=== PATIENT | female | born 1985 | race Caucasian/White ===

== ENCOUNTER 2022-04-24 07:15 | Outpatient (CLI) | payer BC, SELFPAY ==
--- NOTE | 2022-04-24 07:15 | CRLHL7_ITS ---
For Patients: As a result of the Century Cures Act, medical imaging exams and procedure reports are released immediately into your electronic medical record. You may view this report before your referring provider. If you have questions, please contact your health care provider. INDICATION: check cervical length COMPARISON: 03/05/2022 TECHNIQUE: Limited pelvic ultrasound with transvaginal technique for cervical length measurements. FINDINGS: The cervix is closed and measures 3.8 cm. Incidental small nabothian cysts are present. No funneling. IMPRESSION: Cervix is closed and measures 3.8 cm by transvaginal technique. Dictated by Storm Parker MD @ 04/24/2022 8:53:16 AM (Electronically Signed)
== END 2022-04-24 07:16 | disposition home or self-care (01) ==
LOC: US 07:16
PROVIDERS: Visit Provider Obstetrics & Gynecology
DX: Z36.86 Encounter for antenatal screening for cervical length (principal); O34.80 Maternal care for other abnormalities of pelvic organs, unspecified trimester; Z3A.00 Weeks of gestation of pregnancy not specified; Z87.59 Personal history of other complications of pregnancy, childbirth and the puerperium
CPT/HCPCS: 76817

== ENCOUNTER 2022-05-10 14:56 | Outpatient (CLI) | payer BC, SELFPAY ==
--- NOTE | 2022-05-10 15:00 | CRLHL7_ITS ---
For Patients: As a result of the Cures Act, medical imaging exams and procedure reports are released immediately into your electronic medical record. You may view this report before your referring provider. If you have questions, please contact your health care provider. INDICATION: cx length check. COMPARISON: 04/24/2022 TECHNIQUE: Transabdominal and transvaginal imaging of the cervix performed. FINDINGS: Sonographic imaging demonstrates a single living intrauterine gestation. Fetus demonstrates a regular cardiac rate of 159 beats per minute. Fetus has a breech position. The placenta lies posteriorly. The edge of the placenta is located at the internal cervical os. The cervix is closed and measures 4.2 cm. IMPRESSION: With transvaginal imaging, the cervix is closed and measures 4.2 cm. No funneling. The posterior placenta edge abuts the internal cervical os. Dictated by Storm Parker MD @ 05/10/2022 3:51:45 PM (Electronically Signed)
== END 2022-05-10 14:57 | disposition home or self-care (01) ==
LOC: US 14:57
PROVIDERS: Visit Provider Obstetrics & Gynecology
DX: O09.212 Supervision of pregnancy with history of pre-term labor, second trimester (principal); Z3A.18 18 weeks gestation of pregnancy
CPT/HCPCS: 76815; 76817

== ENCOUNTER 2022-05-31 16:24 | Outpatient (CLI) | payer BC, SELFPAY ==
--- OUTSIDE RECORDS SUMMARY | 2022-05-31 16:26 | XMS_ITS | Encounter Summary ---
:1985 Author Organization [facility] Address [address] [place] [address] Care Team Providers Name Role Phone Unavailable Primary Care Provider Unavailable Reason for Visit Reason Comments Communication Encounter Details Date Type Department Care Team Description 10/21/2020 Clinical Communication [facility], Horacio Cisneros, Communication [facility], [address] [place] [address] MAR Third Floor [place], [place] [address] [address] [place], [place] [phone] (Work) [phone] Social History Tobacco Use Types Packs/Day Years Used Date Smoking Tobacco: Never Smokeless Tobacco: Never Alcohol Use Standard Drinks/Week Comments Not Currently 0 (1 standard drink = 0.6 oz pure alcoho l) Alcohol Habits Answer Date Recorded How often do you have a drink containing alcohol? 2-4 times a month 12/12/2020 How many drinks containing alcohol do you have on a or 2 12/12/2020 typical day when you are drinking? How often do you have six or more drinks on one Less than mo nthly 12/12/2020 occasion? Comment: Not asked Social Isolation Answer Date Recorded In a typical week, how many times do you More than three fletcher es a week 12/12/2020 talk on the phone with family, friends, or neighbors? How often do you get together with friends Twice a week 12/12/2020 or relatives? How often do you attend bahai or 1 to 4 times per year 11/22 hinduism services? Do you belong to any clubs or No 12/12/2020 organizations such as bahai groups, unions, fraternal or athletic groups, or school groups? How often do you attend meetings of the Never 12/12/2020 clubs or organizations you belong to? Are you now , , , 12/12/2020 , never or living with a partner? Physical Activity Answer Date Recorded On average, how many days per week do you engage in moderate to 1 day 12/12/2020 strenuous exercise (like walking fast, running, jogging, dancing, swimming, biking, or other activities that cause a light or heavy sweat)? On average, how many minutes do you engage in exercise at is 10 min 12/12/2020 level? Stress Answer Date Recorded Do you feel stress - tense, restless, nervous, or To some ex tent 12/12/2020 anxious, or unable to sleep at night because your mind is troubled all the time - these days? Financial Resource Strain Answer Date Recorded How hard is it for you to pay for the very basics like Not h vickie at all 12/12/2020 food, housing, medical care, and heating? Food Insecurity Answer Date Recorded Within the past 12 months, you worried that your food would Never true 12/12/2020 run out before you got money to buy more. Within the past 12 months, the food you bought just didn't N ever true 12/12/2020 last and you didn't have money to get more. Transportation Needs Answer Date Recorded In the past 12 months, has lack of transportation kept you f rom No 12/12/2020 medical appointments or from getting medications? In the past 12 months, has lack of transportation kept you f rom No 12/12/2020 meetings, work, or getting things needed for daily living? Sex Assigned at Date Recorded Not on file documented as of this encounter Miscellaneous Notes Telephone Encounter - Gennaro Cisneros R.N. - 10/21/2020 9:29 AM CST SUBJECTIVE CHIEF COMPLAINT / REASON FOR CALL Communication ASSESSMENT Patient calling with concern for presentation in the vagina. States she can feel the baby very low when she went to the bathroom. States she is able to feel her in the vagina. Patient d/c from unit on 10/20/20 for previable PPROM. Gestation 21.4 today. Patient want to know where to be seen. She is an hour from [place] and 20 min from [place]. PLAN Discussed with Dr Bowman and [facility] Room RN. Patient advised to be seen immediately at nearest facility. Disposition/Recommendation: referral for services Nearest ED or OB Facility. Information/Education: patient/caller able to teach back. Caller agreeable to plan of care: yes. The following references were used: provider Dr Bowman. EACH LIBRARIAN documented in this encounter Plan of Treatment Not on filedocumented as of this encounter Visit Diagnoses Not on filedocumented in this encounter
--- OUTSIDE RECORDS SUMMARY | 2022-05-31 16:26 | XMS_ITS | Encounter Summary ---
:1985 Author Organization [facility] Address [address] [place] [address] Care Team Providers Name Role Phone Unavailable Primary Care Provider Unavailable Reason for Visit Outpatient (Routine) - Closed Specialty Diagnoses / Procedures Referred By Contact Refer red To Contact Maternal and Diagnoses Premature Rupture Of Membranes Unspecified As To Length Of Time Between Rupture And Onset Of Labor Second Trimester ([facility]) 21 Weeks Gestation ([facility]) [facility] Janelle Dominguez M.D. [address] [place] [address] Referral ID Status Reason Start Date Expiration Date Visits Requ ested Visits Authorized [id number] Closed 11/02/2020 11/02/2021 1 1 Encounter Details Date Type Department Care Team Description 12/16/2020 Telemedicine Department of Saqib Strong, Diana ture Rupture Of Membranes Unspecified As To Length Of Time Between Rupture And Onset Of Labor Second Trimester; Obstetrics and M.D. 21 Weeks Gestation Gynecology in [address] [place] [address] [place] [place] [id number] [place], [place] [phone] (Work) [phone] Social History Tobacco Use Types Packs/Day Years Used Date Smoking Tobacco: Never Smokeless Tobacco: Never Alcohol Use Standard Drinks/Week Comments Not Currently 0 (1 standard drink = 0.6 oz pure alcoho l) Alcohol Habits Answer Date Recorded How often do you have a drink containing alcohol? 2-4 times a month 12/12/2020 How many drinks containing alcohol do you have on a 1 or 2 12/12/2020 typical day when you [...] or relatives? How often do you attend taoist or 1 to 4 times per year 11/22 jew services? Do you belong to any clubs or No 12/12/2020 organizations such as taoist groups, unions, fraternal or athletic groups, or [...] minutes do you engage in exercise at th is 10 min 12/12/2020 level? Stress Answer [...] or getting things needed for daily living? Education Answer Date Recorded What is the highest level of school Associate degree: zonia valdovinos, 12/11/2020 you have completed or the highest technical, or vocational p [facility] degree you have received? Sex Assigned at Date Recorded Not on file documented as of this encounter Consult Notes Saqib Strong M.D. - 12/16/2020 8:00 AM CST Consult conducted via real-time audio/video technology by Saqib Strong M.D. in [facility] to the patient in patient home. 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 Mrs. Salinas's obstetrical history is significant for three term vaginal deliveries and one first-trimester miscarriage. In her fifth (2019), she was admitted o [facility] following spontaneous PPROM at 21 weeks gestation. Ultrasound demonstrated normal anatomy and biometry; olig ohydramnios was noted (as anticipated). After an interval of inpatient observation, Mrs. Salinas and her elected to pursue expectant management and were discharged to home. Subsequently she developed labor at 21 weeks and delivered her daughter in [place]; her daughter appeared morphologically normal, and survived for approximately 60 minutes. Difficulty was encountered with retained placenta, requiring manual extraction and D&C; Mrs. Salinas was treated with a course of intravenous antibiotic therapy. 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 Salinas experienced retained placenta requiring manual extraction in her first as well. Regarding her heterozygous prothrombin [id number] heterozygote status, Mrs. Salinas was screening for thrombophilias after an aunt experienced an episode of thrombosis and tested positive for Factor V Leiden and the Prothrombin [id number] mutation; neither she personally nor any first-degree relatives have experienced an episode of thrombosis. MEDICAL HISTORY: None SURGICAL HISTORY: D&C (2) GYNECOLOGIC HISTORY: No abnormal pap smears or STIs MEDICATIONS: vitamins ALLERGIES: Penicillin (rash) Salicylates (glossal edema) although no difficulties with ibuprofen SOCIAL: No tobacco or alcohol use; no previous blood transfusions. There is no maternal or paternal history of congenital anomalies or genetic syndromes (other than the Prothrombin mutation). Mrs. Salinas and I discussed management of future : * Recurrence risk of previable PPROM is approximately 17%, with overall rate of delivery of 46% in the subsequent . ([place] 2016) Potentially beneficial interventions (presuming richardson gestation) include: - 17-hydroxyprogesterone prophylaxis beginning at 16-20 weeks and continuing through 36 weeks (inclusive), although therapeutic efficacy has been questioned in the recent PROLONG (2019) trial. - Sonographic serial cervix length surveillance from 16-22 weeks, with consideration of cerclage placement if cervix length shortens to <25mm. In regards to future management, I would consider: Antepartum: 1.Preconception supplementation with vitamins containing folic acid to reduce risk of fetalspina bifida. 2. Once Mrs. Salinas and her conceive, early ultrasound (7-8 weeks) to determine viability/number and define gestational age. (in [place]) 3. Maternal cystic fibrosis/SMA and aneuploidy screening at 10-12 weeks (per her preference). 4. Consideration of early anatomic ultrasound at 11-14 weeks. 5. Sonographic cervix length surveillance beginning at 16 weeks and repeated weekly through 22 6/7 weeks, with contingent cerclage placement if cervix length shortens to <25mm prior to 23 0/7 weeks.(initial imaging study in [place]) 6. Consideration of 17-hydroxyprogesterone caprate prophylaxis (250mg IM weekly), beginning at 16-20weeks and continuing through 36 weeks. 7. Detailed anatomic survey ultrasound at 18-20 weeks. (in [place]) 8. Repeat ultrasound at 30-32 weeks to evaluate placental appearance for any evidence of accreta. 9. Consider induction of labor at 39 0/7-39 6/7 weeks; this may be scheduled either in [place] or in [place] pending resource availability. Mrs. Salinas resides approximately 1 hour from [place]. Intrapartum: 10. Obtain CBC and type & screen at time of admission. 11. Anesthesiology consultation and maintain two patent IVs. 12. Following delivery, if spontaneous placental delivery does not occur, relocate to an operating room (with uterotonic medications and Bakri balloon immediately available) prior to attempting manual placental extraction or D&C. 13. If hemorrhage were to occur refractory to uterotonic medications and uterine curettage, consider Bakri balloon placement and Interventional Radiology embolization. I have asked Mrs. Salinas to contact me when she and her conceive, and I will arrange for initial appointments in [place]. Further care may be coordinated between [place] and [place]. I will also forward materials regarding placenta accreta occulta. Saqib Strong M.D. ATION COURSES SALES REPRESENTATIVE documented in this encounter Plan of Treatment Not on filedocumented as of this encounter Visit Diagnoses Diagnosis Premature Rupture Of Membranes U nspecified As To Length Of Time Between Rupture And Onset Of Labor Second Trimes ter ([facility]) 21 Weeks Gestation ([facility]) documented in this encounter
--- OUTSIDE RECORDS SUMMARY | 2022-05-31 16:26 | XMS_ITS | Encounter Summary ---
:1985 Author [address] [facility] Address [address] [place] [address] Care Team Providers Name Role Phone Unavailable Primary Care Provider Unavailable Reason for Referral Outpatient (Routine) - Closed Specialty Diagnoses / Procedures Referred By Contact Refer red To Contact Maternal and Diagnoses Premature Rupture Of Membranes Unspecified As To Length Of Time Between Rupture And Onset Of Labor Second Trimester ([facility]) 21 Weeks Gestation ([facility]) [facility] Janelle Dominguez M.D. 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 21 Weeks Gestation [address] [facility] [address] [place] [address] [place], [place] [phone] Social History Tobacco Use Types Packs/Day Years [...] or relatives? How often do you attend methodist or 1 to 4 times per year 11/22 zoroastrian services? Do you belong to any clubs or No 12/12/2020 organizations such as methodist groups, unions, fraTao Sales or athletic groups, or school groups? How [...] on file documented as of this encounter Plan of Treatment Scheduled Referrals Name Type Priority Associated Diagnoses Order S [facility] Obstetrics Referral Outpatient Referral Routine Premat ure Expected: Rupture Of Membranes 021 Unspecified As To (Approxima te), Length Of Time Expires: Between Rupture And 11/02/19 24 Onset Of Labor Second Trimester 21 Weeks Gestation documented as of this encounter Visit Diagnoses Diagnosis Premature Rupture Of Membranes U nspecified As To Length Of Time Between Rupture And Onset Of Labor Second Trimes ter (HCC) - Primary 21 Weeks Gestation (HCC) documented in this encounter
--- OUTSIDE RECORDS SUMMARY | 2022-05-31 16:26 | XMS_ITS | Clinical Summary ---
:1985 Author Organization [facility] Address [address] [place] [address] Care Team Providers Name Role Phone Unavailable Primary Care Provider Unavailable Source Comments Patient records contain information from all sites at [facility]. For routine questions regarding patient records, call [phone] during business hours, M-F 8:00 AM - 5:00 PM Central Time. Record requests for emergency care only can be directed to [phone] at any time.[facility] Allergies Active Allergy Reactions Severity Noted Date Comments Penicillins Rash 10/18/2020 Salicylates Edema 10/18/2020 Swollen tongue Medications Medication Sig Dispensed Refills Start Date End Date Status Take 1 tablet by 0 Act angela llutart-Wm-ymgw-FA mouth daily. (VINATE ONE) 60 mg iron-1 mg per tablet butalbital-acetaminoph TK 1 TO 2 TS PO Q 0 0 Active en-caff (FIORICET, 4 H NEEDED. MAX ESGIC) 50-325-40 mg 6 PER DAY per tablet ibuprofen 0 10/22/2020 Active (ADVIL,MOTRIN) 600 mg tablet Active Problems Problem Noted Date 21 Weeks Gestation 10/18/2020 Premature Rupture Of Membranes Unspecified As To Length Of Time 10/18/2020 Between Rupture And Onset Of Labor Second Trimester Social History Tobacco Use Types Packs/Day Years [...] or relatives? How often do you attend jehovah's witness or 1 to 4 times per year 11/22 denominational services? Do you belong to any clubs or No 12/12/2020 organizations such as jehovah's witness groups, unions, fraternal or athletic groups, or [...] or the highest technical, or vocational p zaki degree you have received? 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 Pulse 81 10/20/2020 12:39 PM C D AREA SUPERVISOR Temperature 37.2 ??C (99 ??F) 10/20/2020 12:39 PM C D AREA SUPERVISOR Respiratory Rate 18 10/20/2020 12:39 PM C D AREA SUPERVISOR Oxygen Saturation 99% 10/20/2020 12:39 PM C D AREA SUPERVISOR Inhaled Oxygen Concentration - - Weight 56.3 kg (124 lb 1.9 oz) 10/19/2020 6:30 AM C D AREA SUPERVISOR Height - - Body Mass Index - - Plan of Treatment Health Maintenance Due Date Last Done Comments Cervical Cancer Screening 1985 Hepatitis B Vaccines (1 of 3 1985 - 3-dose series) Hepatitis C Screening 1985 Depression Screening (Annual 10/21/2021 PHQ-2) COVID-19 Vaccine (3 - Booster 05/01/2022 12/02/2021, for Pfizer series) 11/05/2021 Influenza Vaccine (#1) 2022 08/11/2020, 08/26/2014, 09/15/2012 DTaP,Tdap,and Td Vaccines (3 09/09/2024 09/09/2014, - Td or Tdap) 05/24/2011 HIV Screening Completed 10/18/2020 Pneumococcal vaccine (0-64 Aged Out No lo nger eligible based years) on patient's age to complete this to [facility] Insurance Payer Benefit Plan / Subscriber ID Effective Dates Phone Addre ss Type Group [place] [id number] 2020-[place]uki [phone] [address] PPO BLUE SHIELD [address] [place] [address] Advance Directives For more information, please contact: [phone] Latest Code Status on File Code Status Date Activated Date Inactivated Comments Full Code 10/18/2020 7:51 PM 10/20/2020 2:51 PM Full Code: Not Discussed Due to: Not medically appropriate
--- OUTSIDE RECORDS SUMMARY | 2022-05-31 16:26 | XMS_ITS | Continuity of Care Document ---
:[address] [facility] Address [address] [place] [address]- [facility] [phone] Care Team Providers Name Role Phone Not Known, Provider Primary Care Physician Unavailable [facility] Unavailable Encounter [facility] Unsocial Date(s): 05/23/22 - 05/23/[address] [address] Discharge Disposition: Home/Self Care Attending Physician: Heather Hernandes MD Admitting Physician: Heather Hernandes MD Care Team PersonnelName: Not Known , ProviderName: [facility] Address: [facility] [address] [place], [place] [address]
--- OUTSIDE RECORDS SUMMARY | 2022-05-31 16:27 | XMS_ITS | Encounter Summary ---
:1985 Author Organization [facility] Address [address] [place] [address] Care Team Providers Name Role Phone Unavailable Primary Care Provider Unavailable Reason for Visit Auth/Cert Specialty Diagnoses / Procedures Referred By Contact Refer red To Contact Diagnoses 22 Weeks Gestation (HCC) Procedures DIR Referral ID Status Reason Start Date Expiration Date Visits Requ ested Visits Authorized [id number] 1 1 Encounter Details Date Type Department Care Team Description 10/19/2020 Hospital Encounter Department of Josey Tse Obstetrics and [facility] Gynecology in [address] [place] [address] [place] [id number] [place], [place] [phone] (Wo rk) [phone] Social History Tobacco Use Types Packs/Day Years [...] or relatives? How often do you attend roman catholic or 1 to 4 times per year 11/22 jew services? Do you belong to any clubs or No 12/12/2020 organizations such as roman catholic groups, unions, fraternal or athletic groups, or [...] on file documented as of this encounter Medications at Time of Discharge Medication Sig Dispensed Refills Start Date End Date [id number] TK 1 TO 2 TS PO Q 4 H 0 09/08/2020 aff (FIORICET, ESGIC) NEEDED. MAX 6 PER 50-325-40 mg per tablet DAY Take 1 tablet by 0 [id number] (VINATE mouth daily. ONE) 60 mg iron-1 mg per tablet documented as of this encounter Plan of Treatment Not on filedocumented as of this encounter Procedures Procedure Name Priority Date/Time Associated Comments Diagnosis US OB ANATOMY RAD - Routine 10/19/2020 1:21 Results fo r this ANGUIANO (most inpatients PM DRUM PULLER procedure a re in and all the results outpatients) section. documented in this encounter Results US OB Anatomy Anguiano (10/19/2020 1:21 PM DRUM PULLER) Anatomical Region Laterality Modality Body, Ultrasound OB RST LOS, Ultrasound ARZ LOS N/A Ultrasound Specimen (Source) Anatomical Location Collection Method / Collectio n Time Received Time / Laterality Volume Narrative 10/19/2020 1:27 PM DRUM PULLER LAURA LOWE OB Exam, 10/19/2020 EXAM INFORMATION Patient Name: ??LAURA LOWE : ??1985 Age: ??34 yrs Sex: ??Female Ref Phys: ??JOSEY TSE Exam Date: 10/19/2020 Procedure: US OB ANATOMY ANGUIANO Exam Site: [facility] Plurality: 1 INDICATIONS FOR SONOGRAPHY Anatomic Survey IMPRESSION Anhydramnios, kidneys appear to be prese nt. Exam limited by anhydramnios. NPD MEASUREMENTS ??kellie ??wks [+/-] (R amy) % ?? BPD: 4.9 cm ?20w6d ??[+/-1.73] ??(4 .47 - 5.64) 30% FL: 3.36 cm ?? 20w4d ??[+/-1.80] ??(3.0 5 - 4.23) 18% HC: 18.63 cm ?? 21w0d ??[+/-1.48] ??(17 .31 - 21.23) 26% AC: 16.37 cm ?? 21w3d ??[+/-2.06] ??(13 .82 - 19.08) 48% HL: 3.34 cm ?? 21w1d ? (2.86 - 3.86) 48% TCD: 2.46 cm ?? 23w3d ??[+/-1.80] ??(1. 96 - 2.40) >98% NF: 3.9 mm ? Cisterna Magna: 0.51 cm ? Lateral Ventricle: 0.7 cm ? RATIOS ??(Range) % ?? HC/AC: 1.14 ?(1.06 - 1. 25) 44% ?? FL/BPD: 0.69 ? FL/AC: 0.21 ? COMPUTATIONS GA: ?? 21w2d [+/-1.40] Method: BUTCH BUTCH: 02/27/2021 Sono GA: 20w4d [+/-1.40] Method: ?? BPD, HC, AC, FL OBSERVATIONS Amniotic Fluid Fluid Volume: ??Oligohydramnios Placenta: Placenta is Posterior, Fundal. ?? Presentation: ?? Variable Size: ?? Normal for dates FHR: 160 bpm ANATOMY Normal: spine, cerebellum, cisterna magn a, cerebral ventricle, choroid plexus, nuchal thickness, 4 chamber heart, LVOT, 3 vessel view, ductal arch, diaphragm, cord insert into placenta, 3 vessel cord, kidneys, bladder Not Seen: RVOT, aortic arch, anterior ab dominal wall, abdominal cord insertion, stomach, face, upper lip/nose, orbits, upper extremities, lower extremities, hands, feet COMMENTS Transabdominal ultrasound was performed. Normal Anatomy Scan Anguiano . Size equals dates b y LMP, first trimester ultrasound. The Placenta is without evidence of previa. The adnexae appear normal. Preliminary Read by Ilir Moss on 1:21:30 PM. Oil Burner Journeyman: ??Ilir Moss Thank You For This Referral Procedure Note Eamon Dawson M.B.B.S., M.D. - 10/19 LAURA LOWEBHARTI OB Exam, 10/19/2020 EXAM INFORMATION Patient Name: LAURA LOWE S : 1985 Age: 34 yrs Sex: Female Ref Phys: JOSEY TSE Exam Date: 10/19/2020 Procedure: US OB ANATOMY ANGUIANO Exam Site: [facility] Plurality: 1 INDICATIONS FOR SONOGRAPHY Anatomic Survey IMPRESSION Anhydramnios, kidneys appear to be prese nt. Exam limited by anhydramnios. NPD MEASUREMENTS kellie wks [+/-] (Range ) % BPD:4.9 cm 20w6d [+/-1.73] (4.47 - 5.64 ) 30% FL: 3.36 cm 20w4d [+/-1.80] (3.05 - 4.2 3) 18% HC: 18.63 cm 21w0d [+/-1.48] (17.31 - 2 1.23) 26% AC: 16.37 cm 21w3d [+/-2.06] (13.82 - 1 9.08) 48% HL: 3.34 cm 21w1d (2.86 - 3.86) 48% TCD:2.46 cm 23w3d [+/-1.80] (1.96 - 2.4 0) >98% NF: 3.9 mm Cisterna Magna:0.51 cm Lateral Ventricle:0.7 cm RATIOS (Range) % HC/AC:1.14 (1.06 - 1.25) 44% FL/BPD:0.69 FL/AC:0.21 COMPUTATIONS GA: 21w2d [+/-1.40] Method: BUTCH BUTCH: 02/27/2021 Sono GA: 20w4d [+/-1.40] Method: BPD, HC, AC, FL OBSERVATIONS Amniotic Fluid Fluid Volume: Oligohydramnios Placenta: Placenta is Posterior, Fundal. Presentation: Variable Size: Normal for dates FHR: 160 bpm ANATOMY Normal: spine, cerebellum, cisterna magn a, cerebral ventricle, choroid plexus, nuchal thickness, 4 chamber heart, LVOT, 3 vessel view, ductal arch, diaphragm, cord insert into placenta, 3 vessel cord, kidneys, bladder Not Seen: RVOT, aortic arch, anterior ab dominal wall, abdominal cord insertion, stomach, face, upper lip/nose, orbits, upper extremities, lower extremities, hands, feet COMMENTS Transabdominal ultrasound was performed. Normal Anatomy Scan Anguiano . Size equals dates b y LMP, first trimester ultrasound. The Placenta is without evidence of previa. The adnexae appear normal. Preliminary Read by Ilir Moss on 1:21:30 PM. Oil Burner Journeyman: Ilir Moss Thank You For This Referral Josey Tse M.D. IMG OB US PROCEDURES documented in this encounter Visit Diagnoses Not on filedocumented in this encounter
--- OUTSIDE RECORDS SUMMARY | 2022-05-31 16:27 | XMS_ITS | Encounter Summary ---
:1985 Author Organization [facility] Address [address] [place] [address] Care Team Providers Name Role Phone Unavailable Primary Care Provider Unavailable Encounter Details Date Type Department Care Team Description 10/20/2020 Anesthesia Event [facility], Kandis Stock, [facility], BAND TIER, PLATE DEVELOPER, DNAP [facility], Third Floor [address] [place] [address] Anesthesia Record Procedure Summary Procedure Name Responsible Anesthesia Start Anesthesia Stop Time Anesthesiologist Time LABOR SAFETY SCREEN Events No events on file. No medications on file. Agents No agents on file. Blood No blood administrations on file. Lines, Drains, and Airways No LDAs on file. documented in this encounter Social History Tobacco Use Types Packs/Day Years [...] or relatives? How often do you attend faith or 1 to 4 times per year 11/22 roman catholic services? Do you belong to any clubs or No 12/12/2020 organizations such as faith groups, unions, fraternal or athletic groups, or [...]
--- OUTSIDE RECORDS SUMMARY | 2022-05-31 16:27 | XMS_ITS | Encounter Summary ---
:1985 [address] [facility] Address [address] [place] [id number] Care Team Providers Name Role Phone Unavailable Primary Care Provider Unavailable Reason for Visit Reason Comments Rupture of Membranes Contractions Auth/Cert Specialty Diagnoses / Procedures Referred By Contact Refer red To Contact Diagnoses 22 Weeks Gestation (HCC) Procedures DIR Referral ID Status Reason Start Date Expiration Date Visits Requ ested Visits Authorized [id number] 1 1 Encounter Details Date Type Department Care Team Description 10/18/2020 - Hospital Encounter [facility] Jordyn Wild M.D. [address] [place] [phone] 22 Weeks Gestation (Primary Dx) ; 10/20/2020 [facility], Erin Villagran M.D., M.P.H. [address] [place] [phone] 21 Weeks Gestation ; [place], Heather Ott M.D. [address] [place] [phone] Premature Rupture Of Membranes U nspecified As To Length Of Time Between Rupture And Onset Of Labor Second Trimester Building, Third Floor [address] [place] [address] Social History Tobacco Use Types Packs/Day Years [...] or relatives? How often do you attend catholic or 1 to 4 times per year 11/22 alevism services? Do you belong to any clubs or No 12/12/2020 organizations such as catholic groups, unions, fraternal or athletic groups, [...] on file documented as of this encounter Last Filed Vital Signs Vital Sign Reading Time Taken Comments Blood Pressure 116/69 10/20/2020 12:39 PM SIGNAL TOWER OPERATOR Pulse 81 10/20/2020 12:39 PM SIGNAL TOWER OPERATOR Temperature 37.2 ??C (99 ??F) 10/20/2020 12:39 PM SIGNAL TOWER OPERATOR Respiratory Rate 18 10/20/2020 12:39 PM SIGNAL TOWER OPERATOR Oxygen Saturation 99% 10/20/2020 12:39 PM SIGNAL TOWER OPERATOR Inhaled Oxygen Concentration - - Weight 56.3 kg (124 lb 1.9 oz) 10/19/2020 6:30 AM SIGNAL TOWER OPERATOR Height - - Body Mass Index - - documented in this encounter Discharge Summaries Saqib Strong M.D. - 10/20/2020 12:07 PM CST DISCHARGE SUMMARY BRIEF OVERVIEW Hospital: [facility] Discharge Provider: Erin Alarcon M.D. Primary Team: [facility] No primary care provider on file. Primary Care Provider Phone Number: None Primary Care Provider Fax Number: [phone] Other Providers: Dr. Strong Admission Date: 10/18/2020 Discharge Date: 10/20/20 PRINCIPAL DIAGNOSIS 21 Weeks Gestation SECONDARY DIAGNOSES Principal Problem: 21 Weeks Gestation Active Problems: Premature Rupture Of Membranes Unspecified As To Length Of Time Between Rupture And Onset Of Labor Second Trimester Resolved Problems: * No resolved hospital problems. * DISCHARGE DISPOSITION Home or Self Care [1] ACTIVE ISSUES REQUIRING FOLLOW UP None OUTPATIENT FOLLOW UP For appointment details refer to your Patient Appointment Guide. TEST RESULTS PENDING AT DISCHARGE Pending Labs None DETAILS OF HOSPITAL STAY REASON FOR ADMISSION 22 Weeks Gestation HOSPITAL COURSE Jim Lowe is a 34 y.o who presented at 21w1 for previable PPROM. She was admitted from 10/19-. She weighed her options and then decided to pursue expectant management. She will return in one week for neonatology consult, [facility] return visit and further discussion of when she would like to be re-admitted. She was discharged home in stable condition. //Miriam Ruggiero MD CONSULTS ORDERED DURING THIS ADMISSION CONDITION AT DISCHARGE Stable Discharge instructions were provided to the patient and caregiver(s). AL TOWER OPERATOR documented in this encounter Medications at Time of Discharge Medication Sig Dispensed Refills Start Date End Date Take 1 tablet by 0 [id number]-Gm-[id number]-FA (VINATE mouth daily. ONE) 60 mg iron-1 mg per tablet [id number]-mfarkenwsclhf-f TK 1 TO 2 TS PO Q 4 H 0 09/08/2020 aff (FIORICET, ESGIC) NEEDED. MAX 6 PER 50-325-40 mg per tablet DAY documented as of this encounter H&P Notes Sierra Welch M.D. - 10/18/2020 7:48 PM CST OBSTETRICS AND GYNECOLOGY ADMISSION H&P REASON FOR ADMISSION Previable PPROM SUBJJECTIVE Jim Lowe is a 34 y.o. with an Estimated Date of Delivery: 02/27/2021. Gestational age is 21w1. Dated by LMP and confirmed with a 6 week US. She is presenting for previable premature rupture of membranes. Patient states that she had a large gush of fluid at about 0300 on 10/18/2020. She did present to her local professor of sport management did have a speculum exam completed however given the gestational age at the time rupture the patient was transferred from [place] for assessment and outpatient consultation with Maternal Medicine. Patient states that after she had her speculum examination she began to have painful contractions that were 8/10 in severity but irregular. She did not describe any episodic fevers, chills, nausea, vomiting, purulent discharge. She has not had any fundal or abdominal tenderness. She has had a history of a subchorionic hemorrhage and did have intermittent bleeding and spotting in the first trimester of however that is resolved. She denies any new sexual partners or risk factors for gonorrhea/chlamydia. She does not report any burning pain with urination or any cloudyepisodes of urine. The patient does not have any pertinent medical history. She does not take any medications outside of a vitamin. She does not have any known hypertensive diseases of or diabetes. 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 She has never needed to be placed on anticoagulation. She does not have any tobacco or drug use in . She has a varied and healthy diet. She has not had any abdominal surgeries. The patient states that she did have a dilation and curettage after an incomplete but does not report any other gynecological disorders. She has had three prior term vaginal deliveries with no complications or intrapartum concerns. 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 OBJECTIVE VITAL SIGNS Temperature: [37.1 ??C] 37.1 ??C Heart Rate: [79] 79 Resp Rate: [19] 19 Blood Pressure: (116)/(62) 116/62 SpO2: [99 %] 99 % Weight: [56 kg] 56 kg Pulse Rate: [82] 82 PHYSICAL EXAM Constitutional: no complaints heart tones: Doppler heart rate was intermittently between 80s-110s Contractions: irregular Membranes: Previable PPROM. Positive pooling of amniotic fluid in the posterior fornix. Positive ferns seen on microcopy. Cervix: Evaluated by digital exam. and Dilation: 3-4 cm dilation presentation: vertex determined by Ultrasound ASSESSMENT / PLAN It was a pleasure to meet with Ms. Jim Lowe and her in triage and labor and delivery albeit under these quite unfortunate circumstances. I explained to the patient and her howwe diagnose previable PPROM. The patient is fern positive on microscopy, anhydramnios on ultrasound and positive pooling. The fluid did have a dark brown tinge. In triage the FHR was in the low 60s andthe patient did experience contractions intermittently that she received fentanyl x 2. Given these findings, I did recommend to the patient admission to labor and delivery for monitoring of her symptoms and contractions. Unfortunately there is no identifiable cause for previable PPROM however it is likely that this occurred due to a subclinical infection. We described the maternal and risks associated with this diagnosis. With respect to the maternal risks, we did detail that the most significant risk is maternal infection and progression to sepsis with a polymicrobial nature. We additionally did detail the risks that should she become septic she would be at increased risk of a life-threatening hemorrhage potentially requiring the removal of her uterus via a hysterectomy. She could require several units of blood products and even possibly a stay in the ICU. Additionally we did briefly discuss with her risks to the with respect to her previable PPROM which includes but is not limited to the development of chorioamnionitis, pulmonary hypoplasia, intraventricular bleed, sepsis, high possibility of intrauterine demise or demise, complications associated with extremes of prematurity such as associated lengthy NICU stays, interventions and still overall poor prognosis with life long disabilities including cerebral palsy at this gestational age. Furthermore I did reiterate to the patient that at this gestational age we would not be able to offer obstetrical interventions in the way of steroids, magnesium sulfate for neuro protection or latency antibiotics. I informed her that we would not be doing monitoring or perform a delivery for indications but would offer surgical recommendations or augmentation of labor should she develop maternal symptoms such as hemodynamic instability, chorioamnionitis, sepsis or concerns for a placental abruption. We did discuss that the patient could be considered for steroids at 21 weeks and 5 days should she deliver at 22 weeks or beyond and there be maternal request for resuscitation. We did state that 22 weeks in general is on the lower threshold of viability. I did discuss with the patient the three general options to consider for pre- viable PPROM: 1) Augmentation of Labor: Given the risk of maternal sepsis and hemodynamic instability, I did discuss augmentation of labor with IV pitocin as the patient is torey naturally and has required several doses of narcotic medication. Fetus is in the cephalic presentation and she has had a history ofvaginal deliveries. At this point in time the patient does additionally have a WBC count of 19.2 andis currently on gentamycin and clindamycin. She is not febrile, tachycardic or hypotensive. Since she is torey on her own, it would be reasonable to re-assess the situation in several hours. SVE is 3-4 cm of dilation currently. The patient will have a bereavement nurse available should delivery occur this evening. Patient would have an unmonitored vaginal delivery. Patient is desiring intermittent auscultation of the fetus just for knowledge should the fetus demise intrapartum. I did additionally discuss that should patient deliver, there are often times issues with delivery of the placenta and that this can lead to a dilation and curettage to help with removal of the placenta. Patient is understanding of this. 2) Surgical management via dilation and evacuation: Currently the patient is at the upper limit of GA for this procedure. We did discuss the risks and benefits of the procedure and that this would involve dismemberment of the fetus with inability to due autopsy or ability of the patient and her partner to view the fetus after delivery. The patient would like to defer this option. 3) Expectant Management: I did describe to the patient that expectant management would involve assessing the patient for 24-48 hours for signs or symptoms of sepsis and possible dismissal to home with outpatient follow-up and then admission to antepartum at 23 weeks of gestation or the gestational ageat which point the patient would want interventions such as betamethasone and magnesium sulfate. This would be in consultation with our Maternal- Medicine Division and Neonatology with respect to the patient's desires. At this point in time the patient is undecided regarding if she would want to continue the to 21 weeks and 5 days. We did discuss that there is no role for tocolytic agents to prevent the onset of contractions. We did additionally discuss the risk of expectant management as outlined above with high risks of maternal morbidity however this option can be offered should the patient desire prolonging the to a viable gestational age. Maternal: VITALS: per unit protocol, watch for signs and symptoms of infection DIET: regular LABS: CBC/ Type and Screen/ HbSAg/ HIV/ Fibrinogen/ GC-Chlamydia/ UA- Urine Culture/ UDS ordered/ Rubella/Varicella testing ordered/ COVID test pending ACTIVITY: Encourage ambulation. SCDs while in bed. Consider pharmacologic prophylactic anticoagulation if there is any concern for prolonged immobility. MEDS: Continue vitamin. IV clindamycin and gentamycin ordered MOOD: SW consult CONSULTS: MFM in AM, Anesthesia consult for labor analgesia : - Neonatology consult ordered but not completed given GA prior to 02/24 - Formal US not ordered pending patients clinical status - No BMZ - No latency antibiotics - No Magnesium sulfate - No monitoring intrapartum - No trial of resuscitation offered Delivery: Mode of delivery will be dictated by routine obstetric indications. The patient is currently undecided about how she would like to proceed. She is fully aware that she could be laboring naturally and can precipitously deliver. It is reasonable at this point to continueto monitor her symptoms. All questions and concerns were addressed with the patient and her at bedside. Patient was seen and evaluated with Dr. Heather Goodrich who agrees with the above discussion Sierra Welch M.D. Obstetrical Chief PGY-3 [id number] AL TOWER OPERATOR Associated attestation - Heather Goodrich M.D. - 10/19/2020 12:27 AM SIGNAL TOWER OPERATOR Critical Care Nurse Specialist Teaching Physician Statement: I have discussed the care of Jim Lowe, including pertinent history and exam findings with the fellow/resident. I have reviewed their note in the electronic medical record. The osei elements of the encounter have been performed/reviewed by me. I agree with the assessment, plan, and orders as documented by the fellow/resident. The level of care submitted represents to the best of my ability the care documented in the medical record today. GC Modifier: This service has been performed in part by a fellow/resident under the direction of a teaching physician. I agree with the assessment and plan as documented by . Maternal Medicine consultation has also been ordered for tomorrow. Emotional support has been given to the patient and her partner. Heather Goodrich M.D. documented in this encounter Procedure Notes Megan Luque R.N. - 10/18/2020 7:42 PM CST Pt seen in Triage for possible Previable PPROM. Pt notes ctx q2-3 minutes rating them a 7/10. Fluid noted to be brown. VSS. RN notified OB resident and asked them to come assess immediately. Pt transferred to LD for delivery upon exam findings of 4-5cm dilation. AL TOWER OPERATOR documented in this encounter Consult Notes Miriam Ruggiero M.D. - 10/20/2020 6:10 AM CST REASON FOR ADMISSION Previable PPROM SUBJJECTIVE Jim Lowe is a 34 y.o. at 21w3d admitted for previable premature rupture ofmembranes. She ruptured on 10/18. Today she reports continued leakage of fluid and small amount of bright red bleeding, some movement, no contractions. Does feel mild lower abdominal cramping. is complicated by: 1) Previable PPROM at 21w1 2) Subchorionic hemorrhage 3) Heterozygous Prothrombin 10958 A PMH: heterozygosity to Prothrombin 40827 A. PSH: none Allergies: PCN (rash as child), salicylates Meds: vitamin OB History 5 Para 3 Term 3 0 AB 1 Living 3 SAB TAB Ectopic Molar Multiple Live Births Did receive betamethasone in two prior pregnancies for labor but delivered at term REVIEW OF SYSTEMS A comprehensive review of systems was negative. OBJECTIVE VITAL SIGNS Temperature: [36.6 ??C-37.3 ??C] 36.9 ??C Heart Rate: [84-90] 84 Resp Rate: [16] 16 Blood Pressure: (92-121)/(47-65) 92/47 Weight: [56.3 kg] 56.3 kg PHYSICAL EXAM General: alert, oriented, well appearing Neck: supple, nontender Respiratory: normal work of breathing Heart: pulse within normal limits Abdomen: gravid, no fundal tenderness Extremities: normal range of motion ASSESSMENT / PLAN Jim Lowe is a 34 y.o. at 21w3d by LMP c/w 7 week ultrasound admitted for pre-viable PPROM. Previable PPROM - Anatomy ultrasound with poor visualization but no anomalies visualized - Patient considering induction vs expectant management vs latency antibiotics and steroids. Would consider latency antibiotics per ACOG if patient desires to prolong the . Would potentially consider BMZ closer to 23 weeks, pending what neonatology would recommend as far as resuscitation given ultrasound findings - Did receive one dose of gent/clinda administered by L&D team but no further antibiotics given.No signs/symptoms of infection at this time. - Patient does understand risks associated with continuing the : 5% risk of maternal sepsis, abruption, loss, and poor rates of survival, especially neurologically intact survival near 23 weeks gestation. Also discussed lung hypoplasia, intraventricular hemorrhage, concern for necrotizing enterocolitis, and potential poor termite renewal inspector neurological outcomes/disability. Have printed her additional studies to read while evaluating her options. Patient and have struggled to decide on induction vs expectant management. Will reassess this afternoon. Maternal - Afebrile, no signs/symptoms of infection. WBC 19 on 10/08 in setting of painful contractions - UDS negative - COVID negative - G/C negative, urine culture pending - Consider Neonatology consult at 21 5/7 if desires expectant management Delivery planning : pending further discussion this afternoon Miriam Ruggiero M.D. AL TOWER OPERATOR Associated attestation - Saqib Strong M.D. - 10/20/2020 11:17 AM SIGNAL TOWER OPERATOR I have discussed the care of Jim Lowe, including pertinent history and exam findings, with the fellow/resident. I have reviewed and edited their note in the electronic medical record.The osei elements of the encounter have been performed/reviewed by me. I agree with the assessment, plan, and orders as documented by the fellow/resident. The level of care submitted represents to the best of my ability the care documented in the medical record today. Very pleasant 34y/o at 21 3/7 weeks admitted for previable PPROM. Overnight Mrs. Lowe has continued to leak amniotic fluid with small amount of bleeding, but otherwise has noted no discrete contractions. heart rate present earlier this morning. Reviewed options of augmentation of laborversus outpatient expectant management with readmission for latency antibiotic prophylaxis/antenatalcorticosteroids at 23 weeks (or per Mrs. Lowe's preference), and she and her will decide this morning. This service has been performed in part by a fellow/resident under the direction of a teaching physician. Saqib Strong M.D. Annita Kaplan L.G.S.W., L.I.C.S.W., M.S.W. - 10/19/2020 1:02 PM SIGNAL TOWER OPERATOR SUBJECTIVE Social work met with the patient and her , Eligio to introduce the role of inpatient social work in the ante unit. Therapeutic support was provided regarding the patients transfer of care and her current medical status related to her . She reflected on her hospital admission and the current options that she and her are contemplating based on her new condition of her , she shares they are awaiting an ultrasound as well for additional information. The patient and her deny any immediate resource concerns related to the hospital admission, a 5 day parking pass is provided. The couple identifies ease of access for healthcare and family support, they havethere own technology to stay connected to their supports. They identify stable housing and employment. Pending the course of the hospitalization the couple will be open to further supportive discussionand resources. A psychosocial assessment is yet to be completed at an appropriate time pending the patients medical course. OBJECTIVE Jim Lowe is a 34 year old female admitted to ante at 21 2/7 weeks gestationas a transfer of care from [place], [place] due to concern for previable premature rupture of membranes. ASSESSMENT / PLAN ASSESSMENT The patient was awake, alert and sitting in her bed, she was tearful, her voice was low and she was somewhat engaged in discussion. Her was seated at the bedside, he appeared somber, he was listening but did not provide information during the discussions. The patient has no known history of chemical use, her mental health history has yet to be explored or discussed. She identifies family supports. The patient is at risk of developing a post mood disorder considering the stress relatedto her current medical condition during . PLAN Social work will continue to be available and if appropriate complete a psychosocial assessment to address resource needs for the patient/family. 5 day parking pass provided 10/19/20. Annita Kaplan [facility], WELDING MACHINE OPERATOR HELPER [employer] 10/19/2020 AL TOWER OPERATOR Miriam Ruggiero M.D. - 10/19/2020 12:09 PM CST REASON FOR ADMISSION Previable PPROM SUBJJECTIVE Jim Lowe is a 34 y.o. with an Estimated Date of Delivery: 02/27/2021. Gestational age is 21w2d. Dated by LMP and confirmed with a 6 week US. She is presenting for previable premature rupture of membranes. Patient states that she had a large gush of fluid at about 0300 on 10/18/2020. She did present to her local professor of sport management did have a speculum exam completed however given the gestational age at the time rupture the patient was transferred from [place] for assessment and outpatient consultation with Maternal Medicine. Patient states that after she had her speculum examination she began to have painful contractions that were 8/10 in severity but irregular. She did not describe any episodic fevers, chills, nausea, vomiting, purulent discharge. She has not had any fundal or abdominal tenderness. She does now feel that she is no longer having contractions. She does have very light vaginal bleeding but no other issues. 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 PSH: none Allergies: PCN (rash as child), salicylates Meds: vitamin OB History 5 Para 3 Term 3 0 AB 1 Living 3 SAB TAB Ectopic Molar Multiple Live Births Did receive betamethasone in two prior pregnancies for labor but delivered at term REVIEW OF SYSTEMS A comprehensive review of systems was negative. OBJECTIVE VITAL SIGNS Temperature: [36.5 ??C-37.1 ??C] 37 ??C Heart Rate: [79-90] 90 Resp Rate: [16-19] 16 Blood Pressure: (103-121)/(62-70) 121/65 SpO2: [96 %-99 %] 99 % Weight: [56 kg-56.3 kg] 56.3 kg Pulse Rate: [70-89] 80 PHYSICAL EXAM General: alert, oriented, well appearing Neck: supple, nontender Respiratory: normal work of breathing Heart: pulse within normal limits Abdomen: gravid, no fundal tenderness Extremities: normal range of motion ASSESSMENT / PLAN Jim Lowe is a 34 y.o. at 21w2d by LMP c/w 7 week ultrasound admitted for pre-viable PPROM. Previable PPROM - Plan formal anatomy US today at 1230 - Patient considering induction vs expectant management vs latency antibiotics and steroids. Would consider latency antibiotics per ACOG if patient desires to prolong the . Would potentially consider BMZ closer to 23 weeks, pending what neonatology would recommend as far as resuscitation given ultrasound findings - Did receive one dose of gent/clinda administered by L&D team but no further antibiotics given.No signs/symptoms of infection at this time. - Patient does understand risks associated with continuing the : 5% risk of maternal sepsis, abruption, loss, and poor rates of survival, especially neurologically intact survival near 23 weeks gestation. Also discussed lung hypoplasia, intraventricular hemorrhage, concern for necr otizing enterocolitis, and potential poor termite renewal inspector neurological outcomes/disability. Have printed her additional studies to read while evaluating her options. Maternal - Afebrile, no signs/symptoms of infection. - WBC 19 on 10/08 in setting of painful contractions - UDS negative - COVID negative - G/C pending, urine culture pending - US pending at 12:30 pm - Neonatology consult ordered but not completed given GA prior to 21 02/24 Delivery: Patient and currently undecided about how best to proceed. Further discussion pending ultrasound results. Miriam Ruggiero M.D. AL TOWER OPERATOR Associated attestation - Raysa Guerin M.D. - 11/14/2020 4:22 AM SIGNAL TOWER OPERATOR I saw and evaluated the patient, participating in the osei portions of the service. I reviewed the fellow???s note. I agree with the fellow???s findings and plan. documented in this encounter Nursing Notes Sergio Steele R.N. - 10/20/2020 12:36 PM CST Problem: PAIN - ADULT Goal: PT VERBALIZES/DEMONSTRATES ADEQUATE COMFORT LEVEL OR BASELINE Outcome: Adequate for Discharge Problem: KNOWLEDGE DEFICIT Goal: Patient/family/caregiver demonstrates understanding of disease process, treatment plan, medications, and discharge instructions Outcome: Adequate for Discharge Problem: INFECTION - ADULT Goal: Absence of infection during hospitalization Outcome: Adequate for Discharge Problem: SKIN/TISSUE INTEGRITY Goal: Skin/Tissue integrity maintained or improved Outcome: Adequate for Discharge Goal: Oral and Nasal mucous membranes remain intact Outcome: Adequate for Discharge Problem: SAFETY ADULT Goal: Maintain a safe environment Outcome: Adequate for Discharge Problem: SAFETY ADULT - RISK FOR FALL AND OR FALL INJURY Goal: Patient remains free from fall/fall injury Outcome: Adequate for Discharge Problem: DISCHARGE PLANNING Goal: Patient discharge needs identified Outcome: Adequate for Discharge Problem: ANTEPARTUM Goal: Maintain as long as maternal and/or condition is stable Outcome: Adequate for Discharge Problem: - VAGINAL/ SECTION Goal: Optimize and maternal status during the process Outcome: Adequate for Discharge Shift Goals: Provide coping support. Identify possible barriers to meeting goals/advancing plan of care: None End of Shift Summary: Patient plans to dismiss home with family for expectant management. Questions answered. AL TOWER OPERATOR Irish Newell R.N. - 10/18/2020 9:29 PM CST Problem: PAIN - ADULT Goal: PT VERBALIZES/DEMONSTRATES ADEQUATE COMFORT LEVEL OR BASELINE Outcome: Progressing Problem: KNOWLEDGE DEFICIT Goal: Patient/family/caregiver demonstrates understanding of disease process, treatment plan, medications, and discharge instructions Outcome: Progressing Problem: INFECTION - ADULT Goal: Absence of infection during hospitalization Outcome: Progressing Problem: SKIN/TISSUE INTEGRITY Goal: Skin/Tissue integrity maintained or improved Outcome: Progressing Goal: Oral and Nasal mucous membranes remain intact Outcome: Progressing Problem: SAFETY ADULT Goal: Maintain a safe environment Outcome: Progressing Problem: SAFETY ADULT - RISK FOR FALL AND OR FALL INJURY Goal: Patient remains free from fall/fall injury Outcome: Progressing Problem: DISCHARGE PLANNING Goal: Patient discharge needs identified Outcome: Progressing Problem: ANTEPARTUM Goal: Maintain as long as maternal and/or condition is stable Outcome: Progressing Problem: - VAGINAL/ SECTION Goal: Optimize and maternal status during the process Outcome: Progressing Shift Goals: Continue with close observation of maternal status, especially related to risk of infection and bleeding. Provide education and emotional support as indicated. Identify possible barriers to meeting goals/advancing plan of care: patient and her are experiencing situational emotional distress at this time due to diagnosis and prognosis. End of Shift Summary: RN reviewed goals for the shift with patient. AL TOWER OPERATOR documented in this encounter Miscellaneous Notes Hospital Course - Miriam Ruggiero M.D. - 10/19/2020 2:32 AM CST Jim Lowe is a 34 y.o who presented at 21w1 for previable PPROM. She was admitted from 10/19-. She weighed her options and then decided to pursue expectant management. She will return in one week for neonatology consult, [facility] return visit and further discussion of when she would like to be re-admitted. She was discharged home in stable condition. //Miriam Ruggiero MD AL TOWER OPERATOR documented in this encounter Plan of Treatment Pending Results Name Type Priority Associated Diagnoses Date/Ti me US OB Limited Imaging RAD - Routine (most 020 8:51 PM inpatients and all SIGNAL TOWER OPERATOR outpatients) Scheduled Orders Name Type Priority Associated Diagnoses Order S chedule US OB Limited Imaging RAD - Routine (most Once fo r 1 inpatients and all Occurrenc es starting outpatients) 10/18/2020 unti l 10/18/2020 documented as of this encounter Procedures Procedure Name Priority Date/Time Associated Comments Diagnosis US OB ANATOMY RAD - Routine 10/19/2020 1:21 Results fo r this ANGUIANO (most inpatients PM SIGNAL TOWER OPERATOR procedure a re in and all the results outpatients) section. RUBELLA ANTIBODIES, Routine 10/19/2020 7:18 Resul ts for this IGG AM SIGNAL TOWER OPERATOR procedure are i n the results section. VARICELLA-ZOSTER Routine 10/19/2020 7:18 Results for this AB, IGG, S AM SIGNAL TOWER OPERATOR procedure are i n the results section. MICROSCOPIC MANUAL Routine 10/19/2020 2:21 Result s for this AM SIGNAL TOWER OPERATOR procedure are i n the results section. BACTERIAL CULTURE, Routine 10/19/2020 2:21 Result s for this AEROBIC + SUSC, AM SIGNAL TOWER OPERATOR procedure ar e in URINE the results section. CONFIRMED DRUG Routine 10/19/2020 2:21 Results fo r this ABUSE PANEL, U AM SIGNAL TOWER OPERATOR procedure are in the results section. CHLAMYDIA/GONORRHOE Routine 10/19/2020 2:21 Resul ts for this AE AMPLIFIED RNA AM SIGNAL TOWER OPERATOR procedure a re in the results section. URINALYSIS WITH Routine 10/19/2020 2:21 Results f or this MICROSCOPIC AM SIGNAL TOWER OPERATOR procedure are i n the results section. HEPATITIS B SURFACE STAT 10/18/2020 9:34 Resul ts for this ANTIGEN PM SIGNAL TOWER OPERATOR procedure are i n the results section. FIBRINOGEN, P STAT 10/18/2020 9:34 Results for this PM SIGNAL TOWER OPERATOR procedure are i n the results section. SARS CORONAVIRUS 2, Routine 10/18/2020 8:05 Resul ts for this MOLECULAR PM SIGNAL TOWER OPERATOR procedure are i n DETECTION, PCR (BRICK EXTRUDER OPERATOR) the resu lts section. HEPATITIS B SURFACE STAT 10/18/2020 7:59 Resul ts for this ANTIGEN PM SIGNAL TOWER OPERATOR procedure are i n the results section. CBC WITHOUT STAT 10/18/2020 7:59 Results for this DIFFERENTIAL, B PM SIGNAL TOWER OPERATOR procedure ar e in the results section. TYPE AND SCREEN STAT 10/18/2020 7:59 Results f or this PM SIGNAL TOWER OPERATOR procedure are i n the results section. HIV-1/-2 AG AND AB STAT 10/18/2020 7:58 Result s for this SCRN, PM SIGNAL TOWER OPERATOR procedure are in PLASMA the results section. documented in this encounter Results US OB Anatomy Anguiano (10/19/2020 1:21 PM SIGNAL TOWER OPERATOR) Anatomical Region Laterality Modality Body, Ultrasound OB RST LOS, Ultrasound ARZ LOS N/A Ultrasound Specimen (Source) Anatomical Location Collection Method / Collectio n Time Received Time / Laterality Volume Narrative 10/19/2020 1:27 PM SIGNAL TOWER OPERATOR JIM LOWE OB Exam, 10/19/2020 EXAM INFORMATION Patient Name: ??JIM LOWE : ??1985 Age: ??34 yrs Sex: ??Female Ref Phys: ??MIRIAM RUGGIERO Exam Date: 10/19/2020 Procedure: US OB ANATOMY ANGUIANO Exam Site: [facility] Plurality: 1 INDICATIONS FOR SONOGRAPHY Anatomic Survey [...] Read by Ilir Moss on 1:21:30 PM. Deckhand Engineer: ??Ilir Moss Thank You For This Referral Procedure Note Eamon Dawson M.B.B.S., MAngelo. - 10/19 JIM LOWE OB Exam, 10/19/2020 EXAM INFORMATION Patient Name: MYNORJIM S : 1985 Age: 34 yrs Sex: Female Ref Phys: MIRIAM RUGGIERO Exam Date: 10/19/2020 Procedure: US OB ANATOMY ANGUIANO Exam Site: [facility] Plurality: 1 INDICATIONS FOR SONOGRAPHY Anatomic Survey [...] Read by Ilir Moss on 1:21:30 PM. Deckhand Engineer: Ilir Moss Thank You For This Referral Miriam Ruggiero M.D. IMG OB US PROCEDURES Varicella-Zoster Antibody, IgG, Serum (10/19/2020 7:18 AM SIGNAL TOWER OPERATOR) athologist Signature Varicella-Zost Positive 10/19/2020 [facility] er Ab, IgG, S 10:41 AM SIGNAL TOWER OPERATOR Comment: Results suggest response to immunization or prior exposure to the virus. ----REFERENCE VALUE---- Vaccinated: Positive (>=1.1 AI) Unvaccinated: Negative (<=0.8 AI) Varicella IgG Antibody Index 1.3 10/19/2020 10:41 AM SIGNAL TOWER OPERATOR [facility] Specimen Anatomical Collection Method Collection Time Receive d Time (Source) Location / / Volume Laterality Blood (Blood, 10/19/2020 7:18 AM 10/19/20 20 9:43 Venous) SIGNAL TOWER OPERATOR AM SIGNAL TOWER OPERATOR Sierra Welch M.D. LAB MICROBIOLOGY - BLOOD ORD ERADIAMANTE Performing Organization Address [facility] Phon e Number [place] [id number] [place] [address] [facility] [place] [address] Laboratory Medicine and Pathology [address] [place] [address] Dr. [place] Rubella Antibodies, IgG (10/19/2020 7:18 AM SIGNAL TOWER OPERATOR) athologist Signature Rubella Ab, Positive 10/19/2020 [facility] IgG, S 10:40 AM SIGNAL TOWER OPERATOR Comment: Results suggest response to immunization or prior exposure to the virus. ----REFERENCE VALUE---- Vaccinated: Positive (>=1.0 AI) Unvaccinated: Negative (<=0.7 AI) Rubella IgG Antibody Index 1.4 10/19/2020 10 :40 AM SIGNAL TOWER OPERATOR [facility] Specimen Anatomical Collection Method Collection Time Receive d Time (Source) Location / / Volume Laterality Blood (Blood, 10/19/2020 7:18 AM 10/19/20 20 9:43 Venous) SIGNAL TOWER OPERATOR AM SIGNAL TOWER OPERATOR Sierra Welch M.D. LAB MICROBIOLOGY - BLOOD ORD JENNA Performing Organization Address [facility] Phon e Number [address] [place] [address] SUPPORT [facility] [place] [address] Laboratory Medicine and Pathology [address] [place] [address] Dr. [place] (ABNORMAL) Microscopic Manual (10/19/2020 2:21 AM SIGNAL TOWER OPERATOR) Analysis Performed At Patho logist Time Signature Microscopy Abnormal 10/19/2020 [facility] 6:26 AM SIGNAL TOWER OPERATOR RBC >100 (A) <3 /hpf 10/19/2020 [facility] 6:26 AM SIGNAL TOWER OPERATOR Dysmorphic RBC <25 <25 % 10/19/2020 [facility] 6:26 AM SIGNAL TOWER OPERATOR WBC 1-3 /hpf 10/19/2020 [facility] 6:26 AM SIGNAL TOWER OPERATOR Comment: ----REFERENCE VALUE---- 1-3 ??(Males) 1-10 (Females) Specimen Anatomical Collection Method Collection Time Receive d Time (Source) Location / / Volume Laterality Urine 10/19/2020 2:21 AM 0 4:00 SIGNAL TOWER OPERATOR AM SIGNAL TOWER OPERATOR Sierra Welch M.D. LAB URINE ORDERABLES Performing Organization Address [facility] Phon e Number [facility]IES - [address] [place] [address] [place] [address] Laboratories[address] Bacterial Culture, Aerobic + Susc, Urine (10/19/2020 2:21 AM SIGNAL TOWER OPERATOR) Patholo gist Method Time Signature Urine Culture No growth 10/20/2020 DT after 1 day 8:16 AM SIGNAL TOWER OPERATOR of incubation. Specimen Anatomical Collection Method Collection Time Receive d Time (Source) Location / / Volume Laterality Urine (Urine, 10/19/2020 2:21 AM 10/19/20 20 5:03 Straight SIGNAL TOWER OPERATOR AM SIGNAL TOWER OPERATOR Catheter) Comment: Specimen Source Site: Urine Sierra Welch M.D. LAB MICROBIOLOGY - GENERAL O RDERABLES Performing Organization Address [facility] Phon e Number [facility]IES - [address] [place] [address] (ABNORMAL) Urinalysis with Microscopic: Urine, Catheter (10/19/2020 2:21 AM SIGNAL TOWER OPERATOR) Analysis Performed At Patho logist Time Signature Source Catheter 10/19/2020 [place] 4:00 AM SIGNAL TOWER OPERATOR Appearance Normal Normal 10/19/2020 [place] 4:00 AM SIGNAL TOWER OPERATOR Osmolality, U 521 150 - 1150 10/19/2020 [facility] mOsm/kg 4:47 AM SIGNAL TOWER OPERATOR pH, U 6.2 4.5 - 8.0 10/19/2020 [place] 4:47 AM SIGNAL TOWER OPERATOR Comment: ----ADDITIONAL INFORMATION---- This test was developed and its performa nce characteristics determined by [facility] in a manner co nsistent with CLIA requirements. This test has not bee n cleared or approved by the U.S. Food and Drug Admin istration. Glucose 8 0 - 15 mg/dL 10/19/2020 6:17 AM SIGNAL TOWER OPERATOR [place] Protein, U 46 (H) <26 mg/dL 10/19/2020 6:17 AM SIGNAL TOWER OPERATOR [facility] Comment: ----ADDITIONAL INFORMATION---- On 04/16/2017 the total protein assay me thod changed resulting in approximately a 15% increase in prote in values. Protein/Osmolality 0.88 (H) <0.42 Ratio 10/19/2020 6:17 AM SIGNAL TOWER OPERATOR [place] Comment: ----ADDITIONAL INFORMATION---- On 04/16/2017 the total protein assay me thod changed resulting in approximately a 15% increase in prote in values. Predicted 24 Hr Protein 597 mg/24 h 10/19/2020 6:17 AM SIGNAL TOWER OPERATOR [place] Predicted Range 148-2419 mg/24 h 10/19/2020 6:17 AM SIGNAL TOWER OPERATOR R JEM Hemoglobin, QL Large (A) Negative 10/19/2020 6:26 AM SIGNAL TOWER OPERATOR RE NA Specimen Anatomical Collection Method Collection Time Receive d Time (Source) Location / / Volume Laterality Urine (Urine, 10/19/2020 2:21 AM 10/19/20 20 4:00 Catheter) SIGNAL TOWER OPERATOR AM SIGNAL TOWER OPERATOR Sierra Welch M.D. LAB URINE ORDERABLES Performing Organization Address City/State/ZIP Code Phon e Number [facility]IES - [address] [place], [place] [address] [place] [address] Laboratories-[facility] [address] Chlamydia / Gonorrhoeae Amplified RNA (10/19/2020 2:21 AM SIGNAL TOWER OPERATOR) [facility] gist Method Time Signature Source Urine, 10/19/2020 [facility] Urine, First 6:58 PM SIGNAL TOWER OPERATOR Voided Chlamydia Negative Negative 10/19/2020 [facility] trachomatis 6:58 PM SIGNAL TOWER OPERATOR amplified RNA Source Urine, 10/19/2020 [facility] Urine, First 6:58 PM SIGNAL TOWER OPERATOR Voided Neisseria Negative Negative 10/19/2020 [facility] gonorrhoeae 6:58 PM SIGNAL TOWER OPERATOR amplified RNA Specimen Anatomical Collection Method Collection Time Receive d Time (Source) Location / / Volume Laterality Varies (Urine, 10/19/2020 2:21 AM 020 7:22 First Voided) SIGNAL TOWER OPERATOR AM SIGNAL TOWER OPERATOR Sierra Welch M.D. LAB MICROBIOLOGY - GENERAL O RDERABLES Performing Organization Address City/[facility] Phon e Number [facility] - [address] [place], [place] [address] [place] [address] Laboratories-[facility] [address] Drug Abuse Survey with Confirmation, Urine (10/19/2020 2:21 AM SIGNAL TOWER OPERATOR) Patholo gist Method Time Signature Alcohol Negative Cutoff: 10/19/2020 [facility] 10 mg/dL 9:52 AM SIGNAL TOWER OPERATOR Amphetamines Negative Cutoff: 10/19/2020 [facility] 500 ng/mL 9:52 AM SIGNAL TOWER OPERATOR Barbiturates Negative Cutoff: 10/19/2020 [facility] 200 ng/mL 9:52 AM SIGNAL TOWER OPERATOR Benzodiazepines Negative Cutoff: 10/19/2020 [facility] 100 ng/mL 9:52 AM SIGNAL TOWER OPERATOR Cocaine Negative Cutoff: 10/19/2020 [facility] 150 ng/mL 9:52 AM SIGNAL TOWER OPERATOR Opiates Negative Cutoff: 10/19/2020 [facility] 300 ng/mL 9:52 AM SIGNAL TOWER OPERATOR Phencyclidine Negative Cutoff: 10/19/2020 [facility] 25 ng/mL 9:52 AM SIGNAL TOWER OPERATOR Tetrahydrocannabinol Negative Cutoff: 10/19/2020 [facility] 50 ng/mL 9:52 AM SIGNAL TOWER OPERATOR Comment: ----ADDITIONAL INFORMATION---- This report is intended for use in clini kosta monitoring or management of patients. ??It is not intended for use i n employment-related testing. Specimen Anatomical Collection Method Collection Time Receive d Time (Source) Location / / Volume Laterality Urine (Urine, 10/19/2020 2:21 AM 10/19/20 8:50 Clean Catch) SIGNAL TOWER OPERATOR AM SIGNAL TOWER OPERATOR Sierra Welch M.D. LAB URINE ORDERABLES Performing Organization Address City/[facility] Phon e Number [facility] [address] [place], [place] [address] [facility] [place] [address] Laboratory Medicine and Pathology [address] [place] (ABNORMAL) Fibrinogen (10/18/2020 9:34 PM SIGNAL TOWER OPERATOR) P athologist Signature Fibrinogen, P 624 (H) 200 - 393 10/18/2020 [facility] mg/dL 9:49 PM SIGNAL TOWER OPERATOR Specimen Anatomical Collection Method Collection Time Receive d Time (Source) Location / / Volume Laterality Blood (Blood, 10/18/2020 9:34 PM 10/18/20 20 9:40 Venous) SIGNAL TOWER OPERATOR PM SIGNAL TOWER OPERATOR Sierra Welch M.D. LAB BLOOD ADD-ON Performing Organization Address City/[facility] Hospital/ZIP Code Phon e Number [facility]IES - [address] [place], [place] [address] [place] [address] Laboratories-[facility] [address] Hepatitis B Surface Antigen (10/18/2020 9:34 PM SIGNAL TOWER OPERATOR) P athologist Signature HBs Antigen, S Negative Negative 10/19/2020 [facility] 9:23 AM SIGNAL TOWER OPERATOR Specimen Anatomical Collection Method Collection Time Receive d Time (Source) Location / / Volume Laterality Blood (Blood, 10/18/2020 9:34 PM 10/19/20 8:14 Venous) SIGNAL TOWER OPERATOR AM SIGNAL TOWER OPERATOR Sierra Welch M.D. LAB MICROBIOLOGY - BLOOD ORD ERABLES Performing Organization Address [facility] Phon e Number [facility] [address] [place], [place] [address] [facility] [place] [address] Laboratory Medicine and Pathology [address] [place] SARS Coronavirus 2, Molecular Detection, PCR (BRICK EXTRUDER OPERATOR) Asymptomatic (10/18/2020 8:05 PM SIGNAL TOWER OPERATOR) Patholo gist Method Time Signature COVID-19, PCR Undetected Undetected 10/19/2020 [facility] 12:55 AM SIGNAL TOWER OPERATOR Comment: SARS-CoV-2 RNA absent. This result does not rule out COVID-19 in the patient, as the sensitivity of the test depends o n the timing of the specimen collection and quality of the specimen. Result should be correlated with patient's history and clinical presentat ion. ----ADDITIONAL INFORMATION---- This test has received Emergency Use Aut horization (EUA) by the U.S. Food and Drug Administration an d is used per maintenance mechanic's instructions. Performance characteristics were verified by [facility] in a manner consistent with CLIA requirements. Visit the CDC website: https://www.cdc.g ov/coronavirus/ for the most recent guidelines on [place] virus testing. Fact Sheet for Healthcare Providers: https://www.fda.gov/media/390560/downloa d Fact Sheet for Patients: https://www.fda.gov/media/839859/downloa d Specimen Anatomical Collection Method Collection Time Receive d Time (Source) Location / / Volume Laterality Varies 10/18/2020 8:05 PM 0 8:40 (Nasopharynx) SIGNAL TOWER OPERATOR PM SIGNAL TOWER OPERATOR Heather Goodrich M.D. LAB MICROBIOLOGY - GENERAL O RDERABLES Performing Organization Address City/[facility] Hospital/ZIP Code Phon e Number [facility] - [address] [place], [place] [address] [place] [address] [facility] [address] [facility] Hepatitis B Surface Antigen (10/18/2020 7:59 PM SIGNAL TOWER OPERATOR) P athologist Signature HBs Antigen, S Negative Negative 10/19/2020 [facility] 8:04 AM SIGNAL TOWER OPERATOR Specimen Anatomical Collection Method Collection Time Receive d Time (Source) Location / / Volume Laterality Blood (Blood, 10/18/2020 7:59 PM 10/19/20 20 6:59 Venous) SIGNAL TOWER OPERATOR AM SIGNAL TOWER OPERATOR Sierra Welch M.D. LAB MICROBIOLOGY - BLOOD ORD ERABLES Performing Organization Address City/[facility] Phon e Number [facility] [address] [place], [place] [address] [facility] [place] [address] Laboratory Medicine and Pathology [address] [place] Type and Screen (with reflex Antibody ID) (10/18/2020 7:59 PM SIGNAL TOWER OPERATOR) Patholo gist Method Time Signature ABORh B Pos Not 10/18/2020 [facility] applicable 8:29 PM SIGNAL TOWER OPERATOR Antibody Negative Negative 10/18/2020 [facility] Screen 8:44 PM SIGNAL TOWER OPERATOR Type & Screen 10/21/2020 10/18/2020 [facility] Expiration 23:59 8:29 PM SIGNAL TOWER OPERATOR Testing Purvis DEFAULT 10/18/2020 [facility] Location 8:08 PM SIGNAL TOWER OPERATOR Specimen Anatomical Collection Method Collection Time Receive d Time (Source) Location / / Volume Laterality Blood (Blood, 10/18/2020 7:59 PM 10/18/20 20 8:08 Venous) SIGNAL TOWER OPERATOR PM SIGNAL TOWER OPERATOR Sierra Welch M.D. LAB BLOOD BANK TEST ORDERABL ES Performing Organization Address [facility]/ZIP Code Phon e Number [facility] - [address] [place], [place] [address] [place] [address] [facility] [address] [facility] (ABNORMAL) CBC without Differential (10/18/2020 7:59 PM SIGNAL TOWER OPERATOR) Patholo gist Method Time Signature Hemoglobin 11.0 (L) 11.6 - 10/18/2020 [facility] 15.0 g/dL 8:06 PM SIGNAL TOWER OPERATOR Hematocrit 31.8 (L) 35.5 - 10/18/2020 [facility] 44.9 % 8:06 PM SIGNAL TOWER OPERATOR Erythrocytes 3.65 (L) 3.92 - 10/18/2020 [facility] 5.13 8:06 PM SIGNAL TOWER OPERATOR x10(12)/L MCV 87.1 78.2 - 10/18/2020 [facility] 97.9 fL 8:06 PM SIGNAL TOWER OPERATOR RBC Distrib Width 13.5 12.2 - 10/18/2020 [facility] 16.1 % 8:06 PM SIGNAL TOWER OPERATOR Platelet Count 287 157 - 371 10/18/2020 [facility] x10(9)/L 8:06 PM SIGNAL TOWER OPERATOR Leukocytes 19.3 (H) 3.4 - 9.6 10/18/2020 [facility] x10(9)/L 8:06 PM SIGNAL TOWER OPERATOR Specimen Anatomical Collection Method Collection Time Receive d Time (Source) Location / / Volume Laterality Blood (Blood, 10/18/2020 7:59 PM 10/18/20 8:04 Venous) SIGNAL TOWER OPERATOR PM SIGNAL TOWER OPERATOR Sierra Welch M.D. LAB BLOOD ADD-ON Performing Organization Address City/State/ZIP Code Phon e Number [facility] - [address] [place] [address] [place] [address] [facility] [address] [facility] HIV-1/-2 Ag and Ab Scrn, Plasma (10/18/2020 7:58 PM SIGNAL TOWER OPERATOR) P athologist Signature HIV-1/-2 Ag Negative Negative 10/19/2020 [facility] and Ab 9:31 AM SIGNAL TOWER OPERATOR Scrn, P Comment: Negative result does not rule out HIV in fection. If exposure to HIV infection occurred <14 d ays ago, contact the laboratory to request additi on of HIV-1 RNA detection / quantification test (HIV QN). Specimen Anatomical Collection Method Collection Time Receive d Time (Source) Location / / Volume Laterality Blood (Blood, 10/18/2020 7:58 PM 10/19/20 20 6:59 Venous) SIGNAL TOWER OPERATOR AM SIGNAL TOWER OPERATOR Sierra Welch M.D. LAB MICROBIOLOGY - BLOOD ORD ERABLES Performing Organization Address City/State/ZIP Code Phon e Number [facility] [address] [place], [place] [address] [facility] [place] [address] Laboratory Medicine and Pathology [address] [place] documented in this encounter Visit Diagnoses Diagnosis 21 Weeks Gestation (HCC) - Prim monet 22 Weeks Gestation (HCC) Premature Rupture Of Membranes U nspecified As To Length Of Time Between Rupture And Onset Of Labor Second Trimes ter (HCC) documented in this encounter Administered Medications Inactive Administered Medications - up to 3 most recent administrations Medication Order MAR Action Action Date Dose Rate Site clindamycin in D5W IVPB 900 mg New Bag 10/19/2020 5:09 AM SIGNAL TOWER OPERATOR 900 mg 100 mL/hr (CLEOCIN) 900 mg, intravenous, at 100 mL/hr, Administer over 30 Minutes, Every 8 hours, First dose on Sat10/18/20 at 2000, premix bag, Indications: Obstetric or gynecological infection New Bag 10/18/2020 9:41 PM SIGNAL TOWER OPERATOR 900 mg 100 mL/hr fentaNYL injection 100 mcg (SUBLIMAZE) Given 10/18/2020 9:49 PM SIGNAL TOWER OPERATOR 100 mcg 100 mcg, intravenous, Every 1 hour PRN, moderate pain or score 4-6 of 10, severe pain or score 7-10 of 10, for labor pains, Starting on Sat10/18/20 at 1939, For 3 doses, L&D Pre-Delivery, Consultation with Anesthesia for pain control if patient requests regional anesthesia and in active labor or membranes ruptured. Given 10/18/2020 8:44 PM SIGNAL TOWER OPERATOR 100 mcg gentamicin 290 mg in NaCl 0.9% IVPB New Bag 10/18/2020 8:41 PM SIGNAL TOWER OPERATOR 290 mg 215 mL/hr (GARAMYCIN) 290 mg (rounded from 285 mg = 5 mg/kg ? 57 kg Order-specific weight), intravenous, at 215 mL/hr, Administer over 30 Minutes, Once, On Sat10/18/20 at 2000, For 1 dose, Drug Monitoring Program: Pharmacist to adjust medication dosing based on indication and drug clearance factors., Indications: Obstetric or gynecological infection lactated ringers New Bag 10/19/2020 5:10 AM SIGNAL TOWER OPERATOR 125 mL/hr 125 mL/hr 125 mL/hr, intravenous, Continuous, Starting on Sat10/18/20 at 2000, L&D Pre-Delivery, Indications: Hang fluids for maternal dehydration, concerns, epidural placement, with antibiotics. Rate/Dose Verify 10/19/2020 2:20 AM SIGNAL TOWER OPERATOR 125 mL/hr 125 mL/hr Rate/Dose Verify 10/19/2020 12:00 AM SIGNAL TOWER OPERATOR 125 mL/hr 125 mL/hr multivitamin/mineral- tablet 1 Given 10/20/2020 9:30 AM SIGNAL TOWER OPERATOR 1 tablet tablet 1 tablet, oral, Daily, First dose on Kylie 10/20/20 at 0900 documented in this encounter Active and Recently Administered Medications Times are shown in SIGNAL TOWER OPERATOR. Scheduled Medication Order 10/18/2020 10/19/2020 10/20/2020 clindamycin in D5W IVPB 900 mg (CLEOCIN) (CANCELED) 21 41 (New Bag - Provider: Irish Newell RIshaNIsha) 0509 (New Bag - Provider: Irish keita RIshaNIsha) 900 mg, intravenous, at 100 mL/hr, Admin ister over 30 Minutes, Every 8 hours, First dose on Sat10/18/20 at 2000, premix bag, Indications: Obstetric or gynecological infection gentamicin 290 mg in NaCl 0.9% IVPB (GARAMYCIN) (COMPL ETED) 2040 (New Bag - Provider: Irish Newell RIshaNIsha) 290 mg (rounded from 285 mg = 5 mg/kg ? 57 kg Order-specific weight), intravenous, at 215 mL/hr, Administer over 30 Minutes, Once, On Sat10/18/20 at 2000, For 1 dose, Drug Monitoring Program: Pharmaci st to adjust medication dosing based on indication and drug clearance factors., Indications: Obstetric or gynecological infection multivitamin/mineral- tablet 1 tablet 0930 (Given - Provider: Sergio Steele R.N.) 1 tablet, oral, Daily, First dose on Kylie 10/20/20 at 0900 Continuous Medication Order 10/18/2020 10/19/2020 10/20/2020 lactated ringers 2014 (New Bag - Provider: Elvin Newell RIshaNIsha)2200 (Rate/Dose Verify - Provider: Sixto MosesCamilla) 0000 (Rate/Dose Verify - Provider: Irish Newell R.N.)0220 (Rate/Dose Verify - Provider: Irish Newell R.N.)0510 (New Bag - Provider: Irish Newell R.N.)0600 (Stopped - Provider: Irish Newell R.N.) 125 mL/hr, intravenous, Continuous, Star ting on Sat10/18/20 at 2000, L&D Pre- Delivery, Indications: Hang fluids for maternal dehydration, concerns, epidural placement, with antibiotics. oxytocin 60 michael-Units/mL in NaCl 500 mL infusion (PITOCIN) 200 0 (Due) 2-20 michael-units/min (2-20 mL/hr), intra venous, at 2-20 mL/hr, Continuous, Starting Sat10/18/20 at 2000, L&D Pre-Delivery, Begin infusion after 20 minutes of baseline /uterine monitoring or 4 hours after last misoprostol (CYTOTEC) p lacement or 30 minutes after removal of dinoprostone (CERVIDIL). Premix ba Units in 500 mL, Initiate at: 2 michael- Units/min, Titrate at: 2 michael-Units/min. ev steve 30 min., Goal: Until contractions oc cur at a frequency of 2-3 min., are strong to palpation, or reach a mximum of 250 [place] units, and/or cervical change(s) occur. PRN Medication Order 10/18/2020 10/19/2020 10/20/2020 fentaNYL injection 100 mcg (SUBLIMAZE) (CANCELED) 2043 (Given - Provider: Irish Newell R.N.)2148 (Given - Provider: Irish Newell R.N. - Comment: RN already scanned med, didn't chart, but vial already put in sharps container so cannot scan again.) 100 mcg, intravenous, Every 1 hour PRN, moderate pain or score 4-6 of 10, severe pain or score 7-10 of 10, for labor pains, Starting on 12/29/20 at 1939, For 3 doses, L&D Pre-Delivery, Consultat ion with Anesthesia for pain control if patient requests regional anesthesia and in active labor or membranes ruptured. 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
[2022-05-31 16:33] VITALS: BP 107/66; PULSE 85
[2022-05-31 17:12] LABS: Amnisure Rom* Negative
[2022-05-31 17:46] LABS: Appearance Urine Clear (Clear); Bilirubin Urine Negative (Negative); Blood Urine Trace-intact (Negative); Color Urine Yellow (Yellow); Glucose Urine Negative (Negative); Ketones Urine Negative (Negative); Leukocyte Esterase Urine Trace (Negative); Nitrite Urine Negative (Negative); Protein Urine Negative (Negative); Specific Gravity Urine 1.025 (1.000-1.030); Urobilinogen Urine 0.2 (0.2-1.0)
[2022-05-31 17:52] LABS: Clue Cells >20% Clue Cells Seen (None Seen); Trichomonas No Trichomonas Seen (None Seen); Yeast No Yeast Seen (None Seen)
--- NOTE | 2022-05-31 18:04 | CRLHL7_ITS ---
For Patients: As a result of the Century Cures Act, medical imaging exams and procedure reports are released immediately into your electronic medical record. You may view this report before your referring provider. If you have questions, please contact your health care provider. INDICATION: Possible loss of amniotic fluid. Evaluate cervix and amniotic fluid. COMPARISON: Ob ultrasound 05/10/2022 and 04/24/2022. TECHNIQUE: Real time khan scale imaging of the fetus was performed. Transvaginal examination was done for evaluation of the cervix. FINDINGS: Sonographic imaging demonstrates a single living intrauterine gestation. Fetus demonstrates a regular cardiac rate of 166 beats per minute. Fetus has a vertex orientation. The placenta lies posteriorly without evidence of placenta previa. The tip of the placenta 1.2 cm from the internal cervical os. Amniotic fluid volume appears normal. Single deepest vertical pocket: 6.1 cm. On transvaginal exam the cervix is closed and measures 3.8 cm in length. No funneling. Cervical length measures 3.2 cm with fundal pressure applied. IMPRESSION: 1. Single living intrauterine gestation. 2. The cervix is closed and measures 3.2 cm in length on transvaginal images with applied fundal pressure. 3. Normal amniotic fluid volume. 4. The tip of the placenta is 1.2 cm from the cervical os. Dictated by Concha Barney MD @ 05/31/2022 7:41:35 PM (Electronically Signed)
[2022-05-31 18:07] LABS: Bacteria Urine Moderate; Calcium Oxalate Crystals Urine Few; Squamous Epithelial Cell Urine Few (None-Few)
--- NOTE | 2022-05-31 19:30 | P.OBO_ITS ---
OB Outpatient HPI History of Present Illness History of Present Illness: 36 year old at 21 3/7 weeks gestation by LMP, BUTCH 10/08/2022, presents with increased watery vaginal discharge with concern for rupture of membranes. Her history is significant for PPROM at 21 4/7 weeks with previous . She denies any bleeding or cramping. She also denies itching or burning. She does do vaginal progesterone daily. OB Problem list: 1. Prior complications: 1st - retained placenta, manually removed. No D & C. EBL 750 2nd - IOL at 39 weeks for EFW 10% 4th - PPROM at 21.4 weeks. D & C for retained placenta - pt states accreta, but not noted in op report. Treated for infection after MFM suspected recent loss was due to her bleeding and persistent subchorionic hemorrhage to the 1st and 2nd semesters and this would suggest a lower risk of r ecurrence in subsequent pregnancies. 2. PPROM at 21.4 weeks Referral placed to MPP (per pt preference) for consult and plan MFM consult 04/03/2022: Discussed role of progesterone. Discussed 17 0 HP injections and vaginal progesterone supplementation. Vaginal progesterone started. Dosin mg Prometrium vaginally at at bedtime starting at 16 weeks and continued through 36 weeks. Serial cervical length the every 2 weeks starting at 16 weeks until 22 weeks to be done locally: CL 16 weeks: 3.8 cm CL 18 Weeks: 4.2 cm CL 21 Weeks: 3. 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 No personal h/o of clot. --Baby ASA daily recommended. --Surveillance without anticoagulation therapy or prophylactic anticoagulation therapy the patient has additional look risk factors (prolonged immobility or delivery) 4. COLEMAN noted at NOB. No bleeding. 5. asymptomatic bacturia at NOB. DAYSI neg 6. History of placenta accreta occulta/MFM recommendations: --Level 2 ultrasound and follow-up ultrasound at 28-32 weeks to assess placentation. Recommend delivery at tertiary care center if accreta is suspected. --No accreta is seen, vaginal delivery at term is appropriate with attempt at placental delivery. --If placenta is retained, would have a high index of suspicion for accreta and low threshold to proceed with hysterectomy if conservative measures are not successful. Recommend TXA at delivery. --If D&Cs attempted consider Bakri placement afterwards. Accreta contact center team lead would not need to be present for delivery but should be called in if retained placenta. 7. Low lying placenta Baby moving naturally: Yes Bleeding: No Contractions: No Leaking fluid: Yes (increased watery discharge.) Discharge: Yes Heartburn: No Back pain: No Meds Home Medications and Allergies Home Medications Medication Instructions Recorded Confirmed Type omeprazole 20 mg capsule,delayed 20 mg PO DAILY 04/24/22 05/31/22 History release ondansetron HCl 4 mg tablet 4 mg PO Q6H PRN 04/24/22 05/31/22 History prenat.vits,kosta,ddf-ncmd-pqyln 1 tab PO QDAY 04/24/22 05/31/22 History Allergies Allergy/AdvReac Type Severity Reaction Status Date / Time penicillin V Allergy Mild Rash on Verified 05/10/22 16:07 the 8th day salicylic acid Allergy Mild tongue Verified 05/31/22 19:16 swelling PFSH Medical History History of premature rupture of membranes (PPROM) Surgical History Status post dilation and curettage Family History Other Breast cancer Clotting disorder Rheumatoid arthritis Social History Smoking Status: Never smoker History History 6 Elective abortions Para 4 Spontaneous abortions 1 Hx # Term Pregnancies Ectopic pregnancies Hx # Pregnancies Multiple births Number of Living Children 3 OB - H&P: Exam Physical Exam Vital signs: Pulse BP 85 107/66 05/31/22 16:33 05/31/22 16:33 Constitutional Constitutional: no acute distress Routine HEENT Exam Head: Present atraumatic Routine Neck Exam Neck: Present full ROM Detailed Labor and Delivery Exam Patient Gravid: yes Tachysystole: No Routine Skin Exam Present intact Routine Neurological Exam Present alert and oriented X3 Routine Psychiatric Exam Present normal affect and cooperative Labs Labs Laboratory Tests 05/31/22 05/31/22 05/31/22 Range/Units 17:37 17:33 16:39 Urine Color Yellow (Yellow) Urine Appearance Clear (Clear) Urine pH 6.0 (5.0-8.5) Ur Specific [place] 1.025 (1.000-1.030) Urine Protein Negative (Negative) Urine Glucose (UA) Negative (Negative) Urine Ketones Negative (Negative) Urine Blood Trace-intact A (Negative) Urine Nitrite Negative (Negative) Urine Bilirubin Negative (Negative) Urine Urobilinogen 0.2 (0.2-1.0) Ur Leukocyte Esterase Trace A (Negative) Urine RBC 2-5 A (0-2) Urine WBC 2-5 (0-5) Ur Squamous Epith Cells Few (None-Few) Calcium Oxalate Crystal Few A (None) Urine Bacteria Moderate A (None) Membrane Rupture Negative Vaginal Trichomonas No Trichomonas Seen (None Seen) Vaginal Yeast No Yeast Seen (None Seen) Vaginal Clue Cells >20% Clue Cells Seen (None Seen) Assessment and Plan Assessment and plan (1) Bacterial vaginosis in : Status: Acute Plan at 21 3/7 weeks gestation Bacterial vaginosis based on wet prep. Plan treatment with Clindamycin BID x 7 days. Reviewed ways to prevent reoccurrence of BV including wearing breathable pants and underwear, good handwashing with vaginal progesterone insertion, trying to sleep without pants, taking a probiotic specific for women's vaginal health, and avoiding places that may alter vaginal ph such as pool or beach. Urine analysis inconclusive, sent for culture. Normal cervical length at 3.3 with appropriate amniotic fluid. Return for routine obstetrical care. Labs/Imaging Imaging Imaging: FINDINGS: Sonographic imaging demonstrates a single living intrauterine gestation.? Fetus demonstrates a regular cardiac rate of 166 beats per minute.? Fetus has a vertex orientation. The placenta lies posteriorly without evidence of placenta previa. The tip of the placenta 1.2 cm from the internal cervical os. Amniotic fluid volume appears normal. Single deepest vertical pocket: 6.1 cm. On transvaginal exam the cervix is closed and measures 3.8 cm in length. No funneling. Cervical length measures 3.2 cm with fundal pressure applied. IMPRESSION: 1. Single living intrauterine gestation. 2. The cervix is closed and measures 3.2 cm in length on transvaginal images with applied fundal pressure. 3. Normal amniotic fluid volume. 4. The tip of the placenta is 1.2 cm from the cervical os. Dictated by Concha Barney MD @ 05/31/2022 7:41:35 PM
== END 2022-05-31 19:20 | disposition home or self-care (01) ==
LOC: OB OUT 16:25 → OB 18:58
PROVIDERS: Visit Provider Advanced Practice Midwife
DX: O23.592 Infection of other part of genital tract in pregnancy, second trimester (principal); B96.89 Other specified bacterial agents as the cause of diseases classified elsewhere; Z3A.21 21 weeks gestation of pregnancy; Z36.89 Encounter for other specified antenatal screening
CPT/HCPCS: 76815; 76817; 81003; 81015; 84112; 87086; 87210; 99213

== ENCOUNTER 2022-06-04 08:13 | Outpatient (CLI) | payer BC, SELFPAY ==
--- NOTE | 2022-06-04 08:15 | CRLHL7_ITS ---
For Patients: As a result of the Century Cures Act, medical imaging exams and procedure reports are released immediately into your electronic medical record. You may view this report before your referring provider. If you have questions, please contact your health care provider. INDICATION: Evaluate cervical length COMPARISON: 05/31/2022 TECHNIQUE: Real-time khan-scale imaging of the pelvis was performed. Transvaginal approach. FINDINGS: The placenta is posterior and on the cine clips the edge of the placenta extends to the internal cervical os. No funneling is present. The cervix is closed. heart rate 159 beats per minute. Single deepest pocket 5.2 cm. The cervix measures 3.4 cm. No fundal pressure on today`s study. IMPRESSION: Closed cervix measuring 3.4 cm. No funneling. The edge of the posterior placenta extends to the internal cervical os on today`s exam, cine clips only. Dictated by Storm Parker MD @ 06/04/2022 9:25:55 AM (Electronically Signed)
--- OUTSIDE RECORDS SUMMARY | 2022-06-04 08:15 | XMS_ITS | Clinical Summary ---
:1985 Author Organization [facility] Address [address] [place] [address] Care Team Providers Name Role Phone Unavailable Primary Care Provider Unavailable Source Comments Patient records contain information from all sites at [facility]. For routine questions regarding patient records, call [phone] during business hours, M-F 8:00 AM - 5:00 PM Central Time. Record requests for emergency care only can be directed to [phone] at any time.[facility] Allergies Active Allergy Reactions Severity Noted Date Comments Penicillins Rash 10/18/2020 Salicylates Edema 10/18/2020 Swollen tongue Medications Medication Sig Dispensed Refills Start Date End Date Status Take 1 tablet by 0 Act angela debnjsl-Jo-nhfu-FA mouth daily. (VINATE ONE) 60 mg iron-1 [...] or relatives? How often do you attend mandaeism or 1 to 4 times per year 11/22 christian services? 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 SUPERVISOR Oxygen Saturation 99% 10/20/2020 12:39 PM STATION INSTALLATION SUPERVISOR Inhaled Oxygen Concentration - - Weight 56.3 kg (124 lb 1.9 oz) 10/19/2020 6:30 AM STATION INSTALLATION SUPERVISOR Height - - Body Mass Index [...] on patient's age to complete this to [facility] Insurance Payer Benefit Plan / Subscriber ID Effective Dates Phone Addre ss Type Group [employer] [id number] 2020-Yuki [phone] [address] PPO BLUE SH[place]ELD [address] [place] [address] Advance Directives For more information, please contact: [phone] Latest Code Status on File Code Status Date Activated Date Inactivated Comments Full Code 10/18/2020 7:51 PM 10/20/2020 2:51 PM Full Code: Not Discussed Due to: Not medically appropriate
--- OUTSIDE RECORDS SUMMARY | 2022-06-04 08:15 | XMS_ITS | Encounter Summary ---
:1985 Author Organization [facility] Address [address] [place] [address] Care Team Providers Name Role Phone Unavailable Primary Care Provider Unavailable Reason for Visit Outpatient (Routine) - Closed Specialty Diagnoses / Procedures Referred By Contact Refer red To Contact Maternal and Diagnoses Premature Rupture Of Membranes Unspecified As To Length Of Time Between Rupture And Onset Of Labor Second Trimester ([facility]) 21 Weeks Gestation ([facility]) [facility] Janelle Dominguez M.D. [address] [place] [id number] Referral ID Status Reason Start Date Expiration Date Visits Requ ested Visits Authorized [id number] Closed 11/02/2020 11/02/2021 1 1 Encounter Details Date Type Department Care Team Description 12/16/2020 Telemedicine Department of Saqib Strong, Diana ture Rupture Of Membranes Unspecified As To Length Of Time Between Rupture And Onset Of Labor Second Trimester; Obstetrics and M.D. 21 Weeks Gestation Gynecology in [address] [place] [address] [place] [id number] [place], [place] [phone] (Work) [phone] Social History Tobacco Use Types Packs/Day Years [...] 1 to 4 times per year 11/22 episcopalian services? Do you belong to any clubs or No 12/12/2020 organizations such as methodist groups, unions, fraternal or athletic groups, or [...] or the highest technical, or vocational p [facility] degree you have received? Sex Assigned at Date Recorded Not on file documented as of this encounter Consult Notes Saqib Strong M.D. - 12/16/2020 8:00 AM CST Consult conducted via real-time audio/video technology by Saqib Strong M.D. in [facility] to the patient in patient home. #1 Preconception counseling #2 Previous complicated by previable PPROM and delivery (21 weeks) #3 Previous placenta accreta occulta #3 Heterozygous prothrombin [id number] mutation #4 Penicillin allergy (rash) Very pleasant 35y/o who presents for recommendations regarding subsequent management. Mrs. Salinas's obstetrical history is significant for three term vaginal deliveries and one first-trimester miscarriage. In her fifth (2019), she was admitted o [facility] following spontaneous PPROM at 21 weeks gestation. Ultrasound demonstrated normal anatomy and biometry; olig ohydramnios was noted (as anticipated). After an interval of inpatient observation, Mrs. Salinas and her elected to pursue expectant management and were discharged to home. Subsequently she developed labor at 21 weeks and delivered her daughter in [place]; her daughter appeared morphologically normal, and survived for approximately 60 minutes. Difficulty was encountered with retained placenta, requiring manual extraction and D&C; Mrs. Salinas was treated with a course of intravenous antibiotic therapy. 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 Salinas experienced retained placenta requiring manual extraction in her first as well. Regarding her heterozygous prothrombin [id number] heterozygote status, Mrs. Salinas was screening for thrombophilias after an aunt experienced an episode of thrombosis and tested positive for Factor V Leiden and the Prothrombin [id number] mutation; neither she personally nor any first-degree [...] delivery of 46% in the subsequent . ([place] 2016) Potentially beneficial interventions (presuming richardson gestation) [...] determine viability/number and define gestational age. (in [place]) 3. Maternal cystic fibrosis/SMA and aneuploidy screening at 10-12 weeks (per her preference). 4. Consideration of early anatomic ultrasound at 11-14 weeks. 5. Sonographic cervix length surveillance beginning at 16 weeks and repeated weekly through 22 6/7 weeks, with contingent cerclage placement if cervix length shortens to <25mm prior to 23 0/7 weeks.(initial imaging study in [place]) 6. Consideration of 17-hydroxyprogesterone caprate prophylaxis (250mg IM weekly), beginning at 16-20weeks and continuing through 36 weeks. 7. Detailed anatomic survey ultrasound at 18-20 weeks. (in [place]) 8. Repeat ultrasound at 30-32 weeks to evaluate placental appearance for any evidence of accreta. 9. Consider induction of labor at 39 0/7-39 6/7 weeks; this may be scheduled either in [place] or in [place] pending resource availability. Mrs. Salinas resides approximately 1 hour from [place]. Intrapartum: 10. Obtain CBC and type & [...] I will arrange for initial appointments in [place]. Further care may be coordinated between [place] and [place]. I will also forward materials regarding placenta accreta occulta. Saqib Strong M.D. H TECHNICIAN documented in this encounter Plan of Treatment Not on filedocumented as of this encounter Visit Diagnoses Diagnosis Premature Rupture Of Membranes U nspecified As To Length Of Time Between Rupture And Onset Of Labor Second Trimes ter (HCC) 21 Weeks Gestation (HCC) documented in this encounter
--- OUTSIDE RECORDS SUMMARY | 2022-06-04 08:15 | XMS_ITS | Encounter Summary ---
:1985 Author Organization [facility] Address [address] [place] [address] Care Team Providers Name Role Phone Unavailable Primary Care Provider Unavailable Reason for Visit Reason Comments Communication Encounter Details Date Type Department Care Team Description 10/21/2020 Clinical Communication [facility], Horacio Cisneros, Communication Caodaism [facility], [address] [place] [address] MAR Third Floor [place], [place] [address] [facility] [address] [place], [place] [phone] (Work) [phone] Social History Tobacco Use Types Packs/Day Years [...] or relatives? How often do you attend protestant or 1 to 4 times per year 11/22 hoahaoism services? Do you belong to any clubs or No 12/12/2020 organizations such as protestant groups, unions, fraternal or athletic groups, or [...] be seen. She is an hour from [place] and 20 min from [place]. PLAN Discussed with Dr Bowman and [facility] Room RN. Patient advised to be seen immediately at nearest facility. Disposition/Recommendation: referral for services Nearest ED or OB Facility. Information/Education: patient/caller able to teach back. Caller agreeable to plan of care: yes. The following references were used: provider Dr Bowman. GUARD SKATING RINK documented in this encounter Plan of Treatment Not on filedocumented as of this encounter Visit Diagnoses Not on filedocumented in this encounter
--- OUTSIDE RECORDS SUMMARY | 2022-06-04 08:16 | XMS_ITS | Encounter Summary ---
:1985 Author Organization [facility] Address [address] [place] [address] Care Team Providers Name Role Phone Unavailable Primary Care Provider Unavailable Encounter Details Date Type Department Care Team Description 10/20/[address] [facility], Kandis Stock, [facility], GOVERNMENT AFFAIRS DIRECTOR, LEAD SYSTEMS ARCHITECT, DNAP [facility], Third Floor [address] [place] [address] Anesthesia Record Procedure Summary [...] or relatives? How often do you attend religion or 1 to 4 times per year 11/22 buddhist services? Do you belong to any clubs or No 12/12/2020 organizations such as religion groups, unions, fraternal or athletic groups, or [...]
--- OUTSIDE RECORDS SUMMARY | 2022-06-04 08:16 | XMS_ITS | Encounter Summary ---
:1985 Author Organization [facility] Address [address] [place] [id number] Care Team Providers Name Role Phone Unavailable Primary Care Provider Unavailable Reason for Visit Auth/Cert Specialty Diagnoses / Procedures Referred By Contact Refer red To Contact Diagnoses 22 Weeks Gestation (HCC) Procedures DIR Referral ID Status Reason Start Date Expiration Date Visits Requ ested Visits Authorized [id number] 1 1 Encounter Details Date Type Department Care Team Description 10/19/2020 Hospital Encounter Department of Jose[facility]se Obstetrics and [facility] Gynecology in [address] [place] [address] [place] [id number] [place], [place] [phone] (Wo rk) [id number] [phone] Social History Tobacco Use Types Packs/Day Years [...] or relatives? How often do you attend gnosticism or 1 to 4 times per year 11/22 catholic services? Do you belong to any clubs or No 12/12/2020 organizations such as gnosticism groups, unions, fraternal or athletic groups, or [...] Sig Dispensed Refills Start Date End Date [id number] TK 1 TO 2 TS PO Q 4 H 0 09/08/2020 aff (FIORICET, ESGIC) NEEDED. MAX 6 PER 50-325-40 mg per tablet DAY Take 1 tablet by 0 [id number] (VINATE mouth daily. ONE) 60 mg iron-1 mg per tablet documented as of this encounter Plan of Treatment Not on filedocumented as of this encounter Procedures Procedure Name Priority Date/Time Associated Comments Diagnosis US OB ANATOMY RAD - Routine 10/19/2020 1:21 Results fo r this ANGUIANO (most inpatients PM FLOOR WORKER procedure a re in and all the results outpatients) section. documented in this encounter Results US OB Anatomy Anguiano (10/19/2020 1:21 PM FLOOR WORKER) Anatomical Region Laterality Modality Body, Ultrasound OB RST LOS, Ultrasound ARZ LOS N/A Ultrasound Specimen (Source) Anatomical Location Collection Method / Collectio n Time Received Time / Laterality Volume Narrative 10/19/2020 1:27 PM FLOOR WORKER LAURA LOWE OB Exam, 10/19/2020 EXAM INFORMATION Patient Name: ??LAURA LOWE : ??1985 Age: ??34 yrs Sex: ??Female Ref Phys: ??JOSEY TSE Exam Date: 10/19/2020 Procedure: US OB ANATOMY ANGUIANO Exam Site: [facility] Plurality: 1 INDICATIONS FOR SONOGRAPHY Anatomic [...] Read by Ilir Moss on 1:21:30 PM. Veteran Appeals Reviewer: ??Ilir Moss Thank You For This Referral Procedure Note Eamon Dawson M.B.B.S., M.D. - 10/19 LAURA LOWEBHARTI OB Exam, 10/19/2020 EXAM INFORMATION Patient Name: LAURA LOWE S : 1985 Age: 34 yrs Sex: Female Ref Phys: JOSEY TSE Exam Date: 10/19/2020 Procedure: US OB ANATOMY ANGUIANO Exam Site: [facility] Plurality: 1 INDICATIONS FOR SONOGRAPHY Anatomic [...] Read by Ilir Moss on 1:21:30 PM. Veteran Appeals Reviewer: Ilir Moss Thank You For This Referral Josey Tse M.D. IMG OB US PROCEDURES documented in this encounter Visit Diagnoses Not on filedocumented in this encounter
--- OUTSIDE RECORDS SUMMARY | 2022-06-04 08:16 | XMS_ITS | Encounter Summary ---
:1985 Author Organization [facility] Address [address] [place] [address] Care Team Providers Name Role Phone Unavailable Primary Care Provider Unavailable Reason for Visit Reason Comments Rupture of Membranes Contractions Auth/Cert Specialty Diagnoses / Procedures Referred By Contact Refer red To Contact Diagnoses 22 Weeks Gestation (HCC) Procedures DIR Referral ID Status Reason Start Date Expiration Date Visits Requ ested Visits Authorized [id number] 1 1 Encounter Details Date Type Department Care Team Description 10/18/2020 - Hospital Encounter [facility] Jordyn Wild M.D. [address] [place] [phone] 22 Weeks Gestation (Primary Dx) ; 10/20/2020 [facility], Erin Villagran M.D., M.P.H. [address] [place] [phone] 21 Weeks Gestation ; [place], Heather Ott M.D. [address] [place] [phone] Premature Rupture Of Membranes U nspecified As To Length Of Time Between Rupture And Onset Of Labor Second Trimester Building, Third Floor [address] [place] [address] Social History Tobacco Use Types [...] or relatives? How often do you attend yarsani or 1 to 4 times per year 11/22 jain services? Do you belong to any clubs or No 12/12/2020 organizations such as yarsani groups, unions, fraternal or athletic groups, or [...] Comments Blood Pressure 116/69 10/20/2020 12:39 PM TECHNOLOGY MANAGER Pulse 81 10/20/2020 12:39 PM TECHNOLOGY MANAGER Temperature 37.2 ??C (99 ??F) 10/20/2020 12:39 PM TECHNOLOGY MANAGER Respiratory Rate 18 10/20/2020 12:39 PM TECHNOLOGY MANAGER Oxygen Saturation 99% 10/20/2020 12:39 PM TECHNOLOGY MANAGER Inhaled Oxygen Concentration - - Weight 56.3 kg (124 lb 1.9 oz) 10/19/2020 6:30 AM TECHNOLOGY MANAGER Height - - Body Mass Index - - documented in this encounter Discharge Summaries Saqib Strong M.D. - 10/20/2020 12:07 PM CST DISCHARGE SUMMARY BRIEF OVERVIEW Hospital: [facility] Discharge Provider: Erin Alarcon M.D. Primary Team: [facility] No primary care provider on [...] return in one week for neonatology consult, [facility] return visit and further discussion of when she would like to be re-admitted. She was discharged home in stable condition. //Miriam Ruggiero MD CONSULTS ORDERED DURING THIS ADMISSION CONDITION AT DISCHARGE Stable Discharge instructions were provided to the patient and caregiver(s). NOLOGY MANAGER documented in this encounter Medications at Time of Discharge Medication Sig Dispensed Refills Start Date End Date Take 1 tablet by 0 qiwucpe-[id number]-FA (VINATE mouth daily. ONE) 60 mg iron-1 mg per tablet [id number]-rtipqhdescotm-w TK 1 TO 2 TS PO Q [...] 10/18/2020. 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 Obstetrical Chief PGY-3 [id number] NOLOGY MANAGER Associated attestation - Heather Goodrich M.D. - 10/19/2020 12:27 AM TECHNOLOGY MANAGER Salesperson Fashion Accessories Teaching Physician Statement: I have discussed the [...] delivery upon exam findings of 4-5cm dilation. 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 PSH: none Allergies: PCN (rash as [...] concern for necrotizing enterocolitis, and potential poor terminal supervisor neurological outcomes/disability. Have printed her additional studies [...] further discussion this afternoon Miriam Ruggiero M.D. NOLOGY MANAGER Associated attestation - Saqib Strong M.D. - 10/20/2020 11:17 AM TECHNOLOGY MANAGER I have discussed the care of Jim [...] L.G.S.W., L.I.C.S.W., M.S.W. - 10/19/2020 1:02 PM TECHNOLOGY MANAGER SUBJECTIVE Social work met with the patient [...] weeks gestationas a transfer of care from [place], [place] due to concern for previable premature [...] day parking pass provided 10/19/20. Annita Kaplan [facility], SHEARING MACHINE TENDER 10/19/2020 NOLOGY MANAGER Miriam Ruggiero M.D. - 10/19/2020 12:09 PM [...] 10/18/2020. 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 PSH: [...] for necr otizing enterocolitis, and potential poor terminal supervisor neurological outcomes/disability. Have printed her additional studies [...] discussion pending ultrasound results. Miriam Ruggiero M.D. NOLOGY MANAGER Associated attestation - Raysa Guerin M.D. - 11/14/2020 4:22 AM TECHNOLOGY MANAGER I saw and evaluated the patient, participating [...] with family for expectant management. Questions answered. NOLOGY MANAGER Irish Newell R.N. - 10/18/2020 9:29 PM [...] reviewed goals for the shift with patient. NOLOGY MANAGER documented in this encounter Miscellaneous Notes Hospital Course - Miriam Ruggiero M.D. - 10/19/2020 2:32 AM CST Jim Lowe is a 34 y.o who presented at 21w1 for previable PPROM. She was admitted from 10/19-. She weighed her options and then decided to pursue expectant management. She will return in one week for neonatology consult, [facility] return visit and further discussion of when she would like to be re-admitted. She was discharged home in stable condition. //Miriam Ruggiero MD NOLOGY MANAGER documented in this encounter Plan of Treatment Pending Results Name Type Priority Associated Diagnoses Date/Ti me US OB Limited Imaging RAD - Routine (most 020 8:51 PM inpatients and all TECHNOLOGY MANAGER outpatients) Scheduled Orders Name Type Priority Associated Diagnoses Order S chedule US OB Limited Imaging RAD - Routine (most Once fo r 1 inpatients and all Occurrenc es starting outpatients) 10/18/2020 unti l 10/18/2020 documented as of this encounter Procedures Procedure Name Priority Date/Time Associated Comments Diagnosis US OB ANATOMY RAD - Routine 10/19/2020 1:21 Results fo r this ANGUIANO (most inpatients PM TECHNOLOGY MANAGER procedure a re in and all the results outpatients) section. RUBELLA ANTIBODIES, Routine 10/19/2020 7:18 Resul ts for this IGG AM TECHNOLOGY MANAGER procedure are i n the results section. VARICELLA-ZOSTER Routine 10/19/2020 7:18 Results for this AB, IGG, S AM TECHNOLOGY MANAGER procedure are i n the results section. MICROSCOPIC MANUAL Routine 10/19/2020 2:21 Result s for this AM TECHNOLOGY MANAGER procedure are i n the results section. BACTERIAL CULTURE, Routine 10/19/2020 2:21 Result s for this AEROBIC + SUSC, AM TECHNOLOGY MANAGER procedure ar e in URINE the results section. CONFIRMED DRUG Routine 10/19/2020 2:21 Results fo r this ABUSE PANEL, U AM TECHNOLOGY MANAGER procedure are in the results section. CHLAMYDIA/GONORRHOE Routine 10/19/2020 2:21 Resul ts for this AE AMPLIFIED RNA AM TECHNOLOGY MANAGER procedure a re in the results section. URINALYSIS WITH Routine 10/19/2020 2:21 Results f or this MICROSCOPIC AM TECHNOLOGY MANAGER procedure are i n the results section. HEPATITIS B SURFACE STAT 10/18/2020 9:34 Resul ts for this ANTIGEN PM TECHNOLOGY MANAGER procedure are i n the results section. FIBRINOGEN, P STAT 10/18/2020 9:34 Results for this PM TECHNOLOGY MANAGER procedure are i n the results section. SARS CORONAVIRUS 2, Routine 10/18/2020 8:05 Resul ts for this MOLECULAR PM TECHNOLOGY MANAGER procedure are i n DETECTION, PCR (CURB WORKER) the resu lts section. HEPATITIS B SURFACE STAT 10/18/2020 7:59 Resul ts for this ANTIGEN PM TECHNOLOGY MANAGER procedure are i n the results section. CBC WITHOUT STAT 10/18/2020 7:59 Results for this DIFFERENTIAL, B PM TECHNOLOGY MANAGER procedure ar e in the results section. TYPE AND SCREEN STAT 10/18/2020 7:59 Results f or this PM TECHNOLOGY MANAGER procedure are i n the results section. HIV-1/-2 AG AND AB STAT 10/18/2020 7:58 Result s for this SCRN, PM TECHNOLOGY MANAGER procedure are in PLASMA the results section. documented in this encounter Results US OB Anatomy Anguiano (10/19/2020 1:21 PM TECHNOLOGY MANAGER) Anatomical Region Laterality Modality Body, Ultrasound OB RST LOS, Ultrasound ARZ LOS N/A Ultrasound Specimen (Source) Anatomical Location Collection Method / Collectio n Time Received Time / Laterality Volume Narrative 10/19/2020 1:27 PM TECHNOLOGY MANAGER JIM LOWE OB Exam, 10/19/2020 EXAM INFORMATION Patient Name: ??JIM LOWE : ??1985 Age: ??34 yrs Sex: ??Female Ref Phys: ??MIRIAM RUGGIERO Exam Date: 10/19/2020 Procedure: US OB ANATOMY ANGUIANO Exam Site: [facility] Plurality: 1 INDICATIONS FOR SONOGRAPHY Anatomic [...] Read by Ilir Moss on 1:21:30 PM. Progressive Care Nurse: ??Ilir Moss Thank You For This Referral Procedure Note Eamon Dawson M.B.B.S., MAngelo. - 10/19 JIM LOWE OB Exam, 10/19/2020 EXAM INFORMATION Patient Name: MYNORJIM S : 1985 Age: 34 yrs Sex: Female Ref Phys: MIRIAM RUGGIERO Exam Date: 10/19/2020 Procedure: US OB ANATOMY ANGUIANO Exam Site: [facility] Plurality: 1 INDICATIONS FOR SONOGRAPHY Anatomic [...] Read by Ilir Moss on 1:21:30 PM. Progressive Care Nurse: Ilir Moss Thank You For This Referral Miriam Ruggiero M.D. IMG OB US PROCEDURES Varicella-Zoster Antibody, IgG, Serum (10/19/2020 7:18 AM TECHNOLOGY MANAGER) athologist Signature Varicella-Zost Positive 10/19/2020 [facility] er Ab, IgG, S 10:41 AM TECHNOLOGY MANAGER Comment: Results suggest response to immunization or prior exposure to the virus. ----REFERENCE VALUE---- Vaccinated: Positive (>=1.1 AI) Unvaccinated: Negative (<=0.8 AI) Varicella IgG Antibody Index 1.3 10/19/2020 10:41 AM TECHNOLOGY MANAGER [facility] Specimen Anatomical Collection Method Collection Time Receive d Time (Source) Location / / Volume Laterality Blood (Blood, 10/19/2020 7:18 AM 10/19/20 20 9:43 Venous) TECHNOLOGY MANAGER AM TECHNOLOGY MANAGER Sierra Welch M.D. LAB MICROBIOLOGY - BLOOD ORD ERADIAMANTE Performing Organization Address [facility] Phon e Number [place] [id number] [place] [address] [facility] [place] [address] Laboratory Medicine and Pathology [address] [place] [address] Dr. MANUEL Rubella Antibodies, IgG (10/19/2020 7:18 AM TECHNOLOGY MANAGER) athologist Signature Rubella Ab, Positive 10/19/2020 [facility] IgG, S 10:40 AM TECHNOLOGY MANAGER Comment: Results suggest response to immunization or prior exposure to the virus. ----REFERENCE VALUE---- Vaccinated: Positive (>=1.0 AI) Unvaccinated: Negative (<=0.7 AI) Rubella IgG Antibody Index 1.4 10/19/2020 10 :40 AM TECHNOLOGY MANAGER [facility] Specimen Anatomical Collection Method Collection Time Receive d Time (Source) Location / / Volume Laterality Blood (Blood, 10/19/2020 7:18 AM 10/19/20 20 9:43 Venous) TECHNOLOGY MANAGER AM TECHNOLOGY MANAGER Sierra Welch M.D. LAB MICROBIOLOGY - BLOOD ORD JENNA Performing Organization Address [facility] Phon e Number [address] [place] [address] [place] [address] Laboratory Medicine and Pathology [address] [place] [address] Dr. MANUEL (ABNORMAL) Microscopic Manual (10/19/2020 2:21 AM TECHNOLOGY MANAGER) Analysis Performed At Patho logist Time Signature Microscopy Abnormal 10/19/2020 [facility] 6:26 AM TECHNOLOGY MANAGER RBC >100 (A) <3 /hpf 10/19/2020 [place] 6:26 AM TECHNOLOGY MANAGER Dysmorphic RBC <25 <25 % 10/19/2020 [facility] 6:26 AM TECHNOLOGY MANAGER WBC 1-3 /hpf 10/19/2020 [place] 6:26 AM TECHNOLOGY MANAGER Comment: ----REFERENCE VALUE---- 1-3 ??(Males) 1-10 (Females) Specimen Anatomical Collection Method Collection Time Receive d Time (Source) Location / / Volume Laterality Urine 10/19/2020 2:21 AM 0 4:00 TECHNOLOGY MANAGER AM TECHNOLOGY MANAGER Sierra Welch M.D. LAB URINE ORDERABLES Performing Organization Address [facility] Phon e Number [facility] - [address] [place] [address] 05 [place] [address] Laboratories-[address] Bacterial Culture, Aerobic + Susc, Urine (10/19/2020 2:21 AM TECHNOLOGY MANAGER) Patholo gist Method Time Signature Urine Culture No growth 10/20/2020 DT after 1 day 8:16 AM TECHNOLOGY MANAGER of incubation. Specimen Anatomical Collection Method Collection Time Receive d Time (Source) Location / / Volume Laterality Urine (Urine, 10/19/2020 2:21 AM 10/19/20 20 5:03 Straight TECHNOLOGY MANAGER AM TECHNOLOGY MANAGER Catheter) Comment: Specimen Source Site: Urine Sierra Welch M.D. LAB MICROBIOLOGY - GENERAL O RDERABLES Performing Organization Address [facility] Phon e Number [facility] - [address] [place] [address] (ABNORMAL) Urinalysis with Microscopic: Urine, Catheter (10/19/2020 2:21 AM TECHNOLOGY MANAGER) Analysis Performed At Patho logist Time Signature Source Catheter 10/19/2020 [place] 4:00 AM TECHNOLOGY MANAGER Appearance Normal Normal 10/19/2020 [place] 4:00 AM TECHNOLOGY MANAGER Osmolality, U 521 150 - 1150 10/19/2020 [facility] mOsm/kg 4:47 AM TECHNOLOGY MANAGER pH, U 6.2 4.5 - 8.0 10/19/2020 [place] 4:47 AM TECHNOLOGY MANAGER Comment: ----ADDITIONAL INFORMATION---- This test was developed and its performa nce characteristics determined by [facility] in a manner co nsistent with CLIA requirements. This test has not bee n cleared or approved by the U.S. Food and Drug Admin istration. Glucose 8 0 - 15 mg/dL 10/19/2020 6:17 AM TECHNOLOGY MANAGER [place] Protein, U 46 (H) <26 mg/dL 10/19/2020 6:17 AM TECHNOLOGY MANAGER [place] Comment: ----ADDITIONAL INFORMATION---- On 04/16/2017 the total protein assay me thod changed resulting in approximately a 15% increase in prote in values. Protein/Osmolality 0.88 (H) <0.42 Ratio 10/19/2020 6:17 AM TECHNOLOGY MANAGER [place] Comment: ----ADDITIONAL INFORMATION---- On 04/16/2017 the total protein assay me thod changed resulting in approximately a 15% increase in prote in values. Predicted 24 Hr Protein 597 mg/24 h 10/19/2020 6:17 AM TECHNOLOGY MANAGER [place] Predicted Range 148-2419 mg/24 h 10/19/2020 6:17 AM TECHNOLOGY MANAGER R JEM Hemoglobin, QL Large (A) Negative 10/19/2020 6:26 AM TECHNOLOGY MANAGER RE NA Specimen Anatomical Collection Method Collection Time Receive d Time (Source) Location / / Volume Laterality Urine (Urine, 10/19/2020 2:21 AM 10/19/20 20 4:00 Catheter) TECHNOLOGY MANAGER AM TECHNOLOGY MANAGER Sierra Welch M.D. LAB URINE ORDERABLES Performing Organization Address City/State/ZIP Code Phon e Number [facility] - [address] [place], [place] [address] [place] [address] Laboratories-[facility] [address] Chlamydia / Gonorrhoeae Amplified RNA (10/19/2020 2:21 AM TECHNOLOGY MANAGER) [facility] gist Method Time Signature Source Urine, 10/19/2020 [facility] Urine, First 6:58 PM TECHNOLOGY MANAGER Voided Chlamydia Negative Negative 10/19/2020 [facility] trachomatis 6:58 PM TECHNOLOGY MANAGER amplified RNA Source Urine, 10/19/2020 [facility] Urine, First 6:58 PM TECHNOLOGY MANAGER Voided Neisseria Negative Negative 10/19/2020 [facility] gonorrhoeae 6:58 PM TECHNOLOGY MANAGER amplified RNA Specimen Anatomical Collection Method Collection Time Receive d Time (Source) Location / / Volume Laterality Varies (Urine, 10/19/2020 2:21 AM 020 7:22 First Voided) TECHNOLOGY MANAGER AM TECHNOLOGY MANAGER Sierra Welch M.D. LAB MICROBIOLOGY - GENERAL O RDERABLES Performing Organization Address City/[facility] Phon e Number [facility] - [address] [place], [place] [address] [facility] [place] [address] Laboratories-[facility] [address] Drug Abuse Survey with Confirmation, Urine (10/19/2020 2:21 AM TECHNOLOGY MANAGER) Patholo gist Method Time Signature Alcohol Negative Cutoff: 10/19/2020 [facility] 10 mg/dL 9:52 AM TECHNOLOGY MANAGER Amphetamines Negative Cutoff: 10/19/2020 [facility] 500 ng/mL 9:52 AM TECHNOLOGY MANAGER Barbiturates Negative Cutoff: 10/19/2020 [facility] 200 ng/mL 9:52 AM TECHNOLOGY MANAGER Benzodiazepines Negative Cutoff: 10/19/2020 [facility] 100 ng/mL 9:52 AM TECHNOLOGY MANAGER Cocaine Negative Cutoff: 10/19/2020 [facility] 150 ng/mL 9:52 AM TECHNOLOGY MANAGER Opiates Negative Cutoff: 10/19/2020 [facility] 300 ng/mL 9:52 AM TECHNOLOGY MANAGER Phencyclidine Negative Cutoff: 10/19/2020 [facility] 25 ng/mL 9:52 AM TECHNOLOGY MANAGER Tetrahydrocannabinol Negative Cutoff: 10/19/2020 [facility] 50 ng/mL 9:52 AM TECHNOLOGY MANAGER Comment: ----ADDITIONAL INFORMATION---- This report is intended for use in clini kosta monitoring or management of patients. ??It is not intended for use i n employment-related testing. Specimen Anatomical Collection Method Collection Time Receive d Time (Source) Location / / Volume Laterality Urine (Urine, 10/19/2020 2:21 AM 10/19/20 8:50 Clean Catch) TECHNOLOGY MANAGER AM TECHNOLOGY MANAGER Sierra Welch M.D. LAB URINE ORDERABLES Performing Organization Address City/[facility] Phon e Number [facility] [address] [place], [place] [address] [facility] [place] [address] Laboratory Medicine and Pathology [address] [place] (ABNORMAL) Fibrinogen (10/18/2020 9:34 PM TECHNOLOGY MANAGER) P athologist Signature Fibrinogen, P 624 (H) 200 - 393 10/18/2020 [facility] mg/dL 9:49 PM TECHNOLOGY MANAGER Specimen Anatomical Collection Method Collection Time Receive d Time (Source) Location / / Volume Laterality Blood (Blood, 10/18/2020 9:34 PM 10/18/20 20 9:40 Venous) TECHNOLOGY MANAGER PM TECHNOLOGY MANAGER Sierra Welch M.D. LAB BLOOD ADD-ON Performing Organization Address City/[facility]/ZIP Code Phon e Number [facility] - [address] [place], [place] [address] [facility] [place] [address] Laboratories-[facility] [address] Hepatitis B Surface Antigen (10/18/2020 9:34 PM TECHNOLOGY MANAGER) P athologist Signature HBs Antigen, S Negative Negative 10/19/2020 [facility] 9:23 AM TECHNOLOGY MANAGER Specimen Anatomical Collection Method Collection Time Receive d Time (Source) Location / / Volume Laterality Blood (Blood, 10/18/2020 9:34 PM 10/19/20 8:14 Venous) TECHNOLOGY MANAGER AM TECHNOLOGY MANAGER Sierra Welch M.D. LAB MICROBIOLOGY - BLOOD ORD ERABLES Performing Organization Address [facility] Phon e Number [facility] [address] [place], [place] [address] [facility] [place] [address] Laboratory Medicine and Pathology [address] [place] SARS Coronavirus 2, Molecular Detection, PCR (CURB WORKER) Asymptomatic (10/18/2020 8:05 PM TECHNOLOGY MANAGER) Patholo gist Method Time Signature COVID-19, PCR Undetected Undetected 10/19/2020 [facility] 12:55 AM TECHNOLOGY MANAGER Comment: SARS-CoV-2 RNA absent. This result does [...] Drug Administration an d is used per microsoft bi developer's instructions. Performance characteristics were verified by [facility] in a manner consistent with CLIA requirements. Visit the CDC website: https://www.cdc.g ov/coronavirus/ for the most recent guidelines on [place] virus testing. Fact Sheet for Healthcare Providers: https://www.fda.gov/media/998246/downloa d Fact Sheet for Patients: https://www.fda.gov/media/533626/downloa d Specimen Anatomical Collection Method Collection Time Receive d Time (Source) Location / / Volume Laterality Varies 10/18/2020 8:05 PM 0 8:40 (Nasopharynx) TECHNOLOGY MANAGER PM TECHNOLOGY MANAGER Heather Goodrich M.D. LAB MICROBIOLOGY - GENERAL O RDERABLES Performing Organization Address City/[facility]/ZIP Code Phon e Number [facility] - [address] [place], [place] [address] [facility] [place] [address] Laboratories-[facility] [address] [facility] Hepatitis B Surface Antigen (10/18/2020 7:59 PM TECHNOLOGY MANAGER) P athologist Signature HBs Antigen, S Negative Negative 10/19/2020 [facility] 8:04 AM TECHNOLOGY MANAGER Specimen Anatomical Collection Method Collection Time Receive d Time (Source) Location / / Volume Laterality Blood (Blood, 10/18/2020 7:59 PM 10/19/20 20 6:59 Venous) TECHNOLOGY MANAGER AM TECHNOLOGY MANAGER Sierra Welch M.D. LAB MICROBIOLOGY - BLOOD ORD ERABLES Performing Organization Address City/[facility] Phon e Number [facility] [address] [place], [place] [address] [facility] [place] [address] Laboratory Medicine and Pathology [address] [place] Type and Screen (with reflex Antibody ID) (10/18/2020 7:59 PM TECHNOLOGY MANAGER) Patholo gist Method Time Signature ABORh B Pos Not 10/18/2020 [facility] applicable 8:29 PM TECHNOLOGY MANAGER Antibody Negative Negative 10/18/2020 [facility] Screen 8:44 PM TECHNOLOGY MANAGER Type & Screen 10/21/2020 10/18/2020 [facility] Expiration 23:59 8:29 PM TECHNOLOGY MANAGER Testing [place] DEFAULT 10/18/2020 [facility] Location 8:08 PM TECHNOLOGY MANAGER Specimen Anatomical Collection Method Collection Time Receive d Time (Source) Location / / Volume Laterality Blood (Blood, 10/18/2020 7:59 PM 10/18/20 20 8:08 Venous) TECHNOLOGY MANAGER PM TECHNOLOGY MANAGER Sierra Welch M.D. LAB BLOOD BANK TEST ORDERABL ES Performing Organization Address [facility]/ZIP Code Phon e Number [facility] - [address] [place], [place] [address] [facility] [place] [address] Laboratories-[facility] [address] [facility] (ABNORMAL) CBC without Differential (10/18/2020 7:59 PM TECHNOLOGY MANAGER) Patholo gist Method Time Signature Hemoglobin 11.0 (L) 11.6 - 10/18/2020 [facility] 15.0 g/dL 8:06 PM TECHNOLOGY MANAGER Hematocrit 31.8 (L) 35.5 - 10/18/2020 [facility] 44.9 % 8:06 PM TECHNOLOGY MANAGER Erythrocytes 3.65 (L) 3.92 - 10/18/2020 [facility] 5.13 8:06 PM TECHNOLOGY MANAGER x10(12)/L MCV 87.1 78.2 - 10/18/2020 [facility] 97.9 fL 8:06 PM TECHNOLOGY MANAGER RBC Distrib Width 13.5 12.2 - 10/18/2020 [facility] 16.1 % 8:06 PM TECHNOLOGY MANAGER Platelet Count 287 157 - 371 10/18/2020 [facility] x10(9)/L 8:06 PM TECHNOLOGY MANAGER Leukocytes 19.3 (H) 3.4 - 9.6 10/18/2020 [facility] x10(9)/L 8:06 PM TECHNOLOGY MANAGER Specimen Anatomical Collection Method Collection Time Receive d Time (Source) Location / / Volume Laterality Blood (Blood, 10/18/2020 7:59 PM 10/18/20 8:04 Venous) TECHNOLOGY MANAGER PM TECHNOLOGY MANAGER Sierra Welch M.D. LAB BLOOD ADD-ON Performing Organization Address City/State/ZIP Code Phon e Number [facility] - [address] [place] [address] [facility] [place] [address] [facility] [address] [facility] HIV-1/-2 Ag and Ab Scrn, Plasma (10/18/2020 7:58 PM TECHNOLOGY MANAGER) P athologist Signature HIV-1/-2 Ag Negative Negative 10/19/2020 [facility] and Ab 9:31 AM TECHNOLOGY MANAGER Scrn, P Comment: Negative result does not rule out HIV in fection. If exposure to HIV infection occurred <14 d ays ago, contact the laboratory to request additi on of HIV-1 RNA detection / quantification test (HIV QN). Specimen Anatomical Collection Method Collection Time Receive d Time (Source) Location / / Volume Laterality Blood (Blood, 10/18/2020 7:58 PM 10/19/20 20 6:59 Venous) TECHNOLOGY MANAGER AM TECHNOLOGY MANAGER Sierra Welch M.D. LAB MICROBIOLOGY - BLOOD ORD ERABLES Performing Organization Address City/State/ZIP Code Phon e Number [facility] [address] [place], [place] [address] [facility] [place] [address] Laboratory Medicine and Pathology [address] [...] 900 mg New Bag 10/19/2020 5:09 AM TECHNOLOGY MANAGER 900 mg 100 mL/hr (CLEOCIN) 900 mg, intravenous, at 100 mL/hr, Administer over 30 Minutes, Every 8 hours, First dose on Sat10/18/20 at 2000, premix bag, Indications: Obstetric or gynecological infection New Bag 10/18/2020 9:41 PM TECHNOLOGY MANAGER 900 mg 100 mL/hr fentaNYL injection 100 mcg (SUBLIMAZE) Given 10/18/2020 9:49 PM TECHNOLOGY MANAGER 100 mcg 100 mcg, intravenous, Every 1 hour PRN, moderate pain or score 4-6 of 10, severe pain or score 7-10 of 10, for labor pains, Starting on Sat10/18/20 at 1939, For 3 doses, L&D Pre-Delivery, Consultation with Anesthesia for pain control if patient requests regional anesthesia and in active labor or membranes ruptured. Given 10/18/2020 8:44 PM TECHNOLOGY MANAGER 100 mcg gentamicin 290 mg in NaCl 0.9% IVPB New Bag 10/18/2020 8:41 PM TECHNOLOGY MANAGER 290 mg 215 mL/hr (GARAMYCIN) 290 mg (rounded from 285 mg = 5 mg/kg ? 57 kg Order-specific weight), intravenous, at 215 mL/hr, Administer over 30 Minutes, Once, On Sat10/18/20 at 2000, For 1 dose, Drug Monitoring Program: Pharmacist to adjust medication dosing based on indication and drug clearance factors., Indications: Obstetric or gynecological infection lactated ringers New Bag 10/19/2020 5:10 AM TECHNOLOGY MANAGER 125 mL/hr 125 mL/hr 125 mL/hr, intravenous, Continuous, Starting on Sat10/18/20 at 2000, L&D Pre-Delivery, Indications: Hang fluids for maternal dehydration, concerns, epidural placement, with antibiotics. Rate/Dose Verify 10/19/2020 2:20 AM TECHNOLOGY MANAGER 125 mL/hr 125 mL/hr Rate/Dose Verify 10/19/2020 12:00 AM TECHNOLOGY MANAGER 125 mL/hr 125 mL/hr multivitamin/mineral- tablet 1 Given 10/20/2020 9:30 AM TECHNOLOGY MANAGER 1 tablet tablet 1 tablet, oral, Daily, First dose on Kylie 10/20/20 at 0900 documented in this encounter Active and Recently Administered Medications Times are shown in TECHNOLOGY MANAGER. Scheduled Medication Order 10/18/2020 10/19/2020 10/20/2020 clindamycin [...] palpation, or reach a mximum of 250 Henderson units, and/or cervical change(s) occur. PRN Medication [...] COVID19 Pending 10/18/2020 10/18/2020 10/19/2020 12:56 AM TECHNOLOGY MANAGER documented as of this encounter
== END 2022-06-04 08:14 | disposition home or self-care (01) ==
LOC: US 08:13
PROVIDERS: Visit Provider Obstetrics & Gynecology
DX: Z34.92 Encounter for supervision of normal pregnancy, unspecified, second trimester (principal)
CPT/HCPCS: 76815; 76817

== ENCOUNTER 2022-07-04 12:06 | Outpatient (CLI) | payer BC, SELFPAY ==
--- OUTSIDE RECORDS SUMMARY | 2022-07-04 12:08 | XMS_ITS | Encounter Summary ---
:1985 Author Organization [facility] Address [address] [place] [address] Care Team Providers Name Role Phone Unavailable Primary Care Provider Unavailable Reason for Visit Outpatient (Routine) - Closed Specialty Diagnoses / Procedures Referred By Contact Refer red To Contact Maternal and Diagnoses Premature Rupture Of Membranes Unspecified As To Length Of Time Between Rupture And Onset Of Labor Second Trimester ([facility]) 21 Weeks Gestation ([facility]) [facility] Janelle Dominguez M.D. [address] [place] [id number] Referral ID Status Reason Start Date Expiration Date Visits Requ ested Visits Authorized [id number] Closed 11/02/2020 11/02/2021 1 1 Encounter Details Date Type Department Care Team Description 12/16/2020 Telemedicine Department of Saqib Strong, Diana ture Rupture Of Membranes Unspecified As To Length Of Time Between Rupture And Onset Of Labor Second Trimester; Obstetrics and M.D. 21 Weeks Gestation Gynecology in [address] [place] [address] [place] [id number] [place], [place] [phone] (Work) [phone] Social History Tobacco Use Types Packs/Day Years [...] or relatives? How often do you attend confucianist or 1 to 4 times per year 11/22 presybeterian services? Do you belong to any clubs or No 12/12/2020 organizations such as confucianist groups, unions, fraternal or athletic groups, or [...] the highest level of school Associate degree: zonai valdovinos, 12/11/2020 you have completed or the highest technical, or vocational [facility] degree you have received? Sex Assigned at Date Recorded Not on file documented as of this encounter Consult Notes Saqib Strong M.D. - 12/16/2020 8:00 AM CST Consult conducted via real-time audio/video technology by Saqib Strong M.D. in [facility] to the patient in patient home. 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 Mrs. Salinas's obstetrical history is significant for three term vaginal deliveries and one first-trimester miscarriage. In her fifth (2019), she was admitted o [facility] following spontaneous PPROM at 21 weeks gestation. Ultrasound demonstrated normal anatomy and biometry; olig ohydramnios was noted (as anticipated). After an interval of inpatient observation, Mrs. Salinas and her elected to pursue expectant management and were discharged to home. Subsequently she developed labor at 21 weeks and delivered her daughter in [place]; her daughter appeared morphologically normal, and survived for approximately 60 minutes. Difficulty was encountered with retained placenta, requiring manual extraction and D&C; Mrs. Salinas was treated with a course of intravenous antibiotic therapy. 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 Salinas experienced retained placenta requiring manual extraction in her first as well. Regarding her heterozygous prothrombin [id number] heterozygote status, Mrs. Salinas was screening for thrombophilias after an aunt experienced an episode of thrombosis and tested positive for Factor V Leiden and the Prothrombin [id number] mutation; neither she personally nor any first-degree [...] delivery of 46% in the subsequent . (Thornton 2016) Potentially beneficial interventions (presuming richardson gestation) [...] determine viability/number and define gestational age. (in [place]) 3. Maternal cystic fibrosis/SMA and aneuploidy screening at 10-12 weeks (per her preference). 4. Consideration of early anatomic ultrasound at 11-14 weeks. 5. Sonographic cervix length surveillance beginning at 16 weeks and repeated weekly through 22 6/7 weeks, with contingent cerclage placement if cervix length shortens to <25mm prior to 23 0/7 weeks.(initial imaging study in [place]) 6. Consideration of 17-hydroxyprogesterone caprate prophylaxis (250mg IM weekly), beginning at 16-20weeks and continuing through 36 weeks. 7. Detailed anatomic survey ultrasound at 18-20 weeks. (in [place]) 8. Repeat ultrasound at 30-32 weeks to evaluate placental appearance for any evidence of accreta. 9. Consider induction of labor at 39 0/7-39 6/7 weeks; this may be scheduled either in [place] or in [place] pending resource availability. Mrs. Salinas resides approximately 1 hour from [place]. Intrapartum: 10. Obtain CBC and type & [...] I will arrange for initial appointments in [place]. Further care may be coordinated between [place] and [place]. I will also forward materials regarding placenta accreta occulta. Saqib Strong M.D. E LINING FINISHER ASBESTOS documented in this encounter Plan of Treatment Not on filedocumented as of this encounter Visit Diagnoses Diagnosis Premature Rupture Of Membranes U nspecified As To Length Of Time Between Rupture And Onset Of Labor Second Trimes ter (HCC) 21 Weeks Gestation (HCC) documented in this encounter
--- OUTSIDE RECORDS SUMMARY | 2022-07-04 12:08 | XMS_ITS | Encounter Summary ---
:1985 Author Organization [facility] Address [address] [place] [address] Care Team Providers Name Role Phone Unavailable Primary Care Provider Unavailable Reason for Visit Auth/Cert Specialty Diagnoses / Procedures Referred By Contact Refer red To Contact Diagnoses 22 Weeks Gestation (HCC) Procedures DIR Referral ID Status Reason Start Date Expiration Date Visits Requ ested Visits Authorized [id number] 1 1 Encounter Details Date Type Department Care Team Description 10/19/2020 Hospital Encounter Department of Josey Tse Obstetrics and M.DIsha Gynecology in [address] [place] [address] [place] [id number] [place], [place] [phone] (Wo rk) [phone] Social History Tobacco Use Types Packs/Day Years [...] or relatives? How often do you attend denominational or 1 to 4 times per year 11/22 mu-ism services? Do you belong to any clubs or No 12/12/2020 organizations such as denominational groups, unions, fraternal or athletic groups, or [...] Sig Dispensed Refills Start Date End Date [id number] TK 1 TO 2 TS PO Q 4 H 0 09/08/2020 aff (FIORICET, ESGIC) NEEDED. MAX 6 PER 50-325-40 mg per tablet DAY Take 1 tablet by 0 [id number] (VINATE mouth daily. ONE) 60 mg iron-1 mg per tablet documented as of this encounter Plan of Treatment Not on filedocumented as of this encounter Procedures Procedure Name Priority Date/Time Associated Comments Diagnosis US OB ANATOMY RAD - Routine 10/19/2020 1:21 Results fo r this ANGUIANO (most inpatients PM ECONOMIC MANAGER procedure a re in and all the results outpatients) section. documented in this encounter Results US OB Anatomy Anguiano (10/19/2020 1:21 PM ECONOMIC MANAGER) Anatomical Region Laterality Modality Body, Ultrasound OB RST LOS, Ultrasound ARZ LOS N/A Ultrasound Specimen (Source) Anatomical Location Collection Method / Collectio n Time Received Time / Laterality Volume Narrative 10/19/2020 1:27 PM ECONOMIC MANAGER LAURA LOWE OB Exam, 10/19/2020 EXAM INFORMATION Patient Name: ??LAURA LOWE : ??1985 Age: ??34 yrs Sex: ??Female Ref Phys: ??JOSEY TSE Exam Date: 10/19/2020 Procedure: US OB ANATOMY ANGUIANO Exam Site: [facility] Plurality: 1 INDICATIONS FOR SONOGRAPHY Anatomic [...] Read by Ilir Moss on 1:21:30 PM. Intelligence Engineer: ??Ilir Moss Thank You For This Referral Procedure Note Eamon Dawson M.B.B.S., M.D. - 10/19 LAURA LOWEBHARTI OB Exam, 10/19/2020 EXAM INFORMATION Patient Name: LAURA LWOE S : 1985 Age: 34 yrs Sex: Female Ref Phys: JOSEY TSE Exam Date: 10/19/2020 Procedure: US OB ANATOMY ANGUIANO Exam Site: [facility] Plurality: 1 INDICATIONS FOR SONOGRAPHY Anatomic [...] Read by Ilir Moss on 1:21:30 PM. Intelligence Engineer: Ilir Moss Thank You For This Referral Josey Tse M.D. IMG OB US PROCEDURES documented in this encounter Visit Diagnoses Not on filedocumented in this encounter
--- OUTSIDE RECORDS SUMMARY | 2022-07-04 12:08 | XMS_ITS | Encounter Summary ---
:[address] [facility] Address [address] [place] [address] Care Team Providers Name Role Phone Unavailable Primary Care Provider Unavailable Reason for Referral Outpatient (Routine) - Closed Specialty Diagnoses / Procedures Referred By Contact Refer red To Contact Maternal and Diagnoses Premature Rupture Of Membranes Unspecified As To Length Of Time Between Rupture And Onset Of Labor Second Trimester (HCC) 21 Weeks Gestation ([facility]) [facility] Janelle Dominguez M.D. [address] [place] [address] Referral ID Status Reason Start Date Expiration Date Visits Requ ested Visits Authorized [id number] Closed 11/02/2020 11/02/2021 1 1 RANCE CONSULTANT Encounter Details Date Type Department Care Team Description 11/02/2020 [facility] NeftalyJuan, Premature Rupture Of Membranes Unspecified As To Length Of Time Between Rupture And Onset Of Labor Second Trimester (Primary Dx); AND CLINICS Janelle Dominguez M.D. 21 Weeks Gestation 1999 [facility] [address] [place] [address] [place], [place] [phone] Social History Tobacco Use Types Packs/Day Years [...] or relatives? How often do you attend congregation or 1 to 4 times per year 11/22 scientologist services? Do you belong to any clubs or No 12/12/2020 organizations such as congregation groups, unions, fraRetrotope or athletic groups, or school groups? How [...] Name Type Priority Associated Diagnoses Order [facility] Obstetrics Referral Outpatient Referral Routine Premat ure [...]
--- OUTSIDE RECORDS SUMMARY | 2022-07-04 12:08 | XMS_ITS | Clinical Summary ---
:1985 Author Organization [employer] [place] [address] Care Team Providers Name Role Phone Pcp, No Primary Care Provider Unavailable Annita Moreira CNM Unavailable Allergies Active Allergy Reactions Severity Noted Date Comments Penicillins 12/21/2006 Salicylates Edema 12/21/2006 hands and tongu e 09/23 Medications Medication Sig Dispensed Refills Start Date End Date Status omeprazole (PRILOSEC) 0 04/02/2022 Active 20 mg Delayed-Release capsule ondansetron (ZOFRAN) 4 Take 4 mg by 0 03/21/2022 Active mg tablet mouth every 6 hours if needed. vitamins-folic Take 1 Tablet by 0 Active acid 1 mg ( RX) mouth once daily. tablet Active Problems Problem Noted Date [facility] Supervision of high-risk 03/29/2022 Overview: [facility] CONSULTATION ON 04/03/22 -- Virtual Visit REASON FOR CONSULT: risks and management pt had pre- consult at [facility]-- recommended cervical lengths at 16w, possibly cerclage and MFM follow-up TODAY'S APPOINTMENT: Consultation PRIMARY DIAGNOSIS: 36 y.o. Estimate d Date of Delivery: 10/08/22 ?? Hx: --2005: 40w NVD, retained placenta, EBL 750 cc --2010: 39w vag EFW 10%--induced --2014: 37w vag --2020: 7 wk SAB --10/2020: 21w4d PROM/del. Had D&C, joseline l placental pathology showed placenta accreta occulta ?? Factor II heterozygous ?? depression ?? BMI 20 LAST GROWTH: Viability done at 9.o weeks by LMP, 9.2 weeks by US REFERRING PHYSICIAN/PHONE/LAST UPDATE: Horacio Moreira CNM [place] [phone] Primary MD approves scheduling of recomm ended ultrasounds/testing: Yes SPECIALISTS/CONSULTS: Include: Specialty MD Clinic Name Phone# [place] and ADDED TO PATIENT CARE TEAM No CARE COORDINATION: GENETICS: declined PROCEDURES: PERTINENT LABS: B POS PERTINENT MEDS: PNV, pepcid, omeprazole, zofran Preferred delivery location: PLAN OF CARE: Menorrhagia 09/29/2008 Routine general medical examination at [facility] acility 09/29/2008 Palpitations 09/29/2008 Other general counseling and advice for contraceptive management 09/29/2008 Acute bronchospasm 12/29/2007 History of delivery, currently in fir st trimester Low lying placenta nos or without hemorrhage, second t rimester History of placenta accreta in prior , curren tly in second trimester Estimated Date of Delivery Comments Yes 10/08/2022 Based on Other Basis Encounters Date Type Specialty Care Team Description 05/23/2022 Hospital Encounter Heather Hernandes bridger placenta nos or without hemorrhage, second trimester (Primary Dx); MD Eber History of pret erm delivery, currently in first trimester 05/23/2022 Travel 04/09/2022 Telephone Katie Loyola [facility] Appoin tment (spoke with patient to jarad carmona f/u appt with [facility]PP. patient requested info on [facility]. sent a s text. patient will lo ok there for appt location/addres s.) 04/04/2022 Telephone Katie Loyola [facility] Appoin miracle (lv to schedule f/u wi th MPP at 20wks: 05/21/22) 04/03/2022 Hospital Encounter Khang Chet Shamir, History of delivery, currently in first trimester (Primary Dx); Supervision of high risk in first trimester from Last 3 Months Immunizations Name Administration Dates Next Due DTP 04/21/1993, 07/10/1989, 06/19/1988, 04/18/1988, 02/02/1988 Hepatitis B (Adult) 10/08/2008 Influenza, IIV3 (Age >=3 years) 09/29/2008, 09/18/2007, 12/2004 MMR 05/07/1989 Oral Polio Vaccine 04/21/1993, 07/10/1989, 04/18/1988, 02/02/1988 Td (Age >=7 Years) 10/21/1999 Tdap 05/24/2011 Tuberculin (PPD) 06/03/2009, 10/08/2008, 09/29/2008 Family History Medical History Relation Name Comments Allergies Brother Factor V Leiden deficiency Brother and F actor II deficiency Factor V Leiden deficiency Father Cancer-prostate Maternal Grandfather Cancer-breast Maternal Grandmother late onset Diabetes Maternal Grandmother Hypertension Mother Rheum arthritis Mother Cancer Paternal Grandfather Heart Disease Paternal Grandfather Stroke Paternal Grandfather Diabetes Paternal Grandmother type 2 Other Paternal Grandmother glucoma Relation Name Status Comments Brother Alive Daughter Alive Father Alive Maternal Grandfather Maternal Grandmother Alive Mother Alive Paternal Grandfather Paternal Grandmother Son 1 Alive Son 2 Alive Social History Tobacco Use Types Packs/Day Years Used Date Never Smoker Smokeless Tobacco: Never Used Tobacco Cessation: Counseling Given: No Alcohol Use Standard Drinks/Week Comments No 0 (1 standard drink = 0.6 oz pure alcoho l) Estimated Date of Delivery Comments Yes 10/08/2022 Based on Other Basis Sex Assigned at Date Recorded Not on file Obstetrics History Para Term AB IAB SAB Ectopic Multiple Living Live Births 6 4 3 1 1 1 3 Date Outcome GA Total Labor/2nd/3rd Weight Sex Delivery Anes PTL Izzy A 1 A5 Name Clin Labor 2004 Term 40w 3.86 kg M Vag-Spont Y 0d (8 lb 8 oz) Complications: Retained placenta Comments: labor at 32w, 2009 Term 39w0d 2.69 kg (5 lb 15 oz) F VAGINAL SAIDA N Delivery Location: [facility] Comments: IUGR 2014 Term 37w0d 3.37 kg (7 lb 7 oz) M 2020 SAB 7w0d Current OB Episode Summary Episode Dates Estimated Date of Pregravid Weight TWG (As of ) Delivery 04/03/2022 - Present 10/08/2022 (07/04/2022) Date GA Fund Present FHR Mvmt BP Weight Edema Alb Glu Ket Dil/Eff/S ta 04/03/2022 13w1d Inpatient data not d isplayed here. See encounter summary. 05/23/2022 20w2d Inpatient data not d isplayed here. See encounter summary. Progress Notes 05/23/2022 - 20w2d - Heather Hernandes MD [facility] Ultrasound 05/23/22 Referred By: DARSHAN MULLINS Indications Code 20 weeks gestation of Z3A.20 History of PTD / PROM D&C x2 History of FGR Factor II heterozygous Declined genetic testing History of retained placenta with accret a (occulta) dx after placenta sent to lab. Detailed and TVUS IMPRESSION: Intrauterine at 20w 2d. presentation is Breech. EFW 418 grams, percentile: 92. Growth parameters and estimated we ight are appropriate for gestational age. No major structural anomalies identified . No markers for aneuploidy identified. Normal Deepest Vertical Pocket of amniot ic fluid: 4.17 cm. Placental location: Posterior low lying. The placental edge measures 0.4cm from the internal os. The uteroplacental interface appears nor mal with no ultrasound markers for placenta accreta. Normal transvaginal cervical length. RECOMMENDATIONS: -Return to primary provider for continue d care. -No alterations in the delivery plan are necessary. -No medication changes are indicated. Co ntinue vaginal progesterone due to history of delivery. -Recommend a follow up ultrasound at 32 weeks to evaluate placental location and assess for markers of placenta accreta spectrum. Vaginal ultrasound is recommended with color Doppler even if the low lyi ng placenta has resolved, since this is a risk factor for vasa previa. -Follow up appointments for Ultrasound o nly were scheduled in our office today. COMMENT: Present findings are reassuring. The pat filiberto was seen by the Perinatologist today. The previous ultrasound and the records were reviewed. The results of today's ultrasound were communicated to the patient. I reviewed the limitations of US in the detection of anomalies and aneuploidy. Counseling included that the finding of a low-lying placenta in the second trimester (placental edge <20mm from cervical os) was seen today. The majority of low-lying placentas diagnosed in the secon d trimester will resolve. Those that do not may increase the risk of antepartum/intrapartum vaginal bleeding. We recommend a follow up ultrasound at 32 weeks to evaluate placental location. Vaginal ultr asound with color Doppler is recommended since low lying placenta, even if resolved, is a risk factor for vasa previa. I recommend pelvic rest and previa precautions if the placental edge is <1cm from the cervical os. I also reviewed her diagnosis of placent a accreta and retained placenta in prior . See prior consult letter in [facility] for further details. Today's US shows no signs of placenta accreta spectrum, but I reviewed the limitations of US in the detection of placenta accreta, especially with posterior placenta. We will re-assess placentation at her follow up US. She plans delivery in [place] which is reasonable as long as follow up US lo oks normal. She continues vaginal progesterone and s erial cervical length US in [place] (see prior consult letter in [facility]). New government regulations related to Cures act require that this note be released to the patient immediately, sometimes before the referring provider has been contacted. A portion of t he information was presented verbally to the patient. The remainder is submitted as background for the referring provider, to be discussed as needed. Medical Decision Makin Moderate number of Diagnoses including one previously undiagnosed new problem with uncertain prognosis, a low lying placenta. Moderate complexity of Data including r eview of prior ultrasound, ordering another ultrasound, and review of prior external notes, Low risk Services Provided: Procedures Code DETAIL ANATOMY 18371.0 TRANSVAGINAL ULTRASOUND 57686.0 Heather Hernandes MD 05/23/2022 - 20w2d - Rosa Tam RN HEADEND TECHNICIAN: I was the clinical awning craftsperson for the [facility] S and I was present during the entire exam. Rosa Tam RN ................... . 05/23/2022 2:51 PM 04/03/2022 - 13w1d - Mira Montilla RNF ormatting of this note might be different from the original. TELEHEALTH As the RN for this telehealth service, I attest that I introduced myself to the patient, provided my credentials, disclosed my location, and determined that, based on a review of the patients chart and/ or a discussion with members of the the medical center ent's treatment team, a virtual visit is an appropriate and effective means of providing this service. The patient and I mutually agree that this visit is appropriate. This consult was done virtually with her in her home. No vital signs or heart rates were taken for this visit [facility] Consultation Vis it ?? Patient scheduled for consultation du e to Hx: --2004: 40w NVD, retained placenta, EBL 750 cc --2009: 39w vag EFW 10%--induced --2014: 37w vag --2020: 7 wk SAB --10/2020: 21w4d PROM/del. 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 She was referred by Annita Bhakta CNM [place] Assessment Histories reviewed today include: Past M edical History, Past Surgical History, Social History and Family History and Obstetric History. Refer to the corresponding sections of the history section of Exce ian chart and the [facility] Naviga tor for details. Comments under Consult in problem list updated after review with patient. Assessment: Patient's perception of movement: Has not felt movement yet. Normal movement discussed. this is a virtual visit-no assessm ent was made Education Some basic routine education done during assessment. See patient education section for details. Patient states that all her questions were answered. Scheduled to consult with Dr. Hernandes today. Detailed verbal report given. After Visit Summary created and discusse d with patient on discharge. Yes After Visit summary offered and supplied to patient? AVS was printed and mailed to patient's home address. Is referring provider within [facility]? 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 INSTRUCTIONAL LEADER Temperature 36.8 ??C (98.3 ??F) 12/12/2011 5:04 PM INSTRUCTIONAL LEADER Respiratory Rate - - Oxygen Saturation 99% 12/12/2011 5:04 PM INSTRUCTIONAL LEADER Inhaled Oxygen - - Concentration Weight 55.3 kg (122 lb) 04/03/2022 8:11 AM CDT Height 162.6 cm (5' 4) 04/03/2022 8:11 AM CDT Body Mass Index 20.94 04/03/2022 8:11 AM CDT Plan of Treatment Upcoming Encounters Date Type Specialty Care Team Description 07/31/2022 Appointment Health Maintenance Due Date Last Done Comments Depression screening for age 12+ 1999 BMI (ht and wt on same day) for 2005 age 18+ Hepatitis C screening for age 0212/07/2005 18-79 Pap test for age 21-65 05/22/2021 05/22/2018, 05/22/2018, 04/09/2014, Additional history exists Tetanus booster 05/24/2021 05/24/2011, 10/21/1999 COVID-19 vaccine series (3 - 05/01/2022 12/02/2021, 022 Booster for Pfizer series) Influenza for age 9-49 06/21/2022 09/29/2008, 09/18/2007, 08/23/2005 Tdap Completed 05/24/2011 Procedures Procedure Name Priority Date/Time Associated Diagnosis Comme nts US OB DETAIL Routine 05/23/2022 2:56 PM History of prete rm Results for this ANATOMY SINGLE TA CDT delivery, currently pro cedure are in AND TV in first the result s trimester section. from Last 3 Months Results Detailed Anatomy Single with TA and TV (CPT 00365) (05/23/2022 2:56 PM CDT) Anatomical Region Laterality Modality Ultrasound Specimen (Source) Anatomical Collection Method Collection Time Re ceived Time Location / / Volume Laterality 05/23/2022 2:10 PM CDT Narrative 05/23/2022 3:31 PM CDT Referred By: DARSHAN ??SUPPES ?? Indications Code 20 weeks gestation of Z3A.20 History of PTD / PROM D&C x2 History of FGR Factor II heterozygous Declined genetic testing History of retained placenta with accret a (occulta) dx after placenta sent to lab. Detailed and TVUS IMPRESSION: Intrauterine at 20w 2d. presentation is Breech. EFW 418 grams, percentile: 92. ?? Growth parameters and estimated we ight are appropriate for gestational age. ? No major structural anomalies identified . No markers for aneuploidy identified. Normal Deepest Vertical Pocket of amniot ic fluid: 4.17 ??cm. Placental location: Posterior low lying. The placental edge measures 0.4cm from the internal os. The uteroplacental interface appears nor mal with no ultrasound markers for placenta accreta. Normal transvaginal cervical length. RECOMMENDATIONS: -Return to primary provider for continue d care. -No alterations in the delivery plan are necessary. -No medication changes are indicated. Co ntinue vaginal progesterone due to history of delivery. -Recommend a follow up ultrasound at 32 weeks to evaluate placental location and assess for markers of placenta accreta spectrum. Va ginal ultrasound is recommended with color Doppler even if the low lying placenta has resolved, since this is a risk factor for vasa previa. -Follow up appointments for Ultrasound o nly were scheduled in our office today. COMMENT: Present findings are reassuring. The shannon de los santos was seen by the Perinatologist today. ??The previous ultrasound and the rec ords were reviewed. ??The results of today's ultrasound were communicated to the patient. I revi ewed the limitations of US in the detection of anomalies and aneuploidy. Counseling included that the finding of a low-lying placenta in the second trimester (placental edge <20mm from cervical os) was seen t nidia. The majority of low-lying placentas diagnosed in the second trimester will resolve. Those that do not may increase the risk of antepartum/intrapartum vaginal bleeding. We recommend a follow up ultrasound at 32 weeks to evaluate placental location. Vaginal ult rasound with color Doppler is recommended since low lying placenta, even if resolved, is a r isk factor for vasa previa. I recommend pelvic rest and previa precautions if the placental edg e is <1cm from the cervical os. I also reviewed her diagnosis of placent a accreta and retained placenta in prior . See prior consult letter in [facility] for furthe r details. Today's US shows no signs of placenta accreta spectrum, but I reviewed the andrews itations of US in the detection of placenta accreta, especially with posterior placenta. We w ill re-assess placentation at her follow up US. She plans delivery in [place] which is re asonable as long as follow up US looks normal. She continues vaginal progesterone and s erial cervical length US in [place] (see prior consult letter in [facility]). New government regulations related to Cures act require that this note be released to the patient immediately, ghassan etimes before the referring provider has been contacted. ??A portion of the informatio n was presented verbally to the patient. ??The remainder is submitted as background for the refer ring provider, to be discussed as needed. Medical Decision Makin ?Moderate number of Diagnoses inclu ding one previously undiagnosed new problem with uncertain prognosis, a low lying placent a. ?Moderate complexity of Data includ ing review of prior ultrasound, ordering another ultrasound, and review of prior external notes, ?Low risk Services Provided: Procedures Code DETAIL ANATOMY 88324.0 TRANSVAGINAL ULTRASOUND 89761.0 Procedure Note Heather Hernandes MD - 05/23/20 22 Referred By: DARSHAN MULLINS IndicationsCode 20 weeks gestation of [id number].20 History of PTD / PROM D&C x2 History of FGR Factor II heterozygous Declined genetic testing History of retained placenta with accret a (occulta) dx after placenta sent to lab. Detailed and TVUS IMPRESSION: Intrauterine at 20w 2d. presentation is Breech. EFW 418 grams, percentile: 92. Growth parameters and estimated we ight are appropriate for gestational age. No major structural anomalies identified . No markers for aneuploidy identified. Normal Deepest Vertical Pocket of amniot ic fluid: 4.17 cm. Placental location: Posterior low lying. The placental edge measures 0.4cm from the internal os. The uteroplacental interface appears nor mal with no ultrasound markers for placenta accreta. Normal transvaginal cervical length. RECOMMENDATIONS: -Return to primary provider for continue d care. -No alterations in the delivery plan are necessary. -No medication changes are indicated. Co ntinue vaginal progesterone due to history of delivery. -Recommend a follow up ultrasound at 32 weeks to evaluate placental location and assess for markers of placenta accreta spectrum. Va ginal ultrasound is recommended with color Doppler even if the low lying placenta has resolved, since this is a risk factor for vasa previa. -Follow up appointments for Ultrasound o nly were scheduled in our office today. COMMENT: Present findings are reassuring. The pat ient was seen by the Perinatologist today. The previous ultrasound and the rec ords were reviewed. The results of today's ultrasound were communicated to the patient. I revi ewed the limitations of US in the detection of anomalies and aneuploidy. Counseling included that the finding of a low-lying placenta in the second trimester (placental edge <20mm from cervical os) was seen t nidia. The majority of low-lying placentas diagnosed in the second trimester will resolve. Those that do not may increase the risk of antepartum/intrapartum vaginal bleeding. We recommend a follow up ultrasound at 32 weeks to evaluate placental location. Vaginal ult rasound with color Doppler is recommended since low lying placenta, even if resolved, is a r isk factor for vasa previa. I recommend pelvic rest and previa precautions if the placental edg e is <1cm from the cervical os. I also reviewed her diagnosis of placent a accreta and retained placenta in prior . See prior consult letter in [facility] for furthe r details. Today's US shows no signs of placenta accreta spectrum, but I reviewed the andrews itations of US in the detection of placenta accreta, especially with posterior placenta. We w ill re-assess placentation at her follow up US. She plans delivery in [place] which is re asonable as long as follow up US looks normal. She continues vaginal progesterone and s erial cervical length US in [place] (see prior consult letter in [facility]). New government regulations related to [employer] Cures act require that this note be released to the patient immediately, ghassan etimes before the referring provider has been contacted. A portion of the information was presented verbally to the patient. The remainder is submitted as background for the refer ring provider, to be discussed as needed. Medical Decision Makin Moderate number of Diagnoses including one previously undiagnosed new problem with uncertain prognosis, a low lying placent a. Moderate complexity of Data including r eview of prior ultrasound, ordering another ultrasound, and review of prior external notes, Low risk Services Provided: ProceduresCode DETAIL [id number] TRANSVAGINAL [id number] Heather Hernandes MD US from Last 3 Months Insurance Payer Benefit Plan / Subscriber ID Effective Dates Phone Addre ss Type Group BLUE CROSS BLUE CROSS OF [id number] 2020-Present [address] [address] [place] [address] Care Teams Fisher Trawl Line Relationship Specialty Start Date End Date Pcp, No PCP - General 11/18/13 . Annita Moreira CNM Referring Provider Certified Nurse Button Machine Operator 03/22/22 3 1999 [place] [address]
--- OUTSIDE RECORDS SUMMARY | 2022-07-04 12:08 | XMS_ITS | Clinical Summary ---
:1985 Author Organization [facility] Address [address] [place] [id number] Care Team Providers Name Role Phone Unavailable Primary Care Provider Unavailable Source Comments Patient records contain information from all sites at [facility]. For routine questions regarding patient records, call [phone] during business hours, M-F 8:00 AM - 5:00 PM Central Time. Record requests for emergency care only can be directed to [phone] at any time.[facility] Allergies Active Allergy Reactions Severity Noted Date Comments Penicillins Rash 10/18/2020 Salicylates Edema 10/18/2020 Swollen tongue Medications Medication Sig Dispensed Refills Start Date End Date Status Take 1 tablet by 0 Act angela [id number] mouth daily. (VINATE ONE) 60 mg iron-1 [...] or relatives? How often do you attend judaism or 1 to 4 times per year 11/22 caodaism services? Do you belong to any clubs or No 12/12/2020 organizations such as judaism groups, unions, fraternal or athletic groups, or [...] Comments Blood Pressure 116/69 10/20/2020 12:39 PM ORIENTATION AND MOBILITY INSTRUCTOR Pulse 81 10/20/2020 12:39 PM ORIENTATION AND MOBILITY INSTRUCTOR Temperature 37.2 ??C (99 ??F) 10/20/2020 12:39 PM ORIENTATION AND MOBILITY INSTRUCTOR Respiratory Rate 18 10/20/2020 12:39 PM ORIENTATION AND MOBILITY INSTRUCTOR Oxygen Saturation 99% 10/20/2020 12:39 PM ORIENTATION AND MOBILITY INSTRUCTOR Inhaled Oxygen Concentration - - Weight 56.3 kg (124 lb 1.9 oz) 10/19/2020 6:30 AM ORIENTATION AND MOBILITY INSTRUCTOR Height - - Body Mass Index - [...] on patient's age to complete this to [facility] Insurance Payer Benefit Plan / Subscriber ID Effective Dates Phone Addre ss Type Group [place] [id number] 2020-Y[place] [phone] [address] PPO BLUE SHIELD [address] [place] [address] Advance Directives For more information, please contact: [phone] Latest Code Status on File Code Status Date Activated Date Inactivated Comments Full Code 10/18/2020 7:51 PM 10/20/2020 2:51 PM Full Code: Not Discussed Due to: Not medically appropriate
--- OUTSIDE RECORDS SUMMARY | 2022-07-04 12:08 | XMS_ITS | Encounter Summary ---
:1985 Author Organization [facility] Address [address] [place] [address] Care Team Providers Name Role Phone Unavailable Primary Care Provider Unavailable Reason for Visit Reason Comments Rupture of Membranes Contractions Auth/Cert Specialty Diagnoses / Procedures Referred By Contact Refer red To Contact Diagnoses 22 Weeks Gestation (HCC) Procedures DIR Referral ID Status Reason Start Date Expiration Date Visits Requ ested Visits Authorized [id number] 1 1 Encounter Details Date Type Department Care Team Description 10/18/2020 - Hospital Encounter [facility] Jordyn Wild M.D. [address] [place] [phone] 22 Weeks Gestation (Primary Dx) ; 10/20/2020 [facility], Erin Villagran M.D., M.P.H. [address] [place] [phone] 21 Weeks Gestation ; [place], Heather Ott M.D. [address] [place] [phone] Premature Rupture Of Membranes U nspecified As To Length Of Time Between Rupture And Onset Of Labor Second Trimester Building, Third Floor [address] [place] [address] Social History Tobacco Use Types [...] 1 to 4 times per year 11/22 tenriism services? Do you belong to any clubs [...] Comments Blood Pressure 116/69 10/20/2020 12:39 PM DRESSER TENDER Pulse 81 10/20/2020 12:39 PM DRESSER TENDER Temperature 37.2 ??C (99 ??F) 10/20/2020 12:39 PM DRESSER TENDER Respiratory Rate 18 10/20/2020 12:39 PM DRESSER TENDER Oxygen Saturation 99% 10/20/2020 12:39 PM DRESSER TENDER Inhaled Oxygen Concentration - - Weight 56.3 kg (124 lb 1.9 oz) 10/19/2020 6:30 AM DRESSER TENDER Height - - Body Mass Index - - documented in this encounter Discharge Summaries Saqib Strong M.D. - 10/20/2020 12:07 PM CST DISCHARGE SUMMARY BRIEF OVERVIEW Hospital: [facility] Discharge Provider: Erin Alarcon M.D. Primary Team: [facility] No primary care provider on [...] return in one week for neonatology consult, [facility] return visit and further discussion of when she would like to be re-admitted. She was discharged home in stable condition. //Miriam Ruggiero MD CONSULTS ORDERED DURING THIS ADMISSION CONDITION AT DISCHARGE Stable Discharge instructions were provided to the patient and caregiver(s). SER TENDER documented in this encounter Medications at Time of Discharge Medication Sig Dispensed Refills Start Date End Date Take 1 tablet by 0 kgdmqiu-Uv-rkfc-FA (VINATE mouth daily. ONE) 60 mg iron-1 mg per tablet mlfhvxhvay-ozcembxtrsyxw-o TK 1 TO 2 TS PO Q [...] 10/18/2020. 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 Obstetrical Chief PGY-3 [phone] SER TENDER Associated attestation - Heather Goodrich M.D. - 10/19/2020 12:27 AM DRESSER TENDER Warp Tester Teaching Physician Statement: I have discussed the [...] delivery upon exam findings of 4-5cm dilation. 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 PSH: none Allergies: PCN (rash as [...] concern for necrotizing enterocolitis, and potential poor manager long term care neurological outcomes/disability. Have printed her additional studies [...] further discussion this afternoon Miriam Ruggiero M.D. SER TENDER Associated attestation - Saqib Strong M.D. - 10/20/2020 11:17 AM DRESSER TENDER I have discussed the care of Jim [...] L.G.S.W., L.I.C.S.W., M.S.W. - 10/19/2020 1:02 PM DRESSER TENDER SUBJECTIVE Social work met with the patient [...] weeks gestationas a transfer of care from [place], [place] due to concern for previable premature [...] day parking pass provided 10/19/20. Annita Kaplan [facility], DRYING EQUIPMENT OPERATOR 10/19/2020 SER TENDER Miriam Ruggiero M.D. - 10/19/2020 12:09 PM [...] 10/18/2020. 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 PSH: [...] for necr otizing enterocolitis, and potential poor manager long term care neurological outcomes/disability. Have printed her additional studies [...] discussion pending ultrasound results. Miriam Ruggiero M.D. SER TENDER Associated attestation - Raysa Guerin M.D. - 11/14/2020 4:22 AM DRESSER TENDER I saw and evaluated the patient, participating [...] with family for expectant management. Questions answered. SER TENDER Irish Newell R.N. - 10/18/2020 9:29 PM [...] reviewed goals for the shift with patient. SER TENDER documented in this encounter Miscellaneous Notes Hospital Course - Miriam Ruggiero M.D. - 10/19/2020 2:32 AM CST Jim Lowe is a 34 y.o who presented at 21w1 for previable PPROM. She was admitted from 10/19-. She weighed her options and then decided to pursue expectant management. She will return in one week for neonatology consult, [facility] return visit and further discussion of when she would like to be re-admitted. She was discharged home in stable condition. //Miriam Ruggiero MD SER TENDER documented in this encounter Plan of Treatment Pending Results Name Type Priority Associated Diagnoses Date/Ti me US OB Limited Imaging RAD - Routine (most 020 8:51 PM inpatients and all DRESSER TENDER outpatients) Scheduled Orders Name Type Priority Associated Diagnoses Order S chedule US OB Limited Imaging RAD - Routine (most Once fo r 1 inpatients and all Occurrenc es starting outpatients) 10/18/2020 unti l 10/18/2020 documented as of this encounter Procedures Procedure Name Priority Date/Time Associated Comments Diagnosis US OB ANATOMY RAD - Routine 10/19/2020 1:21 Results fo r this ANGUIANO (most inpatients PM DRESSER TENDER procedure a re in and all the results outpatients) section. RUBELLA ANTIBODIES, Routine 10/19/2020 7:18 Resul ts for this IGG AM DRESSER TENDER procedure are i n the results section. VARICELLA-ZOSTER Routine 10/19/2020 7:18 Results for this AB, IGG, S AM DRESSER TENDER procedure are i n the results section. MICROSCOPIC MANUAL Routine 10/19/2020 2:21 Result s for this AM DRESSER TENDER procedure are i n the results section. BACTERIAL CULTURE, Routine 10/19/2020 2:21 Result s for this AEROBIC + SUSC, AM DRESSER TENDER procedure ar e in URINE the results section. CONFIRMED DRUG Routine 10/19/2020 2:21 Results fo r this ABUSE PANEL, U AM DRESSER TENDER procedure are in the results section. CHLAMYDIA/GONORRHOE Routine 10/19/2020 2:21 Resul ts for this AE AMPLIFIED RNA AM DRESSER TENDER procedure a re in the results section. URINALYSIS WITH Routine 10/19/2020 2:21 Results f or this MICROSCOPIC AM DRESSER TENDER procedure are i n the results section. HEPATITIS B SURFACE STAT 10/18/2020 9:34 Resul ts for this ANTIGEN PM DRESSER TENDER procedure are i n the results section. FIBRINOGEN, P STAT 10/18/2020 9:34 Results for this PM DRESSER TENDER procedure are i n the results section. SARS CORONAVIRUS 2, Routine 10/18/2020 8:05 Resul ts for this MOLECULAR PM DRESSER TENDER procedure are i n DETECTION, PCR (GEOLOGY INSTRUCTOR) the resu lts section. HEPATITIS B SURFACE STAT 10/18/2020 7:59 Resul ts for this ANTIGEN PM DRESSER TENDER procedure are i n the results section. CBC WITHOUT STAT 10/18/2020 7:59 Results for this DIFFERENTIAL, B PM DRESSER TENDER procedure ar e in the results section. TYPE AND SCREEN STAT 10/18/2020 7:59 Results f or this PM DRESSER TENDER procedure are i n the results section. HIV-1/-2 AG AND AB STAT 10/18/2020 7:58 Result s for this SCRN, PM DRESSER TENDER procedure are in PLASMA the results section. documented in this encounter Results US OB Anatomy Anguiano (10/19/2020 1:21 PM DRESSER TENDER) Anatomical Region Laterality Modality Body, Ultrasound OB RST LOS, Ultrasound ARZ LOS N/A Ultrasound Specimen (Source) Anatomical Location Collection Method / Collectio n Time Received Time / Laterality Volume Narrative 10/19/2020 1:27 PM DRESSER TENDER JIM LOWE OB Exam, 10/19/2020 EXAM INFORMATION Patient Name: ??JIM LOWE : ??1985 Age: ??34 yrs Sex: ??Female Ref Phys: ??MIRIAM RUGGIERO Exam Date: 10/19/2020 Procedure: US OB ANATOMY ANGUIANO Exam Site: [facility] Plurality: 1 INDICATIONS FOR SONOGRAPHY Anatomic [...] Read by Ilir Moss on 1:21:30 PM. Outside Salesman: ??Ilir Moss Thank You For This Referral Procedure Note Eamon Dawson M.B.B.S., MAngelo. - 10/19 JIM LOWE OB Exam, 10/19/2020 EXAM INFORMATION Patient Name: MYNORJIM S : 1985 Age: 34 yrs Sex: Female Ref Phys: MIRIAM RUGGIERO Exam Date: 10/19/2020 Procedure: US OB ANATOMY ANGUIANO Exam Site: [facility] Plurality: 1 INDICATIONS FOR SONOGRAPHY Anatomic [...] Read by Ilir Moss on 1:21:30 PM. Outside Salesman: Ilir Moss Thank You For This Referral Miriam Ruggiero M.D. IMG OB US PROCEDURES Varicella-Zoster Antibody, IgG, Serum (10/19/2020 7:18 AM DRESSER TENDER) athologist Signature Varicella-Zost Positive 10/19/2020 [facility] er Ab, IgG, S 10:41 AM DRESSER TENDER Comment: Results suggest response to immunization or prior exposure to the virus. ----REFERENCE VALUE---- Vaccinated: Positive (>=1.1 AI) Unvaccinated: Negative (<=0.8 AI) Varicella IgG Antibody Index 1.3 10/19/2020 10:41 AM DRESSER TENDER [facility] Specimen Anatomical Collection Method Collection Time Receive d Time (Source) Location / / Volume Laterality Blood (Blood, 10/19/2020 7:18 AM 10/19/20 20 9:43 Venous) DRESSER TENDER AM DRESSER TENDER Sierra Welch M.D. LAB MICROBIOLOGY - BLOOD ORD ERADIAMANTE Performing Organization Address [facility] Phon e Number [place] [id number] [place] [phone] [facility] [facility] [place] [address] Laboratory Medicine and Pathology [address] [place] [address] Dr. [place] Rubella Antibodies, IgG (10/19/2020 7:18 AM DRESSER TENDER) athologist Signature Rubella Ab, Positive 10/19/2020 [facility] IgG, S 10:40 AM DRESSER TENDER Comment: Results suggest response to immunization or prior exposure to the virus. ----REFERENCE VALUE---- Vaccinated: Positive (>=1.0 AI) Unvaccinated: Negative (<=0.7 AI) Rubella IgG Antibody Index 1.4 10/19/2020 10 :40 AM DRESSER TENDER [facility] Specimen Anatomical Collection Method Collection Time Receive d Time (Source) Location / / Volume Laterality Blood (Blood, 10/19/2020 7:18 AM 10/19/20 20 9:43 Venous) DRESSER TENDER AM DRESSER TENDER Sierra Welch M.D. LAB MICROBIOLOGY - BLOOD ORD JENNA Performing Organization Address [facility] Phon e Number [address] [place] [address] [address] [facility] [place] [address] Laboratory Medicine and Pathology [address] [place] [address] Dr. [place]UEL (ABNORMAL) Microscopic Manual (10/19/2020 2:21 AM DRESSER TENDER) Analysis Performed At Patho logist Time Signature Microscopy Abnormal 10/19/2020 [place] 6:26 AM DRESSER TENDER RBC >100 (A) <3 /hpf 10/19/2020 [place] 6:26 AM DRESSER TENDER Dysmorphic RBC <25 <25 % 10/19/2020 [place] 6:26 AM DRESSER TENDER WBC 1-3 /hpf 10/19/2020 [place] 6:26 AM DRESSER TENDER Comment: ----REFERENCE VALUE---- 1-3 ??(Males) 1-10 (Females) Specimen Anatomical Collection Method Collection Time Receive d Time (Source) Location / / Volume Laterality Urine 10/19/2020 2:21 AM 0 4:00 DRESSER TENDER AM DRESSER TENDER Sierra Welch M.D. LAB URINE ORDERABLES Performing Organization Address [facility] Phon e Number [facility] - [address] [place] [address] 05 [place] [address] Laboratories-[address] Bacterial Culture, Aerobic + Susc, Urine (10/19/2020 2:21 AM DRESSER TENDER) Patholo gist Method Time Signature Urine Culture No growth 10/20/2020 DT after 1 day 8:16 AM DRESSER TENDER of incubation. Specimen Anatomical Collection Method Collection Time Receive d Time (Source) Location / / Volume Laterality Urine (Urine, 10/19/2020 2:21 AM 10/19/20 20 5:03 Straight DRESSER TENDER AM DRESSER TENDER Catheter) Comment: Specimen Source Site: Urine Sierra Welch M.D. LAB MICROBIOLOGY - GENERAL O RDERABLES Performing Organization Address [facility] Phon e Number [facility] - [address] [place] [address] (ABNORMAL) Urinalysis with Microscopic: Urine, Catheter (10/19/2020 2:21 AM DRESSER TENDER) Analysis Performed At Patho logist Time Signature Source Catheter 10/19/2020 [place] 4:00 AM DRESSER TENDER Appearance Normal Normal 10/19/2020 [place] 4:00 AM DRESSER TENDER Osmolality, U 521 150 - 1150 10/19/2020 [place] mOsm/kg 4:47 AM DRESSER TENDER pH, U 6.2 4.5 - 8.0 10/19/2020 [place] 4:47 AM DRESSER TENDER Comment: ----ADDITIONAL INFORMATION---- This test was developed and its performa nce characteristics determined by [facility] in a manner co nsistent with CLIA requirements. This test has not bee n cleared or approved by the U.S. Food and Drug Admin istration. Glucose 8 0 - 15 mg/dL 10/19/2020 6:17 AM DRESSER TENDER [place] Protein, U 46 (H) <26 mg/dL 10/19/2020 6:17 AM DRESSER TENDER [place] Comment: ----ADDITIONAL INFORMATION---- On 04/16/2017 the total protein assay me thod changed resulting in approximately a 15% increase in prote in values. Protein/Osmolality 0.88 (H) <0.42 Ratio 10/19/2020 6:17 AM DRESSER TENDER [place] Comment: ----ADDITIONAL INFORMATION---- On 04/16/2017 the total protein assay me thod changed resulting in approximately a 15% increase in prote in values. Predicted 24 Hr Protein 597 mg/24 h 10/19/2020 6:17 AM DRESSER TENDER [place] Predicted Range 148-2419 mg/24 h 10/19/2020 6:17 AM DRESSER TENDER R JEM Hemoglobin, QL Large (A) Negative 10/19/2020 6:26 AM DRESSER TENDER RE NA Specimen Anatomical Collection Method Collection Time Receive d Time (Source) Location / / Volume Laterality Urine (Urine, 10/19/2020 2:21 AM 10/19/20 20 4:00 Catheter) DRESSER TENDER AM DRESSER TENDER Sierra Welch M.D. LAB URINE ORDERABLES Performing Organization Address City/State/ZIP Code Phon e Number [facility] - [address] [place], [place] [address] [place] [address] Laboratories-[facility] [address] Chlamydia / Gonorrhoeae Amplified RNA (10/19/2020 2:21 AM DRESSER TENDER) [facility] gist Method Time Signature Source Urine, 10/19/2020 [facility] Urine, First 6:58 PM DRESSER TENDER Voided Chlamydia Negative Negative 10/19/2020 [facility] trachomatis 6:58 PM DRESSER TENDER amplified RNA Source Urine, 10/19/2020 [facility] Urine, First 6:58 PM DRESSER TENDER Voided Neisseria Negative Negative 10/19/2020 [facility] gonorrhoeae 6:58 PM DRESSER TENDER amplified RNA Specimen Anatomical Collection Method Collection Time Receive d Time (Source) Location / / Volume Laterality Varies (Urine, 10/19/2020 2:21 AM 020 7:22 First Voided) DRESSER TENDER AM DRESSER TENDER Sierra Welch M.D. LAB MICROBIOLOGY - GENERAL O RDERABLES Performing Organization Address City/[facility] Phon e Number [facility] - [address] [place], [place] [address] [facility] [place] [address] Laboratories-[facility] [address] Drug Abuse Survey with Confirmation, Urine (10/19/2020 2:21 AM DRESSER TENDER) Patholo gist Method Time Signature Alcohol Negative Cutoff: 10/19/2020 [facility] 10 mg/dL 9:52 AM DRESSER TENDER Amphetamines Negative Cutoff: 10/19/2020 [facility] 500 ng/mL 9:52 AM DRESSER TENDER Barbiturates Negative Cutoff: 10/19/2020 [facility] 200 ng/mL 9:52 AM DRESSER TENDER Benzodiazepines Negative Cutoff: 10/19/2020 [facility] 100 ng/mL 9:52 AM DRESSER TENDER Cocaine Negative Cutoff: 10/19/2020 [facility] 150 ng/mL 9:52 AM DRESSER TENDER Opiates Negative Cutoff: 10/19/2020 [facility] 300 ng/mL 9:52 AM DRESSER TENDER Phencyclidine Negative Cutoff: 10/19/2020 [facility] 25 ng/mL 9:52 AM DRESSER TENDER Tetrahydrocannabinol Negative Cutoff: 10/19/2020 [facility] 50 ng/mL 9:52 AM DRESSER TENDER Comment: ----ADDITIONAL INFORMATION---- This report is intended for use in clini kosta monitoring or management of patients. ??It is not intended for use i n employment-related testing. Specimen Anatomical Collection Method Collection Time Receive d Time (Source) Location / / Volume Laterality Urine (Urine, 10/19/2020 2:21 AM 10/19/20 8:50 Clean Catch) DRESSER TENDER AM DRESSER TENDER Sierra Welch M.D. LAB URINE ORDERABLES Performing Organization Address City/[facility] Phon e Number [facility] [address] [place], [place] [address] [facility] [place] [address] Laboratory Medicine and Pathology [address] [place] (ABNORMAL) Fibrinogen (10/18/2020 9:34 PM DRESSER TENDER) P athologist Signature Fibrinogen, P 624 (H) 200 - 393 10/18/2020 [facility] mg/dL 9:49 PM DRESSER TENDER Specimen Anatomical Collection Method Collection Time Receive d Time (Source) Location / / Volume Laterality Blood (Blood, 10/18/2020 9:34 PM 10/18/20 20 9:40 Venous) DRESSER TENDER PM DRESSER TENDER Sierra Welch M.D. LAB BLOOD ADD-ON Performing Organization Address City/[facility]/ZIP Code Phon e Number [facility] - [address] [place], [place] [address] [facility] [place] [address] Laboratories-[facility] [address] Hepatitis B Surface Antigen (10/18/2020 9:34 PM DRESSER TENDER) P athologist Signature HBs Antigen, S Negative Negative 10/19/2020 [facility] 9:23 AM DRESSER TENDER Specimen Anatomical Collection Method Collection Time Receive d Time (Source) Location / / Volume Laterality Blood (Blood, 10/18/2020 9:34 PM 10/19/20 8:14 Venous) DRESSER TENDER AM DRESSER TENDER Sierra Welch M.D. LAB MICROBIOLOGY - BLOOD ORD ERABLES Performing Organization Address [facility] Phon e Number [facility] [address] [place], [place] [address] [facility] [place] [address] Laboratory Medicine and Pathology [address] [place] SARS Coronavirus 2, Molecular Detection, PCR (GEOLOGY INSTRUCTOR) Asymptomatic (10/18/2020 8:05 PM DRESSER TENDER) Patholo gist Method Time Signature COVID-19, PCR Undetected Undetected 10/19/2020 [facility] 12:55 AM DRESSER TENDER Comment: SARS-CoV-2 RNA absent. This result does [...] Drug Administration an d is used per call center director's instructions. Performance characteristics were verified by [facility] in a manner consistent with CLIA requirements. Visit the CDC website: https://www.cdc.g ov/coronavirus/ for the most recent guidelines on [place] virus testing. Fact Sheet for Healthcare Providers: https://www.fda.gov/media/223748/downloa d Fact Sheet for Patients: https://www.fda.gov/media/817162/downloa d Specimen Anatomical Collection Method Collection Time Receive d Time (Source) Location / / Volume Laterality Varies 10/18/2020 8:05 PM 0 8:40 (Nasopharynx) DRESSER TENDER PM DRESSER TENDER Heather Goodrich M.D. LAB MICROBIOLOGY - GENERAL O RDERABLES Performing Organization Address City/[facility]/ZIP Code Phon e Number [facility] - [address] [place], [place] [address] [facility] [place] [address] Laboratories-[facility] [address] [facility] Hepatitis B Surface Antigen (10/18/2020 7:59 PM DRESSER TENDER) P athologist Signature HBs Antigen, S Negative Negative 10/19/2020 [facility] 8:04 AM DRESSER TENDER Specimen Anatomical Collection Method Collection Time Receive d Time (Source) Location / / Volume Laterality Blood (Blood, 10/18/2020 7:59 PM 10/19/20 20 6:59 Venous) DRESSER TENDER AM DRESSER TENDER Sierra Welch M.D. LAB MICROBIOLOGY - BLOOD ORD ERABLES Performing Organization Address City/[facility] Phon e Number [facility] [address] [place], [place] [address] [facility] [place] [address] Laboratory Medicine and Pathology [address] [place] Type and Screen (with reflex Antibody ID) (10/18/2020 7:59 PM DRESSER TENDER) Patholo gist Method Time Signature ABORh B Pos Not 10/18/2020 [facility] applicable 8:29 PM DRESSER TENDER Antibody Negative Negative 10/18/2020 [facility] Screen 8:44 PM DRESSER TENDER Type & Screen 10/21/2020 10/18/2020 [facility] Expiration 23:59 8:29 PM DRESSER TENDER Testing [place] DEFAULT 10/18/2020 [facility] Location 8:08 PM DRESSER TENDER Specimen Anatomical Collection Method Collection Time Receive d Time (Source) Location / / Volume Laterality Blood (Blood, 10/18/2020 7:59 PM 10/18/20 20 8:08 Venous) DRESSER TENDER PM DRESSER TENDER Sierra Welch M.D. LAB BLOOD BANK TEST ORDERABL ES Performing Organization Address [facility]/ZIP Code Phon e Number [facility] - [address] [place], [place] [address] [facility] [place] [address] Laboratories-[facility] 200 [facility] (ABNORMAL) CBC without Differential (10/18/2020 7:59 PM DRESSER TENDER) Patholo gist Method Time Signature Hemoglobin 11.0 (L) 11.6 - 10/18/2020 [facility] 15.0 g/dL 8:06 PM DRESSER TENDER Hematocrit 31.8 (L) 35.5 - 10/18/2020 [facility] 44.9 % 8:06 PM DRESSER TENDER Erythrocytes 3.65 (L) 3.92 - 10/18/2020 [facility] 5.13 8:06 PM DRESSER TENDER x10(12)/L MCV 87.1 78.2 - 10/18/2020 [facility] 97.9 fL 8:06 PM DRESSER TENDER RBC Distrib Width 13.5 12.2 - 10/18/2020 [facility] 16.1 % 8:06 PM DRESSER TENDER Platelet Count 287 157 - 371 10/18/2020 [facility] x10(9)/L 8:06 PM DRESSER TENDER Leukocytes 19.3 (H) 3.4 - 9.6 10/18/2020 [facility] x10(9)/L 8:06 PM DRESSER TENDER Specimen Anatomical Collection Method Collection Time Receive d Time (Source) Location / / Volume Laterality Blood (Blood, 10/18/2020 7:59 PM 10/18/20 8:04 Venous) DRESSER TENDER PM DRESSER TENDER Sierra Welch M.D. LAB BLOOD ADD-ON Performing Organization Address City/State/ZIP Code Phon e Number [facility] - [address] [place] [address] [facility] [place] [address] [facility] 200 [facility] HIV-1/-2 Ag and Ab Scrn, Plasma (10/18/2020 7:58 PM DRESSER TENDER) P athologist Signature HIV-1/-2 Ag Negative Negative 10/19/2020 [facility] and Ab 9:31 AM DRESSER TENDER Scrn, P Comment: Negative result does not rule out HIV in fection. If exposure to HIV infection occurred <14 d ays ago, contact the laboratory to request additi on of HIV-1 RNA detection / quantification test (HIV QN). Specimen Anatomical Collection Method Collection Time Receive d Time (Source) Location / / Volume Laterality Blood (Blood, 10/18/2020 7:58 PM 10/19/20 20 6:59 Venous) DRESSER TENDER AM DRESSER TENDER Sierra Welch M.D. LAB MICROBIOLOGY - BLOOD ORD ERABLES Performing Organization Address City/State/ZIP Code Phon e Number [facility] [address] [place], [place] [address] [facility] [place] [address] Laboratory Medicine and Pathology [address] [...] 900 mg New Bag 10/19/2020 5:09 AM DRESSER TENDER 900 mg 100 mL/hr (CLEOCIN) 900 mg, intravenous, at 100 mL/hr, Administer over 30 Minutes, Every 8 hours, First dose on Sat10/18/20 at 2000, premix bag, Indications: Obstetric or gynecological infection New Bag 10/18/2020 9:41 PM DRESSER TENDER 900 mg 100 mL/hr fentaNYL injection 100 mcg (SUBLIMAZE) Given 10/18/2020 9:49 PM DRESSER TENDER 100 mcg 100 mcg, intravenous, Every 1 hour PRN, moderate pain or score 4-6 of 10, severe pain or score 7-10 of 10, for labor pains, Starting on Sat10/18/20 at 1939, For 3 doses, L&D Pre-Delivery, Consultation with Anesthesia for pain control if patient requests regional anesthesia and in active labor or membranes ruptured. Given 10/18/2020 8:44 PM DRESSER TENDER 100 mcg gentamicin 290 mg in NaCl 0.9% IVPB New Bag 10/18/2020 8:41 PM DRESSER TENDER 290 mg 215 mL/hr (GARAMYCIN) 290 mg (rounded from 285 mg = 5 mg/kg ? 57 kg Order-specific weight), intravenous, at 215 mL/hr, Administer over 30 Minutes, Once, On Sat10/18/20 at 2000, For 1 dose, Drug Monitoring Program: Pharmacist to adjust medication dosing based on indication and drug clearance factors., Indications: Obstetric or gynecological infection lactated ringers New Bag 10/19/2020 5:10 AM DRESSER TENDER 125 mL/hr 125 mL/hr 125 mL/hr, intravenous, Continuous, Starting on Sat10/18/20 at 2000, L&D Pre-Delivery, Indications: Hang fluids for maternal dehydration, concerns, epidural placement, with antibiotics. Rate/Dose Verify 10/19/2020 2:20 AM DRESSER TENDER 125 mL/hr 125 mL/hr Rate/Dose Verify 10/19/2020 12:00 AM DRESSER TENDER 125 mL/hr 125 mL/hr multivitamin/mineral- tablet 1 Given 10/20/2020 9:30 AM DRESSER TENDER 1 tablet tablet 1 tablet, oral, Daily, First dose on Kylie 10/20/20 at 0900 documented in this encounter Active and Recently Administered Medications Times are shown in DRESSER TENDER. Scheduled Medication Order 10/18/2020 10/19/2020 10/20/2020 clindamycin [...] palpation, or reach a mximum of 250 Downey units, and/or cervical change(s) occur. PRN Medication [...] COVID19 Pending 10/18/2020 10/18/2020 10/19/2020 12:56 AM DRESSER TENDER documented as of this encounter
--- OUTSIDE RECORDS SUMMARY | 2022-07-04 12:08 | XMS_ITS | Encounter Summary ---
:[address] [facility] Address [address] [place] [address] Care Team Providers Name Role Phone Unavailable Primary Care Provider Unavailable Reason for Visit Reason Comments Communication Encounter Details Date Type Department Care Team Description 10/21/2020 Clinical Communication [facility], Horacio Cisneros, Communication [facility], [address] [place] [address] MAR Third Floor [place], [place] [address] [facility] [address] [place], [place] [phone] (Work) [phone] Social History Tobacco Use Types Packs/Day Years [...] or relatives? How often do you attend taoism or 1 to 4 times per year 11/22 confucianist services? Do you belong to any clubs or No 12/12/2020 organizations such as taoism groups, unions, fraternal or athletic groups, or [...] be seen. She is an hour from [place] and 20 min from [place]. PLAN Discussed with Dr Bowman and [facility] Room RN. Patient advised to be seen immediately at nearest facility. Disposition/Recommendation: referral for services Nearest ED or OB Facility. Information/Education: patient/caller able to teach back. Caller agreeable to plan of care: yes. The following references were used: provider Dr Bowman. ER EEL documented in this encounter Plan of Treatment Not on filedocumented as of this encounter Visit Diagnoses Not on filedocumented in this encounter
--- OUTSIDE RECORDS SUMMARY | 2022-07-04 12:08 | XMS_ITS | Encounter Summary ---
:1985 Author Organization [facility] Address [address] [place] [address] Care Team Providers Name Role Phone Unavailable Primary Care Provider Unavailable Encounter Details Date Type Department Care Team Description 10/20/[address] [facility], Kandis Stock, [facility], REGISTERED PHLEBOTOMIST PART TIME, FINISH SPECIALIST, DNAP [facility], Third Floor [address] [place] [address] Anesthesia Record Procedure Summary [...] or relatives? How often do you attend amish or 1 to 4 times per year 11/22 restorationist services? Do you belong to any clubs or No 12/12/2020 organizations such as amish groups, unions, fraternal or athletic groups, or [...]
[2022-07-04 12:10] VITALS: BP 111/76; PULSE 82; RESP 16; TEMP 36.7; O2SAT 97
--- NOTE | 2022-07-04 12:59 | PM.OBLDTN ---
OB - Triage/Final Diagnosis Visit Information Narrative: The patient is a 36 year old 6 para 4 3 1 3 at 26.2 weeks gestation by LMP, who presents with contractions. She has been torey regularly throughout the day every 6-10 minutes. She has a history of a SROM and delivery. A FFN and AmniSure were collected and negative. A SVE was preformed. She was found to be a fingertip on the outer OS but exam stopped at this point due to gestation and low lying placenta. Patient was reassured by these finding and discharged home. Labor precautions reviewed. Reason for evaluation: threatened labor Evaluation Cervical dilation (cm): 1 Vital signs: Vital Signs - 24 hr 07/04/22 12:10 Pulse Oximetry 97 Comments: Contractions every 6-10 min, mild to palpation and soft between Fetus (Single) Heart Rate Baseline: 160 [facility] Variability: Moderate (11-25) Monitor Accelerations: Present Monitor Decelerations: None
[2022-07-04 13:20] LABS: Amnisure Rom* Negative
[2022-07-04 13:38] LABS: Fetal Fibronectin* Negative (Negative)
--- NOTE | 2022-07-04 15:23 | PC.OBNST ---
NST Note NST Note Start: 07/04/22 13:59 Freq: ONCE Status: Active Protocol: Document 07/04/22 15:14 [facility] (Rec: 07/04/22 15:23 [facility] [id number]) NST Note 6 Para (# of births) 4 EDC 10/08/22 Gestational Age In Weeks & Days 26 Weeks & 2 Days High Risk Factors History of Labor/ Delivery,History of /Stillborn Patient Presented with Complaint(s) of Contractions/cramping Appropriate for Gestational Age Yes RN César Emanuel RN Date 07/04/22 Appropriate for Gestational Age Yes CHAUNCEY Ellis RN Date 07/04/22 OB NST charge Yes Complete NST Note via Write Note Yes The provider's electronic signature indicates the NST is reactive/appropriate for gestational age. *Note to provider: If an addendum is required, open the patient's chart and click on the note under the Nurse/Allied Health tab.
== END 2022-07-04 14:50 | disposition home or self-care (01) ==
LOC: OB OUT 12:07 → OB 12:09
PROVIDERS: Advanced Practice Midwife; Visit Provider Obstetrics & Gynecology
DX: O60.02 Preterm labor without delivery, second trimester (principal); Z3A.26 26 weeks gestation of pregnancy
CPT/HCPCS: 59025; 84112; 99213

== ENCOUNTER 2022-07-13 14:36 | Outpatient (CLI) | payer BC, SELFPAY ==
--- OUTSIDE RECORDS SUMMARY | 2022-07-20 11:38 | XMS_ITS | Clinical Summary ---
:1985 Author Organization [facility] [place] [address] Care Team Providers Name Role Phone Pcp, [...] daily. tablet Active Problems Problem Noted Date [facility] Supervision of high-risk 03/29/2022 Overview: [facility] CONSULTATION ON 04/03/22 -- Virtual Visit REASON FOR CONSULT: risks and management pt had pre- consult at [place]-- recommended cervical lengths at 16w, possibly cerclage [...] weeks by US REFERRING PHYSICIAN/PHONE/LAST UPDATE: [facility] [phone] Primary MD approves scheduling of recomm ended ultrasounds/testing: Yes SPECIALISTS/CONSULTS: Include: Specialty MD Clinic Name Phone# [place] and ADDED TO PATIENT CARE TEAM No CARE COORDINATION: GENETICS: declined PROCEDURES: PERTINENT LABS: B POS PERTINENT MEDS: PNV, pepcid, omeprazole, zofran Preferred delivery location: PLAN OF CARE: Menorrhagia 09/29/2008 Routine general medical examination at [facility] acility 09/29/2008 Palpitations 09/29/2008 Other general [...] F VAGINAL SAIDA N Delivery [facility] Comments: IUGR 2014 Term 37w0d 3.37 kg [...] follow up US. She plans delivery in [place] which is reasonable as long as follow up US lo oks normal. She continues vaginal progesterone and s erial cervical length US in [place] (see prior consult letter in EPIC). 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 Refer to the corresponding sections of the history section of Exce ian chart and the [facility] Naviga tor for details. Comments [...] patient's home address. Is referring provider within [facility]? 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 DIESEL ENGINE FITTER Temperature 36.8 ??C (98.3 ??F) 12/12/2011 5:04 PM DIESEL ENGINE FITTER Respiratory Rate - - Oxygen Saturation 99% 12/12/2011 5:04 PM DIESEL ENGINE FITTER Inhaled Oxygen - - Concentration Weight 55.3 [...] Anatomy Single with TA and TV (CPT 93204) (05/23/2022 2:56 PM CDT) Anatomical Region Laterality [...] prior . See prior consult letter in [place] for furthe r details. Today's US shows no signs of placenta accreta spectrum, but I reviewed the andrews itations of US in the detection of placenta accreta, especially with posterior placenta. We w ill re-assess placentation at her follow up US. She plans delivery in [place] which is re asonable as long as follow up US looks normal. She continues vaginal progesterone and s erial cervical length US in [place] (see prior consult letter in [facility]). New government regulations related to Cures [...] risk Services Provided: Procedures Code DETAIL ANATOMY 95559.0 TRANSVAGINAL ULTRASOUND 45789.0 Procedure Note Heather Hernandes MD - 05/23/20 22 Referred By: DARSHAN MULLINS IndicationsCode 20 weeks gestation of [id number].20 History of PTD / PROM D&C x2 [...] prior . See prior consult letter in [facility] for furthe r details. Today's US shows no signs of placenta accreta spectrum, but I reviewed the andrews itations of US in the detection of placenta accreta, especially with posterior placenta. We w ill re-assess placentation at her follow up US. She plans delivery in [place] which is re asonable as long as follow up US looks normal. She continues vaginal progesterone and s erial cervical length US in [place] (see prior consult letter in [facility]). New government regulations related to Century [...] notes, Low risk Services Provided: ProceduresCode DETAIL JBEFKKB57226.0 TRANSVAGINAL [id number] Heather Hernandes MD US from Last 3 Months Insurance Payer Benefit Plan / Subscriber ID Effective Dates Phone Addre ss Type Group BLUE CROSS BLUE CROSS OF [id number] 2020-Present [address] [address] [place] [address] Care Teams School Librarian Relationship Specialty Start Date End Date Pcp, No PCP - General 11/18/13 . Annita Moreira CNM Referring Provider Certified Nurse Primary Care Provider 03/22/22 3 [address] [place] [address]
--- OUTSIDE RECORDS SUMMARY | 2022-07-20 11:38 | XMS_ITS | Encounter Summary ---
:1985 Author Organization [facility] Address [address] [place] [address] Care Team Providers Name Role Phone Unavailable Primary Care Provider Unavailable Reason for Visit Reason Comments Communication Encounter Details Date Type Department Care Team Description 10/21/2020 Clinical Communication [facility], Horacio Cisneros, Communication [facility], [address] [place] [address] MAR Third Floor [place], [place] [address] [facility] [address] [place], [place] [phone] [address] (Work) [phone] Social History Tobacco Use Types Packs/Day Years [...] or relatives? How often do you attend jainism or 1 to 4 times per year 11/22 rastafarian services? Do you belong to any clubs or No 12/12/2020 organizations such as jainism groups, unions, fraternal or athletic groups, or [...] be seen. She is an hour from [place] and 20 min from [place]. PLAN Discussed with Dr Bowman and [facility] Room RN. Patient advised to be seen immediately at nearest facility. Disposition/Recommendation: referral for services Nearest ED or OB Facility. Information/Education: patient/caller able to teach back. Caller agreeable to plan of care: yes. The following references were used: provider Dr Bowman. TH ANALYTICS CONSULTANT documented in this encounter Plan of Treatment Not on filedocumented as of this encounter Visit Diagnoses Not on filedocumented in this encounter
--- OUTSIDE RECORDS SUMMARY | 2022-07-20 11:38 | XMS_ITS | Encounter Summary ---
:1985 Author Organization [facility] Address [address] [place] [id number] Care Team Providers Name Role Phone Unavailable Primary Care Provider Unavailable Reason for Referral Outpatient (Routine) - Closed Specialty Diagnoses / Procedures Referred By Contact Refer red To Contact Maternal and Diagnoses Premature Rupture Of Membranes Unspecified As To Length Of Time Between Rupture And Onset Of Labor Second Trimester (HCC) 21 Weeks Gestation ([facility]) [facility] Janelle Dominguez M.D. [address] [place] [address] Referral ID Status Reason Start Date Expiration Date Visits Requ ested Visits Authorized [id number] Closed 11/02/2020 11/02/2021 1 1 CIATE DRAFTER Encounter Details Date Type Department Care Team Description 11/02/2020 [facility] NeftalyJuan, Premature Rupture Of Membranes Unspecified As To Length Of Time Between Rupture And Onset Of Labor Second Trimester (Primary Dx); AND CLINICS Janelle Dominguez M.D. 21 Weeks Gestation 1999 [facility] [address] [place] [address] [place], [place] [phone] Social History Tobacco Use Types Packs/Day Years [...] 12/12/2020 organizations such as mosque groups, unions, fraDrug Response Dx or athletic groups, or school groups? How [...] Name Type Priority Associated Diagnoses Order [facility] Obstetrics Referral Outpatient Referral Routine Premat [...]
--- OUTSIDE RECORDS SUMMARY | 2022-07-20 11:38 | XMS_ITS | Encounter Summary ---
:1985 Author Organization [facility] Address [address] [place] [address] Care Team Providers Name Role Phone Unavailable Primary Care Provider Unavailable Encounter Details Date Type Department Care Team Description 10/20/2020 Anesthesia Event [facility], Kandis Stock, [facility], DESK LIEUTENANT, EYEGLASS INSPECTOR, DNAP [facility], Third Floor [address] [place] [address] Anesthesia Record Procedure Summary [...] or relatives? How often do you attend advent or 1 to 4 times per year 11/22 anabaptist services? Do you belong to any clubs or No 12/12/2020 organizations such as advent groups, unions, fraternal or athletic groups, or [...]
--- OUTSIDE RECORDS SUMMARY | 2022-07-20 11:38 | XMS_ITS | Encounter Summary ---
:1985 Author Organization [facility] Address [address] [place] [address] Care Team Providers Name Role Phone Unavailable Primary Care Provider Unavailable Reason for Visit Reason Comments Rupture of Membranes Contractions Auth/Cert Specialty Diagnoses / Procedures Referred By Contact Refer red To Contact Diagnoses 22 Weeks Gestation (HCC) Procedures DIR Referral ID Status Reason Start Date Expiration Date Visits Requ ested Visits Authorized [id number] 1 1 Encounter Details Date Type Department Care Team Description 10/18/2020 - Hospital Encounter [facility] Jordyn Wild M.D. [address] [place] [phone] 22 Weeks Gestation (Primary Dx) ; 10/20/2020 [facility], Erin Villagran M.D., M.P.H. [address] [place] [phone] 21 Weeks Gestation ; [place], Heather Ott M.D. [address] [place] [phone] Premature Rupture Of Membranes U nspecified As To Length Of Time Between Rupture And Onset Of Labor Second Trimester Building, Third Floor [address] [place] [address] Social History Tobacco Use Types [...] or relatives? How often do you attend pentecostalism or 1 to 4 times per year 11/22 episcopal services? Do you belong to any clubs or No 12/12/2020 organizations such as pentecostalism groups, unions, fraternal or athletic groups, or [...] Comments Blood Pressure 116/69 10/20/2020 12:39 PM JAVA PORTAL DEVELOPER Pulse 81 10/20/2020 12:39 PM JAVA PORTAL DEVELOPER Temperature 37.2 ??C (99 ??F) 10/20/2020 12:39 PM JAVA PORTAL DEVELOPER Respiratory Rate 18 10/20/2020 12:39 PM JAVA PORTAL DEVELOPER Oxygen Saturation 99% 10/20/2020 12:39 PM JAVA PORTAL DEVELOPER Inhaled Oxygen Concentration - - Weight 56.3 kg (124 lb 1.9 oz) 10/19/2020 6:30 AM JAVA PORTAL DEVELOPER Height - - Body Mass Index - - documented in this encounter Discharge Summaries Saqib Strong M.D. - 10/20/2020 12:07 PM CST DISCHARGE SUMMARY BRIEF OVERVIEW Hospital: [facility] Discharge Provider: Erin Alarcon M.D. Primary Team: [facility] No primary care provider [...] return in one week for neonatology consult, [facility] return visit and further discussion of when she would like to be re-admitted. She was discharged home in stable condition. //Miriam Ruggiero MD CONSULTS ORDERED DURING THIS ADMISSION CONDITION AT DISCHARGE Stable Discharge instructions were provided to the patient and caregiver(s). PORTAL DEVELOPER documented in this encounter Medications at Time of Discharge Medication Sig Dispensed Refills Start Date End Date Take 1 tablet by 0 mvioxld-Ix-hyaq-FA (VINATE mouth daily. ONE) 60 mg iron-1 mg per tablet wdwjtoxvfi-xvtaadgvyjsrk-m TK 1 TO 2 TS PO Q [...] 10/18/2020. 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 Obstetrical Chief PGY-3 [id number] PORTAL DEVELOPER Associated attestation - Heather Goodrich M.D. - 10/19/2020 12:27 AM JAVA PORTAL DEVELOPER Copyright Clerk Teaching Physician Statement: I have discussed the [...] delivery upon exam findings of 4-5cm dilation. 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 Have printed her additional studies [...] further discussion this afternoon Miriam Ruggiero M.D. PORTAL DEVELOPER Associated attestation - Saqib Strong M.D. - 10/20/2020 11:17 AM JAVA PORTAL DEVELOPER I have discussed the care of Jim [...] L.G.S.W., L.I.C.S.W., M.S.W. - 10/19/2020 1:02 PM JAVA PORTAL DEVELOPER SUBJECTIVE Social work met with the patient [...] weeks gestationas a transfer of care from [place], [place] due to concern for previable premature [...] day parking pass provided 10/19/20. Annita Kaplan [facility], TIE UP WORKER 10/19/2020 PORTAL DEVELOPER Miriam Ruggiero M.D. - 10/19/2020 12:09 PM [...] 10/18/2020. 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 Have printed her additional studies [...] discussion pending ultrasound results. Miriam Ruggiero M.D. PORTAL DEVELOPER Associated attestation - Raysa Guerin M.D. - 11/14/2020 4:22 AM JAVA PORTAL DEVELOPER I saw and evaluated the patient, participating [...] with family for expectant management. Questions answered. PORTAL DEVELOPER Irish Newell R.N. - 10/18/2020 9:29 PM [...] reviewed goals for the shift with patient. PORTAL DEVELOPER documented in this encounter Miscellaneous Notes Hospital Course - Miriam Ruggiero M.D. - 10/19/2020 2:32 AM CST Jim Lowe is a 34 y.o who presented at 21w1 for previable PPROM. She was admitted from 10/19-. She weighed her options and then decided to pursue expectant management. She will return in one week for neonatology consult, [facility] return visit and further discussion of when she would like to be re-admitted. She was discharged home in stable condition. //Miriam Ruggiero MD PORTAL DEVELOPER documented in this encounter Plan of Treatment Pending Results Name Type Priority Associated Diagnoses Date/Ti me US OB Limited Imaging RAD - Routine (most 020 8:51 PM inpatients and all JAVA PORTAL DEVELOPER outpatients) Scheduled Orders Name Type Priority Associated Diagnoses Order S chedule US OB Limited Imaging RAD - Routine (most Once fo r 1 inpatients and all Occurrenc es starting outpatients) 10/18/2020 unti l 10/18/2020 documented as of this encounter Procedures Procedure Name Priority Date/Time Associated Comments Diagnosis US OB ANATOMY RAD - Routine 10/19/2020 1:21 Results fo r this ANGUIANO (most inpatients PM JAVA PORTAL DEVELOPER procedure a re in and all the results outpatients) section. RUBELLA ANTIBODIES, Routine 10/19/2020 7:18 Resul ts for this IGG AM JAVA PORTAL DEVELOPER procedure are i n the results section. VARICELLA-ZOSTER Routine 10/19/2020 7:18 Results for this AB, IGG, S AM JAVA PORTAL DEVELOPER procedure are i n the results section. MICROSCOPIC MANUAL Routine 10/19/2020 2:21 Result s for this AM JAVA PORTAL DEVELOPER procedure are i n the results section. BACTERIAL CULTURE, Routine 10/19/2020 2:21 Result s for this AEROBIC + SUSC, AM JAVA PORTAL DEVELOPER procedure ar e in URINE the results section. CONFIRMED DRUG Routine 10/19/2020 2:21 Results fo r this ABUSE PANEL, U AM JAVA PORTAL DEVELOPER procedure are in the results section. CHLAMYDIA/GONORRHOE Routine 10/19/2020 2:21 Resul ts for this AE AMPLIFIED RNA AM JAVA PORTAL DEVELOPER procedure a re in the results section. URINALYSIS WITH Routine 10/19/2020 2:21 Results f or this MICROSCOPIC AM JAVA PORTAL DEVELOPER procedure are i n the results section. HEPATITIS B SURFACE STAT 10/18/2020 9:34 Resul ts for this ANTIGEN PM JAVA PORTAL DEVELOPER procedure are i n the results section. FIBRINOGEN, P STAT 10/18/2020 9:34 Results for this PM JAVA PORTAL DEVELOPER procedure are i n the results section. SARS CORONAVIRUS 2, Routine 10/18/2020 8:05 Resul ts for this MOLECULAR PM JAVA PORTAL DEVELOPER procedure are i n DETECTION, PCR (FOOD SERVICE ORDER CLERK) the resu lts section. HEPATITIS B SURFACE STAT 10/18/2020 7:59 Resul ts for this ANTIGEN PM JAVA PORTAL DEVELOPER procedure are i n the results section. CBC WITHOUT STAT 10/18/2020 7:59 Results for this DIFFERENTIAL, B PM JAVA PORTAL DEVELOPER procedure ar e in the results section. TYPE AND SCREEN STAT 10/18/2020 7:59 Results f or this PM JAVA PORTAL DEVELOPER procedure are i n the results section. HIV-1/-2 AG AND AB STAT 10/18/2020 7:58 Result s for this SCRN, PM JAVA PORTAL DEVELOPER procedure are in PLASMA the results section. documented in this encounter Results US OB Anatomy Anguiano (10/19/2020 1:21 PM JAVA PORTAL DEVELOPER) Anatomical Region Laterality Modality Body, Ultrasound OB RST LOS, Ultrasound ARZ LOS N/A Ultrasound Specimen (Source) Anatomical Location Collection Method / Collectio n Time Received Time / Laterality Volume Narrative 10/19/2020 1:27 PM JAVA PORTAL DEVELOPER JIM LOWE OB Exam, 10/19/2020 EXAM INFORMATION Patient Name: ??JIM LOWE : ??1985 Age: ??34 yrs Sex: ??Female Ref Phys: ??MIRIAM RUGGIERO Exam Date: 10/19/2020 Procedure: US OB ANATOMY ANGUIANO Exam Site: [facility] Plurality: 1 INDICATIONS FOR SONOGRAPHY Anatomic Survey [...] Read by Ilir Moss on 1:21:30 PM. Electronic Drafter: ??Ilir Moss Thank You For This Referral Procedure Note Eamon Dawson M.B.B.S., MAngelo. - 10/19 JIM LOWE OB Exam, 10/19/2020 EXAM INFORMATION Patient Name: MYNORJIM S : 1985 Age: 34 yrs Sex: Female Ref Phys: MIRIAM RUGGIERO Exam Date: 10/19/2020 Procedure: US OB ANATOMY ANGUIANO Exam Site: [facility] Plurality: 1 INDICATIONS FOR SONOGRAPHY Anatomic Survey [...] Read by Ilir Moss on 1:21:30 PM. Electronic Drafter: Ilir Moss Thank You For This Referral Miriam Ruggiero M.D. IMG OB US PROCEDURES Varicella-Zoster Antibody, IgG, Serum (10/19/2020 7:18 AM JAVA PORTAL DEVELOPER) athologist Signature Varicella-Zost Positive 10/19/2020 [facility] er Ab, IgG, S 10:41 AM JAVA PORTAL DEVELOPER Comment: Results suggest response to immunization or prior exposure to the virus. ----REFERENCE VALUE---- Vaccinated: Positive (>=1.1 AI) Unvaccinated: Negative (<=0.8 AI) Varicella IgG Antibody Index 1.3 10/19/2020 10:41 AM JAVA PORTAL DEVELOPER [facility] Specimen Anatomical Collection Method Collection Time Receive d Time (Source) Location / / Volume Laterality Blood (Blood, 10/19/2020 7:18 AM 10/19/20 20 9:43 Venous) JAVA PORTAL DEVELOPER AM JAVA PORTAL DEVELOPER Sierra Welch M.D. LAB MICROBIOLOGY - BLOOD ORD ERADIAMANTE Performing Organization Address [facility] Phon e Number [place] [id number] [place] [phone] SUPPORT [facility] [address] Laboratory Medicine and Pathology [address] [place] [address] Dr. MANUEL Rubella Antibodies, IgG (10/19/2020 7:18 AM JAVA PORTAL DEVELOPER) athologist Signature Rubella Ab, Positive 10/19/2020 [facility] IgG, S 10:40 AM JAVA PORTAL DEVELOPER Comment: Results suggest response to immunization or prior exposure to the virus. ----REFERENCE VALUE---- Vaccinated: Positive (>=1.0 AI) Unvaccinated: Negative (<=0.7 AI) Rubella IgG Antibody Index 1.4 10/19/2020 10 :40 AM JAVA PORTAL DEVELOPER [facility] Specimen Anatomical Collection Method Collection Time Receive d Time (Source) Location / / Volume Laterality Blood (Blood, 10/19/2020 7:18 AM 10/19/20 20 9:43 Venous) JAVA PORTAL DEVELOPER AM JAVA PORTAL DEVELOPER Sierra Welch M.D. LAB MICROBIOLOGY - BLOOD ORD JENNA Performing Organization Address [facility] Phon e Number [address] [place] [address] SUPPORT [facility] [address] Laboratory Medicine and Pathology [address] [place] [address] Dr. MANUEL (ABNORMAL) Microscopic Manual (10/19/2020 2:21 AM JAVA PORTAL DEVELOPER) Analysis Performed At Patho logist Time Signature Microscopy Abnormal 10/19/2020 [place] 6:26 AM JAVA PORTAL DEVELOPER RBC >100 (A) <3 /hpf 10/19/2020 [place] 6:26 AM JAVA PORTAL DEVELOPER Dysmorphic RBC <25 <25 % 10/19/2020 [place] 6:26 AM JAVA PORTAL DEVELOPER WBC 1-3 /hpf 10/19/2020 [place] 6:26 AM JAVA PORTAL DEVELOPER Comment: ----REFERENCE VALUE---- 1-3 ??(Males) 1-10 (Females) Specimen Anatomical Collection Method Collection Time Receive d Time (Source) Location / / Volume Laterality Urine 10/19/2020 2:21 AM 0 4:00 JAVA PORTAL DEVELOPER AM JAVA PORTAL DEVELOPER Sierra Welch M.D. LAB URINE ORDERABLES Performing Organization Address [facility] Phon e Number [facility] - [address] [place] [address] 05 [place] [address] Laboratories[address] Bacterial Culture, Aerobic + Susc, Urine (10/19/2020 2:21 AM JAVA PORTAL DEVELOPER) Patholo gist Method Time Signature Urine Culture No growth 10/20/2020 DT after 1 day 8:16 AM JAVA PORTAL DEVELOPER of incubation. Specimen Anatomical Collection Method Collection Time Receive d Time (Source) Location / / Volume Laterality Urine (Urine, 10/19/2020 2:21 AM 10/19/20 20 5:03 Straight JAVA PORTAL DEVELOPER AM JAVA PORTAL DEVELOPER Catheter) Comment: Specimen Source Site: Urine Sierra Welch M.D. LAB MICROBIOLOGY - GENERAL O RDERABLES Performing Organization Address [facility] Phon e Number [facility] - [address] [place] [address] (ABNORMAL) Urinalysis with Microscopic: Urine, Catheter (10/19/2020 2:21 AM JAVA PORTAL DEVELOPER) Analysis Performed At Patho logist Time Signature Source Catheter 10/19/2020 [place] 4:00 AM JAVA PORTAL DEVELOPER Appearance Normal Normal 10/19/2020 [place] 4:00 AM JAVA PORTAL DEVELOPER Osmolality, U 521 150 - 1150 10/19/2020 [place] mOsm/kg 4:47 AM JAVA PORTAL DEVELOPER pH, U 6.2 4.5 - 8.0 10/19/2020 [place] 4:47 AM JAVA PORTAL DEVELOPER Comment: ----ADDITIONAL INFORMATION---- This test was developed and its performa nce characteristics determined by [facility] in a manner co nsistent with CLIA requirements. This test has not bee n cleared or approved by the U.S. Food and Drug Admin istration. Glucose 8 0 - 15 mg/dL 10/19/2020 6:17 AM JAVA PORTAL DEVELOPER [place] Protein, U 46 (H) <26 mg/dL 10/19/2020 6:17 AM JAVA PORTAL DEVELOPER [place] Comment: ----ADDITIONAL INFORMATION---- On 04/16/2017 the total protein assay me thod changed resulting in approximately a 15% increase in prote in values. Protein/Osmolality 0.88 (H) <0.42 Ratio 10/19/2020 6:17 AM JAVA PORTAL DEVELOPER [place] Comment: ----ADDITIONAL INFORMATION---- On 04/16/2017 the total protein assay me thod changed resulting in approximately a 15% increase in prote in values. Predicted 24 Hr Protein 597 mg/24 h 10/19/2020 6:17 AM JAVA PORTAL DEVELOPER [place] Predicted Range 148-2419 mg/24 h 10/19/2020 6:17 AM JAVA PORTAL DEVELOPER R JEM Hemoglobin, QL Large (A) Negative 10/19/2020 6:26 AM JAVA PORTAL DEVELOPER RE NA Specimen Anatomical Collection Method Collection Time Receive d Time (Source) Location / / Volume Laterality Urine (Urine, 10/19/2020 2:21 AM 10/19/20 20 4:00 Catheter) JAVA PORTAL DEVELOPER AM JAVA PORTAL DEVELOPER Sierra Welch M.D. LAB URINE ORDERABLES Performing Organization Address City/State/ZIP Code Phon e Number [facility] - [address] [place], [place] [address] [place] [address] Laboratories-[facility] [address] Chlamydia / Gonorrhoeae Amplified RNA (10/19/2020 2:21 AM JAVA PORTAL DEVELOPER) [facility] gist Method Time Signature Source Urine, 10/19/2020 [facility] Urine, First 6:58 PM JAVA PORTAL DEVELOPER Voided Chlamydia Negative Negative 10/19/2020 [facility] trachomatis 6:58 PM JAVA PORTAL DEVELOPER amplified RNA Source Urine, 10/19/2020 [facility] Urine, First 6:58 PM JAVA PORTAL DEVELOPER Voided Neisseria Negative Negative 10/19/2020 [facility] gonorrhoeae 6:58 PM JAVA PORTAL DEVELOPER amplified RNA Specimen Anatomical Collection Method Collection Time Receive d Time (Source) Location / / Volume Laterality Varies (Urine, 10/19/2020 2:21 AM 020 7:22 First Voided) JAVA PORTAL DEVELOPER AM JAVA PORTAL DEVELOPER Sierra Welch M.D. LAB MICROBIOLOGY - GENERAL O RDERABLES Performing Organization Address City/[facility] Phon e Number [facility] - [address] [place], [place] [address] [facility] [place] [address] [facility] [address] Drug Abuse Survey with Confirmation, Urine (10/19/2020 2:21 AM JAVA PORTAL DEVELOPER) Patholo gist Method Time Signature Alcohol Negative Cutoff: 10/19/2020 [facility] 10 mg/dL 9:52 AM JAVA PORTAL DEVELOPER Amphetamines Negative Cutoff: 10/19/2020 [facility] 500 ng/mL 9:52 AM JAVA PORTAL DEVELOPER Barbiturates Negative Cutoff: 10/19/2020 [facility] 200 ng/mL 9:52 AM JAVA PORTAL DEVELOPER Benzodiazepines Negative Cutoff: 10/19/2020 [facility] 100 ng/mL 9:52 AM JAVA PORTAL DEVELOPER Cocaine Negative Cutoff: 10/19/2020 [facility] 150 ng/mL 9:52 AM JAVA PORTAL DEVELOPER Opiates Negative Cutoff: 10/19/2020 [facility] 300 ng/mL 9:52 AM JAVA PORTAL DEVELOPER Phencyclidine Negative Cutoff: 10/19/2020 [facility] 25 ng/mL 9:52 AM JAVA PORTAL DEVELOPER Tetrahydrocannabinol Negative Cutoff: 10/19/2020 [facility] 50 ng/mL 9:52 AM JAVA PORTAL DEVELOPER Comment: ----ADDITIONAL INFORMATION---- This report is intended for use in clini kosta monitoring or management of patients. ??It is not intended for use i n employment-related testing. Specimen Anatomical Collection Method Collection Time Receive d Time (Source) Location / / Volume Laterality Urine (Urine, 10/19/2020 2:21 AM 10/19/20 8:50 Clean Catch) JAVA PORTAL DEVELOPER AM JAVA PORTAL DEVELOPER Sierra Welch M.D. LAB URINE ORDERABLES Performing Organization Address City/[facility] Phon e Number [facility] [address] [place], [place] [address] SUPPORT CENTER [facility] [place] [address] Laboratory Medicine and Pathology [address] MANU[place] (ABNORMAL) Fibrinogen (10/18/2020 9:34 PM JAVA PORTAL DEVELOPER) P athologist Signature Fibrinogen, P 624 (H) 200 - 393 10/18/2020 [facility] mg/dL 9:49 PM JAVA PORTAL DEVELOPER Specimen Anatomical Collection Method Collection Time Receive d Time (Source) Location / / Volume Laterality Blood (Blood, 10/18/2020 9:34 PM 10/18/20 20 9:40 Venous) JAVA PORTAL DEVELOPER PM JAVA PORTAL DEVELOPER Sierra Welch M.D. LAB BLOOD ADD-ON Performing Organization Address City/[facility]/ZIP Code Phon e Number [facility] - [address] [place], [place] [address] [facility] [place] [address] Laboratories-[facility] [address] Hepatitis B Surface Antigen (10/18/2020 9:34 PM JAVA PORTAL DEVELOPER) P athologist Signature HBs Antigen, S Negative Negative 10/19/2020 [facility] 9:23 AM JAVA PORTAL DEVELOPER Specimen Anatomical Collection Method Collection Time Receive d Time (Source) Location / / Volume Laterality Blood (Blood, 10/18/2020 9:34 PM 10/19/20 8:14 Venous) JAVA PORTAL DEVELOPER AM JAVA PORTAL DEVELOPER Sierra Welch M.D. LAB MICROBIOLOGY - BLOOD ORD ERABLES Performing Organization Address [facility] Phon e Number [facility] [address] [place], [place] [address] [facility] C[facility] [place] [address] Laboratory Medicine and Pathology [address] [place] SARS Coronavirus 2, Molecular Detection, PCR (FOOD SERVICE ORDER CLERK) Asymptomatic (10/18/2020 8:05 PM JAVA PORTAL DEVELOPER) Patholo gist Method Time Signature COVID-19, PCR Undetected Undetected 10/19/2020 [facility] 12:55 AM JAVA PORTAL DEVELOPER Comment: SARS-CoV-2 RNA absent. This result does [...] Drug Administration an d is used per chemical test engineer's instructions. Performance characteristics were verified by [facility] in a manner consistent with CLIA requirements. Visit the CDC website: https://www.cdc.g ov/coronavirus/ for the most recent guidelines on [place] virus testing. Fact Sheet for Healthcare Providers: https://www.fda.gov/media/774383/downloa d Fact Sheet for Patients: https://www.fda.gov/media/210087/downloa d Specimen Anatomical Collection Method Collection Time Receive d Time (Source) Location / / Volume Laterality Varies 10/18/2020 8:05 PM 0 8:40 (Nasopharynx) JAVA PORTAL DEVELOPER PM JAVA PORTAL DEVELOPER Heather Goodrich M.D. LAB MICROBIOLOGY - GENERAL O RDERABLES Performing Organization Address City/[facility]/ZIP Code Phon e Number [facility] - [address] [place], [place] [address] [facility] [place] [address] [facility] [address] [facility] Hepatitis B Surface Antigen (10/18/2020 7:59 PM JAVA PORTAL DEVELOPER) P athologist Signature HBs Antigen, S Negative Negative 10/19/2020 [facility] 8:04 AM JAVA PORTAL DEVELOPER Specimen Anatomical Collection Method Collection Time Receive d Time (Source) Location / / Volume Laterality Blood (Blood, 10/18/2020 7:59 PM 10/19/20 20 6:59 Venous) JAVA PORTAL DEVELOPER AM JAVA PORTAL DEVELOPER Sierra Welch M.D. LAB MICROBIOLOGY - BLOOD ORD ERABLES Performing Organization Address City/[facility] Phon e Number [facility] [address] [place], [place] [address] SU[facility] CENTER [facility] [place] [address] Laboratory Medicine and Pathology [address] [place] Type and Screen (with reflex Antibody ID) (10/18/2020 7:59 PM JAVA PORTAL DEVELOPER) Patholo gist Method Time Signature ABORh B Pos Not 10/18/2020 [facility] applicable 8:29 PM JAVA PORTAL DEVELOPER Antibody Negative Negative 10/18/2020 [facility] Screen 8:44 PM JAVA PORTAL DEVELOPER Type & Screen 10/21/2020 10/18/2020 [facility] Expiration 23:59 8:29 PM JAVA PORTAL DEVELOPER Testing [place] DEFAULT 10/18/2020 [facility] Location 8:08 PM JAVA PORTAL DEVELOPER Specimen Anatomical Collection Method Collection Time Receive d Time (Source) Location / / Volume Laterality Blood (Blood, 10/18/2020 7:59 PM 10/18/20 20 8:08 Venous) JAVA PORTAL DEVELOPER PM JAVA PORTAL DEVELOPER Sierra Welch M.D. LAB BLOOD BANK TEST ORDERABL ES Performing Organization Address [facility]/ZIP Code Phon e Number [facility] - [address] [place], [place] [address] [facility] [place] [address] [facility] 200 [facility] (ABNORMAL) CBC without Differential (10/18/2020 7:59 PM JAVA PORTAL DEVELOPER) Patholo gist Method Time Signature Hemoglobin 11.0 (L) 11.6 - 10/18/2020 [facility] 15.0 g/dL 8:06 PM JAVA PORTAL DEVELOPER Hematocrit 31.8 (L) 35.5 - 10/18/2020 [facility] 44.9 % 8:06 PM JAVA PORTAL DEVELOPER Erythrocytes 3.65 (L) 3.92 - 10/18/2020 [facility] 5.13 8:06 PM JAVA PORTAL DEVELOPER x10(12)/L MCV 87.1 78.2 - 10/18/2020 [facility] 97.9 fL 8:06 PM JAVA PORTAL DEVELOPER RBC Distrib Width 13.5 12.2 - 10/18/2020 [facility] 16.1 % 8:06 PM JAVA PORTAL DEVELOPER Platelet Count 287 157 - 371 10/18/2020 [facility] x10(9)/L 8:06 PM JAVA PORTAL DEVELOPER Leukocytes 19.3 (H) 3.4 - 9.6 10/18/2020 [facility] x10(9)/L 8:06 PM JAVA PORTAL DEVELOPER Specimen Anatomical Collection Method Collection Time Receive d Time (Source) Location / / Volume Laterality Blood (Blood, 10/18/2020 7:59 PM 10/18/20 8:04 Venous) JAVA PORTAL DEVELOPER PM JAVA PORTAL DEVELOPER Sierra Welch M.D. LAB BLOOD ADD-ON Performing Organization Address City/State/ZIP Code Phon e Number [facility] - [address] [place] [address] [phone] [facility] [place] [address] [facility] 200 [facility] HIV-1/-2 Ag and Ab Scrn, Plasma (10/18/2020 7:58 PM JAVA PORTAL DEVELOPER) P athologist Signature HIV-1/-2 Ag Negative Negative 10/19/2020 SDSC and Ab 9:31 AM JAVA PORTAL DEVELOPER Scrn, P Comment: Negative result does not rule out HIV in fection. If exposure to HIV infection occurred <14 d ays ago, contact the laboratory to request additi on of HIV-1 RNA detection / quantification test (HIV QN). Specimen Anatomical Collection Method Collection Time Receive d Time (Source) Location / / Volume Laterality Blood (Blood, 10/18/2020 7:58 PM 10/19/20 20 6:59 Venous) JAVA PORTAL DEVELOPER AM JAVA PORTAL DEVELOPER Sierra Welch M.D. LAB MICROBIOLOGY - BLOOD ORD ERABLES Performing Organization Address City/State/ZIP Code Phon e Number [facility] [address] [place], [place] [address] [facility] [place] [address] Laboratory Medicine and Pathology [address] [...] 900 mg New Bag 10/19/2020 5:09 AM JAVA PORTAL DEVELOPER 900 mg 100 mL/hr (CLEOCIN) 900 mg, intravenous, at 100 mL/hr, Administer over 30 Minutes, Every 8 hours, First dose on Sat10/18/20 at 2000, premix bag, Indications: Obstetric or gynecological infection New Bag 10/18/2020 9:41 PM JAVA PORTAL DEVELOPER 900 mg 100 mL/hr fentaNYL injection 100 mcg (SUBLIMAZE) Given 10/18/2020 9:49 PM JAVA PORTAL DEVELOPER 100 mcg 100 mcg, intravenous, Every 1 hour PRN, moderate pain or score 4-6 of 10, severe pain or score 7-10 of 10, for labor pains, Starting on Sat10/18/20 at 1939, For 3 doses, L&D Pre-Delivery, Consultation with Anesthesia for pain control if patient requests regional anesthesia and in active labor or membranes ruptured. Given 10/18/2020 8:44 PM JAVA PORTAL DEVELOPER 100 mcg gentamicin 290 mg in NaCl 0.9% IVPB New Bag 10/18/2020 8:41 PM JAVA PORTAL DEVELOPER 290 mg 215 mL/hr (GARAMYCIN) 290 mg (rounded from 285 mg = 5 mg/kg ? 57 kg Order-specific weight), intravenous, at 215 mL/hr, Administer over 30 Minutes, Once, On Sat10/18/20 at 2000, For 1 dose, Drug Monitoring Program: Pharmacist to adjust medication dosing based on indication and drug clearance factors., Indications: Obstetric or gynecological infection lactated ringers New Bag 10/19/2020 5:10 AM JAVA PORTAL DEVELOPER 125 mL/hr 125 mL/hr 125 mL/hr, intravenous, Continuous, Starting on Sat10/18/20 at 2000, L&D Pre-Delivery, Indications: Hang fluids for maternal dehydration, concerns, epidural placement, with antibiotics. Rate/Dose Verify 10/19/2020 2:20 AM JAVA PORTAL DEVELOPER 125 mL/hr 125 mL/hr Rate/Dose Verify 10/19/2020 12:00 AM JAVA PORTAL DEVELOPER 125 mL/hr 125 mL/hr multivitamin/mineral- tablet 1 Given 10/20/2020 9:30 AM JAVA PORTAL DEVELOPER 1 tablet tablet 1 tablet, oral, Daily, First dose on Kylie 10/20/20 at 0900 documented in this encounter Active and Recently Administered Medications Times are shown in JAVA PORTAL DEVELOPER. Scheduled Medication Order 10/18/2020 10/19/2020 10/20/2020 clindamycin [...] palpation, or reach a mximum of 250 [place] units, and/or cervical change(s) occur. PRN Medication [...] COVID19 Pending 10/18/2020 10/18/2020 10/19/2020 12:56 AM JAVA PORTAL DEVELOPER documented as of this encounter
--- OUTSIDE RECORDS SUMMARY | 2022-07-20 11:38 | XMS_ITS | Clinical Summary ---
:1985 Author Organization [facility] Address [address] [place] [address] Care Team Providers Name Role Phone Unavailable Primary Care Provider Unavailable Source Comments Patient records contain information from all sites at [facility]. For routine questions regarding patient records, call [phone] during business hours, M-F 8:00 AM - 5:00 PM Central Time. Record requests for emergency care only can be directed to [phone] at any time.[facility] Allergies Active Allergy Reactions Severity Noted Date Comments Penicillins Rash 10/18/2020 Salicylates Edema 10/18/2020 Swollen tongue Medications Medication Sig Dispensed Refills Start Date End Date Status Take 1 tablet by 0 Act angela qsakkci-Jx-xgtz-FA mouth daily. (VINATE ONE) 60 mg iron-1 [...] or relatives? How often do you attend lutheran or 1 to 4 times per year 11/22 tenriism services? Do you belong to any clubs or No 12/12/2020 organizations such as lutheran groups, unions, fraternal or athletic groups, or [...] Comments Blood Pressure 116/69 10/20/2020 12:39 PM STEAM METER READER Pulse 81 10/20/2020 12:39 PM STEAM METER READER Temperature 37.2 ??C (99 ??F) 10/20/2020 12:39 PM STEAM METER READER Respiratory Rate 18 10/20/2020 12:39 PM STEAM METER READER Oxygen Saturation 99% 10/20/2020 12:39 PM STEAM METER READER Inhaled Oxygen Concentration - - Weight 56.3 kg (124 lb 1.9 oz) 10/19/2020 6:30 AM STEAM METER READER Height - - Body Mass Index - [...] on patient's age to complete this to [facility] Insurance Payer Benefit Plan / Subscriber ID Effective Dates Phone Addre ss Type Group [place] [id number] 2020-Yuki [phone] [address] PPO BLUE SHIELD t [address] [place] [address] Advance Directives For more information, please contact: [phone] Latest Code Status on File Code Status Date Activated Date Inactivated Comments Full Code 10/18/2020 7:51 PM 10/20/2020 2:51 PM Full Code: Not Discussed Due to: Not medically appropriate
--- OUTSIDE RECORDS SUMMARY | 2022-07-20 11:38 | XMS_ITS | Encounter Summary ---
:1985 Author Organization [facility] Address [address] [place] [address] Care Team Providers Name Role Phone Unavailable Primary Care Provider Unavailable Reason for Visit Auth/Cert Specialty Diagnoses / Procedures Referred By Contact Refer red To Contact Diagnoses 22 Weeks Gestation (HCC) Procedures DIR Referral ID Status Reason Start Date Expiration Date Visits Requ ested Visits Authorized [id number] 1 1 Encounter Details Date Type Department Care Team Description 10/19/2020 Hospital Encounter Department of Josey Tse Obstetrics and M.DIsha Gynecology in [address] [place] [address] [place] [address] [place], [place] [phone] (Wo rk) [id number] [phone] Social History Tobacco Use Types Packs/Day Years [...] or relatives? How often do you attend sabianism or 1 to 4 times per year 11/22 yarsanism services? Do you belong to any clubs or No 12/12/2020 organizations such as sabianism groups, unions, fraternal or athletic groups, or [...] Sig Dispensed Refills Start Date End Date [id number]-j TK 1 TO 2 TS PO Q 4 H 0 09/08/2020 aff (FIORICET, ESGIC) NEEDED. MAX 6 PER 50-325-40 mg per tablet DAY Take 1 tablet by 0 fjnomrg-Sj-ghmb-FA (VINATE mouth daily. ONE) 60 mg iron-1 mg per tablet documented as of this encounter Plan of Treatment Not on filedocumented as of this encounter Procedures Procedure Name Priority Date/Time Associated Comments Diagnosis US OB ANATOMY RAD - Routine 10/19/2020 1:21 Results fo r this ANGUIANO (most inpatients PM FOREST PRODUCTS TEACHER procedure a re in and all the results outpatients) section. documented in this encounter Results US OB Anatomy Anguiano (10/19/2020 1:21 PM FOREST PRODUCTS TEACHER) Anatomical Region Laterality Modality Body, Ultrasound OB RST LOS, Ultrasound ARZ LOS N/A Ultrasound Specimen (Source) Anatomical Location Collection Method / Collectio n Time Received Time / Laterality Volume Narrative 10/19/2020 1:27 PM FOREST PRODUCTS TEACHER LAURA LOWE OB Exam, 10/19/2020 EXAM INFORMATION Patient Name: ??LAURA LOWE : ??1985 Age: ??34 yrs Sex: ??Female Ref Phys: ??JOSEY TSE Exam Date: 10/19/2020 Procedure: US OB ANATOMY ANGUIANO Exam Site: [facility] Plurality: 1 INDICATIONS FOR SONOGRAPHY Anatomic Survey [...] Read by Ilir Moss on 1:21:30 PM. General Expeditor: ??Ilir Moss Thank You For This Referral Procedure Note Eamon Dawson M.B.B.S., M.D. - 10/19 LAURA LOWEBHARTI OB Exam, 10/19/2020 EXAM INFORMATION Patient Name: LAURA LOWE S : 1985 Age: 34 yrs Sex: Female Ref Phys: JOSEY TSE Exam Date: 10/19/2020 Procedure: US OB ANATOMY ANGUIANO Exam Site: [facility] Plurality: 1 INDICATIONS FOR SONOGRAPHY Anatomic Survey [...] Read by Ilir Moss on 1:21:30 PM. General Expeditor: Ilir Moss Thank You For This Referral Josey Tse M.D. IMG OB US PROCEDURES documented in this encounter Visit Diagnoses Not on filedocumented in this encounter
--- OUTSIDE RECORDS SUMMARY | 2022-07-20 11:38 | XMS_ITS | Encounter Summary ---
:1985 Author Organization [facility] Address [address] [place] [address] Care Team Providers Name Role Phone Unavailable Primary Care Provider Unavailable Reason for Visit Outpatient (Routine) - Closed Specialty Diagnoses / Procedures Referred By Contact Refer red To Contact Maternal and Diagnoses Premature Rupture Of Membranes Unspecified As To Length Of Time Between Rupture And Onset Of Labor Second Trimester ([facility]) 21 Weeks Gestation ([facility]) [facility] Janelle Dominguez M.D. [address] [place] [address] Referral ID Status Reason Start Date Expiration Date Visits Requ ested Visits Authorized [id number] Closed 11/02/2020 11/02/2021 1 1 Encounter Details Date Type Department Care Team Description 12/16/2020 Telemedicine Department of Saqib Strong, Diana ture Rupture Of Membranes Unspecified As To Length Of Time Between Rupture And Onset Of Labor Second Trimester; Obstetrics and M.D. 21 Weeks Gestation Gynecology in [address] [place] [address] [place] [address] [place], [place] [phone] (Work) [phone] Social History Tobacco Use Types Packs/Day Years [...] or relatives? How often do you attend scientologist or 1 to 4 times per year 11/22 alevism services? Do you belong to any clubs or No 12/12/2020 organizations such as scientologist groups, unions, fraternal or athletic groups, or [...] or the highest technical, or vocational p [facility] degree you have received? Sex Assigned at Date Recorded Not on file documented as of this encounter Consult Notes Saqib Strong M.D. - 12/16/2020 8:00 AM CST Consult conducted via real-time audio/video technology by Saqib Strong M.D. in [facility] to the patient in patient home. 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 Mrs. Salinas's obstetrical history is significant for three term vaginal deliveries and one first-trimester miscarriage. In her fifth (2019), she was admitted o [facility] following spontaneous PPROM at 21 weeks gestation. Ultrasound demonstrated normal anatomy and biometry; olig ohydramnios was noted (as anticipated). After an interval of inpatient observation, Mrs. Salinas and her elected to pursue expectant management and were discharged to home. Subsequently she developed labor at 21 weeks and delivered her daughter in [place]; her daughter appeared morphologically normal, and survived for approximately 60 minutes. Difficulty was encountered with retained placenta, requiring manual extraction and D&C; Mrs. Salinas was treated with a course of intravenous antibiotic therapy. 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 Salinas experienced retained placenta requiring manual extraction in her first as well. Regarding her heterozygous prothrombin [id number] heterozygote status, Mrs. Salinas was screening for thrombophilias after an aunt experienced an episode of thrombosis and tested positive for Factor V Leiden and the Prothrombin [id number] mutation; neither she personally nor any first-degree [...] delivery of 46% in the subsequent . ([place] 2016) Potentially beneficial interventions (presuming richardson gestation) [...] determine viability/number and define gestational age. (in [place]) 3. Maternal cystic fibrosis/SMA and aneuploidy screening at 10-12 weeks (per her preference). 4. Consideration of early anatomic ultrasound at 11-14 weeks. 5. Sonographic cervix length surveillance beginning at 16 weeks and repeated weekly through 22 6/7 weeks, with contingent cerclage placement if cervix length shortens to <25mm prior to 23 0/7 weeks.(initial imaging study in [place]) 6. Consideration of 17-hydroxyprogesterone caprate prophylaxis (250mg IM weekly), beginning at 16-20weeks and continuing through 36 weeks. 7. Detailed anatomic survey ultrasound at 18-20 weeks. (in [place]) 8. Repeat ultrasound at 30-32 weeks to evaluate placental appearance for any evidence of accreta. 9. Consider induction of labor at 39 0/7-39 6/7 weeks; this may be scheduled either in [place] or in [place] pending resource availability. Mrs. Salinas resides approximately 1 hour from [place]. Intrapartum: 10. Obtain CBC and type & [...] I will arrange for initial appointments in [place]. Further care may be coordinated between [place] and [place]. I will also forward materials regarding placenta accreta occulta. Saqib Strong M.D. COMMUNICATOR documented in this encounter Plan of Treatment Not on filedocumented as of this encounter Visit Diagnoses Diagnosis Premature Rupture Of Membranes U nspecified As To Length Of Time Between Rupture And Onset Of Labor Second Trimes ter (HCC) 21 Weeks Gestation (HCC) documented in this encounter
== END 2022-07-13 14:37 | disposition home or self-care (01) ==
LOC: NFLDREF 07-20 11:37
PROVIDERS: Visit Provider Obstetrics & Gynecology
DX: O47.03 False labor before 37 completed weeks of gestation, third trimester (principal)
CPT/HCPCS: 87086

== ENCOUNTER 2022-07-16 10:44 | Outpatient (CLI) | payer BC, SELFPAY ==
--- OUTSIDE RECORDS SUMMARY | 2022-07-16 10:46 | XMS_ITS | Encounter Summary ---
:1985 Author Organization [facility] Address [address] [place] [address] Care Team Providers Name Role Phone Unavailable Primary Care Provider Unavailable Reason for Visit Reason Comments Communication Encounter Details Date Type Department Care Team Description 10/21/2020 Clinical Communication [facility], Horacio Cisneros, Communication [facility], [address] [place] [address] MAR Third Floor [place], [place] [address] [facility] [address] [place], [place] [phone] (Work) [phone] Social History Tobacco Use Types Packs/Day Years [...] or relatives? How often do you attend latter-day or 1 to 4 times per year 11/22 orthodoxy services? Do you belong to any clubs or No 12/12/2020 organizations such as latter-day groups, unions, fraternal or athletic groups, or [...] be seen. She is an hour from [place] and 20 min from [place]. PLAN Discussed with Dr Bowman and [facility] Room RN. Patient advised to be seen immediately at nearest facility. Disposition/Recommendation: referral for services Nearest ED or OB Facility. Information/Education: patient/caller able to teach back. Caller agreeable to plan of care: yes. The following references were used: provider Dr Bowman. NSTER WEAVER documented in this encounter Plan of Treatment Not on filedocumented as of this encounter Visit Diagnoses Not on filedocumented in this encounter
--- OUTSIDE RECORDS SUMMARY | 2022-07-16 10:46 | XMS_ITS | Clinical Summary ---
:1985 Author Organization [facility] [place] [address] Care Team Providers Name Role Phone Pcp, [...] daily. tablet Active Problems Problem Noted Date [facility] Supervision of high-risk 03/29/2022 Overview: [facility] CONSULTATION ON 04/03/22 -- Virtual Visit REASON FOR CONSULT: risks and management pt had pre- consult at [place]-- recommended cervical lengths at 16w, possibly cerclage and MFM follow-up TODAY'S APPOINTMENT: Consultation PRIMARY DIAGNOSIS: 36 y.o. Estimate d Date of Delivery: 10/08/22 ?? Hx: --2005: 40w NVD, retained placenta, EBL 750 cc --2010: 39w vag EFW 10%--induced --2014: 37w vag --2020: 7 wk SAB --10/2020: 21w4d PROM/del. Had D&C, joseline elizondo placental pathology showed placenta accreta occulta ?? Factor II heterozygous ?? depression ?? BMI 20 LAST GROWTH: Viability done at 9.o weeks by LMP, 9.2 weeks by US REFERRING PHYSICIAN/PHONE/LAST UPDATE[phone] Primary MD approves scheduling of recomm ended ultrasounds/testing: Yes SPECIALISTS/CONSULTS: Include: Specialty MD Clinic Name Phone# [place] and ADDED TO PATIENT CARE TEAM No CARE COORDINATION: GENETICS: declined PROCEDURES: PERTINENT LABS: B POS PERTINENT MEDS: PNV, pepcid, omeprazole, zofran Preferred delivery location: PLAN OF CARE: Menorrhagia 09/29/2008 Routine general medical examination at [facility] acility 09/29/2008 Palpitations 09/29/2008 Other general counseling [...] Team Description 05/23/2022 Hospital Encounter Heather Hernandes placenta nos or without hemorrhage, second trimester (Primary Dx); MD Eber History of pret erm delivery, currently in first trimester 05/23/2022 Travel from Last 3 Months Immunizations Name Administration Dates Next Due DTP 04/21/1993, 07/10/1989, 06/19/1988, 04/18/1988, 02/02/1988 Hepatitis B (Adult) 10/08/2008 Influenza, IIV3 (Age >=3 years) 09/29/2008, 09/18/2007, 11/0 12/2004 MMR 05/07/1989 Oral Polio Vaccine 04/21/1993, [...] oz) F VAGINAL SAIDA N Delivery Location: Hospital ([place]) Comments: IUGR 2014 Term 37w0d 3.37 kg (7 lb 7 oz) M 2019 SAB 7w0d Current OB Episode Summary Episode Dates Estimated Date of Pregravid Weight TWG (As of ) Delivery 04/03/2022 - Present 10/08/2022 (07/16/2022) Date GA Fund Present FHR Mvmt BP Weight Edema Alb Glu Ket Dil/Eff/S ta 04/03/2022 13w1d Inpatient data not d isplayed here. See encounter summary. 05/23/2022 20w2d Inpatient data not d isplayed here. See encounter summary. Progress Notes 05/23/2022 - 20w2d - Heather Hernandes MD MPP Ultrasound 05/23/22 Referred By: DARSHAN MULLINS Indications [...] prior . See prior consult letter in EPIC for further details. Today's US shows no signs of placenta accreta spectrum, but I reviewed the limitations of US in the detection of placenta accreta, especially with posterior placenta. We will re-assess placentation at her follow up US. She plans delivery in [place] which is reasonable as long as follow up US lo oks normal. She continues vaginal progesterone and s erial cervical length US in [place] (see prior consult letter in EPIC). New government regulations related to Cures act [...] risk Services Provided: Procedures Code DETAIL ANATOMY 32204.0 TRANSVAGINAL ULTRASOUND 76590.0 Heather Hernandes MD 05/23/2022 - 20w2d - Rosa Tam RN OPTICAL INSTRUMENT ASSEMBLER: I was the clinical quality control associate for the [employer] [facility] and I was [...] or a discussion with members of the harriet ent's treatment team, a virtual visit is an appropriate and effective means of providing this service. The patient and I mutually agree that this visit is appropriate. This consult was done virtually with her in her home. No vital signs or heart rates were taken for this visit [facility] Vis it ?? Patient scheduled for consultation du e to Hx: --2005: 40w NVD, retained placenta, EBL 750 cc --2010: 39w vag EFW 10%--induced --2015: 37w vag --2020: 7 wk SAB --10/2020: 21w4d PROM/del. 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 She was referred by Annita Bhakta CNM [place] Assessment Histories reviewed today include: Past M edical History, Past Surgical History, Social History and Family History and Obstetric History. Refer to the corresponding sections of the history section of Exce ian chart and the [facility] Naviga tor for details. Comments under [...] patient's home address. Is referring provider within [facility]? 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 OVEN UNLOADER Temperature 36.8 ??C (98.3 ??F) 12/12/2011 5:04 PM OVEN UNLOADER Respiratory Rate - - Oxygen Saturation 99% 12/12/2011 5:04 PM OVEN UNLOADER Inhaled Oxygen - - Concentration Weight 55.3 [...] Anatomy Single with TA and TV (CPT 34416) (05/23/2022 2:56 PM CDT) Anatomical Region Laterality [...] prior . See prior consult letter in [facility] for furthe r details. Today's US shows no signs of placenta accreta spectrum, but I reviewed the andrews itations of US in the detection of placenta accreta, especially with posterior placenta. We w ill re-assess placentation at her follow up US. She plans delivery in [place] which is re asonable as long as follow up US looks normal. She continues vaginal progesterone and s erial cervical length US in [place] (see prior consult letter in [facility]). New government regulations related to Cures act [...] risk Services Provided: Procedures Code DETAIL ANATOMY 78040.0 TRANSVAGINAL ULTRASOUND 53763.0 Procedure Note Heather Hernandes MD - 05/23/20 22 Referred By: DARSHAN MULLINS IndicationsCode 20 weeks gestation of [id number] History of PTD / PROM D&C x2 [...] prior . See prior consult letter in [facility] for furthe r details. Today's US shows no signs of placenta accreta spectrum, but I reviewed the andrews itations of US in the detection of placenta accreta, especially with posterior placenta. We w ill re-assess placentation at her follow up US. She plans delivery in [place] which is re asonable as long as follow up US looks normal. She continues vaginal progesterone and s erial cervical length US in [place] (see prior consult letter in [facility]). New government regulations related to Century Cures [...] notes, Low risk Services Provided: ProceduresCode DETAIL [id number] TRANSVAGINAL [id number] Heather Hernandes MD US from Last 3 Months Insurance Payer Benefit Plan / Subscriber ID Effective Dates Phone Addre ss Type Group BLUE CROSS BLUE CROSS OF [id number] 2020-Present [address] [address] [place] [address] Care Teams Classifier Tender Relationship Specialty Start Date End Date Pcp, No PCP - General 11/18/13 . Annita Moreira CNM Referring Provider Certified Nurse Chicken And Fish Cleaner 03/22/22 3 [address] [place] [address]
--- OUTSIDE RECORDS SUMMARY | 2022-07-16 10:46 | XMS_ITS | Clinical Summary ---
:1985 Author Organization [facility] Address [address] [place] [address] Care Team Providers Name Role Phone Unavailable Primary Care Provider Unavailable Source Comments Patient records contain information from all sites at [facility]. For routine questions regarding patient records, call [phone] during business hours, M-F 8:00 AM - 5:00 PM Central Time. Record requests for emergency care only can be directed to [phone] at any time.[facility] Allergies Active Allergy Reactions Severity Noted Date Comments Penicillins Rash 10/18/2020 Salicylates Edema 10/18/2020 Swollen tongue Medications Medication Sig Dispensed Refills Start Date End Date Status Take 1 tablet by 0 Act angela cctstyz-Ke-jogm-FA mouth daily. (VINATE ONE) 60 mg iron-1 [...] or relatives? How often do you attend druze or 1 to 4 times per year 11/22 quaker services? Do you belong to any clubs or No 12/12/2020 organizations such as druze groups, unions, fraternal or athletic groups, or [...] Comments Blood Pressure 116/69 10/20/2020 12:39 PM PET SUPPLIES SALESPERSON Pulse 81 10/20/2020 12:39 PM PET SUPPLIES SALESPERSON Temperature 37.2 ??C (99 ??F) 10/20/2020 12:39 PM PET SUPPLIES SALESPERSON Respiratory Rate 18 10/20/2020 12:39 PM PET SUPPLIES SALESPERSON Oxygen Saturation 99% 10/20/2020 12:39 PM PET SUPPLIES SALESPERSON Inhaled Oxygen Concentration - - Weight 56.3 kg (124 lb 1.9 oz) 10/19/2020 6:30 AM PET SUPPLIES SALESPERSON Height - - Body Mass Index - - Plan of Treatment Health Maintenance Due Date Last Done Comments Cervical Cancer Screening 1985 Hepatitis B Vaccines (1 of 3 1985 - 3-dose series) Hepatitis C Screening 1985 Depression Screening (Annual 10/21/2021 PHQ-2) COVID-19 Vaccine (3 - Booster 01/27/2022 12/02/2021, for Pfizer series) 11/05/2021 Influenza Vaccine (#1) 2022 08/11/2020, 08/26/2014, 09/15/2012 DTaP,Tdap,and Td Vaccines (3 09/09/2024 09/09/2014, - Td or Tdap) 05/24/2011 HIV Screening Completed 10/18/2020 Pneumococcal vaccine (0-64 Aged Out No lo nger eligible based years) on patient's age to complete this to [facility] Insurance Payer Benefit Plan / Subscriber ID Effective Dates Phone Addre ss Type Group [place] [id number] 2020-Yuki [phone] [address] PPO BLUE SHIELD [address] [place] [address] Advance Directives For more information, please contact: [phone] Latest Code Status on File Code Status Date Activated Date Inactivated Comments Full Code 10/18/2020 7:51 PM 10/20/2020 2:51 PM Full Code: Not Discussed Due to: Not medically appropriate
--- OUTSIDE RECORDS SUMMARY | 2022-07-16 10:46 | XMS_ITS | Encounter Summary ---
:1985 Author Organization [facility] Address [address] [place] [address] Care Team Providers Name Role Phone Unavailable Primary Care Provider Unavailable Reason for Visit Outpatient (Routine) - Closed Specialty Diagnoses / Procedures Referred By Contact Refer red To Contact Maternal and Diagnoses Premature Rupture Of Membranes Unspecified As To Length Of Time Between Rupture And Onset Of Labor Second Trimester ([facility]) 21 Weeks Gestation ([facility]) [facility] Janelle Dominguez M.D. [address] [place] [address] Referral ID Status Reason Start Date Expiration Date Visits Requ ested Visits Authorized [id number] Closed 11/02/2020 11/02/2021 1 1 Encounter Details Date Type Department Care Team Description 12/16/2020 Telemedicine Department of Saqib Strong, Diana ture Rupture Of Membranes Unspecified As To Length Of Time Between Rupture And Onset Of Labor Second Trimester; Obstetrics and M.D. 21 Weeks Gestation Gynecology in [address] [place] [address] [place] [address] [place], [place] [phone] (Work) [phone] Social History Tobacco Use Types Packs/Day Years [...] or relatives? How often do you attend alevism or 1 to 4 times per year 11/22 sikhism services? Do you belong to any clubs or No 12/12/2020 organizations such as alevism groups, unions, fraternal or athletic groups, or [...] or the highest technical, or vocational p [facility] degree you have received? Sex Assigned at Date Recorded Not on file documented as of this encounter Consult Notes Saqib Strong M.D. - 12/16/2020 8:00 AM CST Consult conducted via real-time audio/video technology by Saqib Strong M.D. in [facility] to the patient in patient home. 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 Mrs. Salinas's obstetrical history is significant for three term vaginal deliveries and one first-trimester miscarriage. In her fifth (2019), she was admitted o [facility] following spontaneous PPROM at 21 weeks gestation. Ultrasound demonstrated normal anatomy and biometry; olig ohydramnios was noted (as anticipated). After an interval of inpatient observation, Mrs. Salinas and her elected to pursue expectant management and were discharged to home. Subsequently she developed labor at 21 weeks and delivered her daughter in [place]; her daughter appeared morphologically normal, and survived for approximately 60 minutes. Difficulty was encountered with retained placenta, requiring manual extraction and D&C; Mrs. Salinas was treated with a course of intravenous antibiotic therapy. 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 Salinas experienced retained placenta requiring manual extraction in her first as well. Regarding her heterozygous prothrombin [id number] heterozygote status, Mrs. Salinas was screening for thrombophilias after an aunt experienced an episode of thrombosis and tested positive for Factor V Leiden and the Prothrombin [id number] mutation; neither she personally nor any first-degree [...] delivery of 46% in the subsequent . ([place] 2016) Potentially beneficial interventions (presuming richardson gestation) [...] determine viability/number and define gestational age. (in [place]) 3. Maternal cystic fibrosis/SMA and aneuploidy screening at 10-12 weeks (per her preference). 4. Consideration of early anatomic ultrasound at 11-14 weeks. 5. Sonographic cervix length surveillance beginning at 16 weeks and repeated weekly through 22 6/7 weeks, with contingent cerclage placement if cervix length shortens to <25mm prior to 23 0/7 weeks.(initial imaging study in [place]) 6. Consideration of 17-hydroxyprogesterone caprate prophylaxis (250mg IM weekly), beginning at 16-20weeks and continuing through 36 weeks. 7. Detailed anatomic survey ultrasound at 18-20 weeks. (in [place]) 8. Repeat ultrasound at 30-32 weeks to evaluate placental appearance for any evidence of accreta. 9. Consider induction of labor at 39 0/7-39 6/7 weeks; this may be scheduled either in [place] or in [place] pending resource availability. Mrs. Salinas resides approximately 1 hour from [place]. Intrapartum: 10. Obtain CBC and type & [...] I will arrange for initial appointments in [place]. Further care may be coordinated between [place] and [place]. I will also forward materials regarding placenta accreta occulta. Saqib Strong M.D. SE AND RECYCLING WORKER documented in this encounter Plan of Treatment Not on filedocumented as of this encounter Visit Diagnoses Diagnosis Premature Rupture Of Membranes U nspecified As To Length Of Time Between Rupture And Onset Of Labor Second Trimes ter (HCC) 21 Weeks Gestation (H[facility]) documented in this encounter
--- OUTSIDE RECORDS SUMMARY | 2022-07-16 10:46 | XMS_ITS | Encounter Summary ---
:1985 Author Organization [facility] Address [address] [place] [id number] Care Team Providers Name Role Phone Unavailable Primary Care Provider Unavailable Reason for Referral Outpatient (Routine) - Closed Specialty Diagnoses / Procedures Referred By Contact Refer red To Contact Maternal and Diagnoses Premature Rupture Of Membranes Unspecified As To Length Of Time Between Rupture And Onset Of Labor Second Trimester (HCC) 21 Weeks Gestation ([facility]) [facility] Janelle Dominguez M.D. [address] [place] [address] Referral ID Status Reason Start Date Expiration Date Visits Requ ested Visits Authorized [id number] Closed 11/02/2020 11/02/2021 1 1 S COUNTRY/TRACK AND FIELD COACH Encounter Details Date Type Department Care Team Description 11/02/2020 [facility] NeftalyJuan, Premature Rupture Of Membranes Unspecified As To Length Of Time Between Rupture And Onset Of Labor Second Trimester (Primary Dx); AND CLINICS Janelle Dominguez M.D. 21 Weeks Gestation 1999 [facility] [address] [place] [address] [place], [place] [phone] [id number] Social History Tobacco Use Types Packs/Day Years [...] 1 to 4 times per year 11/22 temple services? Do you belong to any clubs or No 12/12/2020 organizations such as alevism groups, unions, fraGumroad or athletic groups, or school groups? How [...] Name Type Priority Associated Diagnoses Order [facility] Obstetrics Referral Outpatient Referral Routine Premat [...]
--- OUTSIDE RECORDS SUMMARY | 2022-07-16 10:47 | XMS_ITS | Encounter Summary ---
:1985 Author Organization [facility] Address [address] [place] [address] Care Team Providers Name Role Phone Unavailable Primary Care Provider Unavailable Encounter Details Date Type Department Care Team Description 10/20/[address] [facility], Kandis Stock, [facility], HYDRAULIC OPERATOR, TNT POWDER WORKER, DNAP [facility], Third Floor [address] [place] [address] Anesthesia Record Procedure Summary [...] or relatives? How often do you attend yarsanism or 1 to 4 times per year 11/22 sabianism services? Do you belong to any clubs or No 12/12/2020 organizations such as yarsanism groups, unions, fraternal or athletic groups, or [...]
--- OUTSIDE RECORDS SUMMARY | 2022-07-16 10:47 | XMS_ITS | Encounter Summary ---
:1985 Author Organization [facility] Address [address] [place] [address] Care Team Providers Name Role Phone Unavailable Primary Care Provider Unavailable Reason for Visit Auth/Cert Specialty Diagnoses / Procedures Referred By Contact Refer red To Contact Diagnoses 22 Weeks Gestation (HCC) Procedures DIR Referral ID Status Reason Start Date Expiration Date Visits Requ ested Visits Authorized [id number] 1 1 Encounter Details Date Type Department Care Team Description 10/19/2020 Hospital Encounter Department of Josey Tse Obstetrics and [facility] Gynecology in [address] [place] [address] [place] [id number] [place], [place] [phone] (Wo rk) [phone] Social History Tobacco Use Types Packs/Day Years [...] or relatives? How often do you attend rastafari or 1 to 4 times per year 11/22 buddhist services? Do you belong to any clubs or No 12/12/2020 organizations such as rastafari groups, unions, fraternal or athletic groups, or [...] Sig Dispensed Refills Start Date End Date [id number] TK 1 TO 2 TS PO Q 4 H 0 09/08/2020 aff (FIORICET, ESGIC) NEEDED. MAX 6 PER 50-325-40 mg per tablet DAY Take 1 tablet by 0 [id number] (VINATE mouth daily. ONE) 60 mg iron-1 mg per tablet documented as of this encounter Plan of Treatment Not on filedocumented as of this encounter Procedures Procedure Name Priority Date/Time Associated Comments Diagnosis US OB ANATOMY RAD - Routine 10/19/2020 1:21 Results fo r this ANGUIANO (most inpatients PM DISTRIBUTION ANALYST procedure a re in and all the results outpatients) section. documented in this encounter Results US OB Anatomy Anguiano (10/19/2020 1:21 PM DISTRIBUTION ANALYST) Anatomical Region Laterality Modality Body, Ultrasound OB RST LOS, Ultrasound ARZ LOS N/A Ultrasound Specimen (Source) Anatomical Location Collection Method / Collectio n Time Received Time / Laterality Volume Narrative 10/19/2020 1:27 PM DISTRIBUTION ANALYST LAURA LOWE OB Exam, 10/19/2020 EXAM INFORMATION Patient Name: ??LAURA LOWE : ??1985 Age: ??34 yrs Sex: ??Female Ref Phys: ??JOSEY TSE Exam Date: 10/19/2020 Procedure: US OB ANATOMY ANGUIANO Exam Site: [facility] Plurality: 1 INDICATIONS FOR SONOGRAPHY Anatomic Survey [...] Read by Ilir Moss on 1:21:30 PM. Spanish Lecturer: ??Ilir Moss Thank You For This Referral Procedure Note Eamon Dawson M.B.B.S., M.D. - 10/19 LAURA LOWEBHARTI OB Exam, 10/19/2020 EXAM INFORMATION Patient Name: LAURA LOWE S : 1985 Age: 34 yrs Sex: Female Ref Phys: JOSEY TSE Exam Date: 10/19/2020 Procedure: US OB ANATOMY ANGUIANO Exam Site: [facility] Plurality: 1 INDICATIONS FOR SONOGRAPHY Anatomic Survey [...] Read by Ilir Moss on 1:21:30 PM. Spanish Lecturer: Ilir Moss Thank You For This Referral Josey Tse M.D. IMG OB US PROCEDURES documented in this encounter Visit Diagnoses Not on filedocumented in this encounter
--- OUTSIDE RECORDS SUMMARY | 2022-07-16 10:47 | XMS_ITS | Encounter Summary ---
:1985 Author Organization [facility] Address [address] [place] [address] Care Team Providers Name Role Phone Unavailable Primary Care Provider Unavailable Reason for Visit Reason Comments Rupture of Membranes Contractions Auth/Cert Specialty Diagnoses / Procedures Referred By Contact Refer red To Contact Diagnoses 22 Weeks Gestation (HCC) Procedures DIR Referral ID Status Reason Start Date Expiration Date Visits Requ ested Visits Authorized [id number] 1 1 Encounter Details Date Type Department Care Team Description 10/18/2020 - Hospital Encounter [facility] Jordyn Wild M.D. [address] [place] [phone] 22 Weeks Gestation (Primary Dx) ; 10/20/2020 [facility], Erin Villagran M.D., M.P.H. [address] [place] [phone] 21 Weeks Gestation ; [place], Heather Ott M.D. [address] [place] [phone] Premature Rupture Of Membranes U nspecified As To Length Of Time Between Rupture And Onset Of Labor Second Trimester Building, Third Floor [address] [place] [address] Social History Tobacco Use Types [...] or relatives? How often do you attend orthodox or 1 to 4 times per year 11/22 episcopal services? Do you belong to any clubs or No 12/12/2020 organizations such as orthodox groups, unions, fraternal or athletic groups, or [...] Comments Blood Pressure 116/69 10/20/2020 12:39 PM FAMILY THERAPIST Pulse 81 10/20/2020 12:39 PM FAMILY THERAPIST Temperature 37.2 ??C (99 ??F) 10/20/2020 12:39 PM FAMILY THERAPIST Respiratory Rate 18 10/20/2020 12:39 PM FAMILY THERAPIST Oxygen Saturation 99% 10/20/2020 12:39 PM FAMILY THERAPIST Inhaled Oxygen Concentration - - Weight 56.3 kg (124 lb 1.9 oz) 10/19/2020 6:30 AM FAMILY THERAPIST Height - - Body Mass Index - - documented in this encounter Discharge Summaries Saqib Strong M.D. - 10/20/2020 12:07 PM CST DISCHARGE SUMMARY BRIEF OVERVIEW Hospital: [facility] Discharge Provider: Erin Alarcon M.D. Primary Team: [facility] Ob[facility] No primary care [...] return in one week for neonatology consult, [facility] return visit and further discussion of when she would like to be re-admitted. She was discharged home in stable condition. //Miriam Ruggiero MD CONSULTS ORDERED DURING THIS ADMISSION CONDITION AT DISCHARGE Stable Discharge instructions were provided to the patient and caregiver(s). LY THERAPIST documented in this encounter Medications at Time of Discharge Medication Sig Dispensed Refills Start Date End Date Take 1 tablet by 0 [id number]-[id number]-FA (VINATE mouth daily. ONE) 60 mg iron-1 mg per tablet [id number] TK 1 TO 2 TS PO Q [...] 10/18/2020. 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 Obstetrical Chief PGY-3 [phone] LY THERAPIST Associated attestation - Heather Goodrich M.D. - 10/19/2020 12:27 AM FAMILY THERAPIST Video Production Specialist Teaching Physician Statement: I have discussed [...] delivery upon exam findings of 4-5cm dilation. 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 PSH: none Allergies: PCN (rash as [...] concern for necrotizing enterocolitis, and potential poor lobsterman neurological outcomes/disability. Have printed her additional studies [...] further discussion this afternoon Miriam Ruggiero M.D. LY THERAPIST Associated attestation - Saqib Strong M.D. - 10/20/2020 11:17 AM FAMILY THERAPIST I have discussed the care of Jim [...] L.G.S.W., L.I.C.S.W., M.S.W. - 10/19/2020 1:02 PM FAMILY THERAPIST SUBJECTIVE Social work met with the patient [...] weeks gestationas a transfer of care from [place], [place] due to concern for previable premature [...] day parking pass provided 10/19/20. Annita Kaplan [facility], PAPER CUTTING MACHINE OPERATOR 10/19/2020 LY THERAPIST Miriam Ruggiero M.D. - 10/19/2020 12:09 PM [...] 10/18/2020. 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 PSH: [...] for necr otizing enterocolitis, and potential poor lobsterman neurological outcomes/disability. Have printed her additional studies [...] discussion pending ultrasound results. Miriam Ruggiero M.D. LY THERAPIST Associated attestation - Raysa Guerin M.D. - 11/14/2020 4:22 AM FAMILY THERAPIST I saw and evaluated the patient, participating [...] with family for expectant management. Questions answered. LY THERAPIST Irish Newell R.N. - 10/18/2020 9:29 PM [...] reviewed goals for the shift with patient. LY THERAPIST documented in this encounter Miscellaneous Notes Hospital Course - Miriam Ruggiero M.D. - 10/19/2020 2:32 AM CST Jim Lowe is a 34 y.o who presented at 21w1 for previable PPROM. She was admitted from 10/19-. She weighed her options and then decided to pursue expectant management. She will return in one week for neonatology consult, [facility] return visit and further discussion of when she would like to be re-admitted. She was discharged home in stable condition. //Miriam Ruggiero MD LY THERAPIST documented in this encounter Plan of Treatment Pending Results Name Type Priority Associated Diagnoses Date/Ti me US OB Limited Imaging RAD - Routine (most 020 8:51 PM inpatients and all FAMILY THERAPIST outpatients) Scheduled Orders Name Type Priority Associated Diagnoses Order S chedule US OB Limited Imaging RAD - Routine (most Once fo r 1 inpatients and all Occurrenc es starting outpatients) 10/18/2020 unti l 10/18/2020 documented as of this encounter Procedures Procedure Name Priority Date/Time Associated Comments Diagnosis US OB ANATOMY RAD - Routine 10/19/2020 1:21 Results fo r this ANGUIANO (most inpatients PM FAMILY THERAPIST procedure a re in and all the results outpatients) section. RUBELLA ANTIBODIES, Routine 10/19/2020 7:18 Resul ts for this IGG AM FAMILY THERAPIST procedure are i n the results section. VARICELLA-ZOSTER Routine 10/19/2020 7:18 Results for this AB, IGG, S AM FAMILY THERAPIST procedure are i n the results section. MICROSCOPIC MANUAL Routine 10/19/2020 2:21 Result s for this AM FAMILY THERAPIST procedure are i n the results section. BACTERIAL CULTURE, Routine 10/19/2020 2:21 Result s for this AEROBIC + SUSC, AM FAMILY THERAPIST procedure ar e in URINE the results section. CONFIRMED DRUG Routine 10/19/2020 2:21 Results fo r this ABUSE PANEL, U AM FAMILY THERAPIST procedure are in the results section. CHLAMYDIA/GONORRHOE Routine 10/19/2020 2:21 Resul ts for this AE AMPLIFIED RNA AM FAMILY THERAPIST procedure a re in the results section. URINALYSIS WITH Routine 10/19/2020 2:21 Results f or this MICROSCOPIC AM FAMILY THERAPIST procedure are i n the results section. HEPATITIS B SURFACE STAT 10/18/2020 9:34 Resul ts for this ANTIGEN PM FAMILY THERAPIST procedure are i n the results section. FIBRINOGEN, P STAT 10/18/2020 9:34 Results for this PM FAMILY THERAPIST procedure are i n the results section. SARS CORONAVIRUS 2, Routine 10/18/2020 8:05 Resul ts for this MOLECULAR PM FAMILY THERAPIST procedure are i n DETECTION, PCR (IT SECURITY SPECIALIST) the resu lts section. HEPATITIS B SURFACE STAT 10/18/2020 7:59 Resul ts for this ANTIGEN PM FAMILY THERAPIST procedure are i n the results section. CBC WITHOUT STAT 10/18/2020 7:59 Results for this DIFFERENTIAL, B PM FAMILY THERAPIST procedure ar e in the results section. TYPE AND SCREEN STAT 10/18/2020 7:59 Results f or this PM FAMILY THERAPIST procedure are i n the results section. HIV-1/-2 AG AND AB STAT 10/18/2020 7:58 Result s for this SCRN, PM FAMILY THERAPIST procedure are in PLASMA the results section. documented in this encounter Results US OB Anatomy Anguiano (10/19/2020 1:21 PM FAMILY THERAPIST) Anatomical Region Laterality Modality Body, Ultrasound OB RST LOS, Ultrasound ARZ LOS N/A Ultrasound Specimen (Source) Anatomical Location Collection Method / Collectio n Time Received Time / Laterality Volume Narrative 10/19/2020 1:27 PM FAMILY THERAPIST JIM LOWE OB Exam, 10/19/2020 EXAM INFORMATION Patient Name: ??JIM LOWE : ??1985 Age: ??34 yrs Sex: ??Female Ref Phys: ??MIRIAM RUGGIERO Exam Date: 10/19/2020 Procedure: US OB ANATOMY ANGUIANO Exam Site: [facility] Plurality: 1 INDICATIONS FOR SONOGRAPHY Anatomic Survey [...] Read by Ilir Moss on 1:21:30 PM. Negotiator: ??Ilir Moss Thank You For This Referral Procedure Note Eamon Dawson M.B.B.S., MAngelo. - 10/19 JIM LOWE OB Exam, 10/19/2020 EXAM INFORMATION Patient Name: MYNORJIM S : 1985 Age: 34 yrs Sex: Female Ref Phys: MIRIAM RUGGIERO Exam Date: 10/19/2020 Procedure: US OB ANATOMY ANGUIANO Exam Site: [facility] Plurality: 1 INDICATIONS FOR SONOGRAPHY Anatomic Survey [...] Read by Ilir Moss on 1:21:30 PM. Negotiator: Ilir Moss Thank You For This Referral Miriam Ruggiero M.D. IMG OB US PROCEDURES Varicella-Zoster Antibody, IgG, Serum (10/19/2020 7:18 AM FAMILY THERAPIST) athologist Signature Varicella-Zost Positive 10/19/2020 [facility] er Ab, IgG, S 10:41 AM FAMILY THERAPIST Comment: Results suggest response to immunization or prior exposure to the virus. ----REFERENCE VALUE---- Vaccinated: Positive (>=1.1 AI) Unvaccinated: Negative (<=0.8 AI) Varicella IgG Antibody Index 1.3 10/19/2020 10:41 AM FAMILY THERAPIST [facility] Specimen Anatomical Collection Method Collection Time Receive d Time (Source) Location / / Volume Laterality Blood (Blood, 10/19/2020 7:18 AM 10/19/20 20 9:43 Venous) FAMILY THERAPIST AM FAMILY THERAPIST Sierra Welch M.D. LAB MICROBIOLOGY - BLOOD ORD ERADIAMANTE Performing Organization Address [facility] Phon e Number [place] [phone] [place] [address] [address] [facility] [place] [address] Laboratory Medicine and Pathology [address] [place] [address] Dr. MANUEL Rubella Antibodies, IgG (10/19/2020 7:18 AM FAMILY THERAPIST) athologist Signature Rubella Ab, Positive 10/19/2020 [facility] IgG, S 10:40 AM FAMILY THERAPIST Comment: Results suggest response to immunization or prior exposure to the virus. ----REFERENCE VALUE---- Vaccinated: Positive (>=1.0 AI) Unvaccinated: Negative (<=0.7 AI) Rubella IgG Antibody Index 1.4 10/19/2020 10 :40 AM FAMILY THERAPIST [facility] Specimen Anatomical Collection Method Collection Time Receive d Time (Source) Location / / Volume Laterality Blood (Blood, 10/19/2020 7:18 AM 10/19/20 20 9:43 Venous) FAMILY THERAPIST AM FAMILY THERAPIST Sierra Welch M.D. LAB MICROBIOLOGY - BLOOD ORD JENNA Performing Organization Address [facility] Phon e Number [address] [place] [address] [address] [place] [address] Laboratory Medicine and Pathology [address] [place] [address] Dr. MANUEL (ABNORMAL) Microscopic Manual (10/19/2020 2:21 AM FAMILY THERAPIST) Analysis Performed At Patho logist Time Signature Microscopy Abnormal 10/19/2020 [place] 6:26 AM FAMILY THERAPIST RBC >100 (A) <3 /hpf 10/19/2020 [place] 6:26 AM FAMILY THERAPIST Dysmorphic RBC <25 <25 % 10/19/2020 [place] 6:26 AM FAMILY THERAPIST WBC 1-3 /hpf 10/19/2020 [place] 6:26 AM FAMILY THERAPIST Comment: ----REFERENCE VALUE---- 1-3 ??(Males) 1-10 (Females) Specimen Anatomical Collection Method Collection Time Receive d Time (Source) Location / / Volume Laterality Urine 10/19/2020 2:21 AM 0 4:00 FAMILY THERAPIST AM FAMILY THERAPIST Sierra Welch M.D. LAB URINE ORDERABLES Performing Organization Address [facility] Phon e Number [facility] - [address] [place] [address] 05 [place] [address] Laboratories-[address] Bacterial Culture, Aerobic + Susc, Urine (10/19/2020 2:21 AM FAMILY THERAPIST) Patholo gist Method Time Signature Urine Culture No growth 10/20/2020 DT after 1 day 8:16 AM FAMILY THERAPIST of incubation. Specimen Anatomical Collection Method Collection Time Receive d Time (Source) Location / / Volume Laterality Urine (Urine, 10/19/2020 2:21 AM 10/19/20 20 5:03 Straight FAMILY THERAPIST AM FAMILY THERAPIST Catheter) Comment: Specimen Source Site: Urine Sierra Welch M.D. LAB MICROBIOLOGY - GENERAL O RDERABLES Performing Organization Address [facility] Phon e Number [facility] - [address] [place] [address] (ABNORMAL) Urinalysis with Microscopic: Urine, Catheter (10/19/2020 2:21 AM FAMILY THERAPIST) Analysis Performed At Patho logist Time Signature Source Catheter 10/19/2020 [place] 4:00 AM FAMILY THERAPIST Appearance Normal Normal 10/19/2020 [place] 4:00 AM FAMILY THERAPIST Osmolality, U 521 150 - 1150 10/19/2020 [place] mOsm/kg 4:47 AM FAMILY THERAPIST pH, U 6.2 4.5 - 8.0 10/19/2020 [place] 4:47 AM FAMILY THERAPIST Comment: ----ADDITIONAL INFORMATION---- This test was developed and its performa nce characteristics determined by [facility] in a manner co nsistent with CLIA requirements. This test has not bee n cleared or approved by the U.S. Food and Drug Admin istration. Glucose 8 0 - 15 mg/dL 10/19/2020 6:17 AM FAMILY THERAPIST [place] Protein, U 46 (H) <26 mg/dL 10/19/2020 6:17 AM FAMILY THERAPIST [place] Comment: ----ADDITIONAL INFORMATION---- On 04/16/2017 the total protein assay me thod changed resulting in approximately a 15% increase in prote in values. Protein/Osmolality 0.88 (H) <0.42 Ratio 10/19/2020 6:17 AM FAMILY THERAPIST [place] Comment: ----ADDITIONAL INFORMATION---- On 04/16/2017 the total protein assay me thod changed resulting in approximately a 15% increase in prote in values. Predicted 24 Hr Protein 597 mg/24 h 10/19/2020 6:17 AM FAMILY THERAPIST [place] Predicted Range 148-2419 mg/24 h 10/19/2020 6:17 AM FAMILY THERAPIST R JEM Hemoglobin, QL Large (A) Negative 10/19/2020 6:26 AM FAMILY THERAPIST RE NA Specimen Anatomical Collection Method Collection Time Receive d Time (Source) Location / / Volume Laterality Urine (Urine, 10/19/2020 2:21 AM 10/19/20 20 4:00 Catheter) FAMILY THERAPIST AM FAMILY THERAPIST Sierra Welch M.D. LAB URINE ORDERABLES Performing Organization Address City/State/ZIP Code Phon e Number [facility] - [address] [place], [place] [address] [place] [address] Laboratories-[facility] [address] Chlamydia / Gonorrhoeae Amplified RNA (10/19/2020 2:21 AM FAMILY THERAPIST) [facility] gist Method Time Signature Source Urine, 10/19/2020 [facility] Urine, First 6:58 PM FAMILY THERAPIST Voided Chlamydia Negative Negative 10/19/2020 [facility] trachomatis 6:58 PM FAMILY THERAPIST amplified RNA Source Urine, 10/19/2020 [facility] Urine, First 6:58 PM FAMILY THERAPIST Voided Neisseria Negative Negative 10/19/2020 [facility] gonorrhoeae 6:58 PM FAMILY THERAPIST amplified RNA Specimen Anatomical Collection Method Collection Time Receive d Time (Source) Location / / Volume Laterality Varies (Urine, 10/19/2020 2:21 AM 020 7:22 First Voided) FAMILY THERAPIST AM FAMILY THERAPIST Sierra Welch M.D. LAB MICROBIOLOGY - GENERAL O RDERABLES Performing Organization Address City/[facility] Phon e Number [facility] - [address] [place], [place] [address] [facility] [place] [address] Laboratories-[facility] [address] Drug Abuse Survey with Confirmation, Urine (10/19/2020 2:21 AM FAMILY THERAPIST) Patholo gist Method Time Signature Alcohol Negative Cutoff: 10/19/2020 [facility] 10 mg/dL 9:52 AM FAMILY THERAPIST Amphetamines Negative Cutoff: 10/19/2020 [facility] 500 ng/mL 9:52 AM FAMILY THERAPIST Barbiturates Negative Cutoff: 10/19/2020 [facility] 200 ng/mL 9:52 AM FAMILY THERAPIST Benzodiazepines Negative Cutoff: 10/19/2020 [facility] 100 ng/mL 9:52 AM FAMILY THERAPIST Cocaine Negative Cutoff: 10/19/2020 [facility] 150 ng/mL 9:52 AM FAMILY THERAPIST Opiates Negative Cutoff: 10/19/2020 [facility] 300 ng/mL 9:52 AM FAMILY THERAPIST Phencyclidine Negative Cutoff: 10/19/2020 [facility] 25 ng/mL 9:52 AM FAMILY THERAPIST Tetrahydrocannabinol Negative Cutoff: 10/19/2020 [facility] 50 ng/mL 9:52 AM FAMILY THERAPIST Comment: ----ADDITIONAL INFORMATION---- This report is intended for use in clini kosta monitoring or management of patients. ??It is not intended for use i n employment-related testing. Specimen Anatomical Collection Method Collection Time Receive d Time (Source) Location / / Volume Laterality Urine (Urine, 10/19/2020 2:21 AM 10/19/20 8:50 Clean Catch) FAMILY THERAPIST AM FAMILY THERAPIST Sierra Welch M.D. LAB URINE ORDERABLES Performing Organization Address City/[facility] Phon e Number [facility] [address] [place], [place] [address] [facility] [place] [address] Laboratory Medicine and Pathology [address] MANU[place] (ABNORMAL) Fibrinogen (10/18/2020 9:34 PM FAMILY THERAPIST) P athologist Signature Fibrinogen, P 624 (H) 200 - 393 10/18/2020 [facility] mg/dL 9:49 PM FAMILY THERAPIST Specimen Anatomical Collection Method Collection Time Receive d Time (Source) Location / / Volume Laterality Blood (Blood, 10/18/2020 9:34 PM 10/18/20 20 9:40 Venous) FAMILY THERAPIST PM FAMILY THERAPIST Sierra Welch M.D. LAB BLOOD ADD-ON Performing Organization Address City/[facility]/ZIP Code Phon e Number [facility] - [address] [place], [place] [address] [facility] [place] [address] Laboratories-[facility] [address] Hepatitis B Surface Antigen (10/18/2020 9:34 PM FAMILY THERAPIST) P athologist Signature HBs Antigen, S Negative Negative 10/19/2020 [facility] 9:23 AM FAMILY THERAPIST Specimen Anatomical Collection Method Collection Time Receive d Time (Source) Location / / Volume Laterality Blood (Blood, 10/18/2020 9:34 PM 10/19/20 8:14 Venous) FAMILY THERAPIST AM FAMILY THERAPIST Sierra Welch M.D. LAB MICROBIOLOGY - BLOOD ORD ERABLES Performing Organization Address [facility] Phon e Number [facility] [address] [place], [place] [address] [facility] [place] [address] Laboratory Medicine and Pathology [address] [place] SARS Coronavirus 2, Molecular Detection, PCR (IT SECURITY SPECIALIST) Asymptomatic (10/18/2020 8:05 PM FAMILY THERAPIST) Patholo gist Method Time Signature COVID-19, PCR Undetected Undetected 10/19/2020 [facility]TL 12:55 AM FAMILY THERAPIST Comment: SARS-CoV-2 RNA absent. This result does [...] Drug Administration an d is used per needle straightener's instructions. Performance characteristics were verified by [facility] in a manner consistent with CLIA requirements. Visit the CDC website: https://www.cdc.g ov/coronavirus/ for the most recent guidelines on [place] virus testing. Fact Sheet for Healthcare Providers: https://www.fda.gov/media/664416/downloa d Fact Sheet for Patients: https://www.fda.gov/media/111102/downloa d Specimen Anatomical Collection Method Collection Time Receive d Time (Source) Location / / Volume Laterality Varies 10/18/2020 8:05 PM 0 8:40 (Nasopharynx) FAMILY THERAPIST PM FAMILY THERAPIST Heather Goodrich M.D. LAB MICROBIOLOGY - GENERAL O RDERABLES Performing Organization Address City/[facility]/ZIP Code Phon e Number [facility] - [address] [place], [place] [address] [facility] [place] [address] Laboratories-[facility] [address] [facility] Hepatitis B Surface Antigen (10/18/2020 7:59 PM FAMILY THERAPIST) P athologist Signature HBs Antigen, S Negative Negative 10/19/2020 [facility] 8:04 AM FAMILY THERAPIST Specimen Anatomical Collection Method Collection Time Receive d Time (Source) Location / / Volume Laterality Blood (Blood, 10/18/2020 7:59 PM 10/19/20 20 6:59 Venous) FAMILY THERAPIST AM FAMILY THERAPIST Sierra Welch M.D. LAB MICROBIOLOGY - BLOOD ORD ERABLES Performing Organization Address City/[facility] Phon e Number [facility] [address] [place], [place] [address] [facility] [place] [address] Laboratory Medicine and Pathology [address] [place] Type and Screen (with reflex Antibody ID) (10/18/2020 7:59 PM FAMILY THERAPIST) Patholo gist Method Time Signature ABORh B Pos Not 10/18/2020 [facility] applicable 8:29 PM FAMILY THERAPIST Antibody Negative Negative 10/18/2020 [facility] Screen 8:44 PM FAMILY THERAPIST Type & Screen 10/21/2020 10/18/2020 [facility] Expiration 23:59 8:29 PM FAMILY THERAPIST Testing [place] DEFAULT 10/18/2020 [facility] Location 8:08 PM FAMILY THERAPIST Specimen Anatomical Collection Method Collection Time Receive d Time (Source) Location / / Volume Laterality Blood (Blood, 10/18/2020 7:59 PM 10/18/20 20 8:08 Venous) FAMILY THERAPIST PM FAMILY THERAPIST Sierra Welch M.D. LAB BLOOD BANK TEST ORDERABL ES Performing Organization Address [facility]/ZIP Code Phon e Number [facility] - [address] [place], [place] [address] [facility] [place] [address] Laboratories-[facility] [address] [facility] (ABNORMAL) CBC without Differential (10/18/2020 7:59 PM FAMILY THERAPIST) Patholo gist Method Time Signature Hemoglobin 11.0 (L) 11.6 - 10/18/2020 [facility] 15.0 g/dL 8:06 PM FAMILY THERAPIST Hematocrit 31.8 (L) 35.5 - 10/18/2020 [facility] 44.9 % 8:06 PM FAMILY THERAPIST Erythrocytes 3.65 (L) 3.92 - 10/18/2020 [facility] 5.13 8:06 PM FAMILY THERAPIST x10(12)/L MCV 87.1 78.2 - 10/18/2020 [facility] 97.9 fL 8:06 PM FAMILY THERAPIST RBC Distrib Width 13.5 12.2 - 10/18/2020 [facility] 16.1 % 8:06 PM FAMILY THERAPIST Platelet Count 287 157 - 371 10/18/2020 [facility] x10(9)/L 8:06 PM FAMILY THERAPIST Leukocytes 19.3 (H) 3.4 - 9.6 10/18/2020 [facility] x10(9)/L 8:06 PM FAMILY THERAPIST Specimen Anatomical Collection Method Collection Time Receive d Time (Source) Location / / Volume Laterality Blood (Blood, 10/18/2020 7:59 PM 10/18/20 8:04 Venous) FAMILY THERAPIST PM FAMILY THERAPIST Sierra Welch M.D. LAB BLOOD ADD-ON Performing Organization Address City/State/ZIP Code Phon e Number [facility] - [address] [place] [address] [facility] [place] [address] [facility] [address] [facility] HIV-1/-2 Ag and Ab Scrn, Plasma (10/18/2020 7:58 PM FAMILY THERAPIST) P athologist Signature HIV-1/-2 Ag Negative Negative 10/19/2020 [facility] and Ab 9:31 AM FAMILY THERAPIST Scrn, P Comment: Negative result does not rule out HIV in fection. If exposure to HIV infection occurred <14 d ays ago, contact the laboratory to request additi on of HIV-1 RNA detection / quantification test (HIV QN). Specimen Anatomical Collection Method Collection Time Receive d Time (Source) Location / / Volume Laterality Blood (Blood, 10/18/2020 7:58 PM 10/19/20 20 6:59 Venous) FAMILY THERAPIST AM FAMILY THERAPIST Sierra Welch M.D. LAB MICROBIOLOGY - BLOOD ORD ERABLES Performing Organization Address City/State/ZIP Code Phon e Number [facility] [address] [place], [place] [address] [facility] [place] [address] Laboratory Medicine and Pathology [address] [...] 900 mg New Bag 10/19/2020 5:09 AM FAMILY THERAPIST 900 mg 100 mL/hr (CLEOCIN) 900 mg, intravenous, at 100 mL/hr, Administer over 30 Minutes, Every 8 hours, First dose on Sat10/18/20 at 2000, premix bag, Indications: Obstetric or gynecological infection New Bag 10/18/2020 9:41 PM FAMILY THERAPIST 900 mg 100 mL/hr fentaNYL injection 100 mcg (SUBLIMAZE) Given 10/18/2020 9:49 PM FAMILY THERAPIST 100 mcg 100 mcg, intravenous, Every 1 hour PRN, moderate pain or score 4-6 of 10, severe pain or score 7-10 of 10, for labor pains, Starting on Sat10/18/20 at 1939, For 3 doses, L&D Pre-Delivery, Consultation with Anesthesia for pain control if patient requests regional anesthesia and in active labor or membranes ruptured. Given 10/18/2020 8:44 PM FAMILY THERAPIST 100 mcg gentamicin 290 mg in NaCl 0.9% IVPB New Bag 10/18/2020 8:41 PM FAMILY THERAPIST 290 mg 215 mL/hr (GARAMYCIN) 290 mg (rounded from 285 mg = 5 mg/kg ? 57 kg Order-specific weight), intravenous, at 215 mL/hr, Administer over 30 Minutes, Once, On Sat10/18/20 at 2000, For 1 dose, Drug Monitoring Program: Pharmacist to adjust medication dosing based on indication and drug clearance factors., Indications: Obstetric or gynecological infection lactated ringers New Bag 10/19/2020 5:10 AM FAMILY THERAPIST 125 mL/hr 125 mL/hr 125 mL/hr, intravenous, Continuous, Starting on Sat10/18/20 at 2000, L&D Pre-Delivery, Indications: Hang fluids for maternal dehydration, concerns, epidural placement, with antibiotics. Rate/Dose Verify 10/19/2020 2:20 AM FAMILY THERAPIST 125 mL/hr 125 mL/hr Rate/Dose Verify 10/19/2020 12:00 AM FAMILY THERAPIST 125 mL/hr 125 mL/hr multivitamin/mineral- tablet 1 Given 10/20/2020 9:30 AM FAMILY THERAPIST 1 tablet tablet 1 tablet, oral, Daily, First dose on Kylie 10/20/20 at 0900 documented in this encounter Active and Recently Administered Medications Times are shown in FAMILY THERAPIST. Scheduled Medication Order 10/18/2020 10/19/2020 10/20/2020 clindamycin [...] palpation, or reach a mximum of 250 [place] units, and/or cervical change(s) occur. PRN Medication [...] COVID19 Pending 10/18/2020 10/18/2020 10/19/2020 12:56 AM FAMILY THERAPIST documented as of this encounter
[2022-07-16 10:55] VITALS: BP 111/66; PULSE 85; PULSE 86; O2SAT 97
[2022-07-16 11:50] LABS: Amnisure Rom* Negative
[2022-07-16 12:15] LABS: Fetal Fibronectin* Negative (Negative)
--- NOTE | 2022-07-16 13:27 | PC.OBNST ---
NST Note NST Note Start: 07/16/22 10:49 Freq: ONCE Status: Active Protocol: Document 07/16/22 13:24 WK (Rec: 07/16/22 13:27 WK [id number]) NST Note 6 Para (# of births) 4 EDC 10/08/22 Gestational Age In Weeks & Days 28 Weeks & 0 Days Patient Presented with Complaint(s) of Contractions/cramping Appropriate for Gestational Age Yes RN Thompson RNC Date 07/16/22 Appropriate for Gestational Age Yes RN Noris RN Date 07/16/22 OB NST charge Yes Complete NST Note via Write Note Yes The provider's electronic signature indicates the NST is reactive/appropriate for gestational age. *Note to provider: If an addendum is required, open the patient's chart and click on the note under the Nurse/Allied Health tab.
--- NOTE | 2022-08-03 09:31 | ONC.NURNOTE ---
Diagnosis: Iron Deficiency Anemia in
== END 2022-07-16 12:38 | disposition home or self-care (01) ==
LOC: OB OUT 10:45 → OB 10:46
PROVIDERS: Visit Provider Obstetrics & Gynecology
DX: O47.03 False labor before 37 completed weeks of gestation, third trimester (principal); Z3A.28 28 weeks gestation of pregnancy
CPT/HCPCS: 59025; 84112; 99213

== ENCOUNTER 2022-07-20 09:20 | Outpatient (CLI) | payer BC, SELFPAY ==
--- OUTSIDE RECORDS SUMMARY | 2022-07-20 09:11 | XMS_ITS | Clinical Summary ---
:1985 Author Organization [facility] [place] [address] Care Team Providers Name Role Phone Pcp, [...] daily. tablet Active Problems Problem Noted Date [facility] Supervision of high-risk 03/29/2022 Overview: [facility] CONSULTATION ON 04/03/22 -- Virtual Visit REASON FOR CONSULT: risks and management pt had pre- consult at [place]-- recommended cervical lengths at 16w, possibly cerclage [...] weeks by US REFERRING PHYSICIAN/PHONE/LAST UPDATE: [facility] [phone] Primary MD approves scheduling of recomm ended ultrasounds/testing: Yes SPECIALISTS/CONSULTS: Include: Specialty MD Clinic Name Phone# [place] and ADDED TO PATIENT CARE TEAM No CARE COORDINATION: GENETICS: declined PROCEDURES: PERTINENT LABS: B POS PERTINENT MEDS: PNV, pepcid, omeprazole, zofran Preferred delivery location: PLAN OF CARE: Menorrhagia 09/29/2008 Routine general medical examination at [facility] acility 09/29/2008 Palpitations 09/29/2008 Other general counseling [...] F VAGINAL SAIDA N Delivery Location: Hospital ([facility]) Comments: IUGR 2014 Term 37w0d 3.37 kg (7 lb 7 oz) M 2019 SAB 7w0d Current OB Episode Summary Episode Dates Estimated Date of Pregravid Weight TWG (As of ) Delivery 04/03/2022 - Present 10/08/2022 (07/20/2022) Date GA Fund Present FHR Mvmt BP [...] follow up US. She plans delivery in [place] which is reasonable as long as follow up US lo oks normal. She continues vaginal progesterone and s erial cervical length US in [place] (see prior consult letter in EPIC). 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 Refer to the corresponding sections of the history section of Exce ian chart and the [facility] Naviga tor for details. Comments under Consult [...] patient's home address. Is referring provider within [facility]? 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 See prior consult letter in [employer] for furthe r details. Today's US shows no signs of placenta accreta spectrum, but I reviewed the andrews itations of US in the detection of placenta accreta, especially with posterior placenta. We w ill re-assess placentation at her follow up US. She plans delivery in [place] which is re asonable as long as follow up US looks normal. She continues vaginal progesterone and s erial cervical length US in [place] (see prior consult letter in [facility]). New government regulations related to [...] risk Services Provided: Procedures Code DETAIL ANATOMY 10557.0 TRANSVAGINAL ULTRASOUND 88757.0 Procedure Note Heather Hernandes MD - 05/23/20 22 Referred By: DARSHAN MULLINS IndicationsCode 20 weeks gestation of [id number] History of PTD / PROM D&C x2 [...] prior . See prior consult letter in [facility] for furthe r details. Today's US shows no signs of placenta accreta spectrum, but I reviewed the andrews itations of US in the detection of placenta accreta, especially with posterior placenta. We w ill re-assess placentation at her follow up US. She plans delivery in [place] which is re asonable as long as follow up US looks normal. She continues vaginal progesterone and s erial cervical length US in [place] (see prior consult letter in [facility]). New government regulations related to [...] notes, Low risk Services Provided: ProceduresCode DETAIL [id number] TRANSVAGINAL GULRETOTOV79527.0 Heather Hernandes MD US from Last 3 Months Insurance Payer Benefit Plan / Subscriber ID Effective Dates Phone Addre ss Type Group BLUE CROSS BL[employer] OF [id number] 2020-Present [address] [address] [place] [address] Care Teams Bunch Maker Hand Relationship Specialty Start Date End Date Pcp, No PCP - General 11/18/13 . Annita Moreira CNM Referring Provider Certified Nurse Housing Installer 03/22/22 3 [address] [place] [address]
--- OUTSIDE RECORDS SUMMARY | 2022-07-20 09:12 | XMS_ITS | Encounter Summary ---
:1985 Author Organization [facility] Address [address] [place] [address] Care Team Providers Name Role Phone Unavailable Primary Care Provider Unavailable Reason for Visit Reason Comments Communication Encounter Details Date Type Department Care Team Description 10/21/2020 Clinical Communication [facility], Horacio Cisneros, Communication Taoism [facility], [address] [place] [address] MAR Third Floor [place], [place] [address] [facility] [id number] [place], [place] [phone] (Work) [phone] Social History Tobacco Use Types Packs/Day Years [...] or relatives? How often do you attend restoration or 1 to 4 times per year 11/22 uatsdin services? Do you belong to any clubs or No 12/12/2020 organizations such as restoration groups, unions, fraternal or athletic groups, or [...] be seen. [place] is [place] hour from [place] and 20 min from [place]. PLAN Discussed with Dr Bowman and [facility] RN. Patient advised to be seen immediately at nearest facility. Disposition/Recommendation: referral for services Nearest ED or OB Facility. Information/Education: patient/caller able to teach back. Caller agreeable to plan of care: yes. The following references were used: provider Dr Bowman. WELL ENGINEER documented in this encounter Plan of Treatment Not on filedocumented as of this encounter Visit Diagnoses Not on filedocumented in this encounter
--- OUTSIDE RECORDS SUMMARY | 2022-07-20 09:12 | XMS_ITS | Encounter Summary ---
:1985 Author Organization [facility] Address [address] [place] [address] Care Team Providers Name Role Phone Unavailable Primary Care Provider Unavailable Reason for Visit Reason Comments Rupture of Membranes Contractions Auth/Cert Specialty Diagnoses / Procedures Referred By Contact Refer red To Contact Diagnoses 22 Weeks Gestation (HCC) Procedures DIR Referral ID Status Reason Start Date Expiration Date Visits Requ ested Visits Authorized [id number] 1 1 Encounter Details Date Type Department Care Team Description 10/18/2020 - Hospital Encounter [facility] Jordyn Wild M.D. [address] [place] [phone] 22 Weeks Gestation (Primary Dx) ; 10/20/2020 [facility], Erin Villagran M.D., M.P.H. [address] [place] [phone] 21 Weeks Gestation ; [place], Heather Ott M.D. [address] [place] [phone] Premature Rupture Of Membranes U nspecified As To Length Of Time Between Rupture And Onset Of Labor Second Trimester Building, Third Floor [address] [place] [address] Social History Tobacco Use Types [...] 1 to 4 times per year 11/22 spiritism services? Do you belong to any clubs or No 12/12/2020 organizations such as congregation groups, unions, fraternal or athletic groups, or [...] Comments Blood Pressure 116/69 10/20/2020 12:39 PM ELECTRONIC SERVICE TECHNICIAN Pulse 81 10/20/2020 12:39 PM ELECTRONIC SERVICE TECHNICIAN Temperature 37.2 ??C (99 ??F) 10/20/2020 12:39 PM ELECTRONIC SERVICE TECHNICIAN Respiratory Rate 18 10/20/2020 12:39 PM ELECTRONIC SERVICE TECHNICIAN Oxygen Saturation 99% 10/20/2020 12:39 PM ELECTRONIC SERVICE TECHNICIAN Inhaled Oxygen Concentration - - Weight 56.3 kg (124 lb 1.9 oz) 10/19/2020 6:30 AM ELECTRONIC SERVICE TECHNICIAN Height - - Body Mass Index - - documented in this encounter Discharge Summaries Saqib Strong M.D. - 10/20/2020 12:07 PM CST DISCHARGE SUMMARY BRIEF OVERVIEW Hospital: [facility] Discharge Provider: Erin Alarcon M.D. Primary Team: [facility] No primary care [...] return in one week for neonatology consult, [facility] return visit and further discussion of when she would like to be re-admitted. She was discharged home in stable condition. //Miriam Ruggiero MD CONSULTS ORDERED DURING THIS ADMISSION CONDITION AT DISCHARGE Stable Discharge instructions were provided to the patient and caregiver(s). TRONIC SERVICE TECHNICIAN documented in this encounter Medications at Time of Discharge Medication Sig Dispensed Refills Start Date End Date hzrsdclmrg-txiuyolzvzdho-p TK 1 TO 2 TS PO Q 4 H 0 09/08/2020 aff (FIORICET, ESGIC) NEEDED. MAX 6 PER 50-325-40 mg per tablet DAY Take 1 tablet by 0 taaleoj-Kv-yuzn-FA (VINATE mouth daily. ONE) 60 mg iron-1 mg per tablet documented as of this encounter H&P Notes [...] 10/18/2020. 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 Obstetrical Chief PGY-3 [phone] TRONIC SERVICE TECHNICIAN Associated attestation - Heather Goodrich M.D. - 10/19/2020 12:27 AM ELECTRONIC SERVICE TECHNICIAN Yoga Coordinator Teaching Physician Statement: I have discussed the [...] delivery upon exam findings of 4-5cm dilation. 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 PSH: none Allergies: PCN (rash as [...] concern for necrotizing enterocolitis, and potential poor extermination inspector neurological outcomes/disability. Have printed her additional [...] further discussion this afternoon Miriam Ruggiero M.D. TRONIC SERVICE TECHNICIAN Associated attestation - Saqib Strong M.D. - 10/20/2020 11:17 AM ELECTRONIC SERVICE TECHNICIAN I have discussed the care of Jim [...] L.G.S.W., L.I.C.S.W., M.S.W. - 10/19/2020 1:02 PM ELECTRONIC SERVICE TECHNICIAN SUBJECTIVE Social work met with the patient [...] weeks gestationas a transfer of care from [place], [place] due to concern for previable premature [...] day parking pass provided 10/19/20. Annita Kaplan [facility], AIRCRAFT QUALITY CONTROL INSPECTOR 10/19/2020 TRONIC SERVICE TECHNICIAN Mriiam Ruggiero M.D. - 10/19/2020 12:09 PM CST [...] 10/18/2020. 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 PSH: [...] for necr otizing enterocolitis, and potential poor extermination inspector neurological outcomes/disability. Have printed her additional [...] discussion pending ultrasound results. Miriam Ruggiero M.D. TRONIC SERVICE TECHNICIAN Associated attestation - Raysa Guerin M.D. - 11/14/2020 4:22 AM ELECTRONIC SERVICE TECHNICIAN I saw and evaluated the patient, participating [...] with family for expectant management. Questions answered. TRONIC SERVICE TECHNICIAN Irish Newell R.N. - 10/18/2020 9:29 PM [...] reviewed goals for the shift with patient. TRONIC SERVICE TECHNICIAN documented in this encounter Miscellaneous Notes Hospital Course - Miriam Ruggiero M.D. - 10/19/2020 2:32 AM CST Jim Lowe is a 34 y.o who presented at 21w1 for previable PPROM. She was admitted from 10/19-. She weighed her options and then decided to pursue expectant management. She will return in one week for neonatology consult, [facility] return visit and further discussion of when she would like to be re-admitted. She was discharged home in stable condition. //Miriam Ruggiero MD TRONIC SERVICE TECHNICIAN documented in this encounter Plan of Treatment Pending Results Name Type Priority Associated Diagnoses Date/Ti me US OB Limited Imaging RAD - Routine (most 020 8:51 PM inpatients and all ELECTRONIC SERVICE TECHNICIAN outpatients) Scheduled Orders Name Type Priority Associated Diagnoses Order S chedule US OB Limited Imaging RAD - Routine (most Once fo r 1 inpatients and all Occurrenc es starting outpatients) 10/18/2020 unti l 10/18/2020 documented as of this encounter Procedures Procedure Name Priority Date/Time Associated Comments Diagnosis US OB ANATOMY RAD - Routine 10/19/2020 1:21 Results fo r this ANGUIANO (most inpatients PM ELECTRONIC SERVICE TECHNICIAN procedure a re in and all the results outpatients) section. RUBELLA ANTIBODIES, Routine 10/19/2020 7:18 Resul ts for this IGG AM ELECTRONIC SERVICE TECHNICIAN procedure are i n the results section. VARICELLA-ZOSTER Routine 10/19/2020 7:18 Results for this AB, IGG, S AM ELECTRONIC SERVICE TECHNICIAN procedure are i n the results section. MICROSCOPIC MANUAL Routine 10/19/2020 2:21 Result s for this AM ELECTRONIC SERVICE TECHNICIAN procedure are i n the results section. BACTERIAL CULTURE, Routine 10/19/2020 2:21 Result s for this AEROBIC + SUSC, AM ELECTRONIC SERVICE TECHNICIAN procedure ar e in URINE the results section. CONFIRMED DRUG Routine 10/19/2020 2:21 Results fo r this ABUSE PANEL, U AM ELECTRONIC SERVICE TECHNICIAN procedure are in the results section. CHLAMYDIA/GONORRHOE Routine 10/19/2020 2:21 Resul ts for this AE AMPLIFIED RNA AM ELECTRONIC SERVICE TECHNICIAN procedure a re in the results section. URINALYSIS WITH Routine 10/19/2020 2:21 Results f or this MICROSCOPIC AM ELECTRONIC SERVICE TECHNICIAN procedure are i n the results section. HEPATITIS B SURFACE STAT 10/18/2020 9:34 Resul ts for this ANTIGEN PM ELECTRONIC SERVICE TECHNICIAN procedure are i n the results section. FIBRINOGEN, P STAT 10/18/2020 9:34 Results for this PM ELECTRONIC SERVICE TECHNICIAN procedure are i n the results section. SARS CORONAVIRUS 2, Routine 10/18/2020 8:05 Resul ts for this MOLECULAR PM ELECTRONIC SERVICE TECHNICIAN procedure are i n DETECTION, PCR (DREDGE PIPE INSTALLER) the resu lts section. HEPATITIS B SURFACE STAT 10/18/2020 7:59 Resul ts for this ANTIGEN PM ELECTRONIC SERVICE TECHNICIAN procedure are i n the results section. CBC WITHOUT STAT 10/18/2020 7:59 Results for this DIFFERENTIAL, B PM ELECTRONIC SERVICE TECHNICIAN procedure ar e in the results section. TYPE AND SCREEN STAT 10/18/2020 7:59 Results f or this PM ELECTRONIC SERVICE TECHNICIAN procedure are i n the results section. HIV-1/-2 AG AND AB STAT 10/18/2020 7:58 Result s for this SCRN, PM ELECTRONIC SERVICE TECHNICIAN procedure are in PLASMA the results section. documented in this encounter Results US OB Anatomy Anguiano (10/19/2020 1:21 PM ELECTRONIC SERVICE TECHNICIAN) Anatomical Region Laterality Modality Body, Ultrasound OB RST LOS, Ultrasound ARZ LOS N/A Ultrasound Specimen (Source) Anatomical Location Collection Method / Collectio n Time Received Time / Laterality Volume Narrative 10/19/2020 1:27 PM ELECTRONIC SERVICE TECHNICIAN JIM LOWE OB Exam, 10/19/2020 EXAM INFORMATION Patient Name: ??JIM LOWE : ??1985 Age: ??34 yrs Sex: ??Female Ref Phys: ??MIRIAM RUGGIERO Exam Date: 10/19/2020 Procedure: US OB ANATOMY ANGUIANO Exam Site: [facility] Plurality: 1 INDICATIONS FOR SONOGRAPHY Anatomic Survey [...] Read by Ilir Moss on 1:21:30 PM. Mattress Maker: ??Ilir Moss Thank You For This Referral Procedure Note Eamon Dawson M.B.B.S., MAngelo. - 10/19 JIM LOWE OB Exam, 10/19/2020 EXAM INFORMATION Patient Name: MYNORJIM S : 1985 Age: 34 yrs Sex: Female Ref Phys: MIRIAM RUGGIERO Exam Date: 10/19/2020 Procedure: US OB ANATOMY ANGUIANO Exam Site: [facility] Plurality: 1 INDICATIONS FOR SONOGRAPHY Anatomic Survey [...] Read by Ilir Moss on 1:21:30 PM. Mattress Maker: Ilir Moss Thank You For This Referral Miriam Ruggiero M.D. IMG OB US PROCEDURES Varicella-Zoster Antibody, IgG, Serum (10/19/2020 7:18 AM ELECTRONIC SERVICE TECHNICIAN) athologist Signature Varicella-Zost Positive 10/19/2020 [facility] er Ab, IgG, S 10:41 AM ELECTRONIC SERVICE TECHNICIAN Comment: Results suggest response to immunization or prior exposure to the virus. ----REFERENCE VALUE---- Vaccinated: Positive (>=1.1 AI) Unvaccinated: Negative (<=0.8 AI) Varicella IgG Antibody Index 1.3 10/19/2020 10:41 AM ELECTRONIC SERVICE TECHNICIAN [facility] Specimen Anatomical Collection Method Collection Time Receive d Time (Source) Location / / Volume Laterality Blood (Blood, 10/19/2020 7:18 AM 10/19/20 20 9:43 Venous) ELECTRONIC SERVICE TECHNICIAN AM ELECTRONIC SERVICE TECHNICIAN Sierra Welch M.D. LAB MICROBIOLOGY - BLOOD ORD ERADIAMANTE Performing Organization Address [facility] Phon e Number [place] [phone] [place] [phone] SUPPORT [facility] [place] [address] Laboratory Medicine and Pathology [address] [place] [address] Dr. MANUEL Rubella Antibodies, IgG (10/19/2020 7:18 AM ELECTRONIC SERVICE TECHNICIAN) athologist Signature Rubella Ab, Positive 10/19/2020 [facility] IgG, S 10:40 AM ELECTRONIC SERVICE TECHNICIAN Comment: Results suggest response to immunization or prior exposure to the virus. ----REFERENCE VALUE---- Vaccinated: Positive (>=1.0 AI) Unvaccinated: Negative (<=0.7 AI) Rubella IgG Antibody Index 1.4 10/19/2020 10 :40 AM ELECTRONIC SERVICE TECHNICIAN [facility] Specimen Anatomical Collection Method Collection Time Receive d Time (Source) Location / / Volume Laterality Blood (Blood, 10/19/2020 7:18 AM 10/19/20 20 9:43 Venous) ELECTRONIC SERVICE TECHNICIAN AM ELECTRONIC SERVICE TECHNICIAN Sierra Welch M.D. LAB MICROBIOLOGY - BLOOD ORD JENNA Performing Organization Address [facility] Phon e Number [address] [place] [address] SUPPORT [facility] [place] [address] Laboratory Medicine and Pathology [address] [place] [address] Dr. MANUEL (ABNORMAL) Microscopic Manual (10/19/2020 2:21 AM ELECTRONIC SERVICE TECHNICIAN) Analysis Performed At Patho logist Time Signature Microscopy Abnormal 10/19/2020 [facility] 6:26 AM ELECTRONIC SERVICE TECHNICIAN RBC >100 (A) <3 /hpf 10/19/2020 [facility] 6:26 AM ELECTRONIC SERVICE TECHNICIAN Dysmorphic RBC <25 <25 % 10/19/2020 [facility] 6:26 AM ELECTRONIC SERVICE TECHNICIAN WBC 1-3 /hpf 10/19/2020 [facility] 6:26 AM ELECTRONIC SERVICE TECHNICIAN Comment: ----REFERENCE VALUE---- 1-3 ??(Males) 1-10 (Females) Specimen Anatomical Collection Method Collection Time Receive d Time (Source) Location / / Volume Laterality Urine 10/19/2020 2:21 AM 0 4:00 ELECTRONIC SERVICE TECHNICIAN AM ELECTRONIC SERVICE TECHNICIAN Sierra Welch M.D. LAB URINE ORDERABLES Performing Organization Address [facility] Phon e Number [facility] - [address] [place] [address] 05 [place] [address] Laboratories-[address] Bacterial Culture, Aerobic + Susc, Urine (10/19/2020 2:21 AM ELECTRONIC SERVICE TECHNICIAN) Patholo gist Method Time Signature Urine Culture No growth 10/20/2020 DT after 1 day 8:16 AM ELECTRONIC SERVICE TECHNICIAN of incubation. Specimen Anatomical Collection Method Collection Time Receive d Time (Source) Location / / Volume Laterality Urine (Urine, 10/19/2020 2:21 AM 10/19/20 20 5:03 Straight ELECTRONIC SERVICE TECHNICIAN AM ELECTRONIC SERVICE TECHNICIAN Catheter) Comment: Specimen Source Site: Urine Sierra Welch M.D. LAB MICROBIOLOGY - GENERAL O RDERABLES Performing Organization Address [facility] Phon e Number [facility] - [address] [place] [address] (ABNORMAL) Urinalysis with Microscopic: Urine, Catheter (10/19/2020 2:21 AM ELECTRONIC SERVICE TECHNICIAN) Analysis Performed At Patho logist Time Signature Source Catheter 10/19/2020 [facility] 4:00 AM ELECTRONIC SERVICE TECHNICIAN Appearance Normal Normal 10/19/2020 [facility] 4:00 AM ELECTRONIC SERVICE TECHNICIAN Osmolality, U 521 150 - 1150 10/19/2020 [facility] mOsm/kg 4:47 AM ELECTRONIC SERVICE TECHNICIAN pH, U 6.2 4.5 - 8.0 10/19/2020 [facility] 4:47 AM ELECTRONIC SERVICE TECHNICIAN Comment: ----ADDITIONAL INFORMATION---- This test was developed and its performa nce characteristics determined by [facility] in a manner co nsistent with CLIA requirements. This test has not bee n cleared or approved by the U.S. Food and Drug Admin istration. Glucose 8 0 - 15 mg/dL 10/19/2020 6:17 AM ELECTRONIC SERVICE TECHNICIAN [place] Protein, U 46 (H) <26 mg/dL 10/19/2020 6:17 AM ELECTRONIC SERVICE TECHNICIAN [facility] Comment: ----ADDITIONAL INFORMATION---- On 04/16/2017 the total protein assay me thod changed resulting in approximately a 15% increase in prote in values. Protein/Osmolality 0.88 (H) <0.42 Ratio 10/19/2020 6:17 AM ELECTRONIC SERVICE TECHNICIAN [facility] Comment: ----ADDITIONAL INFORMATION---- On 04/16/2017 the total protein assay me thod changed resulting in approximately a 15% increase in prote in values. Predicted 24 Hr Protein 597 mg/24 h 10/19/2020 6:17 AM ELECTRONIC SERVICE TECHNICIAN [facility] Predicted Range 148-2419 mg/24 h 10/19/2020 6:17 AM ELECTRONIC SERVICE TECHNICIAN R JEM Hemoglobin, QL Large (A) Negative 10/19/2020 6:26 AM ELECTRONIC SERVICE TECHNICIAN RE NA Specimen Anatomical Collection Method Collection Time Receive d Time (Source) Location / / Volume Laterality Urine (Urine, 10/19/2020 2:21 AM 10/19/20 20 4:00 Catheter) ELECTRONIC SERVICE TECHNICIAN AM ELECTRONIC SERVICE TECHNICIAN Sierra Welch M.D. LAB URINE ORDERABLES Performing Organization Address City/State/ZIP Code Phon e Number [facility] - [address] [place], [place] [address] [place] [address] Laboratories-[facility] [address] Chlamydia / Gonorrhoeae Amplified RNA (10/19/2020 2:21 AM ELECTRONIC SERVICE TECHNICIAN) [facility] gist Method Time Signature Source Urine, 10/19/2020 [facility] Urine, First 6:58 PM ELECTRONIC SERVICE TECHNICIAN Voided Chlamydia Negative Negative 10/19/2020 [facility] trachomatis 6:58 PM ELECTRONIC SERVICE TECHNICIAN amplified RNA Source Urine, 10/19/2020 [facility] Urine, First 6:58 PM ELECTRONIC SERVICE TECHNICIAN Voided Neisseria Negative Negative 10/19/2020 [facility] gonorrhoeae 6:58 PM ELECTRONIC SERVICE TECHNICIAN amplified RNA Specimen Anatomical Collection Method Collection Time Receive d Time (Source) Location / / Volume Laterality Varies (Urine, 10/19/2020 2:21 AM 020 7:22 First Voided) ELECTRONIC SERVICE TECHNICIAN AM ELECTRONIC SERVICE TECHNICIAN Sierra Welch M.D. LAB MICROBIOLOGY - GENERAL O RDERABLES Performing Organization Address City/[facility] Phon e Number [facility] - [address] [place], [place] [address] [facility] [place] [address] Laboratories-[facility] [address] Drug Abuse Survey with Confirmation, Urine (10/19/2020 2:21 AM ELECTRONIC SERVICE TECHNICIAN) Patholo gist Method Time Signature Alcohol Negative Cutoff: 10/19/2020 [facility] 10 mg/dL 9:52 AM ELECTRONIC SERVICE TECHNICIAN Amphetamines Negative Cutoff: 10/19/2020 [facility] 500 ng/mL 9:52 AM ELECTRONIC SERVICE TECHNICIAN Barbiturates Negative Cutoff: 10/19/2020 [facility] 200 ng/mL 9:52 AM ELECTRONIC SERVICE TECHNICIAN Benzodiazepines Negative Cutoff: 10/19/2020 [facility] 100 ng/mL 9:52 AM ELECTRONIC SERVICE TECHNICIAN Cocaine Negative Cutoff: 10/19/2020 [facility] 150 ng/mL 9:52 AM ELECTRONIC SERVICE TECHNICIAN Opiates Negative Cutoff: 10/19/2020 [facility] 300 ng/mL 9:52 AM ELECTRONIC SERVICE TECHNICIAN Phencyclidine Negative Cutoff: 10/19/2020 [facility] 25 ng/mL 9:52 AM ELECTRONIC SERVICE TECHNICIAN Tetrahydrocannabinol Negative Cutoff: 10/19/2020 [facility] 50 ng/mL 9:52 AM ELECTRONIC SERVICE TECHNICIAN Comment: ----ADDITIONAL INFORMATION---- This report is intended for use in clini kosta monitoring or management of patients. ??It is not intended for use i n employment-related testing. Specimen Anatomical Collection Method Collection Time Receive d Time (Source) Location / / Volume Laterality Urine (Urine, 10/19/2020 2:21 AM 10/19/20 8:50 Clean Catch) ELECTRONIC SERVICE TECHNICIAN AM ELECTRONIC SERVICE TECHNICIAN Sierra Welch M.D. LAB URINE ORDERABLES Performing Organization Address City/[facility] Phon e Number [facility] [address] [place], [place] [address] [facility] [place] [address] Laboratory Medicine and Pathology [address] [place] (ABNORMAL) Fibrinogen (10/18/2020 9:34 PM ELECTRONIC SERVICE TECHNICIAN) P athologist Signature Fibrinogen, P 624 (H) 200 - 393 10/18/2020 [facility] mg/dL 9:49 PM ELECTRONIC SERVICE TECHNICIAN Specimen Anatomical Collection Method Collection Time Receive d Time (Source) Location / / Volume Laterality Blood (Blood, 10/18/2020 9:34 PM 10/18/20 20 9:40 Venous) ELECTRONIC SERVICE TECHNICIAN PM ELECTRONIC SERVICE TECHNICIAN Sierra Welch M.D. LAB BLOOD ADD-ON Performing Organization Address City/[facility]/ZIP Code Phon e Number [facility] - [address] [place], [place] [address] [facility] [place] [address] Laboratories-[facility] [address] Hepatitis B Surface Antigen (10/18/2020 9:34 PM ELECTRONIC SERVICE TECHNICIAN) P athologist Signature HBs Antigen, S Negative Negative 10/19/2020 [facility] 9:23 AM ELECTRONIC SERVICE TECHNICIAN Specimen Anatomical Collection Method Collection Time Receive d Time (Source) Location / / Volume Laterality Blood (Blood, 10/18/2020 9:34 PM 10/19/20 8:14 Venous) ELECTRONIC SERVICE TECHNICIAN AM ELECTRONIC SERVICE TECHNICIAN Sierra Welch M.D. LAB MICROBIOLOGY - BLOOD ORD ERABLES Performing Organization Address [facility] Phon e Number [facility] [address] [place], [place] [address] [facility] [place] [address] Laboratory Medicine and Pathology [address] [place] SARS Coronavirus 2, Molecular Detection, PCR (DREDGE PIPE INSTALLER) Asymptomatic (10/18/2020 8:05 PM ELECTRONIC SERVICE TECHNICIAN) Patholo gist Method Time Signature COVID-19, PCR Undetected Undetected 10/19/2020 [facility] 12:55 AM ELECTRONIC SERVICE TECHNICIAN Comment: SARS-CoV-2 RNA absent. This result does [...] Drug Administration an d is used per lead pony rider's instructions. Performance characteristics were verified by [facility] in a manner consistent with CLIA requirements. Visit the CDC website: https://www.cdc.g ov/coronavirus/ for the most recent guidelines on [place] virus testing. Fact Sheet for Healthcare Providers: https://www.fda.gov/media/752011/downloa d Fact Sheet for Patients: https://www.fda.gov/media/620331/downloa d Specimen Anatomical Collection Method Collection Time Receive d Time (Source) Location / / Volume Laterality Varies 10/18/2020 8:05 PM 0 8:40 (Nasopharynx) ELECTRONIC SERVICE TECHNICIAN PM ELECTRONIC SERVICE TECHNICIAN Heather Goodrich M.D. LAB MICROBIOLOGY - GENERAL O RDERABLES Performing Organization Address City/[facility]/ZIP Code Phon e Number [facility] - [address] [place], [place] [address] [facility] [place] [address] Laboratories-[facility] [address] [facility] Hepatitis B Surface Antigen (10/18/2020 7:59 PM ELECTRONIC SERVICE TECHNICIAN) P athologist Signature HBs Antigen, S Negative Negative 10/19/2020 [facility] 8:04 AM ELECTRONIC SERVICE TECHNICIAN Specimen Anatomical Collection Method Collection Time Receive d Time (Source) Location / / Volume Laterality Blood (Blood, 10/18/2020 7:59 PM 10/19/20 20 6:59 Venous) ELECTRONIC SERVICE TECHNICIAN AM ELECTRONIC SERVICE TECHNICIAN Sierra Welch M.D. LAB MICROBIOLOGY - BLOOD ORD ERABLES Performing Organization Address City/[facility] Phon e Number [facility] [address] [place], [place] [address] [facility] [place] [address] Laboratory Medicine and Pathology [address] [place] Type and Screen (with reflex Antibody ID) (10/18/2020 7:59 PM ELECTRONIC SERVICE TECHNICIAN) Patholo gist Method Time Signature ABORh B Pos Not 10/18/2020 [facility] applicable 8:29 PM ELECTRONIC SERVICE TECHNICIAN Antibody Negative Negative 10/18/2020 [facility] Screen 8:44 PM ELECTRONIC SERVICE TECHNICIAN Type & Screen 10/21/2020 10/18/2020 [facility] Expiration 23:59 8:29 PM ELECTRONIC SERVICE TECHNICIAN Testing [employer] DEFAULT 10/18/2020 [facility] Location 8:08 PM ELECTRONIC SERVICE TECHNICIAN Specimen Anatomical Collection Method Collection Time Receive d Time (Source) Location / / Volume Laterality Blood (Blood, 10/18/2020 7:59 PM 10/18/20 20 8:08 Venous) ELECTRONIC SERVICE TECHNICIAN PM ELECTRONIC SERVICE TECHNICIAN Sierra Welch M.D. LAB BLOOD BANK TEST ORDERABL ES Performing Organization Address [facility]/ZIP Code Phon e Number [facility] - [address] [place], [place] [address] [facility] [place] [address] Laboratories-[facility] [address] [facility] (ABNORMAL) CBC without Differential (10/18/2020 7:59 PM ELECTRONIC SERVICE TECHNICIAN) Patholo gist Method Time Signature Hemoglobin 11.0 (L) 11.6 - 10/18/2020 METH 15.0 g/dL 8:06 PM ELECTRONIC SERVICE TECHNICIAN Hematocrit 31.8 (L) 35.5 - 10/18/2020 METH 44.9 % 8:06 PM ELECTRONIC SERVICE TECHNICIAN Erythrocytes 3.65 (L) 3.92 - 10/18/2020 METH 5.13 8:06 PM ELECTRONIC SERVICE TECHNICIAN x10(12)/L MCV 87.1 78.2 - 10/18/2020 METH 97.9 fL 8:06 PM ELECTRONIC SERVICE TECHNICIAN RBC Distrib Width 13.5 12.2 - 10/18/2020 METH 16.1 % 8:06 PM ELECTRONIC SERVICE TECHNICIAN Platelet Count 287 157 - 371 10/18/2020 METH x10(9)/L 8:06 PM ELECTRONIC SERVICE TECHNICIAN Leukocytes 19.3 (H) 3.4 - 9.6 10/18/2020 METH x10(9)/L 8:06 PM ELECTRONIC SERVICE TECHNICIAN Specimen Anatomical Collection Method Collection Time Receive d Time (Source) Location / / Volume Laterality Blood (Blood, 10/18/2020 7:59 PM 10/18/20 8:04 Venous) ELECTRONIC SERVICE TECHNICIAN PM ELECTRONIC SERVICE TECHNICIAN Sierra Welch M.D. LAB BLOOD ADD-ON Performing Organization Address City/State/ZIP Code Phon e Number [facility] - [address] [place] [phone] [facility] [place] [address] [facility] 200 [facility] HIV-1/-2 Ag and Ab Scrn, Plasma (10/18/2020 7:58 PM ELECTRONIC SERVICE TECHNICIAN) P athologist Signature HIV-1/-2 Ag Negative Negative 10/19/2020 SDSC and Ab 9:31 AM ELECTRONIC SERVICE TECHNICIAN Scrn, P Comment: Negative result does not rule out HIV in fection. If exposure to HIV infection occurred <14 d ays ago, contact the laboratory to request additi on of HIV-1 RNA detection / quantification test (HIV QN). Specimen Anatomical Collection Method Collection Time Receive d Time (Source) Location / / Volume Laterality Blood (Blood, 10/18/2020 7:58 PM 10/19/20 20 6:59 Venous) ELECTRONIC SERVICE TECHNICIAN AM ELECTRONIC SERVICE TECHNICIAN Sierra Welch M.D. LAB MICROBIOLOGY - BLOOD ORD ERABLES Performing Organization Address City/State/ZIP Code Phon e Number [facility] [address] [place], [place] [address] SU[facility] [place] [address] Laboratory Medicine and Pathology [address] [...] 900 mg New Bag 10/19/2020 5:09 AM ELECTRONIC SERVICE TECHNICIAN 900 mg 100 mL/hr (CLEOCIN) 900 mg, intravenous, at 100 mL/hr, Administer over 30 Minutes, Every 8 hours, First dose on Sat10/18/20 at 2000, premix bag, Indications: Obstetric or gynecological infection New Bag 10/18/2020 9:41 PM ELECTRONIC SERVICE TECHNICIAN 900 mg 100 mL/hr fentaNYL injection 100 mcg (SUBLIMAZE) Given 10/18/2020 9:49 PM ELECTRONIC SERVICE TECHNICIAN 100 mcg 100 mcg, intravenous, Every 1 hour PRN, moderate pain or score 4-6 of 10, severe pain or score 7-10 of 10, for labor pains, Starting on Sat10/18/20 at 1939, For 3 doses, L&D Pre-Delivery, Consultation with Anesthesia for pain control if patient requests regional anesthesia and in active labor or membranes ruptured. Given 10/18/2020 8:44 PM ELECTRONIC SERVICE TECHNICIAN 100 mcg gentamicin 290 mg in NaCl 0.9% IVPB New Bag 10/18/2020 8:41 PM ELECTRONIC SERVICE TECHNICIAN 290 mg 215 mL/hr (GARAMYCIN) 290 mg (rounded from 285 mg = 5 mg/kg ? 57 kg Order-specific weight), intravenous, at 215 mL/hr, Administer over 30 Minutes, Once, On Sat10/18/20 at 2000, For 1 dose, Drug Monitoring Program: Pharmacist to adjust medication dosing based on indication and drug clearance factors., Indications: Obstetric or gynecological infection lactated ringers New Bag 10/19/2020 5:10 AM ELECTRONIC SERVICE TECHNICIAN 125 mL/hr 125 mL/hr 125 mL/hr, intravenous, Continuous, Starting on Sat10/18/20 at 2000, L&D Pre-Delivery, Indications: Hang fluids for maternal dehydration, concerns, epidural placement, with antibiotics. Rate/Dose Verify 10/19/2020 2:20 AM ELECTRONIC SERVICE TECHNICIAN 125 mL/hr 125 mL/hr Rate/Dose Verify 10/19/2020 12:00 AM ELECTRONIC SERVICE TECHNICIAN 125 mL/hr 125 mL/hr multivitamin/mineral- tablet 1 Given 10/20/2020 9:30 AM ELECTRONIC SERVICE TECHNICIAN 1 tablet tablet 1 tablet, oral, Daily, First dose on Kylie 10/20/20 at 0900 documented in this encounter Active and Recently Administered Medications Times are shown in ELECTRONIC SERVICE TECHNICIAN. Scheduled Medication Order 10/18/2020 10/19/2020 10/20/2020 clindamycin [...] palpation, or reach a mximum of 250 [place] units, and/or cervical change(s) occur. PRN Medication [...] COVID19 Pending 10/18/2020 10/18/2020 10/19/2020 12:56 AM ELECTRONIC SERVICE TECHNICIAN documented as of this encounter
--- OUTSIDE RECORDS SUMMARY | 2022-07-20 09:12 | XMS_ITS | Encounter Summary ---
:1985 Author Organization [facility] Address [address] [place] [address] Care Team Providers Name Role Phone Unavailable Primary Care Provider Unavailable Reason for Referral Outpatient (Routine) - Closed Specialty Diagnoses / Procedures Referred By Contact Refer red To Contact Maternal and Diagnoses Premature Rupture Of Membranes Unspecified As To Length Of Time Between Rupture And Onset Of Labor Second Trimester (HCC) 21 Weeks Gestation ([facility]) [facility] Janelle Dominguez M.D. [address] [place] [address] Referral ID Status Reason Start Date Expiration Date Visits Requ ested Visits Authorized [id number] Closed 11/02/2020 11/02/2021 1 1 OAT OPERATOR Encounter Details Date Type Department Care Team Description 11/02/2020 [facility] NeftalyJuan, Premature Rupture Of Membranes Unspecified As To Length Of Time Between Rupture And Onset Of Labor Second Trimester (Primary Dx); AND CLINICS Janelle Dominguez M.D. [address] [facility] [address] [place] [address] [place], [place] [phone] [id number] Social History Tobacco Use Types Packs/Day Years [...] 1 to 4 times per year 11/22 church services? Do you belong to any clubs or No 12/12/2020 organizations such as yarsani groups, unions, fra[employer]global Energy Resources or athletic groups, or school groups? How [...] Name Type Priority Associated Diagnoses Order S [facility] Obstetrics Referral Outpatient Referral Routine Premat [...]
--- OUTSIDE RECORDS SUMMARY | 2022-07-20 09:12 | XMS_ITS | Encounter Summary ---
:1985 Author Organization [facility] Address [address] [place] [address] Care Team Providers Name Role Phone Unavailable Primary Care Provider Unavailable Reason for Visit Outpatient (Routine) - Closed Specialty Diagnoses / Procedures Referred By Contact Refer red To Contact Maternal and Diagnoses Premature Rupture Of Membranes Unspecified As To Length Of Time Between Rupture And Onset Of Labor Second Trimester ([facility]) 21 Weeks Gestation ([facility]) [facility] Janelle Dominguez M.D. [address] [place] [address] Referral ID Status Reason Start Date Expiration Date Visits Requ ested Visits Authorized [id number] Closed 11/02/2020 11/02/2021 1 1 Encounter Details Date Type Department Care Team Description 12/16/2020 Telemedicine Department of Saqib Strong, Diana ture Rupture Of Membranes Unspecified As To Length Of Time Between Rupture And Onset Of Labor Second Trimester; Obstetrics and M.D. 21 Weeks Gestation Gynecology in [address] [place] [address] [place] [address] [place], [place] [phone] (Work) [phone] Social History Tobacco Use Types Packs/Day Years [...] or relatives? How often do you attend uatsdin or 1 to 4 times per year 11/22 voodoo services? Do you belong to any clubs or No 12/12/2020 organizations such as uatsdin groups, unions, fraternal or athletic groups, or [...] or the highest technical, or vocational p [facility] degree you have received? Sex Assigned at Date Recorded Not on file documented as of this encounter Consult Notes Saqib Strong M.D. - 12/16/2020 8:00 AM CST Consult conducted via real-time audio/video technology by Saqib Strong M.D. in [facility] to the patient in patient home. 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 Mrs. Salinas's obstetrical history is significant for three term vaginal deliveries and one first-trimester miscarriage. In her fifth (2019), she was admitted o [facility] following spontaneous PPROM at 21 weeks gestation. Ultrasound demonstrated normal anatomy and biometry; olig ohydramnios was noted (as anticipated). After an interval of inpatient observation, Mrs. Salinas and her elected to pursue expectant management and were discharged to home. Subsequently she developed labor at 21 weeks and delivered her daughter in [place]; her daughter appeared morphologically normal, and survived for approximately 60 minutes. Difficulty was encountered with retained placenta, requiring manual extraction and D&C; Mrs. Salinas was treated with a course of intravenous antibiotic therapy. 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 Salinas experienced retained placenta requiring manual extraction in her first as well. Regarding her heterozygous prothrombin [id number] heterozygote status, Mrs. Salinas was screening for thrombophilias after an aunt experienced an episode of thrombosis and tested positive for Factor V Leiden and the Prothrombin [id number] mutation; neither she personally nor any first-degree [...] delivery of 46% in the subsequent . ([place] 2016) Potentially beneficial interventions (presuming richardson gestation) [...] determine viability/number and define gestational age. (in [place]) 3. Maternal cystic fibrosis/SMA and aneuploidy screening at 10-12 weeks (per her preference). 4. Consideration of early anatomic ultrasound at 11-14 weeks. 5. Sonographic cervix length surveillance beginning at 16 weeks and repeated weekly through 22 6/7 weeks, with contingent cerclage placement if cervix length shortens to <25mm prior to 23 0/7 weeks.(initial imaging study in [place]) 6. Consideration of 17-hydroxyprogesterone caprate prophylaxis (250mg IM weekly), beginning at 16-20weeks and continuing through 36 weeks. 7. Detailed anatomic survey ultrasound at 18-20 weeks. (in [place]) 8. Repeat ultrasound at 30-32 weeks to evaluate placental appearance for any evidence of accreta. 9. Consider induction of labor at 39 0/7-39 6/7 weeks; this may be scheduled either in [place] or in [place] pending resource availability. Mrs. Salinas resides approximately 1 hour from [place]. Intrapartum: 10. Obtain CBC and type & [...] I will arrange for initial appointments in [place]. Further care may be coordinated between [place] and [place]. I will also forward materials regarding placenta accreta occulta. Saqib Strong M.D. EY CHIEF documented in this encounter Plan of Treatment Not on filedocumented as of this encounter Visit Diagnoses Diagnosis Premature Rupture Of Membranes U nspecified As To Length Of Time Between Rupture And Onset Of Labor Second Trimes ter (HCC) 21 Weeks Gestation (HCC) documented in this encounter
--- OUTSIDE RECORDS SUMMARY | 2022-07-20 09:12 | XMS_ITS | Clinical Summary ---
:1985 Author Organization [facility] Address [address] [place] [address] Care Team Providers Name Role Phone Unavailable Primary Care Provider Unavailable Source Comments Patient records contain information from all sites at [facility]. For routine questions regarding patient records, call [phone] during business hours, M-F 8:00 AM - 5:00 PM Central Time. Record requests for emergency care only can be directed to [phone] at any time.[facility] Allergies Active Allergy Reactions Severity Noted Date Comments Penicillins Rash 10/18/2020 Salicylates Edema 10/18/2020 Swollen tongue Medications Medication Sig Dispensed Refills Start Date End Date Status Take 1 tablet by 0 Act angela izmqzgl-Cm-gacb-FA mouth daily. (VINATE ONE) 60 mg iron-1 [...] or relatives? How often do you attend restorationism or 1 to 4 times per year 11/22 hinduism services? Do you belong to any clubs or No 12/12/2020 organizations such as restorationism groups, unions, fraternal or athletic groups, or [...] Comments Blood Pressure 116/69 10/20/2020 12:39 PM HYDROGENATION STILL OPERATOR Pulse 81 10/20/2020 12:39 PM HYDROGENATION STILL OPERATOR Temperature 37.2 ??C (99 ??F) 10/20/2020 12:39 PM HYDROGENATION STILL OPERATOR Respiratory Rate 18 10/20/2020 12:39 PM HYDROGENATION STILL OPERATOR Oxygen Saturation 99% 10/20/2020 12:39 PM HYDROGENATION STILL OPERATOR Inhaled Oxygen Concentration - - Weight 56.3 kg (124 lb 1.9 oz) 10/19/2020 6:30 AM HYDROGENATION STILL OPERATOR Height - - Body Mass Index [...] on patient's age to complete this to [facility] Insurance Payer Benefit Plan / Subscriber ID Effective Dates Phone Addre ss Type Group [place] [id number] 2020-Yuki [phone] [address] PPO BLUE SHIELD t [address] [place] [address] Advance Directives For more information, please contact: [phone] Latest Code Status on File Code Status Date Activated Date Inactivated Comments Full Code 10/18/2020 7:51 PM 10/20/2020 2:51 PM Full Code: Not Discussed Due to: Not medically appropriate
--- OUTSIDE RECORDS SUMMARY | 2022-07-20 09:12 | XMS_ITS | Encounter Summary ---
:1985 Author Organization [facility] Address [address] [place] [address] Care Team Providers Name Role Phone Unavailable Primary Care Provider Unavailable Encounter Details Date Type Department Care Team Description 10/20/2020 Anesthesia Event [facility], Kandis Stock, [facility], NANOSCIENCE TECHNICIAN, HOT PLATE PRESS OPERATOR, DNAP [facility], Third Floor [address] [place] [address] Anesthesia Record Procedure Summary [...] or relatives? How often do you attend mosque or 1 to 4 times per year 11/22 restoration services? Do you belong to any clubs or No 12/12/2020 organizations such as mosque groups, unions, fraternal or athletic groups, or [...]
--- OUTSIDE RECORDS SUMMARY | 2022-07-20 09:12 | XMS_ITS | Encounter Summary ---
:1985 Author Organization [facility] Address [address] [place] [address] Care Team Providers Name Role Phone Unavailable Primary Care Provider Unavailable Reason for Visit Auth/Cert Specialty Diagnoses / Procedures Referred By Contact Refer red To Contact Diagnoses 22 Weeks Gestation (HCC) Procedures DIR Referral ID Status Reason Start Date Expiration Date Visits Requ ested Visits Authorized [id number] 1 1 Encounter Details Date Type Department Care Team Description 10/19/2020 Hospital Encounter Department of Josey Tse Obstetrics and M.DIsha Gynecology in [address] [place] [address] [place] [address] [place], [place] [phone] (Wo rk) [phone] Social History Tobacco Use Types Packs/Day Years [...] or relatives? How often do you attend orthodoxy or 1 to 4 times per year 11/22 caodaism services? Do you belong to any clubs or No 12/12/2020 organizations such as orthodoxy groups, unions, fraternal or athletic groups, or [...] Sig Dispensed Refills Start Date End Date vsinaacksk-myvhqywsfcrlx-v TK 1 TO 2 TS PO Q 4 H 0 09/08/2020 aff (FIORICET, ESGIC) NEEDED. MAX 6 PER 50-325-40 mg per tablet DAY Take 1 tablet by 0 dwvsnzt-Ai-nvfd-FA (VINATE mouth daily. ONE) 60 mg iron-1 mg per tablet documented as of this encounter Plan of Treatment Not on filedocumented as of this encounter Procedures Procedure Name Priority Date/Time Associated Comments Diagnosis US OB ANATOMY RAD - Routine 10/19/2020 1:21 Results fo r this ANGUIANO (most inpatients PM PIPELINE CONSTRUCTION INSPECTOR procedure a re in and all the results outpatients) section. documented in this encounter Results US OB Anatomy Anguiano (10/19/2020 1:21 PM PIPELINE CONSTRUCTION INSPECTOR) Anatomical Region Laterality Modality Body, Ultrasound OB RST LOS, Ultrasound ARZ LOS N/A Ultrasound Specimen (Source) Anatomical Location Collection Method / Collectio n Time Received Time / Laterality Volume Narrative 10/19/2020 1:27 PM PIPELINE CONSTRUCTION INSPECTOR LAURA LOWE OB Exam, 10/19/2020 EXAM INFORMATION Patient Name: ??LUARA LOWE : ??1985 Age: ??34 yrs Sex: ??Female Ref Phys: ??JOSEY TSE Exam Date: 10/19/2020 Procedure: US OB ANATOMY ANGUIANO Exam Site: [facility] Plurality: 1 INDICATIONS FOR SONOGRAPHY Anatomic [...] Read by Ilir Moss on 1:21:30 PM. Liquor Store Manager: ??Ilir Moss Thank You For This Referral Procedure Note Eamon Dawson M.B.B.S., M.D. - 10/19 LAURA LOWEBHARTI OB Exam, 10/19/2020 EXAM INFORMATION Patient Name: LAURA LOWE S : 1985 Age: 34 yrs Sex: Female Ref Phys: JOSEY TSE Exam Date: 10/19/2020 Procedure: US OB ANATOMY ANGUIANO Exam Site: [facility] Plurality: 1 INDICATIONS FOR SONOGRAPHY Anatomic [...] Read by Ilir Moss on 1:21:30 PM. Liquor Store Manager: Ilir Moss Thank You For This Referral Josey Tse M.D. IMG OB US PROCEDURES documented in this encounter Visit Diagnoses Not on filedocumented in this encounter
[2022-07-22 00:16] LABS: Rapid Plasma Reagin (RPR) Non Reactive (Non Reactive)
== END 2022-07-20 09:21 | disposition home or self-care (01) ==
PROVIDERS: Visit Provider Obstetrics & Gynecology
DX: Z34.93 Encounter for supervision of normal pregnancy, unspecified, third trimester (principal); Z3A.28 28 weeks gestation of pregnancy
CPT/HCPCS: 86592

== ENCOUNTER 2022-07-24 08:32 | Outpatient (CLI) | payer BC, SELFPAY ==
--- OUTSIDE RECORDS SUMMARY | 2022-07-24 08:35 | XMS_ITS | Encounter Summary ---
:1985 Author Organization [facility] Address [address] [place] [address] Care Team Providers Name Role Phone Unavailable Primary Care Provider Unavailable Reason for Referral Outpatient (Routine) - Closed Specialty Diagnoses / Procedures Referred By Contact Refer red To Contact Maternal and Diagnoses Premature Rupture Of Membranes Unspecified As To Length Of Time Between Rupture And Onset Of Labor Second Trimester (HCC) 21 Weeks Gestation ([facility]) [facility] Janelle Dominguez M.D. [address] [place] [address] Referral ID Status Reason Start Date Expiration Date Visits Requ ested Visits Authorized [id number] Closed 11/02/2020 11/02/2021 1 1 ER ARTISAN Encounter Details Date Type Department Care Team Description 11/02/2020 [facility] NeftalyJuan, Premature Rupture Of Membranes Unspecified As To Length Of Time Between Rupture And Onset Of Labor Second Trimester (Primary Dx); AND CLINICS Janelle Dominguez M.D. 21 Weeks Gestation 1999 [facility] [address] [place] [address] [place], [place] [phone] Social History Tobacco Use Types Packs/Day Years [...] 1 to 4 times per year 11/22 religion services? Do you belong to any clubs or No 12/12/2020 organizations such as bahai groups, unions, [email or web address] or athletic groups, or school groups? How [...] Name Type Priority Associated Diagnoses Order S [facility] Obstetrics Referral Outpatient Referral Routine Premat [...]
--- OUTSIDE RECORDS SUMMARY | 2022-07-24 08:35 | XMS_ITS | Encounter Summary ---
:1985 Author Organization [facility] Address [address] [place] [address] Care Team Providers Name Role Phone Unavailable Primary Care Provider Unavailable Reason for Visit Auth/Cert Specialty Diagnoses / Procedures Referred By Contact Refer red To Contact Diagnoses 22 Weeks Gestation (HCC) Procedures DIR Referral ID Status Reason Start Date Expiration Date Visits Requ ested Visits Authorized [id number] 1 1 Encounter Details Date Type Department Care Team Description 10/19/2020 Hospital Encounter Department of Josey Tse Obstetrics and M.DIsha Gynecology in [address] [place] [address] [place] [address] [place], [place] [phone] (Wo rk) [phone] Social History Tobacco Use Types Packs/Day Years [...] 1 to 4 times per year 11/22 zoroastrianism services? Do you belong to any clubs [...] Sig Dispensed Refills Start Date End Date puwjgqrddu-wzusepevyjepe-f TK 1 TO 2 TS PO Q 4 H 0 09/08/2020 aff (FIORICET, ESGIC) NEEDED. MAX 6 PER 50-325-40 mg per tablet DAY Take 1 tablet by 0 qxfmosp-Dt-jidy-FA (VINATE mouth daily. ONE) 60 mg iron-1 mg per tablet documented as of this encounter Plan of Treatment Not on filedocumented as of this encounter Procedures Procedure Name Priority Date/Time Associated Comments Diagnosis US OB ANATOMY RAD - Routine 10/19/2020 1:21 Results fo r this ANGUIANO (most inpatients PM DYE LAB TECHNICIAN procedure a re in and all the results outpatients) section. documented in this encounter Results US OB Anatomy Anguiano (10/19/2020 1:21 PM DYE LAB TECHNICIAN) Anatomical Region Laterality Modality Body, Ultrasound OB RST LOS, Ultrasound ARZ LOS N/A Ultrasound Specimen (Source) Anatomical Location Collection Method / Collectio n Time Received Time / Laterality Volume Narrative 10/19/2020 1:27 PM DYE LAB TECHNICIAN LAURA LOWE OB Exam, 10/19/2020 EXAM INFORMATION Patient Name: ??LAURA LOWE : ??1985 Age: ??34 yrs Sex: ??Female Ref Phys: ??JOSEY TSE Exam Date: 10/19/2020 Procedure: US OB ANATOMY ANGUIANO Exam Site: [facility] Plurality: 1 INDICATIONS FOR SONOGRAPHY Anatomic [...] Read by Ilir Moss on 1:21:30 PM. Rn Private Duty: ??Ilir Moss Thank You For This Referral Procedure Note Eamon Dawson M.B.B.S., M.D. - 10/19 LAURA LOWEBHARTI OB Exam, 10/19/2020 EXAM INFORMATION Patient Name: LAURA LOWE S : 1985 Age: 34 yrs Sex: Female Ref Phys: JOSEY TSE Exam Date: 10/19/2020 Procedure: US OB ANATOMY ANGUIANO Exam Site: [facility] Plurality: 1 INDICATIONS FOR SONOGRAPHY Anatomic [...] Read by Ilir Moss on 1:21:30 PM. Rn Private Duty: Ilir Moss Thank You For This Referral Josey Tse M.D. IMG OB US PROCEDURES documented in this encounter Visit Diagnoses Not on filedocumented in this encounter
--- OUTSIDE RECORDS SUMMARY | 2022-07-24 08:35 | XMS_ITS | Encounter Summary ---
:1985 Author Organization [facility] Address [address] [place] [address] Care Team Providers Name Role Phone Unavailable Primary Care Provider Unavailable Reason for Visit Outpatient (Routine) - Closed Specialty Diagnoses / Procedures Referred By Contact Refer red To Contact Maternal and Diagnoses Premature Rupture Of Membranes Unspecified As To Length Of Time Between Rupture And Onset Of Labor Second Trimester ([facility]) 21 Weeks Gestation ([facility]) [facility] Janelle Dominguez M.D. [address] [place] [address] Referral ID Status Reason Start Date Expiration Date Visits Requ ested Visits Authorized [id number] Closed 11/02/2020 11/02/2021 1 1 Encounter Details Date Type Department Care Team Description 12/16/2020 Telemedicine Department of Saqib Strong, Diana ture Rupture Of Membranes Unspecified As To Length Of Time Between Rupture And Onset Of Labor Second Trimester; Obstetrics and M.D. 21 Weeks Gestation Gynecology in [address] [place] [address] [place] [address] [place], [place] [phone] (Work) [phone] Social History Tobacco Use Types Packs/Day Years [...] or the highest technical, or vocational p [facility] degree you have received? Sex Assigned at Date Recorded Not on file documented as of this encounter Consult Notes Saqib Strong M.D. - 12/16/2020 8:00 AM CST Consult conducted via real-time audio/video technology by Saqib Strong M.D. in [facility] to the patient in patient home. #1 Preconception counseling #2 Previous complicated by previable PPROM and delivery (21 weeks) #3 Previous placenta accreta occulta #3 Heterozygous prothrombin [id number] mutation #4 Penicillin allergy (rash) Very pleasant 35y/o who presents for recommendations regarding subsequent management. Mrs. Salinas's obstetrical history is significant for three term vaginal deliveries and one first-trimester miscarriage. In her fifth (2019), she was admitted o [facility] following spontaneous PPROM at 21 weeks gestation. Ultrasound demonstrated normal anatomy and biometry; olig ohydramnios was noted (as anticipated). After an interval of inpatient observation, Mrs. Salinas and her elected to pursue expectant management and were discharged to home. Subsequently she developed labor at 21 weeks and delivered her daughter in [place]; her daughter appeared morphologically normal, and survived for approximately 60 minutes. Difficulty was encountered with retained placenta, requiring manual extraction and D&C; Mrs. Salinas was treated with a course of intravenous antibiotic therapy. 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 Salinas experienced retained placenta requiring manual extraction in her first as well. Regarding her heterozygous prothrombin [id number] heterozygote status, Mrs. Salinas was screening for thrombophilias after an aunt experienced an episode of thrombosis and tested positive for Factor V Leiden and the Prothrombin [id number] mutation; neither she personally nor any first-degree [...] delivery of 46% in the subsequent . ([place] 2016) Potentially beneficial interventions (presuming richardson gestation) [...] determine viability/number and define gestational age. (in [place]) 3. Maternal cystic fibrosis/SMA and aneuploidy screening at 10-12 weeks (per her preference). 4. Consideration of early anatomic ultrasound at 11-14 weeks. 5. Sonographic cervix length surveillance beginning at 16 weeks and repeated weekly through 22 6/7 weeks, with contingent cerclage placement if cervix length shortens to <25mm prior to 23 0/7 weeks.(initial imaging study in [place]) 6. Consideration of 17-hydroxyprogesterone caprate prophylaxis (250mg IM weekly), beginning at 16-20weeks and continuing through 36 weeks. 7. Detailed anatomic survey ultrasound at 18-20 weeks. (in [place]) 8. Repeat ultrasound at 30-32 weeks to evaluate placental appearance for any evidence of accreta. 9. Consider induction of labor at 39 0/7-39 6/7 weeks; this may be scheduled either in [place] or in [place] pending resource availability. Mrs. Salinas resides approximately 1 hour from [place]. Intrapartum: 10. Obtain CBC and type & [...] I will arrange for initial appointments in [place]. Further care may be coordinated between [place] and [place]. I will also forward materials regarding placenta accreta occulta. Saqib Strong M.D. WELDER documented in this encounter Plan of Treatment Not on filedocumented as of this encounter Visit Diagnoses Diagnosis Premature Rupture Of Membranes U nspecified As To Length Of Time Between Rupture And Onset Of Labor Second Trimes ter (HCC) 21 Weeks Gestation (HCC) documented in this encounter
--- OUTSIDE RECORDS SUMMARY | 2022-07-24 08:35 | XMS_ITS | Encounter Summary ---
:1985 Author Organization [facility] Address [address] [place] [address] Care Team Providers Name Role Phone Unavailable Primary Care Provider Unavailable Reason for Visit Reason Comments Communication Encounter Details Date Type Department Care Team Description 10/21/2020 Clinical Communication [employer], Horacio Cisneros, Communication [facility], [address] [place] [address] MAR Third Floor [place], [place] [address] [facility] [address] [place], [place] [phone] (Work) [phone] Social History Tobacco Use Types Packs/Day Years [...] or relatives? How often do you attend quaker or 1 to 4 times per year 11/22 bahai services? Do you belong to any clubs or No 12/12/2020 organizations such as quaker groups, unions, fraternal or athletic groups, or [...] be seen. She is an hour from [place] and 20 min from [place]. PLAN Discussed with Dr Bowman and [facility] Room RN. Patient advised to be seen immediately at nearest facility. Disposition/Recommendation: referral for services Nearest ED or OB Facility. Information/Education: patient/caller able to teach back. Caller agreeable to plan of care: yes. The following references were used: provider Dr Bowman. CLAMP OPERATOR documented in this encounter Plan of Treatment Not on filedocumented as of this encounter Visit Diagnoses Not on filedocumented in this encounter
--- OUTSIDE RECORDS SUMMARY | 2022-07-24 08:35 | XMS_ITS | Clinical Summary ---
:1985 Author Organization [facility] [place] [address] Care Team Providers Name Role Phone Pcp, [...] daily. tablet Active Problems Problem Noted Date [facility] Supervision of high-risk 03/29/2022 Overview: [facility] CONSULTATION ON 04/03/22 -- Virtual Visit REASON FOR CONSULT: risks and management pt had pre- consult at [facility]-- recommended cervical lengths at 16w, possibly cerclage [...] weeks by US REFERRING PHYSICIAN/PHONE/LAST [phone] Primary MD approves scheduling of recomm ended ultrasounds/testing: Yes SPECIALISTS/CONSULTS: Include: Specialty MD Clinic Name Phone# [place] and ADDED TO PATIENT CARE TEAM No CARE COORDINATION: GENETICS: declined PROCEDURES: PERTINENT LABS: B POS PERTINENT MEDS: PNV, pepcid, omeprazole, zofran Preferred delivery location: PLAN OF CARE: Menorrhagia 09/29/2008 Routine general medical examination at [facility] acility 09/29/2008 Palpitations 09/29/2008 Other general [...] F VAGINAL SAIDA N Delivery Location: Hospital ([facility]) Comments: IUGR 2014 Term 37w0d 3.37 kg (7 lb 7 oz) M 2019 SAB 7w0d Current OB Episode Summary Episode Dates Estimated Date of Pregravid Weight TWG (As of ) Delivery 04/03/2022 - Present 10/08/2022 (07/24/2022) Date GA Fund Present FHR Mvmt BP [...] follow up US. She plans delivery in [place] which is reasonable as long as follow up US lo oks normal. She continues vaginal progesterone and s erial cervical length US in [place] (see prior consult letter in EPIC). 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 Refer to the corresponding sections of the history section of Exce ian chart and the [facility] Naviga tor for details. Comments [...] patient's home address. Is referring provider within [facility]? 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 INCIDENT RESPONSE ANALYST Temperature 36.8 ??C (98.3 ??F) 12/12/2011 5:04 PM INCIDENT RESPONSE ANALYST Respiratory Rate - - Oxygen Saturation 99% 12/12/2011 5:04 PM INCIDENT RESPONSE ANALYST Inhaled Oxygen - - Concentration Weight 55.3 [...] Anatomy Single with TA and TV (CPT 38583) (05/23/2022 2:56 PM CDT) Anatomical Region Laterality [...] prior . See prior consult letter in [facility] for furthe r details. Today's US shows no signs of placenta accreta spectrum, but I reviewed the andrews itations of US in the detection of placenta accreta, especially with posterior placenta. We w ill re-assess placentation at her follow up US. She plans delivery in [place] which is re asonable as long as follow up US looks normal. She continues vaginal progesterone and s erial cervical length US in [place] (see prior consult letter in [facility]). New government regulations related to Cures [...] risk Services Provided: Procedures Code DETAIL ANATOMY 45901.0 TRANSVAGINAL ULTRASOUND 23703.0 Procedure Note Heather Hernandes MD - 05/23/20 22 Referred By: DARSHAN MULLINS IndicationsCode 20 weeks gestation of [id number] History of PTD / PROM D&C x2 [...] prior . See prior consult letter in [facility] for furthe r details. Today's US shows no signs of placenta accreta spectrum, but I reviewed the andrews itations of US in the detection of placenta accreta, especially with posterior placenta. We w ill re-assess placentation at her follow up US. She plans delivery in [place] which is re asonable as long as follow up US looks normal. She continues vaginal progesterone and s erial cervical length US in [place] (see prior consult letter in [facility]). 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 Annita Moreira CNM Referring Provider Certified Nurse Lunch Counter Manager 03/22/22 [address] [place] [address]
--- OUTSIDE RECORDS SUMMARY | 2022-07-24 08:35 | XMS_ITS | Clinical Summary ---
:1985 Author Organization [facility] Address [address] [place] [address] Care Team Providers Name Role Phone Unavailable Primary Care Provider Unavailable Source Comments Patient records contain information from all sites at [facility]. For routine questions regarding patient records, call [phone] during business hours, M-F 8:00 AM - 5:00 PM Central Time. Record requests for emergency care only can be directed to [phone] at any time.[facility] Allergies Active Allergy Reactions Severity Noted Date Comments Penicillins Rash 10/18/2020 Salicylates Edema 10/18/2020 Swollen tongue Medications Medication Sig Dispensed Refills Start Date End Date Status Take 1 tablet by 0 Act angela qpzboic-[id number]-[id number]-FA mouth daily. (VINATE ONE) 60 mg iron-1 [...] Comments Blood Pressure 116/69 10/20/2020 12:39 PM RESTORATIVE REHAB AIDE Pulse 81 10/20/2020 12:39 PM RESTORATIVE REHAB AIDE Temperature 37.2 ??C (99 ??F) 10/20/2020 12:39 PM RESTORATIVE REHAB AIDE Respiratory Rate 18 10/20/2020 12:39 PM RESTORATIVE REHAB AIDE Oxygen Saturation 99% 10/20/2020 12:39 PM RESTORATIVE REHAB AIDE Inhaled Oxygen Concentration - - Weight 56.3 kg (124 lb 1.9 oz) 10/19/2020 6:30 AM RESTORATIVE REHAB AIDE Height - - Body Mass Index - [...] on patient's age to complete this to [facility] Insurance Payer Benefit Plan / Subscriber ID Effective Dates Phone Addre ss Type Group [place] [id number] 2020-[place] [phone] [address] PPO BLUE SHIELD [address] [place] [address] Advance Directives For more information, please contact: [phone] Latest Code Status on File Code Status Date Activated Date Inactivated Comments Full Code 10/18/2020 7:51 PM 10/20/2020 2:51 PM Full Code: Not Discussed Due to: Not medically appropriate
--- OUTSIDE RECORDS SUMMARY | 2022-07-24 08:35 | XMS_ITS | Encounter Summary ---
:1985 Author Organization [facility] Address [address] [place] [address] Care Team Providers Name Role Phone Unavailable Primary Care Provider Unavailable Reason for Visit Reason Comments Rupture of Membranes Contractions Auth/Cert Specialty Diagnoses / Procedures Referred By Contact Refer red To Contact Diagnoses 22 Weeks Gestation (HCC) Procedures DIR Referral ID Status Reason Start Date Expiration Date Visits Requ ested Visits Authorized [id number] 1 1 Encounter Details Date Type Department Care Team Description 10/18/2020 - Hospital Encounter [facility] Jordyn Wild M.D. [address] [place] [phone] 22 Weeks Gestation (Primary Dx) ; 10/20/2020 [facility], Erin Villagran M.D., M.P.H. [address] [place] [phone] 21 Weeks Gestation ; [place], Heather Ott M.D. [address] [place] [phone] Premature Rupture Of Membranes U nspecified As To Length Of Time Between Rupture And Onset Of Labor Second Trimester Building, Third Floor [address] [place] [address] Social History Tobacco Use Types [...] or relatives? How often do you attend oriental orthodox or 1 to 4 times per year 11/22 latter-day services? Do you belong to any clubs or No 12/12/2020 organizations such as oriental orthodox groups, unions, fraternal or athletic groups, [...] Comments Blood Pressure 116/69 10/20/2020 12:39 PM MECHANIC SENIOR Pulse 81 10/20/2020 12:39 PM MECHANIC SENIOR Temperature 37.2 ??C (99 ??F) 10/20/2020 12:39 PM MECHANIC SENIOR Respiratory Rate 18 10/20/2020 12:39 PM MECHANIC SENIOR Oxygen Saturation 99% 10/20/2020 12:39 PM MECHANIC SENIOR Inhaled Oxygen Concentration - - Weight 56.3 kg (124 lb 1.9 oz) 10/19/2020 6:30 AM MECHANIC SENIOR Height - - Body Mass Index - - documented in this encounter Discharge Summaries Saqib Strong M.D. - 10/20/2020 12:07 PM CST DISCHARGE SUMMARY BRIEF OVERVIEW Hospital: [facility] Discharge Provider: Erin Alarcon M.D. Primary Team: [facility] No primary care provider on [...] return in one week for neonatology consult, [facility] return visit and further discussion of when she would like to be re-admitted. She was discharged home in stable condition. //Miriam Ruggiero MD CONSULTS ORDERED DURING THIS ADMISSION CONDITION AT DISCHARGE Stable Discharge instructions were provided to the patient and caregiver(s). ANIC SENIOR documented in this encounter Medications at Time of Discharge Medication Sig Dispensed Refills Start Date End Date Take 1 tablet by 0 puibrzo-Do-obyd-FA (VINATE mouth daily. ONE) 60 mg iron-1 mg per tablet vehatgkwwy-uettnzsighuvy-r TK 1 TO 2 TS PO Q [...] 10/18/2020. 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 Obstetrical Chief PGY-3 [id number] ANIC SENIOR Associated attestation - Heather Goodrich M.D. - 10/19/2020 12:27 AM MECHANIC SENIOR Garage Attendant Teaching Physician Statement: I have discussed the [...] delivery upon exam findings of 4-5cm dilation. 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 PSH: none Allergies: PCN (rash as [...] concern for necrotizing enterocolitis, and potential poor letterer neurological outcomes/disability. Have printed her additional studies [...] further discussion this afternoon Miriam Ruggiero M.D. ANIC SENIOR Associated attestation - Saqib Strong M.D. - 10/20/2020 11:17 AM MECHANIC SENIOR I have discussed the care of Jim [...] L.G.S.W., L.I.C.S.W., M.S.W. - 10/19/2020 1:02 PM MECHANIC SENIOR SUBJECTIVE Social work met with the patient [...] weeks gestationas a transfer of care from [place], [place] due to concern for previable premature [...] day parking pass provided 10/19/20. Annita Kaplan [facility], ECONOMIC CONSULTANT 10/19/2020 ANIC SENIOR Miriam Ruggiero M.D. - 10/19/2020 12:09 PM [...] 10/18/2020. 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 PSH: [...] for necr otizing enterocolitis, and potential poor letterer neurological outcomes/disability. Have printed her additional studies [...] proceed. Further discussion pending ultrasound results. Miriam Ruggeiro M.D. ANIC SENIOR Associated attestation - Raysa Guerin M.D. - 11/14/2020 4:22 AM MECHANIC SENIOR I saw and evaluated the patient, participating [...] with family for expectant management. Questions answered. ANIC SENIOR Irish Newell R.N. - 10/18/2020 9:29 PM [...] reviewed goals for the shift with patient. ANIC SENIOR documented in this encounter Miscellaneous Notes Hospital Course - Miriam Ruggiero M.D. - 10/19/2020 2:32 AM CST Jim Lowe is a 34 y.o who presented at 21w1 for previable PPROM. She was admitted from 10/19-. She weighed her options and then decided to pursue expectant management. She will return in one week for neonatology consult, [facility] return visit and further discussion of when she would like to be re-admitted. She was discharged home in stable condition. //Miriam Ruggiero MD ANIC SENIOR documented in this encounter Plan of Treatment Pending Results Name Type Priority Associated Diagnoses Date/Ti me US OB Limited Imaging RAD - Routine (most 020 8:51 PM inpatients and all MECHANIC SENIOR outpatients) Scheduled Orders Name Type Priority Associated Diagnoses Order S chedule US OB Limited Imaging RAD - Routine (most Once fo r 1 inpatients and all Occurrenc es starting outpatients) 10/18/2020 unti l 10/18/2020 documented as of this encounter Procedures Procedure Name Priority Date/Time Associated Comments Diagnosis US OB ANATOMY RAD - Routine 10/19/2020 1:21 Results fo r this ANGUIANO (most inpatients PM MECHANIC SENIOR procedure a re in and all the results outpatients) section. RUBELLA ANTIBODIES, Routine 10/19/2020 7:18 Resul ts for this IGG AM MECHANIC SENIOR procedure are i n the results section. VARICELLA-ZOSTER Routine 10/19/2020 7:18 Results for this AB, IGG, S AM MECHANIC SENIOR procedure are i n the results section. MICROSCOPIC MANUAL Routine 10/19/2020 2:21 Result s for this AM MECHANIC SENIOR procedure are i n the results section. BACTERIAL CULTURE, Routine 10/19/2020 2:21 Result s for this AEROBIC + SUSC, AM MECHANIC SENIOR procedure ar e in URINE the results section. CONFIRMED DRUG Routine 10/19/2020 2:21 Results fo r this ABUSE PANEL, U AM MECHANIC SENIOR procedure are in the results section. CHLAMYDIA/GONORRHOE Routine 10/19/2020 2:21 Resul ts for this AE AMPLIFIED RNA AM MECHANIC SENIOR procedure a re in the results section. URINALYSIS WITH Routine 10/19/2020 2:21 Results f or this MICROSCOPIC AM MECHANIC SENIOR procedure are i n the results section. HEPATITIS B SURFACE STAT 10/18/2020 9:34 Resul ts for this ANTIGEN PM MECHANIC SENIOR procedure are i n the results section. FIBRINOGEN, P STAT 10/18/2020 9:34 Results for this PM MECHANIC SENIOR procedure are i n the results section. SARS CORONAVIRUS 2, Routine 10/18/2020 8:05 Resul ts for this MOLECULAR PM MECHANIC SENIOR procedure are i n DETECTION, PCR (RADIO TESTER) the resu lts section. HEPATITIS B SURFACE STAT 10/18/2020 7:59 Resul ts for this ANTIGEN PM MECHANIC SENIOR procedure are i n the results section. CBC WITHOUT STAT 10/18/2020 7:59 Results for this DIFFERENTIAL, B PM MECHANIC SENIOR procedure ar e in the results section. TYPE AND SCREEN STAT 10/18/2020 7:59 Results f or this PM MECHANIC SENIOR procedure are i n the results section. HIV-1/-2 AG AND AB STAT 10/18/2020 7:58 Result s for this SCRN, PM MECHANIC SENIOR procedure are in PLASMA the results section. documented in this encounter Results US OB Anatomy Anguiano (10/19/2020 1:21 PM MECHANIC SENIOR) Anatomical Region Laterality Modality Body, Ultrasound OB RST LOS, Ultrasound ARZ LOS N/A Ultrasound Specimen (Source) Anatomical Location Collection Method / Collectio n Time Received Time / Laterality Volume Narrative 10/19/2020 1:27 PM MECHANIC SENIOR JIM LOWE OB Exam, 10/19/2020 EXAM INFORMATION Patient Name: ??JIM LOWE : ??1985 Age: ??34 yrs Sex: ??Female Ref Phys: ??MIRIAM RUGGIERO Exam Date: 10/19/2020 Procedure: US OB ANATOMY ANGUIANO Exam Site: [facility] Plurality: 1 INDICATIONS FOR SONOGRAPHY Anatomic [...] Read by Ilir Moss on 1:21:30 PM. Cheesemaking Laborer: ??Ilir Moss Thank You For This Referral Procedure Note Eamon Dawson M.B.B.S., MAngelo. - 10/19 JIM LOWE OB Exam, 10/19/2020 EXAM INFORMATION Patient Name: MYNORJIM S : 1985 Age: 34 yrs Sex: Female Ref Phys: MIRIAM RUGGIERO Exam Date: 10/19/2020 Procedure: US OB ANATOMY ANGUIANO Exam Site: [facility] Plurality: 1 INDICATIONS FOR SONOGRAPHY Anatomic [...] Read by Ilir Moss on 1:21:30 PM. Cheesemaking Laborer: Ilir Moss Thank You For This Referral Miriam Ruggiero M.D. IMG OB US PROCEDURES Varicella-Zoster Antibody, IgG, Serum (10/19/2020 7:18 AM MECHANIC SENIOR) athologist Signature Varicella-Zost Positive 10/19/2020 [facility] er Ab, IgG, S 10:41 AM MECHANIC SENIOR Comment: Results suggest response to immunization or prior exposure to the virus. ----REFERENCE VALUE---- Vaccinated: Positive (>=1.1 AI) Unvaccinated: Negative (<=0.8 AI) Varicella IgG Antibody Index 1.3 10/19/2020 10:41 AM MECHANIC SENIOR [facility] Specimen Anatomical Collection Method Collection Time Receive d Time (Source) Location / / Volume Laterality Blood (Blood, 10/19/2020 7:18 AM 10/19/20 20 9:43 Venous) MECHANIC SENIOR AM MECHANIC SENIOR Sierra Welch M.D. LAB MICROBIOLOGY - BLOOD ORD ERADIAMANTE Performing Organization Address [facility] Phon e Number [place] [phone] [place] [address] [address] [facility] [address] Laboratory Medicine and Pathology [address] [place] [address] Dr. MANUEL Rubella Antibodies, IgG (10/19/2020 7:18 AM MECHANIC SENIOR) athologist Signature Rubella Ab, Positive 10/19/2020 [facility] IgG, S 10:40 AM MECHANIC SENIOR Comment: Results suggest response to immunization or prior exposure to the virus. ----REFERENCE VALUE---- Vaccinated: Positive (>=1.0 AI) Unvaccinated: Negative (<=0.7 AI) Rubella IgG Antibody Index 1.4 10/19/2020 10 :40 AM MECHANIC SENIOR [facility] Specimen Anatomical Collection Method Collection Time Receive d Time (Source) Location / / Volume Laterality Blood (Blood, 10/19/2020 7:18 AM 10/19/20 20 9:43 Venous) MECHANIC SENIOR AM MECHANIC SENIOR Sierra Welch M.D. LAB MICROBIOLOGY - BLOOD ORD JENNA Performing Organization Address [facility] Phon e Number [address] [place] [address] [address] [address] Laboratory Medicine and Pathology [address] [place] [address] Dr. MANUEL (ABNORMAL) Microscopic Manual (10/19/2020 2:21 AM MECHANIC SENIOR) Analysis Performed At Patho logist Time Signature Microscopy Abnormal 10/19/2020 [place] 6:26 AM MECHANIC SENIOR RBC >100 (A) <3 /hpf 10/19/2020 [place] 6:26 AM MECHANIC SENIOR Dysmorphic RBC <25 <25 % 10/19/2020 [place] 6:26 AM MECHANIC SENIOR WBC 1-3 /hpf 10/19/2020 [place] 6:26 AM MECHANIC SENIOR Comment: ----REFERENCE VALUE---- 1-3 ??(Males) 1-10 (Females) Specimen Anatomical Collection Method Collection Time Receive d Time (Source) Location / / Volume Laterality Urine 10/19/2020 2:21 AM 0 4:00 MECHANIC SENIOR AM MECHANIC SENIOR Sierra Welch M.D. LAB URINE ORDERABLES Performing Organization Address [facility] Phon e Number [facility] - [address] [place] [address] 05 [place] [address] Laboratories[address] Bacterial Culture, Aerobic + Susc, Urine (10/19/2020 2:21 AM MECHANIC SENIOR) Patholo gist Method Time Signature Urine Culture No growth 10/20/2020 DT after 1 day 8:16 AM MECHANIC SENIOR of incubation. Specimen Anatomical Collection Method Collection Time Receive d Time (Source) Location / / Volume Laterality Urine (Urine, 10/19/2020 2:21 AM 10/19/20 20 5:03 Straight MECHANIC SENIOR AM MECHANIC SENIOR Catheter) Comment: Specimen Source Site: Urine Sierra Welch M.D. LAB MICROBIOLOGY - GENERAL O RDERABLES Performing Organization Address [facility] Phon e Number [facility] - [address] [place] [address] (ABNORMAL) Urinalysis with Microscopic: Urine, Catheter (10/19/2020 2:21 AM MECHANIC SENIOR) Analysis Performed At Patho logist Time Signature Source Catheter 10/19/2020 [place] 4:00 AM MECHANIC SENIOR Appearance Normal Normal 10/19/2020 [place] 4:00 AM MECHANIC SENIOR Osmolality, U 521 150 - 1150 10/19/2020 [place] mOsm/kg 4:47 AM MECHANIC SENIOR pH, U 6.2 4.5 - 8.0 10/19/2020 [place] 4:47 AM MECHANIC SENIOR Comment: ----ADDITIONAL INFORMATION---- This test was developed and its performa nce characteristics determined by [facility] in a manner co nsistent with CLIA requirements. This test has not bee n cleared or approved by the U.S. Food and Drug Admin istration. Glucose 8 0 - 15 mg/dL 10/19/2020 6:17 AM MECHANIC SENIOR [place] Protein, U 46 (H) <26 mg/dL 10/19/2020 6:17 AM MECHANIC SENIOR [place] Comment: ----ADDITIONAL INFORMATION---- On 04/16/2017 the total protein assay me thod changed resulting in approximately a 15% increase in prote in values. Protein/Osmolality 0.88 (H) <0.42 Ratio 10/19/2020 6:17 AM MECHANIC SENIOR [place] Comment: ----ADDITIONAL INFORMATION---- On 04/16/2017 the total protein assay me thod changed resulting in approximately a 15% increase in prote in values. Predicted 24 Hr Protein 597 mg/24 h 10/19/2020 6:17 AM MECHANIC SENIOR [place] Predicted Range 148-2419 mg/24 h 10/19/2020 6:17 AM MECHANIC SENIOR R JEM Hemoglobin, QL Large (A) Negative 10/19/2020 6:26 AM MECHANIC SENIOR RE NA Specimen Anatomical Collection Method Collection Time Receive d Time (Source) Location / / Volume Laterality Urine (Urine, 10/19/2020 2:21 AM 10/19/20 20 4:00 Catheter) MECHANIC SENIOR AM MECHANIC SENIOR Sierra Welch M.D. LAB URINE ORDERABLES Performing Organization Address City/State/ZIP Code Phon e Number [facility] - [address] [place], [place] [address] [place] [address] Laboratories-[facility] [address] Chlamydia / Gonorrhoeae Amplified RNA (10/19/2020 2:21 AM MECHANIC SENIOR) [facility] gist Method Time Signature Source Urine, 10/19/2020 [facility] Urine, First 6:58 PM MECHANIC SENIOR Voided Chlamydia Negative Negative 10/19/2020 [facility] trachomatis 6:58 PM MECHANIC SENIOR amplified RNA Source Urine, 10/19/2020 [facility] Urine, First 6:58 PM MECHANIC SENIOR Voided Neisseria Negative Negative 10/19/2020 [facility] gonorrhoeae 6:58 PM MECHANIC SENIOR amplified RNA Specimen Anatomical Collection Method Collection Time Receive d Time (Source) Location / / Volume Laterality Varies (Urine, 10/19/2020 2:21 AM 020 7:22 First Voided) MECHANIC SENIOR AM MECHANIC SENIOR Sierra Welch M.D. LAB MICROBIOLOGY - GENERAL O RDERABLES Performing Organization Address City/[facility] Phon e Number [facility] - [address] [place], [place] [address] [facility] [place] [address] Laboratories-[facility] [address] Drug Abuse Survey with Confirmation, Urine (10/19/2020 2:21 AM MECHANIC SENIOR) Patholo gist Method Time Signature Alcohol Negative Cutoff: 10/19/2020 [facility] 10 mg/dL 9:52 AM MECHANIC SENIOR Amphetamines Negative Cutoff: 10/19/2020 [facility] 500 ng/mL 9:52 AM MECHANIC SENIOR Barbiturates Negative Cutoff: 10/19/2020 [facility] 200 ng/mL 9:52 AM MECHANIC SENIOR Benzodiazepines Negative Cutoff: 10/19/2020 [facility] 100 ng/mL 9:52 AM MECHANIC SENIOR Cocaine Negative Cutoff: 10/19/2020 [facility] 150 ng/mL 9:52 AM MECHANIC SENIOR Opiates Negative Cutoff: 10/19/2020 [facility] 300 ng/mL 9:52 AM MECHANIC SENIOR Phencyclidine Negative Cutoff: 10/19/2020 [facility] 25 ng/mL 9:52 AM MECHANIC SENIOR Tetrahydrocannabinol Negative Cutoff: 10/19/2020 [facility] 50 ng/mL 9:52 AM MECHANIC SENIOR Comment: ----ADDITIONAL INFORMATION---- This report is intended for use in clini kosta monitoring or management of patients. ??It is not intended for use i n employment-related testing. Specimen Anatomical Collection Method Collection Time Receive d Time (Source) Location / / Volume Laterality Urine (Urine, 10/19/2020 2:21 AM 10/19/20 8:50 Clean Catch) MECHANIC SENIOR AM MECHANIC SENIOR Sierra Welch M.D. LAB URINE ORDERABLES Performing Organization Address City/[facility] Phon e Number [facility] [address] [place], [place] [address] [facility] [place] [address] Laboratory Medicine and Pathology [address] [place] (ABNORMAL) Fibrinogen (10/18/2020 9:34 PM MECHANIC SENIOR) P athologist Signature Fibrinogen, P 624 (H) 200 - 393 10/18/2020 [facility] mg/dL 9:49 PM MECHANIC SENIOR Specimen Anatomical Collection Method Collection Time Receive d Time (Source) Location / / Volume Laterality Blood (Blood, 10/18/2020 9:34 PM 10/18/20 20 9:40 Venous) MECHANIC SENIOR PM MECHANIC SENIOR Sierra Welch M.D. LAB BLOOD ADD-ON Performing Organization Address City/[facility]/ZIP Code Phon e Number [facility] - [address] [place], [place] [address] [facility] [place] [address] Laboratories-[facility] [address] Hepatitis B Surface Antigen (10/18/2020 9:34 PM MECHANIC SENIOR) P athologist Signature HBs Antigen, S Negative Negative 10/19/2020 [facility] 9:23 AM MECHANIC SENIOR Specimen Anatomical Collection Method Collection Time Receive d Time (Source) Location / / Volume Laterality Blood (Blood, 10/18/2020 9:34 PM 10/19/20 8:14 Venous) MECHANIC SENIOR AM MECHANIC SENIOR Sierra Welch M.D. LAB MICROBIOLOGY - BLOOD ORD ERABLES Performing Organization Address [facility] Phon e Number [facility] [address] [place], [place] [address] [facility] [place] [address] Laboratory Medicine and Pathology [address] [place] SARS Coronavirus 2, Molecular Detection, PCR (RADIO TESTER) Asymptomatic (10/18/2020 8:05 PM MECHANIC SENIOR) Patholo gist Method Time Signature COVID-19, PCR Undetected Undetected 10/19/2020 [facility] 12:55 AM MECHANIC SENIOR Comment: SARS-CoV-2 RNA absent. This result does [...] Drug Administration an d is used per digital computer operator's instructions. Performance characteristics were verified by [facility] in a manner consistent with CLIA requirements. Visit the CDC website: https://www.cdc.g ov/coronavirus/ for the most recent guidelines on [place] virus testing. Fact Sheet for Healthcare Providers: https://www.fda.gov/media/402523/downloa d Fact Sheet for Patients: https://www.fda.gov/media/401322/downloa d Specimen Anatomical Collection Method Collection Time Receive d Time (Source) Location / / Volume Laterality Varies 10/18/2020 8:05 PM 0 8:40 (Nasopharynx) MECHANIC SENIOR PM MECHANIC SENIOR Heather Goodrich M.D. LAB MICROBIOLOGY - GENERAL O RDERABLES Performing Organization Address City/[facility]/ZIP Code Phon e Number [facility] - [address] [place], [place] [address] [facility] [place] [address] Laboratories-[facility] [address] [facility] Hepatitis B Surface Antigen (10/18/2020 7:59 PM MECHANIC SENIOR) P athologist Signature HBs Antigen, S Negative Negative 10/19/2020 [facility] 8:04 AM MECHANIC SENIOR Specimen Anatomical Collection Method Collection Time Receive d Time (Source) Location / / Volume Laterality Blood (Blood, 10/18/2020 7:59 PM 10/19/20 20 6:59 Venous) MECHANIC SENIOR AM MECHANIC SENIOR Sierra Welch M.D. LAB MICROBIOLOGY - BLOOD ORD ERABLES Performing Organization Address City/[facility] Phon e Number [facility] [address] [place], [place] [address] [facility] [place] [address] Laboratory Medicine and Pathology [address] [place] Type and Screen (with reflex Antibody ID) (10/18/2020 7:59 PM MECHANIC SENIOR) Patholo gist Method Time Signature ABORh B Pos Not 10/18/2020 [facility] applicable 8:29 PM MECHANIC SENIOR Antibody Negative Negative 10/18/2020 [facility] Screen 8:44 PM MECHANIC SENIOR Type & Screen 10/21/2020 10/18/2020 [facility] Expiration 23:59 8:29 PM MECHANIC SENIOR Testing [place] DEFAULT 10/18/2020 [facility] Location 8:08 PM MECHANIC SENIOR Specimen Anatomical Collection Method Collection Time Receive d Time (Source) Location / / Volume Laterality Blood (Blood, 10/18/2020 7:59 PM 10/18/20 20 8:08 Venous) MECHANIC SENIOR PM MECHANIC SENIOR Sierra Welch M.D. LAB BLOOD BANK TEST ORDERABL ES Performing Organization Address [facility]/ZIP Code Phon e Number [facility] - [address] [place], [place] [address] [facility] [place] [address] Laboratories-[facility] 200 [facility] (ABNORMAL) CBC without Differential (10/18/2020 7:59 PM MECHANIC SENIOR) Patholo gist Method Time Signature Hemoglobin 11.0 (L) 11.6 - 10/18/2020 [facility] 15.0 g/dL 8:06 PM MECHANIC SENIOR Hematocrit 31.8 (L) 35.5 - 10/18/2020 [facility] 44.9 % 8:06 PM MECHANIC SENIOR Erythrocytes 3.65 (L) 3.92 - 10/18/2020 [facility] 5.13 8:06 PM MECHANIC SENIOR x10(12)/L MCV 87.1 78.2 - 10/18/2020 [facility] 97.9 fL 8:06 PM MECHANIC SENIOR RBC Distrib Width 13.5 12.2 - 10/18/2020 [facility] 16.1 % 8:06 PM MECHANIC SENIOR Platelet Count 287 157 - 371 10/18/2020 [facility] x10(9)/L 8:06 PM MECHANIC SENIOR Leukocytes 19.3 (H) 3.4 - 9.6 10/18/2020 [facility] x10(9)/L 8:06 PM MECHANIC SENIOR Specimen Anatomical Collection Method Collection Time Receive d Time (Source) Location / / Volume Laterality Blood (Blood, 10/18/2020 7:59 PM 10/18/20 8:04 Venous) MECHANIC SENIOR PM MECHANIC SENIOR Sierra Welch M.D. LAB BLOOD ADD-ON Performing Organization Address City/State/ZIP Code Phon e Number [facility] - [address] [place] [address] [facility] [place] [address] [facility] 200 [facility] HIV-1/-2 Ag and Ab Scrn, Plasma (10/18/2020 7:58 PM MECHANIC SENIOR) P athologist Signature HIV-1/-2 Ag Negative Negative 10/19/2020 [facility] and Ab 9:31 AM MECHANIC SENIOR Scrn, P Comment: Negative result does not rule out HIV in fection. If exposure to HIV infection occurred <14 d ays ago, contact the laboratory to request additi on of HIV-1 RNA detection / quantification test (HIV QN). Specimen Anatomical Collection Method Collection Time Receive d Time (Source) Location / / Volume Laterality Blood (Blood, 10/18/2020 7:58 PM 10/19/20 20 6:59 Venous) MECHANIC SENIOR AM MECHANIC SENIOR Sierra Welch M.D. LAB MICROBIOLOGY - BLOOD ORD ERABLES Performing Organization Address City/State/ZIP Code Phon e Number [facility] [address] [place], [place] [address] SUPPORT [facility]ENTER [facility] [place] [address] Laboratory Medicine and Pathology [address] [...] 900 mg New Bag 10/19/2020 5:09 AM MECHANIC SENIOR 900 mg 100 mL/hr (CLEOCIN) 900 mg, intravenous, at 100 mL/hr, Administer over 30 Minutes, Every 8 hours, First dose on Sat10/18/20 at 2000, premix bag, Indications: Obstetric or gynecological infection New Bag 10/18/2020 9:41 PM MECHANIC SENIOR 900 mg 100 mL/hr fentaNYL injection 100 mcg (SUBLIMAZE) Given 10/18/2020 9:49 PM MECHANIC SENIOR 100 mcg 100 mcg, intravenous, Every 1 hour PRN, moderate pain or score 4-6 of 10, severe pain or score 7-10 of 10, for labor pains, Starting on Sat10/18/20 at 1939, For 3 doses, L&D Pre-Delivery, Consultation with Anesthesia for pain control if patient requests regional anesthesia and in active labor or membranes ruptured. Given 10/18/2020 8:44 PM MECHANIC SENIOR 100 mcg gentamicin 290 mg in NaCl 0.9% IVPB New Bag 10/18/2020 8:41 PM MECHANIC SENIOR 290 mg 215 mL/hr (GARAMYCIN) 290 mg (rounded from 285 mg = 5 mg/kg ? 57 kg Order-specific weight), intravenous, at 215 mL/hr, Administer over 30 Minutes, Once, On Sat10/18/20 at 2000, For 1 dose, Drug Monitoring Program: Pharmacist to adjust medication dosing based on indication and drug clearance factors., Indications: Obstetric or gynecological infection lactated ringers New Bag 10/19/2020 5:10 AM MECHANIC SENIOR 125 mL/hr 125 mL/hr 125 mL/hr, intravenous, Continuous, Starting on Sat10/18/20 at 2000, L&D Pre-Delivery, Indications: Hang fluids for maternal dehydration, concerns, epidural placement, with antibiotics. Rate/Dose Verify 10/19/2020 2:20 AM MECHANIC SENIOR 125 mL/hr 125 mL/hr Rate/Dose Verify 10/19/2020 12:00 AM MECHANIC SENIOR 125 mL/hr 125 mL/hr multivitamin/mineral- tablet 1 Given 10/20/2020 9:30 AM MECHANIC SENIOR 1 tablet tablet 1 tablet, oral, Daily, First dose on Kylie 10/20/20 at 0900 documented in this encounter Active and Recently Administered Medications Times are shown in MECHANIC SENIOR. Scheduled Medication Order 10/18/2020 10/19/2020 10/20/2020 clindamycin [...] palpation, or reach a mximum of 250 Lynndyl units, and/or cervical change(s) occur. PRN Medication [...] COVID19 Pending 10/18/2020 10/18/2020 10/19/2020 12:56 AM MECHANIC SENIOR documented as of this encounter
--- OUTSIDE RECORDS SUMMARY | 2022-07-24 08:35 | XMS_ITS | Encounter Summary ---
:1985 Author Organization [facility] Address [address] [place] [address] Care Team Providers Name Role Phone Unavailable Primary Care Provider Unavailable Encounter Details Date Type Department Care Team Description 10/20/2020 Anesthesia Event [facility], Kandis Stock, [facility], INTERACTIVE MEDIA MARKETING SPECIALIST, CAR BRACER, DNAP [facility], Third [place] [address] [place] [address] Anesthesia Record Procedure Summary [...] or relatives? How often do you attend latter day or 1 to 4 times per year 11/22 restorationist services? Do you belong to any clubs or No 12/12/2020 organizations such as latter day groups, unions, fraternal or athletic groups, or [...]
[2022-07-24 08:52] LABS: Glucose Fasting Check 103 mg/dl (60-115)
[2022-07-24 17:56] LABS: Glucose 1 Hour Gest 196 mg/dl (70-180)
[2022-07-24 17:57] LABS: Glucose GTT-Gestational 3 Hr 135 mg/dl (70-140)
== END 2022-07-24 08:33 | disposition home or self-care (01) ==
LOC: LONREF 08:32
PROVIDERS: Visit Provider Obstetrics & Gynecology
DX: O24.419 Gestational diabetes mellitus in pregnancy, unspecified control (principal)
CPT/HCPCS: 82951; 82952

== ENCOUNTER 2022-08-17 09:00 | Outpatient (RCR) | payer BC, SELFPAY ==
[2022-08-10 09:33] VITALS: BP 114/76; PULSE 83; RESP 20; TEMP 36.8
[2022-08-10] MEDS: FERRIC CARBOXYMALTOSE 750 MG in 0.9 % SODIUM CHLORIDE 250 ml 250 ML 1060 MG IVPB (10:17)
[2022-08-17 09:02] VITALS: BP 106/70; PULSE 83; RESP 16; TEMP 36.9; O2SAT 99
[2022-08-17] MEDS: FERRIC CARBOXYMALTOSE 750 MG in 0.9 % SODIUM CHLORIDE 250 ml 250 ML 1060 MG IVPB (09:29)
== END 2023-02-06 23:59 | disposition home or self-care (01) ==
LOC: CCIC 09:00
PROVIDERS: Visit Provider Obstetrics & Gynecology
DX: O99.019 Anemia complicating pregnancy, unspecified trimester (principal)
CPT/HCPCS: 96374; J1439; J7050

== ENCOUNTER 2022-08-21 16:02 | Outpatient (CLI) | payer BC, SELFPAY ==
--- OUTSIDE RECORDS SUMMARY | 2022-08-21 16:19 | XMS_ITS | Encounter Summary ---
:1985 Author Organization [facility] Address [address], [place] [address] Care Team Providers Name Role Phone Unavailable Primary Care Provider Unavailable Reason for Visit Reason Comments APPOINTMENT REQUEST Referral for GDM Encounter Details Date Type Department Care Team Description 08/02/2022 Telephone [facility] 3800 Nurse, [id number] End APPOINTMENT REQUEST Endocrinology [address]is (Referral for GDM) [address] [facility] [place] [id number] Social History Tobacco Use Types Packs/Day Years Used Date Smoking Tobacco: Never Assessed Sex Assigned at Date Recorded Not on file documented as of this encounter Nursing Notes Sagrario Luna - 08/03/2022 9:49 AM CDT LVM to schedule GDM consult Sagrario Luna - 08/02/2022 9:18 AM CDT Faxed referral rec'd from [facility] for GDM, records sent to scan doc documented in this encounter Plan of Treatment Upcoming Encounters Date Type Specialty Care Team Description 09/04/2022 Telemedicine Diabetes Program Zoya Tinsley, RD N, LD, [facility] [address] [facility] [place] [address] [id number] (Wo rk) documented as of this encounter Visit Diagnoses Not on filedocumented in this encounter
--- OUTSIDE RECORDS SUMMARY | 2022-08-21 16:19 | XMS_ITS | Clinical Summary ---
:1985 Author Organization [facility] Address [address], [place] [address] Care Team Providers Name Role Phone Unavailable Primary Care Provider Unavailable Source Comments You are receiving this document as you are listed as the primary care provider,follow-up provider, or the patient has been referred to you for consultation.This is in compliance with the Medicare and Medicaid EHR Incentive Program,which states Providers who transition their patient to another setting of careor provider of care or refers their patient to another provider of care shouldprovide summarycare record for each transition of care or referral. [facility] Allergies Active Allergy Reactions Severity Noted Date Comments Penicillins Rash 08/09/2022 Salicylates Other, see comments High 08/09/2022 Tongue s welling Medications Medication Sig Dispensed Refills Start End Date Status Date 0 Active MV-Min-Fe Fum-FA-DHA ( 1 OR) omeprazole Take 20 mg by 0 Activ e (PRILOSEC) 20 MG mouth daily. 2 capsule progesterone Insert 200 mg 0 Act angela (PROMETRIUM) 200 vaginally daily. 2 MG capsule ondansetron Take 4 mg by mouth 0 Active (ZOFRAN) 4 MG every 6 hours as 2 tablet needed. FEROSUL 325 (65 Take 1 Tablet by 0 Active Fe) MG tablet mouth daily. 2 ONE TOUCH ULTRA SMARTSI Each 0 Active 2 meter Via Meter As 2 Directed ONETOUCH ULTRA 0 Activ e test strip 2 Lancets Apply 1 Lancet 0 Activ e (ONETOUCH DELICA topically 4 times 2 PLUS [id number]) a day. MISC insulin Inject 1 Each 100 Each Active syringe-needle subcutaneously 2 U-100 1ml 31g x daily. Indication s: Gestational diabetes mellitus (GDM), antepartum, gestational diabetes method of control unspecified insulin isophane Inject 16 Units 10 mL 4 0 Active (NOVOLIN N) 100 subcutaneously 2 23 UNIT/ML every evening. injectionIndicat ions: Gestational diabetes mellitus (GDM), antepartum, gestational diabetes method of control unspecified insulin isophane Inject 10 Units 10 mL 4 0 Discontinued (NOVOLIN N) 100 subcutaneously 2 22 (*Med change OR UNIT/ML every evening. same med OR injectionIndicat reo rder, new ions: dose/direc tions) Gestational diabetes mellitus (GDM), antepartum, gestational diabetes method of control unspecified Encounters Date Type Specialty Care Team Description 08/14/2022 Telemedicine Endocrinology Henrietta Ortega PA-C Gestati onal diabetes mellitus (GDM), antepartum, gestational kentrell betes method of control unsp ecified (Primary Dx) 08/03/2022 Notes/Orders Endocrinology Henrietta Ortega PA-C Gestati onal diabetes mellitus (GDM), antepartum, gestational kentrell betes method of control unsp ecified (Primary Dx) 08/02/2022 Telephone Endocrinology Nurse, [id number] End APPOINTMEN T REQUEST (Referral for G DM) from Last 3 Months Social History Tobacco Use Types Packs/Day Years Used Date Smoking Tobacco: Never Assessed Sex Assigned at Date Recorded Not on file Last Filed Vital Signs Vital Sign Reading Time Taken Comments Blood Pressure - - Pulse - - Temperature 36.8 ??C (98.3 ??F) 08/14/2022 1:40 PM Patient r eported CDT Respiratory Rate - - Oxygen Saturation - - Inhaled Oxygen Concentration - - Weight 69.4 kg (153 lb) 08/14/2022 1:08 PM Patient repo rted CDT Height 162.6 cm (5' 4) 08/14/2022 1:40 PM Patient repo rted CDT Body Mass Index 26.26 08/14/2022 1:08 PM CDT Plan of Treatment Upcoming Encounters Date Type Specialty Care Team Description 09/04/2022 Telemedicine Diabetes Program Zoya Tinsley, CASIMIRO N, LD, [facility] [address] [facility] [place] [id number] (Wo rk) Health Maintenance Due Date Last Done Comments Cervical Cancer Screening 1985 Due Hep C Screening (Preventive 1985 Services) HepB (1) 1985 COVID-19 Vaccine (#1) 06/06/1988 HIV Screening (Preventive 2003 Services) Adult Preventive Visit 2005 DTaP/Tdap/Td (9 - Tdap) 08/01/2032 08/01/2022, 09/09/2014, 05/24/2011, Additional history exists Zoster/Shingles (1 of 2) 2037 Influenza Completed 08/01/2022, 08/11/2020, 08/26/2014, Additional history exists HPV Vaccine Aged Out No longer eligib le based on patient 's age to complete this topic HepA Aged Out No longer eligib le based on patient 's age to complete this topic Hib Aged Out No longer eligib le based on patient 's age to complete this topic IPV (Polio) Aged Out No longer eligib le based on patient 's age to complete this topic MCV4 Aged Out No longer eligib le based on patient 's age to complete this topic Pneumococcal Aged Out No longer eligib le based on patient 's age to complete this topic Insurance Payer Benefit Plan / Subscriber ID Effective Dates Phone Addre ss Type Group BCBS BCBS OUT OF [id number] 2020-Present [id number] [place] [address]
--- OUTSIDE RECORDS SUMMARY | 2022-08-21 16:19 | XMS_ITS | Encounter Summary ---
:1985 Author Organization [facility] Address [address], [place] [address] Care Team Providers Name Role Phone Unavailable Primary Care Provider Unavailable Reason for Referral Consult/Transfer Care (Routine) - New Request Specialty Diagnoses / Procedures Referred By Contact Refer red To Contact Diagnoses Gestational diabetes mellitus (GDM), antepartum, gestational diabetes method of control unspecified Henrietta Ortega PA-C [address] [place], [place] [address] Referral ID Status Reason Start Date Expiration Date Visits V isits Requested Authorized [id number] New Request 08/03/2022 11/02/2023 1 1 Scheduling Instructions Your provider has recommended an appoint ment with Taylor [facility] Diabetes Education. You may call [phone] to schedule yo ur appointment. We suggest you call your health insurance company about your cove rage and benefits for this appointment. Encounter Details Date Type Department Care Team Description 08/03/2022 Notes/Orders [facility] [address] Henrietta Ortega PA-C Gestational diabetes Endocrinology [address] mellitus (GDM), [address] antepartum, [address] [place], [place] [address] method of control [id number] unspecified (Primary [phone] Dx) Social History Tobacco Use Types Packs/Day Years Used Date Smoking Tobacco: Never Assessed Sex Assigned at Date Recorded Not on file documented as of this encounter Progress Notes Annita Sher - 08/03/2022 12:55 PM CDT Please complete pended IDC referral for Gestational Diabetes education. Thank you, Annita Sher 08/03/2022, 12:55 PM documented in this encounter Plan of Treatment Upcoming Encounters Date Type Specialty Care Team Description 09/04/2022 Telemedicine Diabetes Program Zyoa Tinsley, CASIMIRO N, LD, [facility] [address] [facility] [place] [id number] (Wo rk) Scheduled Referrals Name Type Priority Associated Diagnoses [facility] Referral Routine Gestational diabetes O rdered: 08/03/2022 Visit mellitus (GDM), antepartum, gestational diabetes method of control unspecified documented as of this encounter Visit Diagnoses Diagnosis Gestational diabetes mellitus (GDM), ant epartum, gestational diabetes method of control unspecified - Primary documented in this encounter
--- OUTSIDE RECORDS SUMMARY | 2022-08-21 16:19 | XMS_ITS | Encounter Summary ---
:1985 [facility] Address [address], [place] [address] Care Team Providers Name Role Phone Unavailable Primary Care Provider Unavailable Encounter Details Date Type Department Care Team Description 08/14/2022 Telemedicine [facility] [address] Henrietta Ortega PA-C Gestational diabetes Endocrinology [address] mellitus (GDM), [address] antepartum, [address] [place], [place] [address] method of control [id number] unspecified (Primary [phone] Dx) Social History Tobacco Use Types Packs/Day Years Used Date Smoking Tobacco: Never Assessed Sex Assigned at Date Recorded Not on file documented as of this encounter Progress Notes Chantel Gibbs RN - 08/14/2022 2:30 PM CDT 08/08 1320 Left VM for patient to call back for chart prep Gold Pastor LPN - 08/14/2022 2:30 PM CDT Patient contacted with chart and medication list updated at this time.Patient will request records be faxed to clinic before appointment. Henrietta Ortega PA-C - 08/14/2022 2:30 PM CDT Images from the original note were not included. [facility]: [address], [address] [place] [id number] [phone], Nurse Line: [phone] Gestational Diabetes Visit Note August 14, 2022 Subjective: HPI: Laura Salinas is a 36 y.o. female who is here for evaluation and management of GDM. See below for lab results. She is 32 weeks. She is having a girl. Reports good movement. This will be her 5th child, she has 2 boys and 1 girl at home; one daughter : ages 16, 12, 7. Excited for new baby. No hx of GDM. No hx of pre-eclampsia. She met with registered safety engineer at OB office and started checking her glucose levels. Her fasting am readings were high, so she moved her dinner to earlier-6:30 and this has helped with her fasting am readings. She is not sure if she can continue having dinner at 6:30pm with kids' activities/sports. She met with the IDC just prior to this visit, and has follow-up visits scheduled on 08/21/2022 and 09/04/2022. Blood sugar readings; Date Fasting 2 hour post-breakfast 2 hour post-lunch 2 hour post-evening meal 08/06 94 107 123 109 08/07 107 126 101 - 08/08 97 104 112 101 08/09 95 109 105 135 08/10 Middle of the night 103 96 upon waking 110 124 119 08/11 Moved dinner from 7:30-8pm up to 6:30pm 89 95 117 - 08/12 88 106 137 Regular pop with lunch meal 117 08/13 93 116 102 107 08/14 92 109 Past medical history: GDM: no, DM: no, PCOS: no, Obesity: no, HTN: no Social history: . 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 Family history: DM:yes-grandmother and aunt. See [facility] for complete family history. Current Medications: No current diabetes medications. All medications reviewed and updated in [facility] today. Objective: Physical Exam: There were no vitals taken for this visit., Estimated body mass index is 26.26 kg/m?? as calculated from the following: Height as of an earlier encounter on 08/14/22: 5' 4 (1.626 m). Weight as of an earlier encounter on 08/14/22: 153 lb (69.4 kg). General: Pleasant female in NAD. Psych: No overt anxiety or depression. Thought process intact and logical. Lab Results: A1c: not checked Elevated 1h gtt at 165-see media tab Assessment: 1. Gestational diabetes mellitus (GDM), antepartum, gestational diabetes method of control unspecified Plan: 1. DM: We reviewed diagnosis and pathophysiology of GDM, blood glucose testing schedule, target blood glucose, and the benefits of good glycemic control on her and the baby vs. risks of poor control. Will hold off on starting NPH insulin at this time, since fasting am readings are well controlled withearlier dinner. However, if elevated fasting am readings are noted, recommend to start NPH per IDC guidelines. First IDC visit today. Follow up with IDC in 1 week and 3 weeks. Follow up with , Everton Sifuentes or Laila in 5 weeks? Henrietta Ortega PA-C Adult Endocrinology documented in this encounter Plan of Treatment Upcoming Encounters Date Type Specialty Care Team Description 09/04/2022 Telemedicine Diabetes Program Zoya Tinsley, RD N, LD, [facility] [address] [facility] [place] [address] [id number] (Wo rk) documented as of this encounter Visit Diagnoses Diagnosis Gestational diabetes mellitus (GDM), ant epartum, gestational diabetes method of control unspecified - Primary documented in this encounter
--- OUTSIDE RECORDS SUMMARY | 2022-08-21 16:20 | XMS_ITS | Encounter Summary ---
:1985 Author Organization [facility] Address [address] [place] [address] Care Team Providers Name Role Phone Unavailable Primary Care Provider Unavailable Encounter Details Date Type Department Care Team Description 10/20/2020 Anesthesia Event [facility], Kandis Stock, [facility], AIR SUPPORT OPERATIONS OPERATOR, CATHODIC PROTECTION TECHNICIAN, DNAP [facility], [address] [place] [address] Anesthesia Record Procedure Summary [...] one Less than mo nthly 12/12/2020 occasion? Social Isolation Answer Date Recorded In a typical week, how many times do you More than three fletcher es a week 12/12/2020 talk on the phone with family, friends, or neighbors? How often do you get together with friends Twice a week 12/12/2020 or relatives? How often do you attend restorationist or 1 to 4 times per year 11/22 scientologist services? Do you belong to any clubs or No 12/12/2020 organizations such as restorationist groups, unions, fraternal or athletic groups, or [...]
--- OUTSIDE RECORDS SUMMARY | 2022-08-21 16:20 | XMS_ITS | Encounter Summary ---
:1985 Author Organization [facility] Address [address] [place] [address] Care Team Providers Name Role Phone Unavailable Primary Care Provider Unavailable Reason for Visit Reason Comments Rupture of Membranes Contractions Auth/Cert Specialty Diagnoses / Procedures Referred By Contact Refer red To Contact Diagnoses 22 Weeks Gestation (HCC) Procedures DIR Referral ID Status Reason Start Date Expiration Date Visits Requ ested Visits Authorized [id number] 1 1 Encounter Details Date Type Department Care Team Description 10/18/2020 - Hospital Encounter [facility] Jordyn Wild M.D. [address] [place] [phone] 22 Weeks Gestation (Primary Dx) ; 10/20/2020 [facility], Erin Villagran M.D., M.P.H. [address] [place] [address] [phone] 21 Weeks Gestation ; Leslie, Heather Ott M.D. [address] [place] [phone] Premature Rupture Of Membranes U nspecified As To Length Of Time Between Rupture And Onset Of Labor Second Trimester Building, Third Floor [address] [place] [address] Social History Tobacco Use Types [...] Comments Blood Pressure 116/69 10/20/2020 12:39 PM SLACKLINE OPERATOR Pulse 81 10/20/2020 12:39 PM SLACKLINE OPERATOR Temperature 37.2 ??C (99 ??F) 10/20/2020 12:39 PM SLACKLINE OPERATOR Respiratory Rate 18 10/20/2020 12:39 PM SLACKLINE OPERATOR Oxygen Saturation 99% 10/20/2020 12:39 PM SLACKLINE OPERATOR Inhaled Oxygen Concentration - - Weight 56.3 kg (124 lb 1.9 oz) 10/19/2020 6:30 AM SLACKLINE OPERATOR Height - - Body Mass Index - - documented in this encounter Discharge Summaries Saqib Strong M.D. - 10/20/2020 12:07 PM CST DISCHARGE SUMMARY BRIEF OVERVIEW Hospital: [facility] Discharge Provider: Erin Alarcon M.D. Primary Team: [facility] No primary care provider [...] return in one week for neonatology consult, [facility] return visit and further discussion of when she would like to be re-admitted. She was discharged home in stable condition. //Miriam Ruggiero MD CONSULTS ORDERED DURING THIS ADMISSION CONDITION AT DISCHARGE Stable Discharge instructions were provided to the patient and caregiver(s). KLINE OPERATOR documented in this encounter Medications at Time of Discharge Medication Sig Dispensed Refills Start Date End Date Take 1 tablet by 0 hprnbhz-Et-ignc-FA (VINATE mouth daily. ONE) 60 mg iron-1 mg per tablet odmdxpikgx-kijfbrwzsagcq-x TK 1 TO 2 TS PO Q [...] 10/18/2020. 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 Obstetrical Chief PGY-3 [phone] KLINE OPERATOR Associated attestation - Heather Goodrich M.D. - 10/19/2020 12:27 AM SLACKLINE OPERATOR Roto Rooter Operator Teaching Physician Statement: I have discussed the [...] delivery upon exam findings of 4-5cm dilation. 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 PSH: [...] concern for necrotizing enterocolitis, and potential poor buttermaker neurological outcomes/disability. Have printed her additional studies [...] planning : pending further discussion this afternoon Mriiam Ruggiero M.D. KLINE OPERATOR Associated attestation - Saqib Strong M.D. - 10/20/2020 11:17 AM SLACKLINE OPERATOR I have discussed the care of [...] teaching physician. Saqib Strong M.D. Annita Kaplan L.G.S.Norris., L.I.C.S.W., M.S.W. - 10/19/2020 1:02 PM SLACKLINE OPERATOR SUBJECTIVE Social work met with the [...] weeks gestationas a transfer of care from [place], [place] due to concern for previable premature [...] day parking pass provided 10/19/20. Annita Kaplan [facility] 10/19/2020 KLINE OPERATOR Miriam Ruggiero M.D. - 10/19/2020 12:09 [...] 10/18/2020. 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 PSH: none Allergies: PCN (rash as [...] for necr otizing enterocolitis, and potential poor buttermaker neurological outcomes/disability. Have printed her additional studies to read while evaluating her options. Maternal - Afebrile, no signs/symptoms of infection. - WBC 19 on 10/08 in setting of painful contractions - UDS negative - COVID negative - G/C pending, urine culture pending - US pending at 12:30 pm - Neonatology consult ordered but not completed given GA prior to 02/24 Delivery: Patient and currently undecided about how best to proceed. Further discussion pending ultrasound results. Miriam Ruggiero M.D. KLINE OPERATOR Associated attestation - Raysa Guerin M.D. - 11/14/2020 4:22 AM SLACKLINE OPERATOR I saw and evaluated the patient, [...] with family for expectant management. Questions answered. KLINE OPERATOR Irish Newell R.N. - 10/18/2020 9:29 [...] reviewed goals for the shift with patient. KLINE OPERATOR documented in this encounter Miscellaneous Notes Hospital Course - Miriam Ruggiero M.D. - 10/19/2020 2:32 AM CST Jim Lowe is a 34 y.o who presented at 21w1 for previable PPROM. She was admitted from 10/19-. She weighed her options and then decided to pursue expectant management. She will return in one week for neonatology consult, M return visit and further discussion of when she would like to be re-admitted. She was discharged home in stable condition. //Miriam Ruggiero MD KLINE OPERATOR documented in this encounter Plan of Treatment Pending Results Name Type Priority Associated Diagnoses Date/Ti wv US OB Limited Imaging RAD - Routine (most 020 8:51 PM inpatients and all SLACKLINE OPERATOR outpatients) Scheduled Orders Name Type Priority [...] fo r this ANGUIANO (most inpatients PM SLACKLINE OPERATOR procedure a re in and all the results outpatients) section. RUBELLA ANTIBODIES, Routine 10/19/2020 7:18 Resul ts for this IGG AM SLACKLINE OPERATOR procedure are i n the results section. VARICELLA-ZOSTER Routine 10/19/2020 7:18 Results for this AB, IGG, S AM SLACKLINE OPERATOR procedure are i n the results section. MICROSCOPIC MANUAL Routine 10/19/2020 2:21 Result s for this AM SLACKLINE OPERATOR procedure are i n the results section. BACTERIAL CULTURE, Routine 10/19/2020 2:21 Result s for this AEROBIC + SUSC, AM SLACKLINE OPERATOR procedure ar e in URINE the results section. CONFIRMED DRUG Routine 10/19/2020 2:21 Results fo r this ABUSE PANEL, U AM SLACKLINE OPERATOR procedure are in the results section. CHLAMYDIA/GONORRHOE Routine 10/19/2020 2:21 Resul ts for this AE AMPLIFIED RNA AM SLACKLINE OPERATOR procedure a re in the results section. URINALYSIS WITH Routine 10/19/2020 2:21 Results f or this MICROSCOPIC AM SLACKLINE OPERATOR procedure are i n the results section. HEPATITIS B SURFACE STAT 10/18/2020 9:34 Resul ts for this ANTIGEN PM SLACKLINE OPERATOR procedure are i n the results section. FIBRINOGEN, P STAT 10/18/2020 9:34 Results for this PM SLACKLINE OPERATOR procedure are i n the results section. SARS CORONAVIRUS 2, Routine 10/18/2020 8:05 Resul ts for this MOLECULAR PM SLACKLINE OPERATOR procedure are i n DETECTION, PCR (MOTOR ANALYST) the resu lts section. HEPATITIS B SURFACE STAT 10/18/2020 7:59 Resul ts for this ANTIGEN PM SLACKLINE OPERATOR procedure are i n the results section. CBC WITHOUT STAT 10/18/2020 7:59 Results for this DIFFERENTIAL, B PM SLACKLINE OPERATOR procedure ar e in the results section. TYPE AND SCREEN STAT 10/18/2020 7:59 Results f or this PM SLACKLINE OPERATOR procedure are i n the results section. HIV-1/-2 AG AND AB STAT 10/18/2020 7:58 Result s for this SCRN, PM SLACKLINE OPERATOR procedure are in PLASMA the results section. documented in this encounter Results US OB Anatomy Anguiano (10/19/2020 1:21 PM SLACKLINE OPERATOR) Anatomical Region Laterality Modality Body, Ultrasound OB RST LOS, Ultrasound ARZ LOS N/A Ultrasound Specimen (Source) Anatomical Location Collection Method / Collectio n Time Received Time / Laterality Volume Narrative 10/19/2020 1:27 PM SLACKLINE OPERATOR JIM LOWE OB Exam, 10/19/2020 EXAM INFORMATION Patient Name: ??JIM LOWE : ??1985 Age: ??34 yrs Sex: ??Female Ref Phys: ??MIRIAM RUGGIERO Exam Date: 10/19/2020 Procedure: US OB ANATOMY ANGUIANO Exam Site: [facility] Plurality: 1 INDICATIONS FOR SONOGRAPHY Anatomic [...] Read by Ilir Moss on 1:21:30 PM. Greens Laborer: ??Ilir Moss Thank You For This Referral Procedure Note Eamon Dawson M.B.BIshaSIsha, Terrie. - 10/19 JIM LOWE OB Exam, 10/19/2020 EXAM INFORMATION Patient Name: MYNORJIM S : 1985 Age: 34 yrs Sex: Female Ref Phys: MIRIAM RUGGIERO Exam Date: 10/19/2020 Procedure: US OB ANATOMY ANGUIANO Exam Site: [facility] Plurality: 1 INDICATIONS FOR SONOGRAPHY Anatomic [...] Read by Ilir Moss on 1:21:30 PM. Greens Laborer: Ilir Moss Thank You For This Referral Miriam Ruggiero M.D. IMG OB US PROCEDURES Varicella-Zoster Antibody, IgG, Serum (10/19/2020 7:18 AM SLACKLINE OPERATOR) athologist Signature Varicella-Zost Positive 10/19/2020 [facility] er Ab, IgG, S 10:41 AM SLACKLINE OPERATOR Comment: Results suggest response to immunization or prior exposure to the virus. ----REFERENCE VALUE---- Vaccinated: Positive (>=1.1 AI) Unvaccinated: Negative (<=0.8 AI) Varicella IgG Antibody Index 1.3 10/19/2020 10:41 AM SLACKLINE OPERATOR [facility] Specimen Anatomical Collection Method Collection Time Receive d Time (Source) Location / / Volume Laterality Blood (Blood, 10/19/2020 7:18 AM 10/19/20 20 9:43 Venous) SLACKLINE OPERATOR AM SLACKLINE OPERATOR Sierra Welch M.D. LAB MICROBIOLOGY - BLOOD ORD ERADIAMANTE Performing Organization Address [facility] Phon e Number [facility] [address] [place] [address] [place] [address] Laboratory Medicine and Pathology [address] [place] [address] Dr. MANUEL Rubella Antibodies, IgG (10/19/2020 7:18 AM SLACKLINE OPERATOR) athologist Signature Rubella Ab, Positive 10/19/2020 [facility] IgG, S 10:40 AM SLACKLINE OPERATOR Comment: Results suggest response to immunization or prior exposure to the virus. ----REFERENCE VALUE---- Vaccinated: Positive (>=1.0 AI) Unvaccinated: Negative (<=0.7 AI) Rubella IgG Antibody Index 1.4 10/19/2020 10 :40 AM SLACKLINE OPERATOR [facility] Specimen Anatomical Collection Method Collection Time Receive d Time (Source) Location / / Volume Laterality Blood (Blood, 10/19/2020 7:18 AM 10/19/20 20 9:43 Venous) SLACKLINE OPERATOR AM SLACKLINE OPERATOR Sierra Welch M.D. LAB MICROBIOLOGY - BLOOD ORD JENNA Performing Organization Address [facility] Phon e Number [address] [place] [address] [facility] [place] [address] Laboratory Medicine and Pathology [address] [place] [address] Dr. MANUEL (ABNORMAL) Microscopic Manual (10/19/2020 2:21 AM SLACKLINE OPERATOR) Analysis Performed At Patho logist Time Signature Microscopy Abnormal 10/19/2020 [facility] 6:26 AM SLACKLINE OPERATOR RBC >100 (A) <3 /hpf 10/19/2020 [facility] 6:26 AM SLACKLINE OPERATOR Dysmorphic RBC <25 <25 % 10/19/2020 [facility] 6:26 AM SLACKLINE OPERATOR WBC 1-3 /hpf 10/19/2020 [facility] 6:26 AM SLACKLINE OPERATOR Comment: ----REFERENCE VALUE---- 1-3 ??(Males) 1-10 (Females) Specimen Anatomical Collection Method Collection Time Receive d Time (Source) Location / / Volume Laterality Urine 10/19/2020 2:21 AM 0 4:00 SLACKLINE OPERATOR AM SLACKLINE OPERATOR Sierra Welch M.D. LAB URINE ORDERABLES Performing Organization Address [facility] Phon e Number [facility] - [address] [place] [address] [address] [place] [phone] Laboratories-[address] Bacterial Culture, Aerobic + Susc, Urine (10/19/2020 2:21 AM SLACKLINE OPERATOR) Patholo gist Method Time Signature Urine Culture No growth 10/20/2020 DT after 1 day 8:16 AM SLACKLINE OPERATOR of incubation. Specimen Anatomical Collection Method Collection Time Receive d Time (Source) Location / / Volume Laterality Urine (Urine, 10/19/2020 2:21 AM 10/19/20 20 5:03 Straight SLACKLINE OPERATOR AM SLACKLINE OPERATOR Catheter) Comment: Specimen Source Site: Urine Sierra Welch M.D. LAB MICROBIOLOGY - GENERAL O RDERABLES Performing Organization Address [facility] Phon e Number [facility] - [address] [place] [address] Laboratories[address] (ABNORMAL) Urinalysis with Microscopic: Urine, Catheter (10/19/2020 2:21 AM SLACKLINE OPERATOR) Analysis Performed At Patho logist Time Signature Source Catheter 10/19/2020 [facility] 4:00 AM SLACKLINE OPERATOR Appearance Normal Normal 10/19/2020 [facility] 4:00 AM SLACKLINE OPERATOR Osmolality, U 521 150 - 1150 10/19/2020 [facility] mOsm/kg 4:47 AM SLACKLINE OPERATOR pH, U 6.2 4.5 - 8.0 10/19/2020 [facility] 4:47 AM SLACKLINE OPERATOR Comment: ----ADDITIONAL INFORMATION---- This test was developed and its performa nce characteristics determined by [facility] in a manner co nsistent with CLIA requirements. This test has not bee n cleared or approved by the U.S. Food and Drug Admin istration. Glucose 8 0 - 15 mg/dL 10/19/2020 6:17 AM SLACKLINE OPERATOR [facility] Protein, U 46 (H) <26 mg/dL 10/19/2020 6:17 AM SLACKLINE OPERATOR [facility] Comment: ----ADDITIONAL INFORMATION---- On 04/16/2017 the total protein assay me thod changed resulting in approximately a 15% increase in prote in values. Protein/Osmolality 0.88 (H) <0.42 Ratio 10/19/2020 6:17 AM SLACKLINE OPERATOR [facility] Comment: ----ADDITIONAL INFORMATION---- On 04/16/2017 the total protein assay me thod changed resulting in approximately a 15% increase in prote in values. Predicted 24 Hr Protein 597 mg/24 h 10/19/2020 6:17 AM SLACKLINE OPERATOR [facility] Predicted Range 148-2419 mg/24 h 10/19/2020 6:17 AM SLACKLINE OPERATOR R JEM Hemoglobin, QL Large (A) Negative 10/19/2020 6:26 AM SLACKLINE OPERATOR RE NA Specimen Anatomical Collection Method Collection Time Receive d Time (Source) Location / / Volume Laterality Urine (Urine, 10/19/2020 2:21 AM 10/19/20 20 4:00 Catheter) SLACKLINE OPERATOR AM SLACKLINE OPERATOR Sierra Welch M.D. LAB URINE ORDERABLES Performing Organization Address City/State/ZIP Code Phon e Number [facility] - [address] [place], [place] [address] [place] [address] Laboratories-[facility] [address] Chlamydia / Gonorrhoeae Amplified RNA (10/19/2020 2:21 AM SLACKLINE OPERATOR) [facility] gist Method Time Signature Source Urine, 10/19/2020 [facility] Urine, First 6:58 PM SLACKLINE OPERATOR Voided Chlamydia Negative Negative 10/19/2020 [facility] trachomatis 6:58 PM SLACKLINE OPERATOR amplified RNA Source Urine, 10/19/2020 [facility]TL Urine, First 6:58 PM SLACKLINE OPERATOR Voided Neisseria Negative Negative 10/19/2020 [facility] gonorrhoeae 6:58 PM SLACKLINE OPERATOR amplified RNA Specimen Anatomical Collection Method Collection Time Receive d Time (Source) Location / / Volume Laterality Varies (Urine, 10/19/2020 2:21 AM 020 7:22 First Voided) SLACKLINE OPERATOR AM SLACKLINE OPERATOR Sierra Welch M.D. LAB MICROBIOLOGY - GENERAL O RDERABLES Performing Organization Address [facility] Phon e Number [facility] - [address] [place], [place] [address] [place] [address] [facility] [address] Drug Abuse Survey with Confirmation, Urine (10/19/2020 2:21 AM SLACKLINE OPERATOR) Patholo gist Method Time Signature Alcohol Negative Cutoff: 10/19/2020 [facility] 10 mg/dL 9:52 AM SLACKLINE OPERATOR Amphetamines Negative Cutoff: 10/19/2020 [facility] 500 ng/mL 9:52 AM SLACKLINE OPERATOR Barbiturates Negative Cutoff: 10/19/2020 [facility] 200 ng/mL 9:52 AM SLACKLINE OPERATOR Benzodiazepines Negative Cutoff: 10/19/2020 [facility] 100 ng/mL 9:52 AM SLACKLINE OPERATOR Cocaine Negative Cutoff: 10/19/2020 SD[facility] 150 ng/mL 9:52 AM SLACKLINE OPERATOR Opiates Negative Cutoff: 10/19/2020 [facility] 300 ng/mL 9:52 AM SLACKLINE OPERATOR Phencyclidine Negative Cutoff: 10/19/2020 [facility] 25 ng/mL 9:52 AM SLACKLINE OPERATOR Tetrahydrocannabinol Negative Cutoff: 10/19/2020 [facility] 50 ng/mL 9:52 AM SLACKLINE OPERATOR Comment: ----ADDITIONAL INFORMATION---- This report is intended for use in clini kosta monitoring or management of patients. ??It is not intended for use i n employment-related testing. Specimen Anatomical Collection Method Collection Time Receive d Time (Source) Location / / Volume Laterality Urine (Urine, 10/19/2020 2:21 AM 10/19/20 8:50 Clean Catch) SLACKLINE OPERATOR AM SLACKLINE OPERATOR Sierra Welch M.D. LAB URINE ORDERABLES Performing Organization Address [facility] Phon e Number [facility] [address] [place], [place] [address] [facility] [place] [address] Laboratory Medicine and Pathology [address] MANUEL (ABNORMAL) Fibrinogen (10/18/2020 9:34 PM SLACKLINE OPERATOR) P athologist Signature Fibrinogen, P 624 (H) 200 - 393 10/18/2020 [facility] mg/dL 9:49 PM SLACKLINE OPERATOR Specimen Anatomical Collection Method Collection Time Receive d Time (Source) Location / / Volume Laterality Blood (Blood, 10/18/2020 9:34 PM 10/18/20 20 9:40 Venous) SLACKLINE OPERATOR PM SLACKLINE OPERATOR Sierra Welch M.D. LAB BLOOD ADD-ON Performing Organization Address City/[facility]/ZIP Code Phon e Number [facility] - [address] [place], [place] [address] [facility] [address] Laboratories-[facility] [address] Hepatitis B Surface Antigen (10/18/2020 9:34 PM SLACKLINE OPERATOR) P athologist Signature HBs Antigen, S Negative Negative 10/19/2020 [facility] 9:23 AM SLACKLINE OPERATOR Specimen Anatomical Collection Method Collection Time Receive d Time (Source) Location / / Volume Laterality Blood (Blood, 10/18/2020 9:34 PM 10/19/20 20 8:14 Venous) SLACKLINE OPERATOR AM SLACKLINE OPERATOR Sierra Welch M.D. LAB MICROBIOLOGY - BLOOD ORD ERABLES Performing Organization Address [facility] Phon e Number [facility] [address] [place], [place] [address] [facility] [place] [address] Laboratory Medicine and Pathology [address] [place] SARS Coronavirus 2, Molecular Detection, PCR (MOTOR ANALYST) Asymptomatic (10/18/2020 8:05 PM SLACKLINE OPERATOR) Patholo gist Method Time Signature COVID-19, PCR Undetected Undetected 10/19/2020 [facility]TL 12:55 AM SLACKLINE OPERATOR Comment: SARS-CoV-2 RNA absent. This result [...] Drug Administration an d is used per kaiawhina's instructions. Performance characteristics were verified by [facility] in a manner consistent with CLIA requirements. Visit the CDC website: https://www.cdc.g ov/coronavirus/ for the most recent guidelines on Bradley virus testing. Fact Sheet for Healthcare Providers: https://www.fda.gov/media/481107/downloa d Fact Sheet for Patients: https://www.fda.gov/media/534116/downloa d Specimen Anatomical Collection Method Collection Time Receive d Time (Source) Location / / Volume Laterality Varies 10/18/2020 8:05 PM 0 8:40 (Nasopharynx) SLACKLINE OPERATOR PM SLACKLINE OPERATOR Heather Goodrich M.D. LAB MICROBIOLOGY - GENERAL O RDERABLES Performing Organization Address City/[facility]/ZIP [facility] Phon e Number [facility] - [address] [place], [place] [address] [facility] [place] [address] Laboratories-[facility] [address] [facility] Hepatitis B Surface Antigen (10/18/2020 7:59 PM SLACKLINE OPERATOR) P athologist Signature HBs Antigen, S Negative Negative 10/19/2020 [facility] 8:04 AM SLACKLINE OPERATOR Specimen Anatomical Collection Method Collection Time Receive d Time (Source) Location / / Volume Laterality Blood (Blood, 10/18/2020 7:59 PM 10/19/20 20 6:59 Venous) SLACKLINE OPERATOR AM SLACKLINE OPERATOR Sierra Welch M.D. LAB MICROBIOLOGY - BLOOD ORD ERABLES Performing Organization Address City/[facility] Phon e Number [facility] [address] [place], [place] [address] [facility] [place] [address] Laboratory Medicine and Pathology [address] [place] Type and Screen (with reflex Antibody ID) (10/18/2020 7:59 PM SLACKLINE OPERATOR) Patholo gist Method Time Signature ABORh B Pos Not 10/18/2020 [facility] applicable 8:29 PM SLACKLINE OPERATOR Antibody Negative Negative 10/18/2020 [facility] Screen 8:44 PM SLACKLINE OPERATOR Type & Screen 10/21/2020 10/18/2020 [facility] Expiration 23:59 8:29 PM SLACKLINE OPERATOR Testing [place] DEFAULT 10/18/2020 [facility] Location 8:08 PM SLACKLINE OPERATOR Specimen Anatomical Collection Method Collection Time Receive d Time (Source) Location / / Volume Laterality Blood (Blood, 10/18/2020 7:59 PM 10/18/20 20 8:08 Venous) SLACKLINE OPERATOR PM SLACKLINE OPERATOR Sierra Welch M.D. LAB BLOOD BANK TEST ORDERABL ES Performing Organization Address City/[facility] Phon e Number [facility] - [address] [place], [place] [address] [facility] [address] Laboratories-[facility] 200 [facility] (ABNORMAL) CBC without Differential (10/18/2020 7:59 PM SLACKLINE OPERATOR) Patholo gist Method Time Signature Hemoglobin 11.0 (L) 11.6 - 10/18/2020 [facility] 15.0 g/dL 8:06 PM SLACKLINE OPERATOR Hematocrit 31.8 (L) 35.5 - 10/18/2020 [facility] 44.9 % 8:06 PM SLACKLINE OPERATOR Erythrocytes 3.65 (L) 3.92 - 10/18/2020 [facility] 5.13 8:06 PM SLACKLINE OPERATOR x10(12)/L MCV 87.1 78.2 - 10/18/2020 [facility] 97.9 fL 8:06 PM SLACKLINE OPERATOR RBC Distrib Width 13.5 12.2 - 10/18/2020 [facility] 16.1 % 8:06 PM SLACKLINE OPERATOR Platelet Count 287 157 - 371 10/18/2020 [facility] x10(9)/L 8:06 PM SLACKLINE OPERATOR Leukocytes 19.3 (H) 3.4 - 9.6 10/18/2020 [facility] x10(9)/L 8:06 PM SLACKLINE OPERATOR Specimen Anatomical Collection Method Collection Time Receive d Time (Source) Location / / Volume Laterality Blood (Blood, 10/18/2020 7:59 PM 10/18/20 20 8:04 Venous) SLACKLINE OPERATOR PM SLACKLINE OPERATOR Sierra Welch M.D. LAB BLOOD ADD-ON Performing Organization Address City/State/ZIP Code Phon e Number [facility] - [address] [place] [address] [facility] [place] [address] Laboratories-[facility] [address] [facility] HIV-1/-2 Ag and Ab Scrn, Plasma (10/18/2020 7:58 PM SLACKLINE OPERATOR) P athologist Signature HIV-1/-2 Ag Negative Negative 10/19/2020 [facility] and Ab 9:31 AM SLACKLINE OPERATOR Scrn, P Comment: Negative result does not rule out HIV in fection. If exposure to HIV infection occurred <14 d ays ago, contact the laboratory to request additi on of HIV-1 RNA detection / quantification test (HIV QN). Specimen Anatomical Collection Method Collection Time Receive d Time (Source) Location / / Volume Laterality Blood (Blood, 10/18/2020 7:58 PM 10/19/20 20 6:59 Venous) SLACKLINE OPERATOR AM SLACKLINE OPERATOR Sierra Welch M.D. LAB MICROBIOLOGY - BLOOD ORD ERABLES Performing Organization Address City/State/ZIP Code Phon e Number [facility] [address] [place], [place] [address] [place] [address] [facility] [place] [address] Laboratory Medicine and Pathology [address] [place] documented in this encounter Visit Diagnoses Diagnosis 21 Weeks Gestation (HCC) - Prim monet 22 Weeks Gestation (HCC) 21 Weeks Gestation (HCC) Premature Rupture Of Membranes U nspecified As To Length Of Time Between Rupture And Onset Of Labor Second Trimes ter (HCC) Premature Rupture Of Membranes U nspecified As To Length Of Time Between Rupture And Onset Of Labor Second Trimes ter (HCC) documented in this encounter Administered Medications Inactive Administered Medications - up to 3 most recent administrations Medication Order MAR Action Action Date Dose Rate Site clindamycin in D5W IVPB 900 mg New Bag 10/19/2020 5:09 AM SLACKLINE OPERATOR 900 mg 100 mL/hr (CLEOCIN) 900 mg, intravenous, at 100 mL/hr, Administer over 30 Minutes, Every 8 hours, First dose on Sat10/18/20 at 2000, premix bag, Indications: Obstetric or gynecological infection New Bag 10/18/2020 9:41 PM SLACKLINE OPERATOR 900 mg 100 mL/hr fentaNYL injection 100 mcg (SUBLIMAZE) Given 10/18/2020 9:49 PM SLACKLINE OPERATOR 100 mcg 100 mcg, intravenous, Every 1 hour PRN, moderate pain or score 4-6 of 10, severe pain or score 7-10 of 10, for labor pains, Starting on Sat10/18/20 at 1939, For 3 doses, L&D Pre-Delivery, Consultation with Anesthesia for pain control if patient requests regional anesthesia and in active labor or membranes ruptured. Given 10/18/2020 8:44 PM SLACKLINE OPERATOR 100 mcg gentamicin 290 mg in NaCl 0.9% IVPB New Bag 10/18/2020 8:41 PM SLACKLINE OPERATOR 290 mg 215 mL/hr (GARAMYCIN) 290 mg (rounded from 285 mg = 5 mg/kg ? 57 kg Order-specific weight), intravenous, at 215 mL/hr, Administer over 30 Minutes, Once, On Sat10/18/20 at 2000, For 1 dose, Drug Monitoring Program: Pharmacist to adjust medication dosing based on indication and drug clearance factors., Indications: Obstetric or gynecological infection lactated ringers New Bag 10/19/2020 5:10 AM SLACKLINE OPERATOR 125 mL/hr 125 mL/hr 125 mL/hr, intravenous, Continuous, Starting on Sat10/18/20 at 2000, L&D Pre-Delivery, Indications: Hang fluids for maternal dehydration, concerns, epidural placement, with antibiotics. Rate/Dose Verify 10/19/2020 2:20 AM SLACKLINE OPERATOR 125 mL/hr 125 mL/hr Rate/Dose Verify 10/19/2020 12:00 AM SLACKLINE OPERATOR 125 mL/hr 125 mL/hr multivitamin/mineral- tablet 1 Given 10/20/2020 9:30 AM SLACKLINE OPERATOR 1 tablet tablet 1 tablet, oral, Daily, First dose on Kylie 10/20/20 at 0900 documented in this encounter Active and Recently Administered Medications Times are shown in SLACKLINE OPERATOR. Scheduled Medication Order 10/18/2020 10/19/2020 10/20/2020 clindamycin in D5W IVPB 900 mg (CLEOCIN) (CANCELED) 21 41 (New Bag - Provider: Irish Newell RIshaN.) 0509 (New Bag - Provider: Irish keita RIshaNIsha) 900 mg, intravenous, at 100 mL/hr, Admin ister over 30 Minutes, Every 8 hours, First dose on Sat10/18/20 at 1999, premix bag, Indications: Obstetric or gynecological infection [...] Medication Order 10/18/2020 10/19/2020 10/20/2020 lactated ringers 2015 (New Bag - Provider: Elvin Newell, R.N.)2200 (Rate/Dose Verify - Provider: Irish Newell RIshaN.) 0000 (Rate/Dose Verify - Provider: Irish Newell R.N.)0220 (Rate/Dose Verify - Provider: Sixto Moses.N.)0510 (New Bag - Provider: Karen MosesN.)0600 (Stopped - Provider: Karen MosesNIsha) 125 mL/hr, intravenous, Continuous, Star ting on [...] palpation, or reach a mximum of 250 Ottosen units, and/or cervical change(s) occur. PRN Medication Order 10/18/2020 10/19/2020 10/20/2020 fentaNYL injection 100 mcg (SUBLIMAZE) (CANCELED) 2043 (Given - Provider: Irish Newell RIshaNIsha)2148 (Given - Provider: Karen MosesN. - Comment: RN already scanned med, didn't [...] COVID19 Pending 10/18/2020 10/18/2020 10/19/2020 12:56 AM SLACKLINE OPERATOR documented as of this encounter
--- OUTSIDE RECORDS SUMMARY | 2022-08-21 16:20 | XMS_ITS | Clinical Summary ---
:1985 Author Organization [facility] [employer] [facility] [place] [address] Care Team Providers Name Role Phone Pcp, [...] daily. tablet Active Problems Problem Noted Date [facility] Supervision of high-risk 03/29/2022 Overview: [facility] CONSULTATION ON 04/03/22 -- Virtual Visit REASON FOR CONSULT: risks and management pt had pre- consult at [place]-- recommended cervical lengths at 16w, possibly cerclage [...] weeks by US REFERRING PHYSICIAN/PHONE/[phone] Primary MD approves scheduling of recomm ended ultrasounds/testing: Yes SPECIALISTS/CONSULTS: Include: Specialty MD Clinic Name Phone# [place] and ADDED TO PATIENT CARE TEAM No CARE COORDINATION: GENETICS: declined PROCEDURES: PERTINENT LABS: B POS PERTINENT MEDS: PNV, pepcid, omeprazole, zofran Preferred delivery location: PLAN OF CARE: Menorrhagia 09/29/2008 Routine general medical examination at [facility] acility 09/29/2008 Palpitations 09/29/2008 Other general [...] Date Type Specialty Care Team Description 07/31/2022 Hospital Encounter Arin Hernandez History of delivery, currently in first trimester; MD Jenny Low lying place nta nos or without hemorrhage, second trimester 07/31/2022 Travel 05/23/2022 Hospital Encounter Heather Hernandes Low l bridger placenta nos or without hemorrhage, second trimester (Primary Dx); MD Eber History of pret erm delivery, currently in first trimester 05/23/2022 Travel from Last 3 Months Immunizations Name Administration Dates Next Due DTP 04/21/1993, 07/10/1989, 06/19/1988, 04/18/1988, 02/02/1988 Hepatitis B (Adult) 10/08/2008 Influenza, IIV3 (Age >=3 years) 09/29/2008, 09/18/2007, 1112/2004 MMR 05/07/1989 Oral Polio Vaccine 04/21/1993, 07/10/1989, [...] Assigned at Date Recorded Not on file COVID-19 Exposure Response Date Recorded In the last 10 days, have you been in contact with No / Unsu re 07/31/2022 1:13 PM CDT someone who was confirmed or suspected to have Coronavirus/COVID-19? Obstetrics History Para Term AB IAB SAB [...] F VAGINAL SAIDA N Delivery Location: Hospital ([facility]) Comments: IUGR 2014 Term 37w0d 3.37 kg (7 lb 7 oz) M 2019 SAB 7w0d Current OB Episode Summary Episode Dates Estimated Date of Pregravid Weight TWG (As of ) Delivery 04/03/2022 - Present 10/08/2022 (08/21/2022) Date GA Fund Present FHR Mvmt BP Weight Edema Alb Glu Ket Dil/Eff/S ta 04/03/2022 13w1d Inpatient data not d isplayed here. See encounter summary. 05/23/2022 20w2d Inpatient data not d isplayed here. See encounter summary. 07/31/2022 30w1d Inpatient data not d isplayed here. See encounter summary. Progress Notes 07/31/2022 - 30w1d - Arin Hernandez MD MPP Ultrasound Visit Your patient had an ultrasound with [facility] on 07/31/2022. The report is ready and can be found in the [facility] The Impression from the report is below. Thank you for sending her to see us. Arin Hernandez MD ................ .... 07/31/2022 3:06 PM INDICATION:Low lying placenta Indications Code 30 weeks gestation of Z3A.30 History of PTD / PROM D&C x2 History of FGR Factor II heterozygous Declined genetic testing History of accreta (occulta) dx after pl acenta sent to lab. 05/23/22 Detailed + TVUS, EFW: 92% tile, l ow lying placenta 0.4cm away from cx os Growth + TVUS IMPRESSION: Intrauterine at 30w 1d. presentation is Cephalic. EFW 2026 grams, percentile: > 97. Normal Deepest Vertical Pocket of amniot ic fluid: 3.38 cm. No major anomalies identified on limited survey. Appropriate symmetric growth. The cervical length is 3.3 cm. The placenta is NOT low lying (2.75cm fr om internal cervical os) Vaginal ultrasound shows no evidence of vasa previa. RECOMMENDATIONS: -Return to primary provider for continue d care. -Growth ultrasound in 4-6 weeks secondar y to EFW >97th centile COMMENTS: Present findings are reassuring with res pect to anatomy. The low lying placenta has resolved. The re is no ultrasound evidence of abnormal placentation. The EFW is >97th centile, follow up ultrasound for grwoth in 4-6 weeks recommended. Patient is now GDMA1 , if she requires insulin test ing would be recommended. Her largest baby was 8#8oz at (39weeks) delivery this baby is estimated to be 9#11oz at 39 weeks New government regulations related to Cures act require that this note be released to the patient immediately, sometimes before the referring provider has been contacted. A portion of t he information was presented verbally to the patient. The remainder is submitted as background for the referring provider, to be discussed as needed. 05/23/2022 - 20w2d - Heather Hernandes MD [facility] Ultrasound 05/23/22 Referred By: DARSHAN MULLINS Indications [...] prior . See prior consult letter in [facility] for further details. Today's US shows no signs of placenta accreta spectrum, but I reviewed the limitations of US in the detection of placenta accreta, especially with posterior placenta. We will re-assess placentation at her follow up US. She plans delivery in [place] which is reasonable as long as follow up US lo oks normal. She continues vaginal progesterone and s erial cervical length US in [place] (see prior consult letter in [facility]). New government regulations related to Cures act [...] risk Services Provided: Procedures Code DETAIL ANATOMY 47741.0 TRANSVAGINAL ULTRASOUND 15218.0 Heather Hernandes MD 05/23/2022 - 20w2d - Rosa Tam RN COIL BUILDER: I was the clinical rn examiner for the [facility] S and I was [...] or a discussion with members of the [facility] ent's treatment team, a virtual visit is [...] elizondo placental pathology showed placenta accreta occulta Factor II heterozygous Is currently preg nant @ 13w1d. She was referred by Annita Bhakta [facility] Assessment Histories reviewed today include: Past M edical History, Past Surgical History, Social History and Family History and Obstetric History. Refer to the corresponding sections of the history section of Exce ian chart and the [facility] Naviga tor for details. 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 Inhaled Oxygen - - Concentration Weight 55.3 kg (122 lb) 04/03/2022 8:11 AM CDT Height 162.6 cm (5' 4) 04/03/2022 8:11 AM CDT Body Mass Index 20.94 04/03/2022 8:11 AM CDT Plan of Treatment Health Maintenance Due Date Last Done Comments Depression screening for age 12+ 1999 BMI (ht and wt on same day) for 2005 age 18+ Hepatitis C screening for age 0212/07/2005 18-79 Pap test for age 21-65 05/22/2021 05/22/2018, 05/22/2018, 04/09/2014, Additional history exists Tetanus booster 05/24/2021 05/24/2011, 10/21/1999 COVID-19 vaccine series (3 - 01/27/2022 12/02/2021, 022 Booster for Pfizer series) Influenza for age 9-49 06/21/2022 09/29/2008, 09/18/2007, 08/23/2005 Tdap Completed 05/24/2011 Procedures Procedure Name Priority Date/Time Associated Diagnosis Comme nts US OB FOLLOW UP ANY Routine 07/31/2022 2:11 PM History of pret erm Results for this TRI SINGLE TA CDT delivery, currently procedu re are in in first the result s trimester section. Low lying placenta nos or without hemorrhage, second trimester US OB DETAIL Routine 05/23/2022 2:56 PM History of prete rm Results for this ANATOMY SINGLE TA CDT delivery, currently pro cedure are in AND TV in first the result s trimester section. from Last 3 Months Results Growth Follow Up Any Trimester (CPT 33726) If BPP w/NST needed use Testing section for order (07/31/2022 2:11 PM CDT) Anatomical Region Laterality Modality , 2or 3 TRIMESTER Ult rasound Specimen (Source) Anatomical Collection Method Collection Time Re ceived Time Location / / Volume Laterality 07/31/2022 1:15 PM CDT Narrative 07/31/2022 3:07 PM CDT Referred By: DARSHAN ??SUPPES ? INDICATION:Low lying placenta Indications Code 30 weeks gestation of Z3A.30 History of PTD / PROM D&C x2 History of FGR Factor II heterozygous Declined genetic testing History of accreta (occulta) dx after pl acenta sent to lab. 05/23/22 Detailed + TVUS, EFW: 92% tile, l ow lying placenta 0.4cm away from cx os Growth + TVUS ?? IMPRESSION: Intrauterine at 30w 1d. presentation is Cephalic. EFW 2025 grams, percentile: > 97. ?? Normal Deepest Vertical Pocket of amniot ic fluid: 3.38 ??cm. ? No major anomalies identified on limited survey. Appropriate symmetric growth. The cervical length is 3.3 cm. ?? The placenta is NOT low lying (2.75cm fr om internal cervical os) Vaginal ultrasound shows no evidence of vasa previa. RECOMMENDATIONS: -Return to primary provider for continue d care. -Growth ultrasound in 4-6 weeks secondar y to EFW >97th centile COMMENTS: Present findings are reassuring with res pect to anatomy. The low lying placenta has resolved. ??T here is no ultrasound evidence of abnormal placentation. ??The EFW is >97th centile, follow up u ltrasound for grwoth in 4-6 weeks recommended. ??Patient is now GDMA1, if she requires insulin an tenatal testing would be recommended. ??Her largest baby was 8#8oz at (39weeks) delivery this ba by is estimated to be 9#11oz at 39 weeks New government regulations related to Cures act require that this note be released to the patient immediately, ghassan etimes before the referring provider has been contacted. ??A portion of the informatio n was presented verbally to the patient. ??The remainder is submitted as background for the refer ring provider, to be discussed as needed. Medical Decision Making: Moderate Level 63658 ?Moderate number of Diagnoses inclu ding one previously undiagnosed new problem with uncertain prognosis, a low lying placent a, LGA fetus ?Moderate complexity of Data includ ing review of prior ultrasound, ordering another ultrasound, and review of prior external notes, ?Moderate risk of morbidity or mort ality to the fetus from possible need for early delivery which was discussed. Services Provided: Procedures Code FOLLOW UP GROWTH 88651.0 TRANSVAGINAL ULTRASOUND 18852.0 Procedure Note Arin Hernandez MD - 07/31/2022For matting of this note might be different from the original. Referred By: DARSHAN MULLINS INDICATION:Low lying placenta IndicationsCode 30 weeks gestation of nfadrdypaC1H.30 History of PTD / PROM D&C x2 History of FGR Factor II heterozygous Declined genetic testing History of accreta (occulta) dx after pl acenta sent to lab. 05/23/22 Detailed + TVUS, EFW: 92% tile, l ow lying placenta 0.4cm away from cx os Growth + TVUS IMPRESSION: Intrauterine at 30w 1d. presentation is Cephalic. EFW 2026 grams, percentile: > 97. Normal Deepest Vertical Pocket of amniot ic fluid: 3.38 cm. No major anomalies identified on limited survey. Appropriate symmetric growth. The cervical length is 3.3 cm. The placenta is NOT low lying (2.75cm fr om internal cervical os) Vaginal ultrasound shows no evidence of vasa previa. RECOMMENDATIONS: -Return to primary provider for continue d care. -Growth ultrasound in 4-6 weeks secondar y to EFW >97th centile COMMENTS: Present findings are reassuring with res pect to anatomy. The low lying placenta has resolved. The re is no ultrasound evidence of abnormal placentation. The EFW is >97th centile, follow up ult rasound for grwoth in 4-6 weeks recommended. Patient is now GDMA1, if she requires insulin an tenatal testing would be recommended. Her largest baby was 8#8oz at (39weeks) delivery this ba by is estimated to be 9#11oz at 39 weeks New government regulations related to Cures act require that this note be released to the patient immediately, ghassan etimes before the referring provider has been contacted. A portion of the information was presented verbally to the patient. The remainder is submitted as background for the refer ring provider, to be discussed as needed. Medical Decision Making: Moderate Level 31036 Moderate number of Diagnoses including one previously undiagnosed new problem with uncertain prognosis, a low lying placent a, LGA fetus Moderate complexity of Data including r eview of prior ultrasound, ordering another ultrasound, and review of prior external notes, Moderate risk of morbidity or mortality to the fetus from possible need for early delivery which was discussed. Services Provided: ProceduresCode FOLLOW UP PCHUIN02308.0 TRANSVAGINAL HPLRYFDSXQ78100.0 Heather Hernandes MD US Detailed Anatomy Single with TA and TV (CPT 57968) (05/23/2022 2:56 PM CDT) Anatomical Region Laterality [...] prior . See prior consult letter in [facility] for furthe r details. Today's US shows no signs of placenta accreta spectrum, but I reviewed the andrews itations of US in the detection of placenta accreta, especially with posterior placenta. We w ill re-assess placentation at her follow up US. She plans delivery in [place] which is re asonable as long as follow up US looks normal. She continues vaginal progesterone and s erial cervical length US in [place] (see prior consult letter in [facility]). New government regulations related to [employer] Cures [...] risk Services Provided: Procedures Code DETAIL ANATOMY 86295.0 TRANSVAGINAL ULTRASOUND 87714.0 Procedure Note Heather Hernandes MD - 05/23/20 22 Referred By: DARSHAN MULLINS IndicationsCode 20 weeks gestation of zqgtxvcxcJ5N.20 History of PTD / PROM D&C x2 [...] prior . See prior consult letter in [facility] for furthe r details. Today's US shows no signs of placenta accreta spectrum, but I reviewed the andrews itations of US in the detection of placenta accreta, especially with posterior placenta. We w ill re-assess placentation at her follow up US. She plans delivery in [place] which is re asonable as long as follow up US looks normal. She continues vaginal progesterone and s erial cervical length US in [place] (see prior consult letter in [facility]). New government regulations related to Cures act [...] notes, Low risk Services Provided: ProceduresCode DETAIL [id number] TRANSVAGINAL [id number] Heather Hernandes MD US from Last 3 Months Insurance Payer Benefit Plan / Subscriber ID Effective Dates Phone Addre ss Type Group BLUE [employer]OSS BL[employer] OF [id number] 2020-Present [address] [address] [place] [address] Care Teams Blind Lacer Relationship Specialty Start Date End Date Pcp, No PCP - General 11/18/13 . Annita oMreira CNM Referring Provider Certified Nurse Mid Level Game Designer 03/22/22 1999 [place], [place] [id number]
--- OUTSIDE RECORDS SUMMARY | 2022-08-21 16:20 | XMS_ITS | Encounter Summary ---
:1985 Author Organization [facility] Address [address] [place] [address] Care Team Providers Name Role Phone Unavailable Primary Care Provider Unavailable Reason for Visit Auth/Cert Specialty Diagnoses / Procedures Referred By Contact Refer red To Contact Diagnoses 22 Weeks Gestation (HCC) Procedures DIR Referral ID Status Reason Start Date Expiration Date Visits Requ ested Visits Authorized [id number] 1 1 Encounter Details Date Type Department Care Team Description 10/19/2020 Hospital Encounter Department of Josey Tse Obstetrics and M.DIsha Gynecology in [address] [place] [address] [place] [address] [place], [place] [phone] (Wo rk) [phone] Social History Tobacco Use Types Packs/Day Years [...] 1 to 4 times per year 11/22 orthodox services? Do you belong to any clubs [...] Sig Dispensed Refills Start Date End Date [id number]-oqjokeihnehcw-t TK 1 TO 2 TS PO Q 4 H 0 09/08/2020 aff (FIORICET, ESGIC) NEEDED. MAX 6 PER 50-325-40 mg per tablet DAY Take 1 tablet by 0 [id number]-[id number]-kfyv-FA (VINATE mouth daily. ONE) 60 mg iron-1 mg per tablet documented as of this encounter Plan of Treatment Not on filedocumented as of this encounter Procedures Procedure Name Priority Date/Time Associated Comments Diagnosis US OB ANATOMY RAD - Routine 10/19/2020 1:21 Results fo r this ANGUIANO (most inpatients PM POURED WALL FOREMAN procedure a re in and all the results outpatients) section. documented in this encounter Results US OB Anatomy Anguiano (10/19/2020 1:21 PM POURED WALL FOREMAN) Anatomical Region Laterality Modality Body, Ultrasound OB RST LOS, Ultrasound ARZ LOS N/A Ultrasound Specimen (Source) Anatomical Location Collection Method / Collectio n Time Received Time / Laterality Volume Narrative 10/19/2020 1:27 PM POURED WALL FOREMAN LAURA LOWE OB Exam, 10/19/2020 EXAM INFORMATION Patient Name: ??LAURA LOWE : ??1985 Age: ??34 yrs Sex: ??Female Ref Phys: ??JOSEY TSE Exam Date: 10/19/2020 Procedure: US OB ANATOMY ANGUIANO Exam Site: [facility] Plurality: 1 INDICATIONS FOR [...] Read by Ilir Moss on 1:21:30 PM. Devil Tender: ??Ilir Moss Thank You For This Referral Procedure Note Eamon Dawson M.B.B.S., MAngelo. - 10/19 MYNOR LAURADANIELITO SHIPLEY OB Exam, 10/19/2020 EXAM INFORMATION Patient Name: LAURA LOWE S : 1985 Age: 34 yrs Sex: Female Ref Phys: JOSEY TSE Exam Date: 10/19/2020 Procedure: US OB ANATOMY ANGUIANO Exam Site: [facility] Plurality: 1 INDICATIONS FOR [...] Read by Ilir Moss on 1:21:30 PM. Devil Tender: Ilir Moss Thank You For This Referral Josey Tse M.D. IMG OB US PROCEDURES documented in this encounter Visit Diagnoses Not on filedocumented in this encounter
--- OUTSIDE RECORDS SUMMARY | 2022-08-21 16:20 | XMS_ITS | Encounter Summary ---
:1985 Author Organization [facility] Address [address] [place] [address] Care Team Providers Name Role Phone Unavailable Primary Care Provider Unavailable Reason for Visit Reason Comments Communication Encounter Details Date Type Department Care Team Description 10/21/2020 Clinical Communication [facility], Horacio Cisneros, Communication [facility]ab[employer], [address] [place] [address] [address] MANUEL Third Floor [place], [place] [address] [facility] [address] [place], [place] [phone] [phone] (Work) [phone] Social History Tobacco Use Types Packs/Day Years [...] be seen. She is [place] hour from [place] and 20 min from [place]. PLAN Discussed with Dr Bowman and [facility] Room RN. Patient advised to be seen immediately at nearest facility. Disposition/Recommendation: referral for services Nearest ED or OB Facility. Information/Education: patient/caller able to teach back. Caller agreeable to plan of care: yes. The following references were used: provider Dr Bowamn. GER CONTRACT documented in this encounter Plan of Treatment Not on filedocumented as of this encounter Visit Diagnoses Not on filedocumented in this encounter
--- OUTSIDE RECORDS SUMMARY | 2022-08-21 16:20 | XMS_ITS | Encounter Summary ---
:1985 Author Organization [facility] Address [address] [place] [address] Care Team Providers Name Role Phone Unavailable Primary Care Provider Unavailable Reason for Visit Outpatient (Routine) - Closed Specialty Diagnoses / Procedures Referred By Contact Refer red To Contact Maternal and Diagnoses Premature Rupture Of Membranes Unspecified As To Length Of Time Between Rupture And Onset Of Labor Second Trimester ([facility]) 21 Weeks Gestation ([facility]) [facility] Janelle Dominguez M.D. [address] [place] [address] Referral ID Status Reason Start Date Expiration Date Visits Requ ested Visits Authorized [id number] Closed 11/02/2020 11/02/2021 1 1 Encounter Details Date Type Department Care Team Description 12/16/2020 Telemedicine Department of Saqib Strong, Diana ture Rupture Of Membranes Unspecified As To Length Of Time Between Rupture And Onset Of Labor Second Trimester; Obstetrics and M.D. 21 Weeks Gestation Gynecology in [address] [place] [address] [place] [address] [place], [place] [phone] (Work) [phone] Social History Tobacco Use Types Packs/Day Years [...] or relatives? How often do you attend tenriism or 1 to 4 times per year 11/22 yarsanism services? Do you belong to any clubs or No 12/12/2020 organizations such as tenriism groups, unions, fraternal or athletic groups, or [...] or the highest technical, or vocational p [facility] degree you have received? 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 Difficulty was encountered with retained placenta, requiring manual extraction and D&C; Mrs. Salinas was treated with a course of intravenous antibiotic therapy. 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 Salinas experienced retained placenta requiring manual extraction in her first as well. 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 Salinas was screening for thrombophilias after an aunt experienced an episode of thrombosis and tested positive for Factor V Leiden and the Prothrombin [id number] mutation; neither she personally nor any first-degree [...] delivery of 46% in the subsequent . (Yin 2016) Potentially beneficial interventions (presuming richardson gestation) [...] determine viability/number and define gestational age. (in [place]) 3. Maternal cystic fibrosis/SMA and aneuploidy screening at 10-12 weeks (per her preference). 4. Consideration of early anatomic ultrasound at 11-14 weeks. 5. Sonographic cervix length surveillance beginning at 16 weeks and repeated weekly through 22 6/7 weeks, with contingent cerclage placement if cervix length shortens to <25mm prior to 23 0/7 weeks.(initial imaging study in [place]) 6. Consideration of 17-hydroxyprogesterone caprate prophylaxis (250mg IM weekly), beginning at 16-20weeks and continuing through 36 weeks. 7. Detailed anatomic survey ultrasound at 18-20 weeks. (in [place]) 8. Repeat ultrasound at 30-32 weeks to evaluate placental appearance for any evidence of accreta. 9. Consider induction of labor at 39 0/7-39 6/7 weeks; this may be scheduled either in [place] or in [place] pending resource availability. Mrs. Salinas resides approximately 1 hour from [place]. Intrapartum: 10. Obtain CBC and type & [...] I will arrange for initial appointments in [place]. Further care may be coordinated between [place] and [place]. I will also forward materials regarding placenta accreta occulta. Saqib Strong M.D. ATING ROOM SCHEDULER documented in this encounter Plan of Treatment Not on filedocumented as of this encounter Visit Diagnoses Diagnosis Premature Rupture Of Membranes U nspecified As To Length Of Time Between Rupture And Onset Of Labor Second Trimes ter (HCC) 21 Weeks Gestation (HCC) documented in this encounter
--- OUTSIDE RECORDS SUMMARY | 2022-08-21 16:20 | XMS_ITS | Clinical Summary ---
:1985 Author Organization [facility] Address [address] [place] [address] Care Team Providers Name Role Phone Unavailable Primary Care Provider Unavailable Source Comments Patient records contain information from all sites at [facility]. For routine questions regarding patient records, call [phone] during business hours, M-F 8:00 AM - 5:00 PM Central Time. Record requests for emergency care only can be directed to [phone] at any time.[facility] Allergies Active Allergy Reactions Severity Noted Date Comments Penicillins Rash 10/18/2020 Salicylates Edema 10/18/2020 Swollen tongue Medications Medication Sig Dispensed Refills Start Date End Date Status Take 1 tablet by 0 Act angela dyyllwt-Tg-bbke-FA mouth daily. (VINATE ONE) 60 mg iron-1 [...] or relatives? How often do you attend anabaptism or 1 to 4 times per year 11/22 congregation services? Do you belong to any clubs or No 12/12/2020 organizations such as anabaptism groups, unions, fraternal or athletic groups, or [...] the highest level of school Associate degree: froylancarlos valdovinos, 12/11/2020 you have completed or the highest technical, or vocational p zaki degree you have received? Sex Assigned at Date Recorded Not on file Last Filed Vital Signs Vital Sign Reading Time Taken Comments Blood Pressure 116/69 10/20/2020 12:39 PM RETAIL LEASING AGENT Pulse 81 10/20/2020 12:39 PM RETAIL LEASING AGENT Temperature 37.2 ??C (99 ??F) 10/20/2020 12:39 PM RETAIL LEASING AGENT Respiratory Rate 18 10/20/2020 12:39 PM RETAIL LEASING AGENT Oxygen Saturation 99% 10/20/2020 12:39 PM RETAIL LEASING AGENT Inhaled Oxygen Concentration - - Weight 56.3 kg (124 lb 1.9 oz) 10/19/2020 6:30 AM RETAIL LEASING AGENT Height - - Body Mass Index - - Plan of Treatment Health Maintenance Due Date Last Done Comments Cervical Cancer Screening 1985 Hepatitis B Vaccines (1 of 1985 3 - 3-dose series) Hepatitis C Screening 1985 Depression Screening 10/21/2021 (Annual PHQ-2) COVID-19 Vaccine (3 - 01/27/2022 12/02/2021, 11/05/2021 Booster for Pfizer series) DTaP,Tdap,and Td Vaccines 08/01/2032 08/01/2022, 09/09/2014 , (4 - Td or Tdap) 05/24/2011 HIV Screening Completed 10/18/2020 Influenza Vaccine Completed 08/01/2022, 08/11/2020, 08/26/2014, Additional history exists Pneumococcal vaccine (0-64 Aged Out No lo nger eligible years) based on patient 's age to complete this topic Insurance Payer Benefit Plan / Subscriber ID Effective Dates Phone Addre ss Type Group [place] [id number] 2020-Yuki [phone] [address] PPO BLUE SHIELD [address] [place] [address] Advance Directives For more information, please contact: [phone] Latest Code Status on File Code Status Date Activated Date Inactivated Comments Full Code 10/18/2020 7:51 PM 10/20/2020 2:51 PM Question Answer Comments Full Code: Not Discussed Due to: Not medically appropriate
--- OUTSIDE RECORDS SUMMARY | 2022-08-21 16:20 | XMS_ITS | Encounter Summary ---
:1985 Author Organization [facility] Address [address] [place] [address] Care Team Providers Name Role Phone Unavailable Primary Care Provider Unavailable Reason for Referral Outpatient (Routine) - Closed Specialty Diagnoses / Procedures Referred By Contact Refer red To Contact Maternal and Diagnoses Premature Rupture Of Membranes Unspecified As To Length Of Time Between Rupture And Onset Of Labor Second Trimester (HCC) 21 Weeks Gestation ([facility]CC) [facility] Janelle Dominguez M.D. 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 21 Weeks Gestation 1999 [facility] [address] [place] [address] [place], [place] [phone] Social History Tobacco Use Types Packs/Day Years [...] or relatives? How often do you attend synagogue or 1 to 4 times per year 11/22 gnosticist services? Do you belong to any clubs or No 12/12/2020 organizations such as synagogue groups, unions, fraPricebets or athletic groups, or school groups? How [...] Name Type Priority Associated Diagnoses Order S [facility] Obstetrics Referral Outpatient Referral Routine [...]
[2022-08-21 16:23] VITALS: RESP 18; TEMP 36.8
[2022-08-21 16:31] VITALS: BP 116/61; PULSE 76
[2022-08-21 17:09] LABS: Appearance Urine Clear (Clear); Bilirubin Urine Negative (Negative); Blood Urine Negative (Negative); Color Urine Yellow (Yellow); Glucose Urine Negative (Negative); Ketones Urine Negative (Negative); Leukocyte Esterase Urine Negative (Negative); Nitrite Urine Negative (Negative); Protein Urine Negative (Negative); Specific Gravity Urine 1.025 (1.000-1.030)
[2022-08-21 17:32] LABS: Amnisure Rom* Negative; Fetal Fibronectin* Negative (Negative)
--- NOTE | 2022-08-21 18:16 | PC.OBNST ---
NST Note NST Note Start: 08/21/22 16:07 Freq: ONCE Status: Active Protocol: Document 08/21/22 17:30 WK (Rec: 08/21/22 18:16 WK [id number]) NST Note 6 Para (# of births) 4 EDC 10/08/22 Gestational Age In Weeks & Days 33 Weeks & 1 Days High Risk Factors Diabetes - Gestational Insulin Patient Presented with Complaint(s) of Contractions/cramping,Leaking fluid Reactive Yes RN Thompson RNC Date 08/21/22 Reactive Yes RN Emily RN Date 08/21/22 OB NST charge Yes Complete NST Note via Write Note Yes The provider's electronic signature indicates the NST is reactive/appropriate for gestational age. *Note to provider: If an addendum is required, open the patient's chart and click on the note under the Nurse/Allied Health tab.
== END 2022-08-21 17:55 | disposition home or self-care (01) ==
LOC: OB OUT 16:03 → OB 16:05
PROVIDERS: Visit Provider Obstetrics & Gynecology
DX: O47.03 False labor before 37 completed weeks of gestation, third trimester (principal); O24.419 Gestational diabetes mellitus in pregnancy, unspecified control; Z3A.33 33 weeks gestation of pregnancy
CPT/HCPCS: 59025; 81003; 84112; 99213

== ENCOUNTER 2022-08-25 17:49 | Outpatient (CLI) | payer BC, SELFPAY ==
--- OUTSIDE RECORDS SUMMARY | 2022-08-25 17:52 | XMS_ITS | Encounter Summary ---
:1985 Author Organization [facility] Address [address] [place] [address] Care Team Providers Name Role Phone Unavailable Primary Care Provider Unavailable Reason for Visit Reason Comments Communication Encounter Details Date Type Department Care Team Description 10/21/2020 Clinical Communication [facility], Horacio Cisneros, Communication Buddhism [facility], [address] [place] [address] Dr MANUEL Third Floor [place], [place] [address] [facility] [address] [place], [place] [phone] (Work) [phone] Social History Tobacco Use Types Packs/Day Years [...] 1 to 4 times per year 11/22 yazidi services? Do you belong to any clubs [...] be seen. She is an hour from [place] and 20 min from [place]. PLAN Discussed with Dr Bowman and [facility] Room RN. Patient advised to be seen immediately at nearest facility. Disposition/Recommendation: referral for services Nearest ED or OB Facility. Information/Education: patient/caller able to teach back. Caller agreeable to plan of care: yes. The following references were used: provider Dr Bowman. CARRIER documented in this encounter Plan of Treatment Not on filedocumented as of this encounter Visit Diagnoses Not on filedocumented in this encounter
--- OUTSIDE RECORDS SUMMARY | 2022-08-25 17:52 | XMS_ITS | Clinical Summary ---
:1985 Author Organization [facility] [place] [address] Care Team Providers Name Role Phone Pcp, [...] daily. tablet Active Problems Problem Noted Date [facility] Supervision of high-risk 03/29/2022 Overview: [facility] CONSULTATION ON 04/03/22 -- Virtual Visit REASON FOR CONSULT: risks and management pt had pre- consult at [facility]-- recommended cervical lengths at 16w, possibly cerclage [...] REFERRING PHYSICIAN/PHONE/LAST UPDATE: [facility] [phone] Primary MD approves scheduling of recomm ended ultrasounds/testing: Yes SPECIALISTS/CONSULTS: Include: Specialty MD Clinic Name Phone# [place] and ADDED TO PATIENT CARE TEAM No CARE COORDINATION: GENETICS: declined PROCEDURES: PERTINENT LABS: B POS PERTINENT MEDS: PNV, pepcid, omeprazole, zofran Preferred delivery location: PLAN OF CARE: Menorrhagia 09/29/2008 Routine general medical examination at [facility] acility 09/29/2008 Palpitations 09/29/2008 Other general counseling [...] Encounters Date Type Specialty Care Team Description 08/24/2022 Travel 08/23/2022 - Hospital Encounter Twni Felix 08/24/2022 MD Adolph 08/23/2022 Hospital Encounter 07/31/2022 Hospital Encounter Arin Hernandez History of delivery, currently in first trimester; MD Jenny Low lying place nta nos or without hemorrhage, second trimester 07/31/2022 Travel from Last 3 Months Immunizations Name [...] in contact with No / Unsu re 08/24/2022 12:24 AM CDT someone who was confirmed or suspected [...] F VAGINAL SAIDA N Delivery Location: Hospital ([facility]) Comments: IUGR 2014 Term 37w0d 3.37 kg (7 lb 7 oz) M 2020 SAB 7w0d Current OB Episode Summary Episode Dates Estimated Date of Pregravid Weight TWG (As of ) Delivery 04/03/2022 - Present 10/08/2022 (08/25/2022) Date GA Fund Present FHR Mvmt BP Weight Edema Alb Glu Ket Dil/Eff/S ta 04/03/2022 13w1d Inpatient data not d isplayed here. See encounter summary. 05/23/2022 20w2d Inpatient data not d isplayed here. See encounter summary. 07/31/2022 30w1d Inpatient data not d isplayed here. See encounter summary. 08/23/2022 33w4d Inpatient data not d isplayed here. See encounter summary. Progress Notes 08/24/2022 - - Carla Monteiro, RN Assumed care of patient after report radha Henson RN. Dr. Felix at bedside and plan to perform spec exam for fluid collection and third Amnisure. Assisted MD in collection of fluid. Only small amount of discharge noted in vaginal vault, per MD Elvira. Not suspicious for ROM on spec exam, but sample collected. Amnisure again negative. Patient opted for DC to home with approp riate labor precaution education. Declined Printed AVS. 08/24/2022 - w - Chayo Shah, RN 0040: Pt still feels like she is leaking . Does feel some painful contractions, but don't seem to be regular. Would like to be rechecked. SVE performed and cervix now 2/50/-2, but able to pull it forward more. Very minimal change. More fluid n oted during exam. Dr. Felix called to perform spec exam. Will repeat amnisure. Report to Carla GROSSMAN. Chayo Shah RN .................... 08/24/2022 12:55 AM 08/24/2022 - w4d - Chayo Shah, RN Laura Salinas is a at 33w3d ge station presenting to the maternal assessment center for questionable ruptured membranes. Pt reports some contractions this afternoon and then noticed some leakin g at around 1800 today. Pt has a hx of a n accreta with a loss in 2020. Pt has been doctoring in [place], but has had consults with [facility] because of history. Pt was cleared to delivery in [facility] only after 35 wks. Vitals were taken, chart reviewed, assessments were done(see triage navigator). EFM placed with patient consent and reactive strip obtained. Occasional uc's noted. Amnisure performe d and results negative. Visible fluid on labia. Repeat amnisure performed and still negative. Dr. Felix called and updated on assessment. Discussed thin discharge. Will perform JOHN to check fluid level s. JOHN 12.8. DVP 03.17. Discussed negativ e results and normal fluid levels. Pt denies any foul odor or itching, but TGC collected and sent. Pt does feel like contractions are a little more regular so SVE performed and cervix 1.5 internal/50/-2 /posterior. Not much of a change from what she was at her clinic earlier this week. Pt offered opportunity to walk for a few hours and get rechecked. Pt unsure of what she wants to do. Dr. Felix called a nd updated on JOHN and SVE. Strip reviewed with . Will keep patient on the monitor for another hour. 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 Repor t to Rekha GROSSMAN. Chayo hSah RN .................... 08/23/2022 11:48 PM 07/31/2022 - 30w1d - Arin Hernandez MD [facility] Ultrasound Visit Your patient had an ultrasound with [facility] on 07/31/2022. The report is ready and can be found in the Results review section of the [facility]. The Impression from the report is [...] 05/23/2022 - 20w2d - Heather Hernandes MD [facility] Ultrasound 05/23/22 Referred By: DARSHAN [...] prior . See prior consult letter in [facility] for further details. Today's US shows no signs of placenta accreta spectrum, but I reviewed the limitations of US in the detection of placenta accreta, especially with posterior placenta. We will re-assess placentation at her follow up US. She plans delivery in [place] which is reasonable as long as follow up US lo oks normal. She continues vaginal progesterone and s erial cervical length US in [place] (see prior consult letter in [facility]). 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 She was referred by Annita Bhakta CNM [place] Assessment Histories reviewed today include: Past M edical History, Past Surgical History, Social History and Family History and Obstetric History. Refer to the corresponding sections of the history section of Exce ian chart and the [facility] Naviga tor for details. Comments under [...] were answered. Scheduled to consult with Dr. Heranndes today. Detailed verbal report given. 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 AMNIOTIC FLUID Routine 08/24/2022 12:27 AM Result s for this INDEX CDT procedure are i n the results section. TRICHOMONAS, STAT 08/23/2022 11:24 PM Results for this ZAYNAB, AND CDT procedure are i n BACTERIAL VAGINOSIS the resu lts BY IBAN section. AMNISURE ROM Today 08/23/2022 11:05 PM Results for this CDT procedure are i n the results section. AMNISURE ROM Today 08/23/2022 10:50 PM Results for this CDT procedure are i n the results section. US OB FOLLOW UP ANY Routine 07/31/2022 2:11 PM History of pret erm Results for this TRI SINGLE TA CDT delivery, currently procedu re are in in first the result s trimester section. Low lying placenta nos or without hemorrhage, second trimester from Last 3 Months Results Nonstress Test (08/24/2022 1:27 AM CDT) Narrative Twin Felix MD - 08/24/2022 1:2 7 AM CDT Carla Monteiro RN ? 08/24/2022 ??1:31 AM HEART RATE TRACING INTERPRETATION Patient: Laura Salinas : 1985 Date of test: ??08/24/2022 ? Strip Time Segment: 2238 to 0109 HAYDER/Acct: [id number] ? Admitting Physician: ??Twin kirkpatrick MD Gestational Age: ??33w4d BUTCH of 10/08/2022, by Other Basis Reason for Non-Stress test: suspected PP ROM Is Patient Having Contractions?: Yes Contractions / Frequency: 2-6 Contractions Duration (range in sec): 70 -150 Contractions Strength By Palpation: Mild Palpated Resting Tone: Soft Patient Perception of Contractions: tigh tening with discomfort Movement: Present Baseline FHR: 140; 135 Baseline Variability: Moderate Accelerations: Present Age Appropriate Accelerations: 15 X 15;2 in 20 Decelerations / Type: None Acoustic Stimulator: (not recorded) Nonstress Test Interpretation: (not ned rded) reactive Result: Expected result Provider notification: provider viewed EFM while in room for sp ec exam Twin Felix MD OB PROCEDURE ORD AMNIOTIC FLUID INDEX (08/24/2022 12:27 AM CDT) Narrative Twin Felix MD - 08/24/2022 12: 27 AM CDT Chayo Shah RN ? 08/24/2022 12:28 AM Amniotic Fluid Assessment Patient: Laura Salinas : 1985 ? Admitting Physician: ??Twin kirkpatrick MD Reason for test: ??threatened premature labor Date of test: ??08/24/2022 33w4d __ Amniotic Fluid Index: 14.8 Deepest vertical Pocket:5.28 Position: vertex Comments. Twin Felix MD OB PROCEDURE ORD Trichomonas, Zaynab, and Bacterial Vaginosis by IBAN (08/23/2022 11:24 PM CDT) [facility] Method Time Signature ZAYNAB SPECIES Negative Negative 08/24/2022 [facility] 4:33 AM CDT LAB[facility]ATORY[facility] ZAYNAB Negative Negative 08/24/2022 [facility] GLABRATA 4:33 AM CDT LABORATORY-[facility] TRICHOMONAS VVA Negative Negative 08/24/2022 [facility] 4:33 AM CDT [facility] BACTERIAL Negative Negative 08/24/2022 [facility] VAGINOSIS 4:33 AM CDT LABORATORY-[facility]ORY Specimen Anatomical Collection Method Collection Time Receive d Time (Source) Location / / Volume Laterality Other VAGINAL SWAB / Non-Blood / 08/23/2022 11:24 2 Unknown Unknown PM CDT 11:38 PM CDT Twin Felix MD MICROBIOLOGY Performing Organization Address City/[facility]/ZIP Code Phon e Number Cardiac Dimensions [address] [place] [address] LAB[facility]ATORY[facility] 1999 LABORATORY AMNISURE ROM (08/23/2022 11:05 PM CDT)Only the most recent of2 resultswithin the time period is included. [facility] Method Time Signature AMNISURE ROM Negative, NO Negative, NO 08/24/2022 ZAINAB [facility]co [facility] 1:03 AM CDT LABORATORY-CE RUPTURE RUPTURE NTRAL LABORATORY Specimen Anatomical Collection Method Collection Time Receive d Time (Source) Location / / Volume Laterality Body Fluid VAGINAL SWAB / Non-Blood / 08/23/2022 11:05 2 Unknown Unknown PM CDT 12:22 AM CDT Twin Felix MD LABORATORY Performing Organization Address City/State/ZIP Code Phon e Number Cardiac Dimensions [address] [place] [address] [place] [address] LAB[facility]ATORY[facility] 1999 LABORATORY Growth Follow Up Any Trimester (CPT 39712) If BPP w/NST needed use Testing section [...] as needed. Medical Decision Making: Moderate Level 98722 ?Moderate number of Diagnoses inclu ding one [...] Services Provided: Procedures Code FOLLOW UP GROWTH 35810.0 TRANSVAGINAL ULTRASOUND 98818.0 Procedure Note Arin Hernandez MD - 07/31/2022For matting of this note might be different from the original. Referred By: DARSHAN MULLINS INDICATION:Low lying placenta IndicationsCode 30 weeks gestation of [id number] History of PTD / PROM D&C x2 [...] as needed. Medical Decision Making: Moderate Level 63884 Moderate number of Diagnoses including one previously undiagnosed new problem with uncertain prognosis, a low lying placent a, LGA fetus Moderate complexity of Data including r eview of prior ultrasound, ordering another ultrasound, and review of prior external notes, Moderate risk of morbidity or mortality to the fetus from possible need for early delivery which was discussed. Services Provided: ProceduresCode FOLLOW UP [id number] TRANSVAGINAL [id number] Heather Hernandes MD from Last 3 Months Insurance Payer Benefit Plan / Subscriber ID Effective Dates Phone Addre ss Type Group BLUE CROSS BLUE CROSS OF [id number] 2020-Present [address] [address] [place] [address] Care Teams Modeling Analyst Relationship Specialty Start Date End Date Pcp, No PCP - General 11/18/13 . Annita Moreira CNM Referring Provider Certified Nurse Radio Frequency Design Engineer 03/22/22 3 [address] [place] [address]
--- OUTSIDE RECORDS SUMMARY | 2022-08-25 17:52 | XMS_ITS | Clinical Summary ---
:1985 Author Organization [facility] Address [address] [address] Care Team Providers Name Role Phone Unavailable [...] for each transition of care or referral. [facility] Allergies Active Allergy Reactions Severity Noted Date [...] (ONETOUCH DELICA topically 4 times 2 PLUS [id number]) a day. MISC insulin Inject 1 Each 100 Each Active syringe-needle subcutaneously 2 U-100 1ml 31g x daily. Indication s: Gestational diabetes mellitus (GDM), antepartum, gestational diabetes method of control unspecified insulin isophane Take 22 units each 10 mL 4 Active (NOVOLIN N) 100 night. 2 UNIT/ML injectionIndicat ions: Gestational diabetes mellitus (GDM), antepartum, [...] Inject 16 Units 10 mL 4 0 Discontinued (NOVOLIN [...] Diabetes Program Zoya Tinsley, RD N, LD, [facility] [address] [place] N [address] (Wo rk) Health Maintenance Due Date Last [...] ss Type Group BCBS BCBS OUT OF [id number] 2020-Present [address] [address] [facility] [phone]
--- OUTSIDE RECORDS SUMMARY | 2022-08-25 17:52 | XMS_ITS | Encounter Summary ---
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 Do you belong to any clubs [...]
--- OUTSIDE RECORDS SUMMARY | 2022-08-25 17:52 | XMS_ITS | Encounter Summary ---
:1985 Author Organization [facility] Address [address] [place] [address] Care Team Providers Name Role Phone Unavailable Primary Care Provider Unavailable Reason for Referral Outpatient (Routine) - Closed Specialty Diagnoses / Procedures Referred By Contact Refer red To Contact Maternal and Diagnoses Premature Rupture Of Membranes Unspecified As To Length Of Time Between Rupture And Onset Of Labor Second Trimester (HCC) 21 Weeks Gestation (HCC) [facility] Janelle Dominguez M.D. 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 21 Weeks Gestation [address] [facility] [address] [place] [address] [place], [place] [phone] [id number] Social History Tobacco Use Types Packs/Day Years [...] or relatives? How often do you attend mormon or 1 to 4 times per year 11/22 confucianist services? Do you belong to any clubs or No 12/12/2020 organizations such as mormon groups, unions, fraSmarterer or athletic groups, or school groups? How [...] Name Type Priority Associated Diagnoses Order S [facility] Obstetrics Referral Outpatient Referral Routine [...]
--- OUTSIDE RECORDS SUMMARY | 2022-08-25 17:52 | XMS_ITS | Encounter Summary ---
:1985 Author Organization [facility] Address [address], [place] [address] Care Team Providers Name Role Phone Unavailable Primary Care Provider Unavailable Reason for Referral Consult/Transfer Care (Routine) - New Request Specialty Diagnoses / Procedures Referred By Contact Refer red To Contact Diagnoses Gestational diabetes mellitus (GDM), antepartum, gestational diabetes method of control unspecified Henrietta Ortega PA-C [address] [place], [place] [address] Referral ID Status Reason Start Date Expiration Date Visits V isits Requested Authorized [id number] New Request 08/03/2022 11/02/2023 1 1 Scheduling Instructions Your provider has recommended an appoint ment with [facility]. You may call [phone] to schedule yo ur appointment. We suggest you call your health insurance company about your cove rage and benefits for this appointment. Encounter Details Date Type Department Care Team Description 08/03/2022 Notes/Orders [facility] [address] Henrietta Ortega PA-C Gestational diabetes Endocrinology [address] mellitus (GDM), [address] antepartum, [address] [place], [place] [address] method of control [address] unspecified (Primary [phone] Dx) Social History Tobacco Use Types Packs/Day [...] Diabetes Program Zoya Tinsley, CASIMIRO N, LD, [facility] [address] [facility] [place] [address] (Wo rk) Scheduled Referrals Name Type Priority [facility] Referral Routine Gestational diabetes O rdered: 08/03/2022 Visit mellitus (GDM), antepartum, gestational diabetes method of control unspecified documented as of this encounter Visit Diagnoses Diagnosis Gestational diabetes mellitus (GDM), ant epartum, gestational diabetes method of control unspecified - Primary documented in this encounter
--- OUTSIDE RECORDS SUMMARY | 2022-08-25 17:52 | XMS_ITS | Clinical Summary ---
:1985 Author Organization [facility] Address [address] [place] [address] Care Team Providers Name Role Phone Unavailable Primary Care Provider Unavailable Source Comments Patient records contain information from all sites at [facility]. For routine questions regarding patient records, call [phone] during business hours, M-F 8:00 AM - 5:00 PM Central Time. Record requests for emergency care only can be directed to [phone] at any time.[facility] Allergies Active Allergy Reactions Severity Noted Date Comments Penicillins Rash 10/18/2020 Salicylates Edema 10/18/2020 Swollen tongue Medications Medication Sig Dispensed Refills Start Date End Date Status Take 1 tablet by 0 Act angela [id number] mouth daily. (VINATE ONE) 60 mg iron-1 [...] or relatives? How often do you attend hindu or 1 to 4 times per year 11/22 episcopal services? Do you belong to any clubs or No 12/12/2020 organizations such as hindu groups, unions, fraternal or athletic groups, or [...] Comments Blood Pressure 116/69 10/20/2020 12:39 PM SOFTWARE INTERN Pulse 81 10/20/2020 12:39 PM SOFTWARE INTERN Temperature 37.2 ??C (99 ??F) 10/20/2020 12:39 PM SOFTWARE INTERN Respiratory Rate 18 10/20/2020 12:39 PM SOFTWARE INTERN Oxygen Saturation 99% 10/20/2020 12:39 PM SOFTWARE INTERN Inhaled Oxygen Concentration - - Weight 56.3 kg (124 lb 1.9 oz) 10/19/2020 6:30 AM SOFTWARE INTERN Height - - Body Mass Index - [...] Addre ss Type Group BLUE CROSS BCBS [place] [id number] 2020-Yuki [phone] [address] PPO BLUE SHIELD t [address] [place] [address] Advance Directives For more information, please contact: [phone] Latest Code Status on File Code Status Date Activated Date Inactivated Comments Full Code 10/18/2020 7:51 PM 10/20/2020 2:51 PM Question Answer Comments Full Code: Not Discussed Due to: Not medically appropriate
--- OUTSIDE RECORDS SUMMARY | 2022-08-25 17:52 | XMS_ITS | Encounter Summary ---
:1985 Author Organization [facility] Address [address] [place] [address] Care Team Providers Name Role Phone Unavailable Primary Care Provider Unavailable Reason for Visit Reason Comments Rupture of Membranes Contractions Auth/Cert Specialty Diagnoses / Procedures Referred By Contact Refer red To Contact Diagnoses 22 Weeks Gestation (HCC) Procedures DIR Referral ID Status Reason Start Date Expiration Date Visits Requ ested Visits Authorized [id number] 1 1 Encounter Details Date Type Department Care Team Description 10/18/2020 - Hospital Encounter [facility] Jordyn Wild M.D. [address] [place] [phone] 22 Weeks Gestation (Primary Dx) ; 10/20/2020 [facility], Erin Villagran M.D., M.P.H. [address] [place] [address] [phone] 21 Weeks Gestation ; [place], Heather Ott M.D. [address] [place] [phone] Premature Rupture Of Membranes U nspecified As To Length Of Time Between Rupture And Onset Of Labor Second Trimester Building, Third Floor [address] [place] [address] Social History Tobacco Use Types [...] or relatives? How often do you attend jewish or 1 to 4 times per year 11/22 spiritism services? Do you belong to any clubs or No 12/12/2020 organizations such as jewish groups, unions, fraternal or athletic groups, or [...] Comments Blood Pressure 116/69 10/20/2020 12:39 PM HAND LEATHER TRIMMER Pulse 81 10/20/2020 12:39 PM HAND LEATHER TRIMMER Temperature 37.2 ??C (99 ??F) 10/20/2020 12:39 PM HAND LEATHER TRIMMER Respiratory Rate 18 10/20/2020 12:39 PM HAND LEATHER TRIMMER Oxygen Saturation 99% 10/20/2020 12:39 PM HAND LEATHER TRIMMER Inhaled Oxygen Concentration - - Weight 56.3 kg (124 lb 1.9 oz) 10/19/2020 6:30 AM HAND LEATHER TRIMMER Height - - Body Mass Index - - documented in this encounter Discharge Summaries Saqib Strong M.D. - 10/20/2020 12:07 PM CST DISCHARGE SUMMARY BRIEF OVERVIEW Hospital: [facility] Discharge Provider: Erin Alarcon M.D. Primary Team: [facility] No primary care [...] return in one week for neonatology consult, [facility] return visit and further discussion of when she would like to be re-admitted. She was discharged home in stable condition. //Miriam Ruggiero MD CONSULTS ORDERED DURING THIS ADMISSION CONDITION AT DISCHARGE Stable Discharge instructions were provided to the patient and caregiver(s). LEATHER TRIMMER documented in this encounter Medications at Time of Discharge Medication Sig Dispensed Refills Start Date End Date afsjpxsjms-[id number]-q TK 1 TO 2 TS PO Q 4 H 0 09/08/2020 aff (FIORICET, ESGIC) NEEDED. MAX 6 PER 50-325-40 mg per tablet DAY Take 1 tablet by 0 [id number] (VINATE mouth daily. ONE) 60 mg iron-1 [...] 10/18/2020. 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 Obstetrical Chief PGY-3 [phone] LEATHER TRIMMER Associated attestation - Heather Goodrich M.D. - 10/19/2020 12:27 AM HAND LEATHER TRIMMER Computer Numerical Control Operator Teaching Physician Statement: I have discussed [...] delivery upon exam findings of 4-5cm dilation. 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 Have printed her additional studies [...] further discussion this afternoon Miriam Ruggiero M.D. LEATHER TRIMMER Associated attestation - Saqib Strong M.D. - 10/20/2020 11:17 AM HAND LEATHER TRIMMER I have discussed the care of Jim [...] L.G.S.Norris., L.I.C.S.W., M.S.W. - 10/19/2020 1:02 PM HAND LEATHER TRIMMER SUBJECTIVE Social work met with the patient [...] weeks gestationas a transfer of care from [place], [place] due to concern for previable premature [...] day parking pass provided 10/19/20. Annita Kaplan [facility], CARDIAC NURSE PRACTITIONER 10/19/2020 LEATHER TRIMMER Miriam Ruggiero M.D. - 10/19/2020 12:09 PM [...] 10/18/2020. 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 PSH: none Allergies: PCN (rash as [...] for necr otizing enterocolitis, and potential poor intermediate school teacher neurological outcomes/disability. Have printed her additional studies [...] discussion pending ultrasound results. Miriam Ruggiero M.D. LEATHER TRIMMER Associated attestation - Raysa Guerin M.D. - 11/14/2020 4:22 AM HAND LEATHER TRIMMER I saw and evaluated the patient, participating [...] with family for expectant management. Questions answered. LEATHER TRIMMER Irish Newell R.N. - 10/18/2020 9:29 PM [...] reviewed goals for the shift with patient. LEATHER TRIMMER documented in this encounter Miscellaneous Notes Hospital [...] home in stable condition. //Miriam Ruggiero MD LEATHER TRIMMER documented in this encounter Plan of Treatment Pending Results Name Type Priority Associated Diagnoses Date/Ti ak US OB Limited Imaging RAD - Routine (most 020 8:51 PM inpatients and all HAND LEATHER TRIMMER outpatients) Scheduled Orders Name Type Priority Associated Diagnoses Order S chedule US OB Limited Imaging RAD - Routine (most Once fo r 1 inpatients and all Occurrenc es starting outpatients) 10/18/2020 unti l 10/18/2020 documented as of this encounter Procedures Procedure Name Priority Date/Time Associated Comments Diagnosis US OB ANATOMY RAD - Routine 10/19/2020 1:21 Results fo r this ANGUIANO (most inpatients PM HAND LEATHER TRIMMER procedure a re in and all the results outpatients) section. RUBELLA ANTIBODIES, Routine 10/19/2020 7:18 Resul ts for this IGG AM HAND LEATHER TRIMMER procedure are i n the results section. VARICELLA-ZOSTER Routine 10/19/2020 7:18 Results for this AB, IGG, S AM HAND LEATHER TRIMMER procedure are i n the results section. MICROSCOPIC MANUAL Routine 10/19/2020 2:21 Result s for this AM HAND LEATHER TRIMMER procedure are i n the results section. BACTERIAL CULTURE, Routine 10/19/2020 2:21 Result s for this AEROBIC + SUSC, AM HAND LEATHER TRIMMER procedure ar e in URINE the results section. CONFIRMED DRUG Routine 10/19/2020 2:21 Results fo r this ABUSE PANEL, U AM HAND LEATHER TRIMMER procedure are in the results section. CHLAMYDIA/GONORRHOE Routine 10/19/2020 2:21 Resul ts for this AE AMPLIFIED RNA AM HAND LEATHER TRIMMER procedure a re in the results section. URINALYSIS WITH Routine 10/19/2020 2:21 Results f or this MICROSCOPIC AM HAND LEATHER TRIMMER procedure are i n the results section. HEPATITIS B SURFACE STAT 10/18/2020 9:34 Resul ts for this ANTIGEN PM HAND LEATHER TRIMMER procedure are i n the results section. FIBRINOGEN, P STAT 10/18/2020 9:34 Results for this PM HAND LEATHER TRIMMER procedure are i n the results section. SARS CORONAVIRUS 2, Routine 10/18/2020 8:05 Resul ts for this MOLECULAR PM HAND LEATHER TRIMMER procedure are i n DETECTION, PCR (RIVET MAKER) the resu lts section. HEPATITIS B SURFACE STAT 10/18/2020 7:59 Resul ts for this ANTIGEN PM HAND LEATHER TRIMMER procedure are i n the results section. CBC WITHOUT STAT 10/18/2020 7:59 Results for this DIFFERENTIAL, B PM HAND LEATHER TRIMMER procedure ar e in the results section. TYPE AND SCREEN STAT 10/18/2020 7:59 Results f or this PM HAND LEATHER TRIMMER procedure are i n the results section. HIV-1/-2 AG AND AB STAT 10/18/2020 7:58 Result s for this SCRN, PM HAND LEATHER TRIMMER procedure are in PLASMA the results section. documented in this encounter Results US OB Anatomy Anguiano (10/19/2020 1:21 PM HAND LEATHER TRIMMER) Anatomical Region Laterality Modality Body, Ultrasound OB RST LOS, Ultrasound ARZ LOS N/A Ultrasound Specimen (Source) Anatomical Location Collection Method / Collectio n Time Received Time / Laterality Volume Narrative 10/19/2020 1:27 PM HAND LEATHER TRIMMER JIM LOWE OB Exam, 10/19/2020 EXAM INFORMATION Patient Name: ??JIM LOWE : ??1985 Age: ??34 yrs Sex: ??Female Ref Phys: ??MIRIAM RUGGIERO Exam Date: 10/19/2020 Procedure: US OB ANATOMY ANGUIANO Exam Site: [facility] Plurality: 1 INDICATIONS FOR SONOGRAPHY Anatomic [...] Read by Ilir Moss on 1:21:30 PM. Tourist Information Assistant: ??Ilir Moss Thank You For This Referral Procedure Note Eamon Dawson M.B.BIshaSIsha, Terrie. - 10/19 JIM LOWE OB Exam, 10/19/2020 EXAM INFORMATION Patient Name: MYNORJIM S : 1985 Age: 34 yrs Sex: Female Ref Phys: MIRIAM RUGGIERO Exam Date: 10/19/2020 Procedure: US OB ANATOMY ANGUIANO Exam Site: [facility] Plurality: 1 INDICATIONS FOR SONOGRAPHY Anatomic [...] Read by Ilir Moss on 1:21:30 PM. Tourist Information Assistant: Ilir Moss Thank You For This Referral Miriam Ruggiero M.D. IMG OB US PROCEDURES Varicella-Zoster Antibody, IgG, Serum (10/19/2020 7:18 AM HAND LEATHER TRIMMER) athologist Signature Varicella-Zost Positive 10/19/2020 [facility] er Ab, IgG, S 10:41 AM HAND LEATHER TRIMMER Comment: Results suggest response to immunization or prior exposure to the virus. ----REFERENCE VALUE---- Vaccinated: Positive (>=1.1 AI) Unvaccinated: Negative (<=0.8 AI) Varicella IgG Antibody Index 1.3 10/19/2020 10:41 AM HAND LEATHER TRIMMER [facility] Specimen Anatomical Collection Method Collection Time Receive d Time (Source) Location / / Volume Laterality Blood (Blood, 10/19/2020 7:18 AM 10/19/20 20 9:43 Venous) HAND LEATHER TRIMMER AM HAND LEATHER TRIMMER Sierra Welch M.D. LAB MICROBIOLOGY - BLOOD ORD ERADIAMANTE Performing Organization Address [facility] Phon e Number [facility] [address] [place] [place] [address] Laboratory Medicine and Pathology [address] [place] [address] Dr. MANUEL Rubella Antibodies, IgG (10/19/2020 7:18 AM HAND LEATHER TRIMMER) athologist Signature Rubella Ab, Positive 10/19/2020 [facility] IgG, S 10:40 AM HAND LEATHER TRIMMER Comment: Results suggest response to immunization or prior exposure to the virus. ----REFERENCE VALUE---- Vaccinated: Positive (>=1.0 AI) Unvaccinated: Negative (<=0.7 AI) Rubella IgG Antibody Index 1.4 10/19/2020 10 :40 AM HAND LEATHER TRIMMER [facility] Specimen Anatomical Collection Method Collection Time Receive d Time (Source) Location / / Volume Laterality Blood (Blood, 10/19/2020 7:18 AM 10/19/20 20 9:43 Venous) HAND LEATHER TRIMMER AM HAND LEATHER TRIMMER Sierra Welch M.D. LAB MICROBIOLOGY - BLOOD ORD JENNA Performing Organization Address [facility] Phon e Number [address] [place] [address] [facility] [place] [address] Laboratory Medicine and Pathology [address] [place] [address] Dr. MANUEL (ABNORMAL) Microscopic Manual (10/19/2020 2:21 AM HAND LEATHER TRIMMER) Analysis Performed At Patho logist Time Signature Microscopy Abnormal 10/19/2020 [place] 6:26 AM HAND LEATHER TRIMMER RBC >100 (A) <3 /hpf 10/19/2020 [place] 6:26 AM HAND LEATHER TRIMMER Dysmorphic RBC <25 <25 % 10/19/2020 [facility] 6:26 AM HAND LEATHER TRIMMER WBC 1-3 /hpf 10/19/2020 [place] 6:26 AM HAND LEATHER TRIMMER Comment: ----REFERENCE VALUE---- 1-3 ??(Males) 1-10 (Females) Specimen Anatomical Collection Method Collection Time Receive d Time (Source) Location / / Volume Laterality Urine 10/19/2020 2:21 AM 0 4:00 HAND LEATHER TRIMMER AM HAND LEATHER TRIMMER Sierra Welch M.D. LAB URINE ORDERABLES Performing Organization Address [facility] Phon e Number [facility] - [address] [place] [address] [address] [place] [address] Laboratories-[address] Bacterial Culture, Aerobic + Susc, Urine (10/19/2020 2:21 AM HAND LEATHER TRIMMER) Patholo gist Method Time Signature Urine Culture No growth 10/20/2020 DT after 1 day 8:16 AM HAND LEATHER TRIMMER of incubation. Specimen Anatomical Collection Method Collection Time Receive d Time (Source) Location / / Volume Laterality Urine (Urine, 10/19/2020 2:21 AM 10/19/20 20 5:03 Straight HAND LEATHER TRIMMER AM HAND LEATHER TRIMMER Catheter) Comment: Specimen Source Site: Urine Sierra Welch M.D. LAB MICROBIOLOGY - GENERAL O RDERABLES Performing Organization Address [facility] Phon e Number [facility] - [address] [place] [address] [address] (ABNORMAL) Urinalysis with Microscopic: Urine, Catheter (10/19/2020 2:21 AM HAND LEATHER TRIMMER) Analysis Performed At Patho logist Time Signature Source Catheter 10/19/2020 [facility] 4:00 AM HAND LEATHER TRIMMER Appearance Normal Normal 10/19/2020 [place] 4:00 AM HAND LEATHER TRIMMER Osmolality, U 521 150 - 1150 10/19/2020 [place] mOsm/kg 4:47 AM HAND LEATHER TRIMMER pH, U 6.2 4.5 - 8.0 10/19/2020 [place] 4:47 AM HAND LEATHER TRIMMER Comment: ----ADDITIONAL INFORMATION---- This test was developed and its performa nce characteristics determined by [facility] in a manner co nsistent with CLIA requirements. This test has not bee n cleared or approved by the U.S. Food and Drug Admin istration. Glucose 8 0 - 15 mg/dL 10/19/2020 6:17 AM HAND LEATHER TRIMMER [place] Protein, U 46 (H) <26 mg/dL 10/19/2020 6:17 AM HAND LEATHER TRIMMER [place] Comment: ----ADDITIONAL INFORMATION---- On 04/16/2017 the total protein assay me thod changed resulting in approximately a 15% increase in prote in values. Protein/Osmolality 0.88 (H) <0.42 Ratio 10/19/2020 6:17 AM HAND LEATHER TRIMMER [place] Comment: ----ADDITIONAL INFORMATION---- On 04/16/2017 the total protein assay me thod changed resulting in approximately a 15% increase in prote in values. Predicted 24 Hr Protein 597 mg/24 h 10/19/2020 6:17 AM HAND LEATHER TRIMMER [place] Predicted Range 148-2419 mg/24 h 10/19/2020 6:17 AM HAND LEATHER TRIMMER R JEM Hemoglobin, QL Large (A) Negative 10/19/2020 6:26 AM HAND LEATHER TRIMMER RE NA Specimen Anatomical Collection Method Collection Time Receive d Time (Source) Location / / Volume Laterality Urine (Urine, 10/19/2020 2:21 AM 10/19/20 20 4:00 Catheter) HAND LEATHER TRIMMER AM HAND LEATHER TRIMMER Sierra Welch M.D. LAB URINE ORDERABLES Performing Organization Address City/State/ZIP Code Phon e Number [facility] - [address] [place], [place] [address] [place] [address] Laboratories-[facility] [address] Chlamydia / Gonorrhoeae Amplified RNA (10/19/2020 2:21 AM HAND LEATHER TRIMMER) [facility] gist Method Time Signature Source Urine, 10/19/2020 [facility] Urine, First 6:58 PM HAND LEATHER TRIMMER Voided Chlamydia Negative Negative 10/19/2020 [facility] trachomatis 6:58 PM HAND LEATHER TRIMMER amplified RNA Source Urine, 10/19/2020 [facility]TL Urine, First 6:58 PM HAND LEATHER TRIMMER Voided Neisseria Negative Negative 10/19/2020 [facility] gonorrhoeae 6:58 PM HAND LEATHER TRIMMER amplified RNA Specimen Anatomical Collection Method Collection Time Receive d Time (Source) Location / / Volume Laterality Varies (Urine, 10/19/2020 2:21 AM 020 7:22 First Voided) HAND LEATHER TRIMMER AM HAND LEATHER TRIMMER Sierra Welch M.D. LAB MICROBIOLOGY - GENERAL O RDERABLES Performing Organization Address [facility] Phon e Number [facility] - [address] [place], [place] [address] [place] [address] Laboratories-[facility] [address] Drug Abuse Survey with Confirmation, Urine (10/19/2020 2:21 AM HAND LEATHER TRIMMER) Patholo gist Method Time Signature Alcohol Negative Cutoff: 10/19/2020 [facility] 10 mg/dL 9:52 AM HAND LEATHER TRIMMER Amphetamines Negative Cutoff: 10/19/2020 [facility] 500 ng/mL 9:52 AM HAND LEATHER TRIMMER Barbiturates Negative Cutoff: 10/19/2020 [facility] 200 ng/mL 9:52 AM HAND LEATHER TRIMMER Benzodiazepines Negative Cutoff: 10/19/2020 [facility] 100 ng/mL 9:52 AM HAND LEATHER TRIMMER Cocaine Negative Cutoff: 10/19/2020 [facility] 150 ng/mL 9:52 AM HAND LEATHER TRIMMER Opiates Negative Cutoff: 10/19/2020 [facility] 300 ng/mL 9:52 AM HAND LEATHER TRIMMER Phencyclidine Negative Cutoff: 10/19/2020 [facility] 25 ng/mL 9:52 AM HAND LEATHER TRIMMER Tetrahydrocannabinol Negative Cutoff: 10/19/2020 [facility] 50 ng/mL 9:52 AM HAND LEATHER TRIMMER Comment: ----ADDITIONAL INFORMATION---- This report is intended for use in clini kosta monitoring or management of patients. ??It is not intended for use i n employment-related testing. Specimen Anatomical Collection Method Collection Time Receive d Time (Source) Location / / Volume Laterality Urine (Urine, 10/19/2020 2:21 AM 10/19/20 8:50 Clean Catch) HAND LEATHER TRIMMER AM HAND LEATHER TRIMMER Sierra Welch M.D. LAB URINE ORDERABLES Performing Organization Address [facility] Phon e Number [facility] [address] [place], [place] [address] [facility] [place] [address] Laboratory Medicine and Pathology [address] MANU[place] (ABNORMAL) Fibrinogen (10/18/2020 9:34 PM HAND LEATHER TRIMMER) P athologist Signature Fibrinogen, P 624 (H) 200 - 393 10/18/2020 [facility] mg/dL 9:49 PM HAND LEATHER TRIMMER Specimen Anatomical Collection Method Collection Time Receive d Time (Source) Location / / Volume Laterality Blood (Blood, 10/18/2020 9:34 PM 10/18/20 20 9:40 Venous) HAND LEATHER TRIMMER PM HAND LEATHER TRIMMER Sierra Welch M.D. LAB BLOOD ADD-ON Performing Organization Address City/[facility]/ZIP Code Phon e Number [facility] - [address] [place], [place] [address] [facility] [place] [address] Laboratories-[facility] [address] Hepatitis B Surface Antigen (10/18/2020 9:34 PM HAND LEATHER TRIMMER) P athologist Signature HBs Antigen, S Negative Negative 10/19/2020 [facility] 9:23 AM HAND LEATHER TRIMMER Specimen Anatomical Collection Method Collection Time Receive d Time (Source) Location / / Volume Laterality Blood (Blood, 10/18/2020 9:34 PM 10/19/20 20 8:14 Venous) HAND LEATHER TRIMMER AM HAND LEATHER TRIMMER Sierra Welch M.D. LAB MICROBIOLOGY - BLOOD ORD ERABLES Performing Organization Address [facility] Phon e Number [facility] [address] [place], [place] [address] [facility] [place] [place] [address] Laboratory Medicine and Pathology [address] [place] SARS Coronavirus 2, Molecular Detection, PCR (RIVET MAKER) Asymptomatic (10/18/2020 8:05 PM HAND LEATHER TRIMMER) Patholo gist Method Time Signature COVID-19, PCR Undetected Undetected 10/19/2020 DTL 12:55 AM HAND LEATHER TRIMMER Comment: SARS-CoV-2 RNA absent. This result does [...] Drug Administration an d is used per waiter/waitress cocktail lounge's instructions. Performance characteristics were verified by [facility] in a manner consistent with CLIA requirements. Visit the CDC website: https://www.cdc.g ov/coronavirus/ for the most recent guidelines on [place] virus testing. Fact Sheet for Healthcare Providers: https://www.fda.gov/media/208458/downloa d Fact Sheet for Patients: https://www.fda.gov/media/212425/downloa d Specimen Anatomical Collection Method Collection Time Receive d Time (Source) Location / / Volume Laterality Varies 10/18/2020 8:05 PM 0 8:40 (Nasopharynx) HAND LEATHER TRIMMER PM HAND LEATHER TRIMMER Heather Goodrich M.D. LAB MICROBIOLOGY - GENERAL O RDERABLES Performing Organization Address City/[facility]/ZIP [facility] Phon e Number [facility] - [address] [place], [place] [address] [facility] [place] [address] Laboratories-[facility] [address] [facility] Hepatitis B Surface Antigen (10/18/2020 7:59 PM HAND LEATHER TRIMMER) P athologist Signature HBs Antigen, S Negative Negative 10/19/2020 [facility] 8:04 AM HAND LEATHER TRIMMER Specimen Anatomical Collection Method Collection Time Receive d Time (Source) Location / / Volume Laterality Blood (Blood, 10/18/2020 7:59 PM 10/19/20 20 6:59 Venous) HAND LEATHER TRIMMER AM HAND LEATHER TRIMMER Sierra Welch M.D. LAB MICROBIOLOGY - BLOOD ORD ERABLES Performing Organization Address City/[facility] Phon e Number [facility] [address] [place], [place] [address] [facility] [place] [place] [address] Laboratory Medicine and Pathology [address] [place] Type and Screen (with reflex Antibody ID) (10/18/2020 7:59 PM HAND LEATHER TRIMMER) Patholo gist Method Time Signature ABORh B Pos Not 10/18/2020 [facility] applicable 8:29 PM HAND LEATHER TRIMMER Antibody Negative Negative 10/18/2020 [facility] Screen 8:44 PM HAND LEATHER TRIMMER Type & Screen 10/21/2020 10/18/2020 [facility] Expiration 23:59 8:29 PM HAND LEATHER TRIMMER Testing [place] DEFAULT 10/18/2020 [facility] Location 8:08 PM HAND LEATHER TRIMMER Specimen Anatomical Collection Method Collection Time Receive d Time (Source) Location / / Volume Laterality Blood (Blood, 10/18/2020 7:59 PM 10/18/20 20 8:08 Venous) HAND LEATHER TRIMMER PM HAND LEATHER TRIMMER Sierra Welch M.D. LAB BLOOD BANK TEST ORDERABL ES Performing Organization Address City/[facility] Phon e Number [facility] - [address] [place], [place] [address] [facility] [place] [address] Laboratories-[facility] 200 [facility] (ABNORMAL) CBC without Differential (10/18/2020 7:59 PM HAND LEATHER TRIMMER) Patholo gist Method Time Signature Hemoglobin 11.0 (L) 11.6 - 10/18/2020 [facility] 15.0 g/dL 8:06 PM HAND LEATHER TRIMMER Hematocrit 31.8 (L) 35.5 - 10/18/2020 [facility] 44.9 % 8:06 PM HAND LEATHER TRIMMER Erythrocytes 3.65 (L) 3.92 - 10/18/2020 [facility] 5.13 8:06 PM HAND LEATHER TRIMMER x10(12)/L MCV 87.1 78.2 - 10/18/2020 [facility] 97.9 fL 8:06 PM HAND LEATHER TRIMMER RBC Distrib Width 13.5 12.2 - 10/18/2020 [facility] 16.1 % 8:06 PM HAND LEATHER TRIMMER Platelet Count 287 157 - 371 10/18/2020 [facility] x10(9)/L 8:06 PM HAND LEATHER TRIMMER Leukocytes 19.3 (H) 3.4 - 9.6 10/18/2020 [facility] x10(9)/L 8:06 PM HAND LEATHER TRIMMER Specimen Anatomical Collection Method Collection Time Receive d Time (Source) Location / / Volume Laterality Blood (Blood, 10/18/2020 7:59 PM 10/18/20 20 8:04 Venous) HAND LEATHER TRIMMER PM HAND LEATHER TRIMMER Sierra Welch M.D. LAB BLOOD ADD-ON Performing Organization Address City/State/ZIP Code Phon e Number [facility] - [address] [place] [address] [facility] [place] [address] Laboratories-[facility] [address] [facility] HIV-1/-2 Ag and Ab Scrn, Plasma (10/18/2020 7:58 PM HAND LEATHER TRIMMER) P athologist Signature HIV-1/-2 Ag Negative Negative 10/19/2020 [facility] and Ab 9:31 AM HAND LEATHER TRIMMER Scrn, P Comment: Negative result does not rule out HIV in fection. If exposure to HIV infection occurred <14 d ays ago, contact the laboratory to request additi on of HIV-1 RNA detection / quantification test (HIV QN). Specimen Anatomical Collection Method Collection Time Receive d Time (Source) Location / / Volume Laterality Blood (Blood, 10/18/2020 7:58 PM 10/19/20 20 6:59 Venous) HAND LEATHER TRIMMER AM HAND LEATHER TRIMMER Sierra Welch M.D. LAB MICROBIOLOGY - BLOOD ORD ERABLES Performing Organization Address City/State/ZIP Code Phon e Number [facility] [address] [place], [place] [address] [place] [address] [facility] [place] [address] Laboratory Medicine and Pathology [address] [...] 900 mg New Bag 10/19/2020 5:09 AM HAND LEATHER TRIMMER 900 mg 100 mL/hr (CLEOCIN) 900 mg, intravenous, at 100 mL/hr, Administer over 30 Minutes, Every 8 hours, First dose on Sat10/18/20 at 2000, premix bag, Indications: Obstetric or gynecological infection New Bag 10/18/2020 9:41 PM HAND LEATHER TRIMMER 900 mg 100 mL/hr fentaNYL injection 100 mcg (SUBLIMAZE) Given 10/18/2020 9:49 PM HAND LEATHER TRIMMER 100 mcg 100 mcg, intravenous, Every 1 hour PRN, moderate pain or score 4-6 of 10, severe pain or score 7-10 of 10, for labor pains, Starting on Sat10/18/20 at 1939, For 3 doses, L&D Pre-Delivery, Consultation with Anesthesia for pain control if patient requests regional anesthesia and in active labor or membranes ruptured. Given 10/18/2020 8:44 PM HAND LEATHER TRIMMER 100 mcg gentamicin 290 mg in NaCl 0.9% IVPB New Bag 10/18/2020 8:41 PM HAND LEATHER TRIMMER 290 mg 215 mL/hr (GARAMYCIN) 290 mg (rounded from 285 mg = 5 mg/kg ? 57 kg Order-specific weight), intravenous, at 215 mL/hr, Administer over 30 Minutes, Once, On Sat10/18/20 at 2000, For 1 dose, Drug Monitoring Program: Pharmacist to adjust medication dosing based on indication and drug clearance factors., Indications: Obstetric or gynecological infection lactated ringers New Bag 10/19/2020 5:10 AM HAND LEATHER TRIMMER 125 mL/hr 125 mL/hr 125 mL/hr, intravenous, Continuous, Starting on Sat10/18/20 at 2000, L&D Pre-Delivery, Indications: Hang fluids for maternal dehydration, concerns, epidural placement, with antibiotics. Rate/Dose Verify 10/19/2020 2:20 AM HAND LEATHER TRIMMER 125 mL/hr 125 mL/hr Rate/Dose Verify 10/19/2020 12:00 AM HAND LEATHER TRIMMER 125 mL/hr 125 mL/hr multivitamin/mineral- tablet 1 Given 10/20/2020 9:30 AM HAND LEATHER TRIMMER 1 tablet tablet 1 tablet, oral, Daily, First dose on Kylie 10/20/20 at 0900 documented in this encounter Active and Recently Administered Medications Times are shown in HAND LEATHER TRIMMER. Scheduled Medication Order 10/18/2020 10/19/2020 10/20/2020 clindamycin [...] palpation, or reach a mximum of 250 [place] units, and/or cervical change(s) occur. PRN Medication [...] COVID19 Pending 10/18/2020 10/18/2020 10/19/2020 12:56 AM HAND LEATHER TRIMMER documented as of this encounter
--- OUTSIDE RECORDS SUMMARY | 2022-08-25 17:52 | XMS_ITS | Encounter Summary ---
:1985 Author Organization [facility] Address [address], [place] [address] Care Team Providers Name Role Phone Unavailable Primary Care Provider Unavailable Reason for Visit Reason Comments APPOINTMENT REQUEST Referral for GDM Encounter Details Date Type Department Care Team Description 08/02/2022 Telephone [facility] 3800 Nurse, P3800 End APPOINTMENT REQUEST Endocrinology [address] Reis (Referral for GDM) [address] [facility] [address] [id number] Social History Tobacco Use Types Packs/Day Years Used Date Smoking Tobacco: Never Assessed Sex Assigned at Date Recorded Not on file documented as of this encounter Nursing Notes Sagrario Luna - 08/03/2022 9:49 AM CDT LVM to schedule GDM consult Sagrario Luna - 08/02/2022 9:18 AM CDT Faxed referral rec'd from for GDM, records sent to scan doc documented in this encounter Plan of Treatment Upcoming Encounters Date Type Specialty Care Team Description 09/04/2022 Telemedicine Diabetes Program Zoya Tinsley, RD N, LD, [facility] [address] [facility] [place] [address] [id number] (Wo rk) documented as of this encounter Visit Diagnoses Not on filedocumented in this encounter
--- OUTSIDE RECORDS SUMMARY | 2022-08-25 17:52 | XMS_ITS | Encounter Summary ---
:1985 Author Organization [facility] Address [address] [place] [address] Care Team Providers Name Role Phone Unavailable Primary Care Provider Unavailable Reason for Visit Outpatient (Routine) - Closed Specialty Diagnoses / Procedures Referred By Contact Refer red To Contact Maternal and Diagnoses Premature Rupture Of Membranes Unspecified As To Length Of Time Between Rupture And Onset Of Labor Second Trimester ([facility]) 21 Weeks Gestation ([facility]) [facility] Janelle Dominguez M.D. [address] [place] [address] Referral ID Status Reason Start Date Expiration Date Visits Requ ested Visits Authorized [id number] Closed 11/02/2020 11/02/2021 1 1 Encounter Details Date Type Department Care Team Description 12/16/2020 Telemedicine Department of Saqib Strong, Diana ture Rupture Of Membranes Unspecified As To Length Of Time Between Rupture And Onset Of Labor Second Trimester; Obstetrics and M.D. 21 Weeks Gestation Gynecology in [address] [place] [address] [place] [address] [place], [place] [phone] (Work) [phone] Social History Tobacco Use Types Packs/Day Years [...] or the highest technical, or vocational p [facility] degree you have received? 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 Mrs. Salinas's obstetrical history is significant for three term vaginal deliveries and one first-trimester miscarriage. In her fifth (2019), she was admitted o [facility] [place] following spontaneous PPROM at 21 weeks gestation. Ultrasound demonstrated normal anatomy and biometry; olig ohydramnios was noted (as anticipated). After an interval of inpatient observation, Mrs. Salinas and her elected to pursue expectant management and were discharged to home. Subsequently she developed labor at 21 weeks and delivered her daughter in [place]; her daughter appeared morphologically normal, and survived for approximately 60 minutes. Difficulty was encountered with retained placenta, requiring manual extraction and D&C; Mrs. Salinas was treated with a course of intravenous antibiotic therapy. 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 Salinas experienced retained placenta requiring manual extraction in her first as well. Regarding her heterozygous prothrombin P40041K heterozygote status, Mrs. Salinas was screening for thrombophilias after an aunt experienced an episode of thrombosis and tested positive for Factor V Leiden and the Prothrombin R54941S mutation; neither she personally nor any first-degree [...] determine viability/number and define gestational age. (in [place]) 3. Maternal cystic fibrosis/SMA and aneuploidy screening at 10-12 weeks (per her preference). 4. Consideration of early anatomic ultrasound at 11-14 weeks. 5. Sonographic cervix length surveillance beginning at 16 weeks and repeated weekly through 22 6/7 weeks, with contingent cerclage placement if cervix length shortens to <25mm prior to 23 0/7 weeks.(initial imaging study in [place]) 6. Consideration of 17-hydroxyprogesterone caprate prophylaxis (250mg IM weekly), beginning at 16-20weeks and continuing through 36 weeks. 7. Detailed anatomic survey ultrasound at 18-20 weeks. (in [place]) 8. Repeat ultrasound at 30-32 weeks to evaluate placental appearance for any evidence of accreta. 9. Consider induction of labor at 39 0/7-39 6/7 weeks; this may be scheduled either in [place] or in [place] pending resource availability. Mrs. Salinas resides approximately [address] [place] Intrapartum: 10. Obtain CBC and type & [...] I will arrange for initial appointments in [place]. Further care may be coordinated between [place] and [place]. I will also forward materials regarding placenta accreta occulta. Saqib Strong M.D. IX CONCRETE BATCHER documented in this encounter Plan of Treatment Not on filedocumented as of this encounter Visit Diagnoses Diagnosis Premature Rupture Of Membranes U nspecified As To Length Of Time Between Rupture And Onset Of Labor Second Trimes ter (HCC) 21 Weeks Gestation (HCC) documented in this encounter
--- OUTSIDE RECORDS SUMMARY | 2022-08-25 17:52 | XMS_ITS | Encounter Summary ---
:1985 Author [facility] [employer] Address [address], [place] [address] Care Team Providers Name Role Phone Unavailable Primary Care Provider Unavailable Encounter Details Date Type Department Care Team Description 08/14/2022 Telemedicine [facility] 3800 Henrietta Ortega PA-C Gestational diabetes Endocrinology [address] mellitus (GDM), [address] antepartum, [place], [place] [address] method of control [id number] unspecified (Primary [phone] Dx) Social History Tobacco Use Types Packs/Day [...] from the original note were not included. [facility]: [address], [address] [place] [address] [phone], Nurse Line: [phone] Gestational Diabetes Visit Note August 14, 2022 [...] No hx of pre-eclampsia. She met with fabricator special items at OB office and started checking her [...] medications. All medications reviewed and updated in [facility] today. Objective: Physical Exam: There were [...] Diabetes Program Zoya Tinsley, RD N, LD, [facility] [address] [facility] [place] [address] [address] (Wo rk) documented as of this encounter Visit Diagnoses Diagnosis Gestational diabetes mellitus (GDM), ant epartum, gestational diabetes method of control unspecified - Primary documented in this encounter
--- OUTSIDE RECORDS SUMMARY | 2022-08-25 17:52 | XMS_ITS | Encounter Summary ---
:1985 Author Organization [facility] Address [address] [place] [address] Care Team Providers Name Role Phone Unavailable Primary Care Provider Unavailable Reason for Visit Auth/Cert Specialty Diagnoses / Procedures Referred By Contact Refer red To Contact Diagnoses 22 Weeks Gestation (HCC) Procedures DIR Referral ID Status Reason Start Date Expiration Date Visits Requ ested Visits Authorized [id number] 1 1 Encounter Details Date Type Department Care Team Description 10/19/2020 Hospital Encounter Department of Josey Tse Obstetrics and M.DIsha Gynecology in [address] [place] [address] [place] [address] [place], [place] [phone] (Wo rk) [id number] [phone] Social History Tobacco Use Types Packs/Day Years [...] or relatives? How often do you attend worship or 1 to 4 times per year 11/22 yarsanism services? Do you belong to any clubs or No 12/12/2020 organizations such as worship groups, unions, fraternal or athletic groups, or [...] Sig Dispensed Refills Start Date End Date vspleccmkn-jzxrhyrudmarp-z TK 1 TO 2 TS PO Q 4 H 0 09/08/2020 aff (FIORICET, ESGIC) NEEDED. MAX 6 PER 50-325-40 mg per tablet DAY Take 1 tablet by 0 hhenfme-Zb-weur-FA (VINATE mouth daily. ONE) 60 mg iron-1 mg per tablet documented as of this encounter Plan of Treatment Not on filedocumented as of this encounter Procedures Procedure Name Priority Date/Time Associated Comments Diagnosis US OB ANATOMY RAD - Routine 10/19/2020 1:21 Results fo r this ANGUIANO (most inpatients PM CHEESEMAKING LABORER procedure a re in and all the results outpatients) section. documented in this encounter Results US OB Anatomy Anguiano (10/19/2020 1:21 PM CHEESEMAKING LABORER) Anatomical Region Laterality Modality Body, Ultrasound OB RST LOS, Ultrasound ARZ LOS N/A Ultrasound Specimen (Source) Anatomical Location Collection Method / Collectio n Time Received Time / Laterality Volume Narrative 10/19/2020 1:27 PM CHEESEMAKING LABORER LAURA LOWE OB Exam, 10/19/2020 EXAM INFORMATION Patient Name: ??LAURA LOWE : ??1985 Age: ??34 yrs Sex: ??Female Ref Phys: ??JOSEY TSE Exam Date: 10/19/2020 Procedure: US OB ANATOMY ANGUIANO Exam Site: [facility] Plurality: 1 INDICATIONS FOR SONOGRAPHY Anatomic [...] Read by Ilir Moss on 1:21:30 PM. Lacquer Polisher: ??Ilir Moss Thank You For This Referral Procedure Note Eamon Dawson M.B.B.S., MAngelo. - 10/19 MYNOR LAURADANIELITO SHIPLEY OB Exam, 10/19/2020 EXAM INFORMATION Patient Name: LAURA LOWE S : 1985 Age: 34 yrs Sex: Female Ref Phys: JOSEY TSE Exam Date: 10/19/2020 Procedure: US OB ANATOMY ANGUIANO Exam Site: [facility] Plurality: 1 INDICATIONS FOR SONOGRAPHY Anatomic [...] Read by Ilir Moss on 1:21:30 PM. Lacquer Polisher: Ilir Moss Thank You For This Referral Josey Tse M.D. IMG OB US PROCEDURES documented in this encounter Visit Diagnoses Not on filedocumented in this encounter
[2022-08-25 18:05] VITALS: PULSE 86; TEMP 36.8; O2SAT 97
[2022-08-25 18:06] VITALS: BP 109/62; PULSE 81
[2022-08-25 18:44] LABS: Clue Cells No Clue Cells Seen (None Seen); Trichomonas No Trichomonas Seen (None Seen); Yeast No Yeast Seen (None Seen)
== END 2022-08-25 19:15 | disposition home or self-care (01) ==
LOC: OB OUT 17:50 → OB 17:51
PROVIDERS: Visit Provider Obstetrics & Gynecology
DX: Z34.93 Encounter for supervision of normal pregnancy, unspecified, third trimester (principal); Z3A.34 34 weeks gestation of pregnancy
CPT/HCPCS: 59025; 87210; 99213

== ENCOUNTER 2022-08-29 12:09 | Outpatient (CLI) | payer BC, SELFPAY ==
--- NOTE | 2022-08-03 14:18 | URNOTE ---
Received request for prior auth for Injectafer ([id number]). Per Availity prior auth is not required. Ref #[id number]
--- OUTSIDE RECORDS SUMMARY | 2022-08-29 12:12 | XMS_ITS | Encounter Summary ---
:1985 Author Organization [facility] Address [address], [place] [address] Care Team Providers Name Role Phone Unavailable Primary Care Provider Unavailable Reason for Visit Reason Comments APPOINTMENT REQUEST Referral for GDM Encounter Details Date Type Department Care Team Description 08/02/2022 Telephone [facility] 3800 Nurse, P3800 End APPOINTMENT REQUEST Endocrinology [address] Reis (Referral for GDM) [address] [facility] [place] [address] Social History Tobacco Use Types Packs/Day Years Used Date Smoking Tobacco: Never Assessed Sex Assigned at Date Recorded Not on file documented as of this encounter Nursing Notes Sagrario Luna - 08/03/2022 9:49 AM CDT LVM to schedule GDM consult Sagrario Luna - 08/02/2022 9:18 AM CDT Faxed referral rec'd from [facility] for GDM, records sent to scan doc documented in this encounter Plan of Treatment Upcoming Encounters Date Type Specialty Care Team Description 09/04/2022 Telemedicine Diabetes Program Zoya Tinsley, RD N, LD, [facility] [address] [facility] [place] [address] (Wo rk) documented as of this encounter Visit Diagnoses Not on filedocumented in this encounter
--- OUTSIDE RECORDS SUMMARY | 2022-08-29 12:12 | XMS_ITS | Encounter Summary ---
:1985 Author Organization [facility] Address [address] [address] Care Team Providers Name Role Phone Unavailable Primary Care Provider Unavailable Reason for Referral Consult/Transfer Care (Routine) - New Request Specialty Diagnoses / Procedures Referred By Contact Refer red To Contact Diagnoses Gestational diabetes mellitus (GDM), antepartum, gestational diabetes method of control unspecified Henrietta Ortega PA-C [address] [place], [place] [address] Referral ID Status Reason Start Date Expiration Date Visits V isits Requested Authorized [id number] New Request 08/03/2022 11/02/2023 1 1 Scheduling Instructions Your provider has recommended an appoint ment with Taylor Reis Diabetes Education. You may call [phone] to schedule yo ur appointment. We suggest you call your health insurance company about your [place] rage and benefits for this appointment. Encounter Details Date Type Department Care Team Description 08/03/2022 Notes/Orders [facility] 38[address] Henrietta Ortega PA-C Gestational diabetes Endocrinology [address] mellitus (GDM), [address] antepartum, [address] [place], [place] [address] method of control [id number] unspecified (Primary [phone] Dx) Social History Tobacco Use Types Packs/Day [...] Diabetes Program Zoya Tinsley, CASIMIRO N, LD, [facility] [address] [facility] [place] [address] [address] (Wo rk) Scheduled Referrals Name Type Priority Associated Diagnoses Order S chedule Diabetes Education Referral Routine Gestational diabetes O rdered: 08/03/2022 Visit mellitus (GDM), antepartum, gestational diabetes method of control unspecified documented as of this encounter Visit Diagnoses Diagnosis Gestational diabetes mellitus (GDM), ant epartum, gestational diabetes method of control unspecified - Primary documented in this encounter
--- OUTSIDE RECORDS SUMMARY | 2022-08-29 12:12 | XMS_ITS | Clinical Summary ---
:[address] [facility] Address [address] [place] [address] Care Team Providers Name Role Phone Unavailable Primary Care Provider Unavailable Source Comments Patient records contain information from all sites at [facility]. For routine questions regarding patient records, call [phone] during business hours, M-F 8:00 AM - 5:00 PM Central Time. Record requests for emergency care only can be directed to [phone] Allergies Active Allergy Reactions Severity Noted Date Comments Penicillins Rash 10/18/2020 Salicylates Edema 10/18/2020 Swollen tongue Medications Medication Sig Dispensed Refills Start Date End Date Status Take 1 tablet by 0 Act angela abllzza-Zt-hvdy-FA mouth daily. (VINATE ONE) 60 mg iron-1 [...] or relatives? How often do you attend mormonism or 1 to 4 times per year 11/22 amish services? Do you belong to any clubs or No 12/12/2020 organizations such as mormonism groups, unions, fraternal or athletic groups, or [...] Comments Blood Pressure 116/69 10/20/2020 12:39 PM PYTHON ENGINEER Pulse 81 10/20/2020 12:39 PM PYTHON ENGINEER Temperature 37.2 ??C (99 ??F) 10/20/2020 12:39 PM PYTHON ENGINEER Respiratory Rate 18 10/20/2020 12:39 PM PYTHON ENGINEER Oxygen Saturation 99% 10/20/2020 12:39 PM PYTHON ENGINEER Inhaled Oxygen Concentration - - Weight 56.3 kg (124 lb 1.9 oz) 10/19/2020 6:30 AM PYTHON ENGINEER Height - - Body Mass Index - [...] ss Type Group [place] [id number] 2020-[place]uki [phone] [address] PPO BLUE SHIELD t [address] [place] [address] Advance Directives For more information, please contact: [phone] Latest Code Status on File Code Status Date Activated Date Inactivated Comments Full Code 10/18/2020 7:51 PM 10/20/2020 2:51 PM Question Answer Comments Full Code: Not Discussed Due to: Not medically appropriate
--- OUTSIDE RECORDS SUMMARY | 2022-08-29 12:12 | XMS_ITS | Encounter Summary ---
:[address] [facility] Address [address] [place] [address] Care Team Providers Name Role Phone Unavailable Primary Care Provider Unavailable Reason for Referral Outpatient (Routine) - Closed Specialty Diagnoses / Procedures Referred By Contact Refer red To Contact Maternal and Diagnoses Premature Rupture Of Membranes Unspecified As To Length Of Time Between Rupture And Onset Of Labor Second Trimester (HCC) 21 Weeks Gestation ([facility]CC) [facility] Janelle Dominguez M.D. [address] [place] [address] Referral ID Status Reason Start Date Expiration Date Visits Requ ested Visits Authorized [id number] Closed 11/02/2020 11/02/2021 1 1 GER BENEFIT Encounter Details Date Type Department Care Team Description 11/02/2020 [facility] Loren, Premature Rupture Of Membranes Unspecified As To Length Of Time Between Rupture And Onset Of Labor Second Trimester (Primary Dx); AND CLINICS Janelle Dominguze M.D. 21 Weeks Gestation [address] [facility] [address] [place] [address] [place], [place] [phone] [address] Social History Tobacco Use Types Packs/Day Years [...] or relatives? How often do you attend moravian or 1 to 4 times per year 11/22 sikhism services? Do you belong to any clubs or No 12/12/2020 organizations such as moravian groups, unions, [email or web address] or athletic groups, or school groups? How [...] Name Type Priority Associated Diagnoses Order S [facility] Obstetrics Referral Outpatient Referral Routine Premat ure [...]
--- OUTSIDE RECORDS SUMMARY | 2022-08-29 12:12 | XMS_ITS | Encounter Summary ---
:1985 Author Organization [facility] Address [address], [place] [address] Care Team Providers Name Role Phone Unavailable Primary Care Provider Unavailable Encounter Details Date Type Department Care Team Description 08/14/2022 Telemedicine [facility] 3800 Henrietta Ortega PA-C Gestational diabetes Endocrinology [address] mellitus (GDM), [address] antepartum, [address] [place] [address] method of control [id number] unspecified (Primary [phone] Dx) Social History Tobacco Use Types Packs/Day [...] from the original note were not included. [facility]: [address] [address] [phone], Nurse Line: [phone] Gestational Diabetes Visit Note August 14, 2022 [...] No hx of pre-eclampsia. She met with content curator at OB office and started checking her [...] information. Family history: DM:yes-grandmother and aunt. [facility] for [facility]. Current Medications: No current diabetes medications. All medications reviewed and updated in [facility] today. Objective: Physical Exam: There were no [...] Diabetes Program Zoya Tinsley, RD N, LD, [facility] [address] [facility] [place] [address] (Wo rk) documented as of this encounter Visit Diagnoses Diagnosis Gestational diabetes mellitus (GDM), ant epartum, gestational diabetes method of control unspecified - Primary documented in this encounter
--- OUTSIDE RECORDS SUMMARY | 2022-08-29 12:12 | XMS_ITS | Encounter Summary ---
:1985 Author Organization [facility] Address [address] [place] [address] Care Team Providers Name Role Phone Unavailable Primary Care Provider Unavailable Reason for Visit Reason Comments Rupture of Membranes Contractions Auth/Cert Specialty Diagnoses / Procedures Referred By Contact Refer red To Contact Diagnoses 22 Weeks Gestation (HCC) Procedures DIR Referral ID Status Reason Start Date Expiration Date Visits Requ ested Visits Authorized [id number] 1 1 Encounter Details Date Type Department Care Team Description 10/18/2020 - Hospital Encounter [facility] Jordyn Wild M.D. [address] [place] [phone] 22 Weeks Gestation (Primary Dx) ; 10/20/2020 [facility], Erin Villagran M.D., M.P.H. [address] [place] [address] [phone] 21 Weeks Gestation ; [place], Heather Ott M.D. [address] [place] [phone] Premature Rupture Of Membranes U nspecified As To Length Of Time Between Rupture And Onset Of Labor Second Trimester Building, Third Floor [address] [place] [address] Social History Tobacco Use Types [...] Comments Blood Pressure 116/69 10/20/2020 12:39 PM WINDOWS SYSTEMS ARCHITECT Pulse 81 10/20/2020 12:39 PM WINDOWS SYSTEMS ARCHITECT Temperature 37.2 ??C (99 ??F) 10/20/2020 12:39 PM WINDOWS SYSTEMS ARCHITECT Respiratory Rate 18 10/20/2020 12:39 PM WINDOWS SYSTEMS ARCHITECT Oxygen Saturation 99% 10/20/2020 12:39 PM WINDOWS SYSTEMS ARCHITECT Inhaled Oxygen Concentration - - Weight 56.3 kg (124 lb 1.9 oz) 10/19/2020 6:30 AM WINDOWS SYSTEMS ARCHITECT Height - - Body Mass Index - - documented in this encounter Discharge Summaries Saqib Strong M.D. - 10/20/2020 12:07 PM CST DISCHARGE SUMMARY BRIEF OVERVIEW Hospital: [facility] Discharge Provider: Erin Alarcon M.D. Primary Team: [facility] No primary care provider [...] were provided to the patient and caregiver(s). OWS SYSTEMS ARCHITECT documented in this encounter Medications at Time of Discharge Medication Sig Dispensed Refills Start Date End Date dyhiyeipth-fozdsncwjxuiq-l TK 1 TO 2 TS PO Q 4 H 0 09/08/2020 aff (FIORICET, ESGIC) NEEDED. MAX 6 PER 50-325-40 mg per tablet DAY Take 1 tablet by 0 lvaewhj-Ba-kota-FA (VINATE mouth daily. ONE) 60 mg iron-1 [...] 10/18/2020. 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 Obstetrical Chief PGY-3 [phone] OWS SYSTEMS ARCHITECT Associated attestation - Heather Goodrich M.D. - 10/19/2020 12:27 AM WINDOWS SYSTEMS ARCHITECT Journeyman Meat Cutter Teaching Physician Statement: I have discussed the [...] delivery upon exam findings of 4-5cm dilation. 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 PSH: [...] for necrotizing enterocolitis, and potential poor intermediate card tender neurological outcomes/disability. Have printed her additional studies [...] further discussion this afternoon Miriam Ruggiero M.D. OWS SYSTEMS ARCHITECT Associated attestation - Saqib Strong M.D. - 10/20/2020 11:17 AM WINDOWS SYSTEMS ARCHITECT I have discussed the care of Jim [...] L.G.S.Norris., L.I.C.S.W., M.S.W. - 10/19/2020 1:02 PM WINDOWS SYSTEMS ARCHITECT SUBJECTIVE Social work met with the patient [...] weeks gestationas a transfer of care from [place], [place] due to concern for previable premature [...] day parking pass provided 10/19/20. Annita Kaplan [facility] 10/19/2020 OWS SYSTEMS ARCHITECT Miriam Ruggiero M.D. - 10/19/2020 12:09 PM [...] 10/18/2020. She did present to her local explosives operator did have a speculum exam completed however given the gestational age at the time rupture the patient was transferred from [place] for assessment and outpatient consultation with Maternal [...] 21w1 2) Subchorionic hemorrhage 3) Heterozygous Prothrombin 26775 A PMH: heterozygosity to Prothrombin 27176 A. PSH: none Allergies: PCN (rash as [...] necr otizing enterocolitis, and potential poor intermediate card tender neurological outcomes/disability. Have printed her additional studies [...] discussion pending ultrasound results. Miriam Ruggiero M.D. OWS SYSTEMS ARCHITECT Associated attestation - Raysa Guerin M.D. - 11/14/2020 4:22 AM WINDOWS SYSTEMS ARCHITECT I saw and evaluated the patient, participating [...] with family for expectant management. Questions answered. OWS SYSTEMS ARCHITECT Irish Newell R.N. - 10/18/2020 9:29 PM [...] reviewed goals for the shift with patient. OWS SYSTEMS ARCHITECT documented in this encounter Miscellaneous Notes Hospital [...] home in stable condition. //Miriam Ruggiero MD OWS SYSTEMS ARCHITECT documented in this encounter Plan of Treatment Pending Results Name Type Priority Associated Diagnoses Date/Ti sc US OB Limited Imaging RAD - Routine (most 020 8:51 PM inpatients and all WINDOWS SYSTEMS ARCHITECT outpatients) Scheduled Orders Name Type Priority Associated Diagnoses Order S chedule US OB Limited Imaging RAD - Routine (most Once fo r 1 inpatients and all Occurrenc es starting outpatients) 10/18/2020 unti l 10/18/2020 documented as of this encounter Procedures Procedure Name Priority Date/Time Associated Comments Diagnosis US OB ANATOMY RAD - Routine 10/19/2020 1:21 Results fo r this ANGUIANO (most inpatients PM WINDOWS SYSTEMS ARCHITECT procedure a re in and all the results outpatients) section. RUBELLA ANTIBODIES, Routine 10/19/2020 7:18 Resul ts for this IGG AM WINDOWS SYSTEMS ARCHITECT procedure are i n the results section. VARICELLA-ZOSTER Routine 10/19/2020 7:18 Results for this AB, IGG, S AM WINDOWS SYSTEMS ARCHITECT procedure are i n the results section. MICROSCOPIC MANUAL Routine 10/19/2020 2:21 Result s for this AM WINDOWS SYSTEMS ARCHITECT procedure are i n the results section. BACTERIAL CULTURE, Routine 10/19/2020 2:21 Result s for this AEROBIC + SUSC, AM WINDOWS SYSTEMS ARCHITECT procedure ar e in URINE the results section. CONFIRMED DRUG Routine 10/19/2020 2:21 Results fo r this ABUSE PANEL, U AM WINDOWS SYSTEMS ARCHITECT procedure are in the results section. CHLAMYDIA/GONORRHOE Routine 10/19/2020 2:21 Resul ts for this AE AMPLIFIED RNA AM WINDOWS SYSTEMS ARCHITECT procedure a re in the results section. URINALYSIS WITH Routine 10/19/2020 2:21 Results f or this MICROSCOPIC AM WINDOWS SYSTEMS ARCHITECT procedure are i n the results section. HEPATITIS B SURFACE STAT 10/18/2020 9:34 Resul ts for this ANTIGEN PM WINDOWS SYSTEMS ARCHITECT procedure are i n the results section. FIBRINOGEN, P STAT 10/18/2020 9:34 Results for this PM WINDOWS SYSTEMS ARCHITECT procedure are i n the results section. SARS CORONAVIRUS 2, Routine 10/18/2020 8:05 Resul ts for this MOLECULAR PM WINDOWS SYSTEMS ARCHITECT procedure are i n DETECTION, PCR (TIME CLOCK MECHANIC) the resu lts section. HEPATITIS B SURFACE STAT 10/18/2020 7:59 Resul ts for this ANTIGEN PM WINDOWS SYSTEMS ARCHITECT procedure are i n the results section. CBC WITHOUT STAT 10/18/2020 7:59 Results for this DIFFERENTIAL, B PM WINDOWS SYSTEMS ARCHITECT procedure ar e in the results section. TYPE AND SCREEN STAT 10/18/2020 7:59 Results f or this PM WINDOWS SYSTEMS ARCHITECT procedure are i n the results section. HIV-1/-2 AG AND AB STAT 10/18/2020 7:58 Result s for this SCRN, PM WINDOWS SYSTEMS ARCHITECT procedure are in PLASMA the results section. documented in this encounter Results US OB Anatomy Anguiano (10/19/2020 1:21 PM WINDOWS SYSTEMS ARCHITECT) Anatomical Region Laterality Modality Body, Ultrasound OB RST LOS, Ultrasound ARZ LOS N/A Ultrasound Specimen (Source) Anatomical Location Collection Method / Collectio n Time Received Time / Laterality Volume Narrative 10/19/2020 1:27 PM WINDOWS SYSTEMS ARCHITECT JIM LOWE OB Exam, 10/19/2020 EXAM INFORMATION Patient Name: ??JIM LOWE : ??1985 Age: ??34 yrs Sex: ??Female Ref Phys: ??MIRIAM RUGGIERO Exam Date: 10/19/2020 Procedure: US OB ANATOMY ANGUIANO Exam Site: [facility] Plurality: 1 INDICATIONS FOR SONOGRAPHY Anatomic Survey [...] Read by Ilir Moss on 1:21:30 PM. Telephone Order Clerk: ??Ilir Moss Thank You For This Referral Procedure Note Eamon Dawson M.B.BIshaSIsha, Terrie. - 10/19 JIM LOWE OB Exam, 10/19/2020 EXAM INFORMATION Patient Name: MYNORJIM S : 1985 Age: 34 yrs Sex: Female Ref Phys: MIRIAM RUGGIERO Exam Date: 10/19/2020 Procedure: US OB ANATOMY ANGUIANO Exam Site: [facility] Plurality: 1 INDICATIONS FOR SONOGRAPHY Anatomic Survey [...] Read by Ilir Moss on 1:21:30 PM. Telephone Order Clerk: Ilir Moss Thank You For This Referral Miriam Ruggiero M.D. IMG OB US PROCEDURES Varicella-Zoster Antibody, IgG, Serum (10/19/2020 7:18 AM WINDOWS SYSTEMS ARCHITECT) athologist Signature Varicella-Zost Positive 10/19/2020 [facility] er Ab, IgG, S 10:41 AM WINDOWS SYSTEMS ARCHITECT Comment: Results suggest response to immunization or prior exposure to the virus. ----REFERENCE VALUE---- Vaccinated: Positive (>=1.1 AI) Unvaccinated: Negative (<=0.8 AI) Varicella IgG Antibody Index 1.3 10/19/2020 10:41 AM WINDOWS SYSTEMS ARCHITECT [facility] Specimen Anatomical Collection Method Collection Time Receive d Time (Source) Location / / Volume Laterality Blood (Blood, 10/19/2020 7:18 AM 10/19/20 20 9:43 Venous) WINDOWS SYSTEMS ARCHITECT AM WINDOWS SYSTEMS ARCHITECT Sierra Welch M.D. LAB MICROBIOLOGY - BLOOD ORD ERADIAMANTE Performing Organization Address [facility] Phon e Number [facility] [address] [address] [place] [address] Laboratory Medicine and Pathology [address] [place] [address] Dr. MANUEL Rubella Antibodies, IgG (10/19/2020 7:18 AM WINDOWS SYSTEMS ARCHITECT) athologist Signature Rubella Ab, Positive 10/19/2020 [facility] IgG, S 10:40 AM WINDOWS SYSTEMS ARCHITECT Comment: Results suggest response to immunization or prior exposure to the virus. ----REFERENCE VALUE---- Vaccinated: Positive (>=1.0 AI) Unvaccinated: Negative (<=0.7 AI) Rubella IgG Antibody Index 1.4 10/19/2020 10 :40 AM WINDOWS SYSTEMS ARCHITECT [facility] Specimen Anatomical Collection Method Collection Time Receive d Time (Source) Location / / Volume Laterality Blood (Blood, 10/19/2020 7:18 AM 10/19/20 20 9:43 Venous) WINDOWS SYSTEMS ARCHITECT AM WINDOWS SYSTEMS ARCHITECT Sierra Welch M.D. LAB MICROBIOLOGY - BLOOD ORD JENNA Performing Organization Address [facility] Phon e Number [address] [place] [address] [facility] [place] [address] Laboratory Medicine and Pathology [address] [place] [address] Dr. MANUEL (ABNORMAL) Microscopic Manual (10/19/2020 2:21 AM WINDOWS SYSTEMS ARCHITECT) Analysis Performed At Patho logist Time Signature Microscopy Abnormal 10/19/2020 [facility] 6:26 AM WINDOWS SYSTEMS ARCHITECT RBC >100 (A) <3 /hpf 10/19/2020 [facility] 6:26 AM WINDOWS SYSTEMS ARCHITECT Dysmorphic RBC <25 <25 % 10/19/2020 [facility] 6:26 AM WINDOWS SYSTEMS ARCHITECT WBC 1-3 /hpf 10/19/2020 [facility] 6:26 AM WINDOWS SYSTEMS ARCHITECT Comment: ----REFERENCE VALUE---- 1-3 ??(Males) 1-10 (Females) Specimen Anatomical Collection Method Collection Time Receive d Time (Source) Location / / Volume Laterality Urine 10/19/2020 2:21 AM 0 4:00 WINDOWS SYSTEMS ARCHITECT AM WINDOWS SYSTEMS ARCHITECT Sierra Welch M.D. LAB URINE ORDERABLES Performing Organization Address [facility] Phon e Number [facility]IES - [address] [place] [address] [address] [place] [phone] Laboratories-[address] Bacterial Culture, Aerobic + Susc, Urine (10/19/2020 2:21 AM WINDOWS SYSTEMS ARCHITECT) Patholo gist Method Time Signature Urine Culture No growth 10/20/2020 DT after 1 day 8:16 AM WINDOWS SYSTEMS ARCHITECT of incubation. Specimen Anatomical Collection Method Collection Time Receive d Time (Source) Location / / Volume Laterality Urine (Urine, 10/19/2020 2:21 AM 10/19/20 20 5:03 Straight WINDOWS SYSTEMS ARCHITECT AM WINDOWS SYSTEMS ARCHITECT Catheter) Comment: Specimen Source Site: Urine Sierra Welch M.D. LAB MICROBIOLOGY - GENERAL O RDERABLES Performing Organization Address [facility] Phon e Number [facility] - [address] [place] [address] Laboratories[address] (ABNORMAL) Urinalysis with Microscopic: Urine, Catheter (10/19/2020 2:21 AM WINDOWS SYSTEMS ARCHITECT) Analysis Performed At Patho logist Time Signature Source Catheter 10/19/2020 [facility] 4:00 AM WINDOWS SYSTEMS ARCHITECT Appearance Normal Normal 10/19/2020 [facility] 4:00 AM WINDOWS SYSTEMS ARCHITECT Osmolality, U 521 150 - 1150 10/19/2020 [facility] mOsm/kg 4:47 AM WINDOWS SYSTEMS ARCHITECT pH, U 6.2 4.5 - 8.0 10/19/2020 [facility] 4:47 AM WINDOWS SYSTEMS ARCHITECT Comment: ----ADDITIONAL INFORMATION---- This test was developed and its performa nce characteristics determined by [facility] in a manner co nsistent with CLIA requirements. This test has not bee n cleared or approved by the U.S. Food and Drug Admin istration. Glucose 8 0 - 15 mg/dL 10/19/2020 6:17 AM WINDOWS SYSTEMS ARCHITECT [facility] Protein, U 46 (H) <26 mg/dL 10/19/2020 6:17 AM WINDOWS SYSTEMS ARCHITECT [facility] Comment: ----ADDITIONAL INFORMATION---- On 04/16/2017 the total protein assay me thod changed resulting in approximately a 15% increase in prote in values. Protein/Osmolality 0.88 (H) <0.42 Ratio 10/19/2020 6:17 AM WINDOWS SYSTEMS ARCHITECT [facility] Comment: ----ADDITIONAL INFORMATION---- On 04/16/2017 the total protein assay me thod changed resulting in approximately a 15% increase in prote in values. Predicted 24 Hr Protein 597 mg/24 h 10/19/2020 6:17 AM WINDOWS SYSTEMS ARCHITECT [facility] Predicted Range 148-2419 mg/24 h 10/19/2020 6:17 AM WINDOWS SYSTEMS ARCHITECT R JEM Hemoglobin, QL Large (A) Negative 10/19/2020 6:26 AM WINDOWS SYSTEMS ARCHITECT RE NA Specimen Anatomical Collection Method Collection Time Receive d Time (Source) Location / / Volume Laterality Urine (Urine, 10/19/2020 2:21 AM 10/19/20 20 4:00 Catheter) WINDOWS SYSTEMS ARCHITECT AM WINDOWS SYSTEMS ARCHITECT Sierra Welch M.D. LAB URINE ORDERABLES Performing Organization Address City/State/ZIP Code Phon e Number [facility] - [address] [place], [place] [address] [place] [address] Laboratories-[facility] [address] Chlamydia / Gonorrhoeae Amplified RNA (10/19/2020 2:21 AM WINDOWS SYSTEMS ARCHITECT) [facility] gist Method Time Signature Source Urine, 10/19/2020 [facility] Urine, First 6:58 PM WINDOWS SYSTEMS ARCHITECT Voided Chlamydia Negative Negative 10/19/2020 [facility] trachomatis 6:58 PM WINDOWS SYSTEMS ARCHITECT amplified RNA Source Urine, 10/19/2020 [facility] Urine, First 6:58 PM WINDOWS SYSTEMS ARCHITECT Voided Neisseria Negative Negative 10/19/2020 [facility] gonorrhoeae 6:58 PM WINDOWS SYSTEMS ARCHITECT amplified RNA Specimen Anatomical Collection Method Collection Time Receive d Time (Source) Location / / Volume Laterality Varies (Urine, 10/19/2020 2:21 AM 020 7:22 First Voided) WINDOWS SYSTEMS ARCHITECT AM WINDOWS SYSTEMS ARCHITECT Sierra Welch M.D. LAB MICROBIOLOGY - GENERAL O RDERABLES Performing Organization Address [facility] Phon e Number [facility] - [address] [place], [place] [address] [place] [address] Laboratories-[facility] [address] Drug Abuse Survey with Confirmation, Urine (10/19/2020 2:21 AM WINDOWS SYSTEMS ARCHITECT) Patholo gist Method Time Signature Alcohol Negative Cutoff: 10/19/2020 [facility] 10 mg/dL 9:52 AM WINDOWS SYSTEMS ARCHITECT Amphetamines Negative Cutoff: 10/19/2020 [facility] 500 ng/mL 9:52 AM WINDOWS SYSTEMS ARCHITECT Barbiturates Negative Cutoff: 10/19/2020 [facility] 200 ng/mL 9:52 AM WINDOWS SYSTEMS ARCHITECT Benzodiazepines Negative Cutoff: 10/19/2020 [facility] 100 ng/mL 9:52 AM WINDOWS SYSTEMS ARCHITECT Cocaine Negative Cutoff: 10/19/2020 [facility] 150 ng/mL 9:52 AM WINDOWS SYSTEMS ARCHITECT Opiates Negative Cutoff: 10/19/2020 [facility] 300 ng/mL 9:52 AM WINDOWS SYSTEMS ARCHITECT Phencyclidine Negative Cutoff: 10/19/2020 [facility] 25 ng/mL 9:52 AM WINDOWS SYSTEMS ARCHITECT Tetrahydrocannabinol Negative Cutoff: 10/19/2020 [facility] 50 ng/mL 9:52 AM WINDOWS SYSTEMS ARCHITECT Comment: ----ADDITIONAL INFORMATION---- This report is intended for use in clini kosta monitoring or management of patients. ??It is not intended for use i n employment-related testing. Specimen Anatomical Collection Method Collection Time Receive d Time (Source) Location / / Volume Laterality Urine (Urine, 10/19/2020 2:21 AM 10/19/20 8:50 Clean Catch) WINDOWS SYSTEMS ARCHITECT AM WINDOWS SYSTEMS ARCHITECT Sierra Welch M.D. LAB URINE ORDERABLES Performing Organization Address [facility] Phon e Number [facility] [address] [place], [place] [address] [facility] [place] [address] Laboratory Medicine and Pathology [address] MANUEL (ABNORMAL) Fibrinogen (10/18/2020 9:34 PM WINDOWS SYSTEMS ARCHITECT) P athologist Signature Fibrinogen, P 624 (H) 200 - 393 10/18/2020 [facility] mg/dL 9:49 PM WINDOWS SYSTEMS ARCHITECT Specimen Anatomical Collection Method Collection Time Receive d Time (Source) Location / / Volume Laterality Blood (Blood, 10/18/2020 9:34 PM 10/18/20 20 9:40 Venous) WINDOWS SYSTEMS ARCHITECT PM WINDOWS SYSTEMS ARCHITECT Sierra Welch M.D. LAB BLOOD ADD-ON Performing Organization Address City/[facility]/ZIP Code Phon e Number [facility] - [address] [place], [place] [address] [facility] [place] [address] Laboratories-[facility] [address] Hepatitis B Surface Antigen (10/18/2020 9:34 PM WINDOWS SYSTEMS ARCHITECT) P athologist Signature HBs Antigen, S Negative Negative 10/19/2020 [facility] 9:23 AM WINDOWS SYSTEMS ARCHITECT Specimen Anatomical Collection Method Collection Time Receive d Time (Source) Location / / Volume Laterality Blood (Blood, 10/18/2020 9:34 PM 10/19/20 20 8:14 Venous) WINDOWS SYSTEMS ARCHITECT AM WINDOWS SYSTEMS ARCHITECT Sierra Welch M.D. LAB MICROBIOLOGY - BLOOD ORD ERABLES Performing Organization Address [facility] Phon e Number [facility] [address] [place], [place] [address] [facility] [place] [address] Laboratory Medicine and Pathology [address] MANUEL SARS Coronavirus 2, Molecular Detection, PCR (TIME CLOCK MECHANIC) Asymptomatic (10/18/2020 8:05 PM WINDOWS SYSTEMS ARCHITECT) Patholo gist Method Time Signature COVID-19, PCR Undetected Undetected 10/19/2020 [facility] 12:55 AM WINDOWS SYSTEMS ARCHITECT Comment: SARS-CoV-2 RNA absent. This result does [...] Drug Administration an d is used per market research senior project manager's instructions. Performance characteristics were verified by [facility] in a manner consistent with CLIA requirements. Visit the CDC website: https://www.cdc.g ov/coronavirus/ for the most recent guidelines on [place] virus testing. Fact Sheet for Healthcare Providers: https://www.fda.gov/media/730792/downloa d Fact Sheet for Patients: https://www.fda.gov/media/921987/downloa d Specimen Anatomical Collection Method Collection Time Receive d Time (Source) Location / / Volume Laterality Varies 10/18/2020 8:05 PM 0 8:40 (Nasopharynx) WINDOWS SYSTEMS ARCHITECT PM WINDOWS SYSTEMS ARCHITECT Heather Goodrich M.D. LAB MICROBIOLOGY - GENERAL O RDERABLES Performing Organization Address City/[facility]/ZIP [facility] Phon e Number [facility] - [address] [place], [place] [address] [facility] [place] [address] Laboratories-[facility] [address] [facility] Hepatitis B Surface Antigen (10/18/2020 7:59 PM WINDOWS SYSTEMS ARCHITECT) P athologist Signature HBs Antigen, S Negative Negative 10/19/2020 [facility] 8:04 AM WINDOWS SYSTEMS ARCHITECT Specimen Anatomical Collection Method Collection Time Receive d Time (Source) Location / / Volume Laterality Blood (Blood, 10/18/2020 7:59 PM 10/19/20 20 6:59 Venous) WINDOWS SYSTEMS ARCHITECT AM WINDOWS SYSTEMS ARCHITECT Sierra Welch M.D. LAB MICROBIOLOGY - BLOOD ORD ERABLES Performing Organization Address City/[facility] Phon e Number [facility] [address] MANUEL [place], [place] [address] [facility] [place] [address] Laboratory Medicine and Pathology [address] MANUEL Type and Screen (with reflex Antibody ID) (10/18/2020 7:59 PM WINDOWS SYSTEMS ARCHITECT) Patholo gist Method Time Signature ABORh B Pos Not 10/18/2020 [facility] applicable 8:29 PM WINDOWS SYSTEMS ARCHITECT Antibody Negative Negative 10/18/2020 [facility] Screen 8:44 PM WINDOWS SYSTEMS ARCHITECT Type & Screen 10/21/2020 10/18/2020 [facility] Expiration 23:59 8:29 PM WINDOWS SYSTEMS ARCHITECT Testing [place] DEFAULT 10/18/2020 ETRM Location 8:08 PM WINDOWS SYSTEMS ARCHITECT Specimen Anatomical Collection Method Collection Time Receive d Time (Source) Location / / Volume Laterality Blood (Blood, 10/18/2020 7:59 PM 10/18/20 20 8:08 Venous) WINDOWS SYSTEMS ARCHITECT PM WINDOWS SYSTEMS ARCHITECT Sierra Welch M.D. LAB BLOOD BANK TEST ORDERABL ES Performing Organization Address City/[facility] Phon e Number [facility] - [address] [place], [place] [address] [facility] [place] [address] Laboratories-[facility] [address] [facility] (ABNORMAL) CBC without Differential (10/18/2020 7:59 PM WINDOWS SYSTEMS ARCHITECT) Patholo gist Method Time Signature Hemoglobin 11.0 (L) 11.6 - 10/18/2020 [facility] 15.0 g/dL 8:06 PM WINDOWS SYSTEMS ARCHITECT Hematocrit 31.8 (L) 35.5 - 10/18/2020 [facility] 44.9 % 8:06 PM WINDOWS SYSTEMS ARCHITECT Erythrocytes 3.65 (L) 3.92 - 10/18/2020 [facility] 5.13 8:06 PM WINDOWS SYSTEMS ARCHITECT x10(12)/L MCV 87.1 78.2 - 10/18/2020 [facility] 97.9 fL 8:06 PM WINDOWS SYSTEMS ARCHITECT RBC Distrib Width 13.5 12.2 - 10/18/2020 [facility] 16.1 % 8:06 PM WINDOWS SYSTEMS ARCHITECT Platelet Count 287 157 - 371 10/18/2020 [facility] x10(9)/L 8:06 PM WINDOWS SYSTEMS ARCHITECT Leukocytes 19.3 (H) 3.4 - 9.6 10/18/2020 [facility] x10(9)/L 8:06 PM WINDOWS SYSTEMS ARCHITECT Specimen Anatomical Collection Method Collection Time Receive d Time (Source) Location / / Volume Laterality Blood (Blood, 10/18/2020 7:59 PM 10/18/20 20 8:04 Venous) WINDOWS SYSTEMS ARCHITECT PM WINDOWS SYSTEMS ARCHITECT Sierra Welch M.D. LAB BLOOD ADD-ON Performing Organization Address City/State/ZIP Code Phon e Number [facility] - [address] [place] [address] [phone] [facility] [place] [address] Laboratories-[facility] [address] [facility] HIV-1/-2 Ag and Ab Scrn, Plasma (10/18/2020 7:58 PM WINDOWS SYSTEMS ARCHITECT) P athologist Signature HIV-1/-2 Ag Negative Negative 10/19/2020 SDSC and Ab 9:31 AM WINDOWS SYSTEMS ARCHITECT Scrn, P Comment: Negative result does not rule out HIV in fection. If exposure to HIV infection occurred <14 d ays ago, contact the laboratory to request additi on of HIV-1 RNA detection / quantification test (HIV QN). Specimen Anatomical Collection Method Collection Time Receive d Time (Source) Location / / Volume Laterality Blood (Blood, 10/18/2020 7:58 PM 10/19/20 20 6:59 Venous) WINDOWS SYSTEMS ARCHITECT AM WINDOWS SYSTEMS ARCHITECT Sierra Welch M.D. LAB MICROBIOLOGY - BLOOD ORD ERABLES Performing Organization Address City/State/ZIP Code Phon e Number [facility] [address] [place], [place] [address] [place] [address] C[facility] [place] [address] Laboratory Medicine and Pathology [address] [...] 900 mg New Bag 10/19/2020 5:09 AM WINDOWS SYSTEMS ARCHITECT 900 mg 100 mL/hr (CLEOCIN) 900 mg, intravenous, at 100 mL/hr, Administer over 30 Minutes, Every 8 hours, First dose on Sat10/18/20 at 2000, premix bag, Indications: Obstetric or gynecological infection New Bag 10/18/2020 9:41 PM WINDOWS SYSTEMS ARCHITECT 900 mg 100 mL/hr fentaNYL injection 100 mcg (SUBLIMAZE) Given 10/18/2020 9:49 PM WINDOWS SYSTEMS ARCHITECT 100 mcg 100 mcg, intravenous, Every 1 hour PRN, moderate pain or score 4-6 of 10, severe pain or score 7-10 of 10, for labor pains, Starting on Sat10/18/20 at 1939, For 3 doses, L&D Pre-Delivery, Consultation with Anesthesia for pain control if patient requests regional anesthesia and in active labor or membranes ruptured. Given 10/18/2020 8:44 PM WINDOWS SYSTEMS ARCHITECT 100 mcg gentamicin 290 mg in NaCl 0.9% IVPB New Bag 10/18/2020 8:41 PM WINDOWS SYSTEMS ARCHITECT 290 mg 215 mL/hr (GARAMYCIN) 290 mg (rounded from 285 mg = 5 mg/kg ? 57 kg Order-specific weight), intravenous, at 215 mL/hr, Administer over 30 Minutes, Once, On Sat10/18/20 at 2000, For 1 dose, Drug Monitoring Program: Pharmacist to adjust medication dosing based on indication and drug clearance factors., Indications: Obstetric or gynecological infection lactated ringers New Bag 10/19/2020 5:10 AM WINDOWS SYSTEMS ARCHITECT 125 mL/hr 125 mL/hr 125 mL/hr, intravenous, Continuous, Starting on Sat10/18/20 at 2000, L&D Pre-Delivery, Indications: Hang fluids for maternal dehydration, concerns, epidural placement, with antibiotics. Rate/Dose Verify 10/19/2020 2:20 AM WINDOWS SYSTEMS ARCHITECT 125 mL/hr 125 mL/hr Rate/Dose Verify 10/19/2020 12:00 AM WINDOWS SYSTEMS ARCHITECT 125 mL/hr 125 mL/hr multivitamin/mineral- tablet 1 Given 10/20/2020 9:30 AM WINDOWS SYSTEMS ARCHITECT 1 tablet tablet 1 tablet, oral, Daily, First dose on Kylie 10/20/20 at 0900 documented in this encounter Active and Recently Administered Medications Times are shown in WINDOWS SYSTEMS ARCHITECT. Scheduled Medication Order 10/18/2020 10/19/2020 10/20/2020 clindamycin [...] palpation, or reach a mximum of 250 Kinards units, and/or cervical change(s) occur. PRN Medication [...] COVID19 Pending 10/18/2020 10/18/2020 10/19/2020 12:56 AM WINDOWS SYSTEMS ARCHITECT documented as of this encounter
--- OUTSIDE RECORDS SUMMARY | 2022-08-29 12:12 | XMS_ITS | Encounter Summary ---
:1985 Author Organization [facility] Address [address] [place] [address] Care Team Providers Name Role Phone Unavailable Primary Care Provider Unavailable Reason for Visit Reason Comments Communication Encounter Details Date Type Department Care Team Description 10/21/2020 Clinical Communication [facility], Horacio Cisneros, Communication [facility], [address] [place] [address] Dr MANUEL Third Floor [place], [place] [address] [facility] [address] [place], [place] [phone] [address] (Work) [phone] Social History Tobacco Use Types Packs/Day Years [...] or relatives? How often do you attend cheondoism or 1 to 4 times per year 11/22 latter day services? Do you belong to any clubs or No 12/12/2020 organizations such as cheondoism groups, unions, fraternal or athletic groups, or [...] be seen. She is an hour from [place] and 20 min from [place]. PLAN Discussed with Dr Bow[facility] and [facility] RN. Patient advised to be seen immediately at nearest facility. Disposition/Recommendation: referral for services Nearest ED or OB Facility. Information/Education: patient/caller able to teach back. Caller agreeable to plan of care: yes. The following references were used: provider Dr Bowman. PULLER documented in this encounter Plan of Treatment Not on filedocumented as of this encounter Visit Diagnoses Not on filedocumented in this encounter
--- OUTSIDE RECORDS SUMMARY | 2022-08-29 12:12 | XMS_ITS | Encounter Summary ---
:1985 Author Organization [facility] Address [address] [place] [address] Care Team Providers Name Role Phone Unavailable Primary Care Provider Unavailable Encounter Details Date Type Department Care Team Description 10/20/2020 Anesthesia Event [facility], Kandis Stock, [facility], BIOCHEMIST, RADIAL DRILL OPERATOR, DNAP [facility], Third Floor [address] [place] [address] Anesthesia Record Procedure Summary [...] or relatives? How often do you attend episcopalian or 1 to 4 times per year 11/22 evangelical services? Do you belong to any clubs or No 12/12/2020 organizations such as episcopalian groups, unions, fraternal or athletic groups, or [...]
--- OUTSIDE RECORDS SUMMARY | 2022-08-29 12:12 | XMS_ITS | Encounter Summary ---
:1985 Author Organization [facility] Address [address] [place] [address] Care Team Providers Name Role Phone Unavailable Primary Care Provider Unavailable Reason for Visit Outpatient (Routine) - Closed Specialty Diagnoses / Procedures Referred By Contact Refer red To Contact Maternal and Diagnoses Premature Rupture Of Membranes Unspecified As To Length Of Time Between Rupture And Onset Of Labor Second Trimester ([facility]) 21 Weeks Gestation ([facility]) [facility] Janelle Dominguez M.D. [address] [place] [address] Referral ID Status Reason Start Date Expiration Date Visits Requ ested Visits Authorized [id number] Closed 11/02/2020 11/02/2021 1 1 Encounter Details Date Type Department Care Team Description 12/16/2020 Telemedicine Department of Saqib Strong, Diana ture Rupture Of Membranes Unspecified As To Length Of Time Between Rupture And Onset Of Labor Second Trimester; Obstetrics and M.D. 21 Weeks Gestation Gynecology in [address] [place] [address] [place] [address] [place], [place] [phone] [address] (Work) [phone] Social History Tobacco Use Types Packs/Day Years [...] 1 to 4 times per year 11/22 sabianist services? Do you belong to any clubs [...] or the highest technical, or vocational p [facility] degree you have received? Sex Assigned at Date Recorded Not on file documented as of this encounter Consult Notes Saqib Strong M.D. - 12/16/2020 8:00 AM CST Consult conducted via real-time audio/video technology by Saqib Strong M.D. in [facility] to the patient in patient home. 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 Mrs. Salinas's obstetrical history is significant for three term vaginal deliveries and one first-trimester miscarriage. In her fifth (2019), she was admitted o [facility] following spontaneous PPROM at 21 weeks gestation. Ultrasound demonstrated normal anatomy and biometry; olig ohydramnios was noted (as anticipated). After an interval of inpatient observation, Mrs. Salinas and her elected to pursue expectant management and were discharged to home. Subsequently she developed labor at 21 weeks and delivered her daughter in [place]; her daughter appeared morphologically normal, and survived for approximately 60 minutes. Difficulty was encountered with retained placenta, requiring manual extraction and D&C; Mrs. Salinas was treated with a course of intravenous antibiotic therapy. 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 Salinas experienced retained placenta requiring manual extraction in her first as well. Regarding her heterozygous prothrombin [id number] heterozygote status, Mrs. Salinas was screening for thrombophilias after an aunt experienced an episode of thrombosis and tested positive for Factor V Leiden and the Prothrombin [id number] mutation; neither she personally nor any first-degree [...] determine viability/number and define gestational age. (in [place]) 3. Maternal cystic fibrosis/SMA and aneuploidy screening at 10-12 weeks (per her preference). 4. Consideration of early anatomic ultrasound at 11-14 weeks. 5. Sonographic cervix length surveillance beginning at 16 weeks and repeated weekly through 22 6/7 weeks, with contingent cerclage placement if cervix length shortens to <25mm prior to 23 0/7 weeks.(initial imaging study in [place]) 6. Consideration of 17-hydroxyprogesterone caprate prophylaxis (250mg IM weekly), beginning at 16-20weeks and continuing through 36 weeks. 7. Detailed anatomic survey ultrasound at 18-20 weeks. (in [place]) 8. Repeat ultrasound at 30-32 weeks to evaluate placental appearance for any evidence of accreta. 9. Consider induction of labor at 39 0/7-39 6/7 weeks; this may be scheduled either in [place] or in [place] pending resource availability. Mrs. Salinas resides approximately 1 hour from [place]. Intrapartum: 10. Obtain CBC and type & [...] I will arrange for initial appointments in [place]. Further care may be coordinated between [place] and [place]. I will also forward materials regarding placenta accreta occulta. Saqib Strong M.D. PHONE DIRECTORY DISTRIBUTOR DRIVER documented in this encounter Plan of Treatment Not on filedocumented as of this encounter Visit Diagnoses Diagnosis Premature Rupture Of Membranes U nspecified As To Length Of Time Between Rupture And Onset Of Labor Second Trimes ter (HCC) 21 Weeks Gestation (HCC) documented in this encounter
--- OUTSIDE RECORDS SUMMARY | 2022-08-29 12:12 | XMS_ITS | Clinical Summary ---
:1985 Author Organization [facility] Address [address] [place] [address] Care Team Providers Name Role Phone Unavailable [...] for each transition of care or referral. [facility] Active Allergy Reactions Severity Noted Date [...] (ONETOUCH DELICA topically 4 times 2 PLUS [id number]) a day. MISC insulin Inject 1 Each [...] N, LD, [facility] [address] [place] [address] (Wo rk) Health Maintenance Due Date Last [...] ss Type Group BCBS BCBS OUT OF [id number] 2020-Present [address] [address] [facility] [address]
--- OUTSIDE RECORDS SUMMARY | 2022-08-29 12:12 | XMS_ITS | Encounter Summary ---
:1985 Author Organization [facility] Address [address] [place] [address] Care Team Providers Name Role Phone Unavailable Primary Care Provider Unavailable Reason for Visit Auth/Cert Specialty Diagnoses / Procedures Referred By Contact Refer red To Contact Diagnoses 22 Weeks Gestation (HCC) Procedures DIR Referral ID Status Reason Start Date Expiration Date Visits Requ ested Visits Authorized [id number] 1 1 Encounter Details Date Type Department Care Team Description 10/19/2020 Hospital Encounter Department of Josey Tse Obstetrics and M.DIsha Gynecology in [address] [place] [address] [place] [address] [place], [place] [phone] (Wo rk) [phone] Social History Tobacco Use Types Packs/Day Years [...] 1 to 4 times per year 11/22 samaritan services? Do you belong to any clubs [...] Sig Dispensed Refills Start Date End Date [id number]-eoegodzqyqoeq-l TK 1 TO 2 TS PO Q 4 H 0 09/08/2020 aff (FIORICET, ESGIC) NEEDED. MAX 6 PER 50-325-40 mg per tablet DAY Take 1 tablet by 0 wycbzob-Gf-dgzi-FA (VINATE mouth daily. ONE) 60 mg iron-1 mg per tablet documented as of this encounter Plan of Treatment Not on filedocumented as of this encounter Procedures Procedure Name Priority Date/Time Associated Comments Diagnosis US OB ANATOMY RAD - Routine 10/19/2020 1:21 Results fo r this ANGUIANO (most inpatients PM [employer]ODU[employer] FACTORY WORKER procedure a re in and all the results outpatients) section. documented in this encounter Results US OB Anatomy Anguiano (10/19/2020 1:21 PM WOOD AND WOOD [employer]ODUCTS FACTORY WORKER) Anatomical Region Laterality Modality Body, Ultrasound OB RST LOS, Ultrasound ARZ LOS N/A Ultrasound Specimen (Source) Anatomical Location Collection Method / Collectio n Time Received Time / Laterality Volume Narrative 10/19/2020 1:27 PM WOOD [employer] WOOD PRODUCTS FACTORY WORKER LAURA LOWE OB Exam, 10/19/2020 EXAM INFORMATION Patient Name: ??LAURA LOWE : ??1985 Age: ??34 yrs Sex: ??Female Ref Phys: ??JOSEY TSE Exam Date: 10/19/2020 Procedure: US OB ANATOMY ANGUIANO Exam Site: [facility] Plurality: 1 INDICATIONS FOR SONOGRAPHY [...] Read by Ilir Moss on 1:21:30 PM. Scrap Shear Operator: ??Ilir Moss Thank You For This Referral Procedure Note Eamon Dawson M.B.B.S., MAngelo. - 10/19 MYNOR LAURADANIELITO SHIPLEY OB Exam, 10/19/2020 EXAM INFORMATION Patient Name: LAURA LOWE S : 1985 Age: 34 yrs Sex: Female Ref Phys: JOSEY TSE Exam Date: 10/19/2020 Procedure: US OB ANATOMY ANGUIANO Exam Site: [facility] Plurality: 1 INDICATIONS FOR SONOGRAPHY [...] Read by Ilir Moss on 1:21:30 PM. Scrap Shear Operator: Ilir Moss Thank You For This Referral Josey Tse M.D. IMG OB US PROCEDURES documented in this encounter Visit Diagnoses Not on filedocumented in this encounter
--- NOTE | 2022-08-29 12:15 | CRLHL7_ITS ---
For Patients: As a result of the Century Cures Act, medical imaging exams and procedure reports are released immediately into your electronic medical record. You may view this report before your referring provider. If you have questions, please contact your health care provider. INDICATION: female. The baby reportedly is measuring 3 weeks ahead of dates. TECHNIQUE: Transabdominal obstetrical ultrasound. COMPARISON: June 04, 2022. FINDINGS: Single living intrauterine in vertex presentation. Posterior placenta. heart rate 157 beats per minute. Normal amniotic fluid. Single deepest pocket measurement 3.9 cm. Biophysical profile score is 8/8 with 2 points given each for breathing, movement, tone, and amniotic fluid. Biparietal diameter 9.2 cm, 37 weeks 2 days, greater than the 97th percentile. Head circumference 33.9 cm, 39 weeks 0 days, greater than the 97th percentile. Abdominal circumference 33.5 cm, 37 weeks 3 days, greater than the 97th percentile. Femur length 6.9 cm, 35 weeks 3 days, 72nd percentile. The head to abdominal circumference ratio is 1.01 (0.91-1.05). The femur length to abdominal circumference ratio is 20.63 (20.00-24.00). IMPRESSION: 1. Single living intrauterine in vertex presentation. Posterior placenta. 2. Biophysical profile score 8/8. 3. Composite calculated ultrasound age 37 weeks 2 days with a sonographic due date of September 17, 2022. This is 3 weeks advanced when correlated with the age based on the last menstrual period provided. 4. weight 3110 g which lies at the greater than 97th percentile. Dictated by Booker Boogie MD @ 08/29/2022 3:48:02 PM (Electronically Signed)
== END 2022-08-29 12:10 | disposition home or self-care (01) ==
LOC: US 12:10
PROVIDERS: PCP Obstetrics & Gynecology; Referring Provider Obstetrics & Gynecology; Visit Provider Obstetrics & Gynecology
DX: O24.419 Gestational diabetes mellitus in pregnancy, unspecified control (principal); O09.93 Supervision of high risk pregnancy, unspecified, third trimester; Z3A.34 34 weeks gestation of pregnancy
CPT/HCPCS: 76816; 76819

== ENCOUNTER 2022-09-05 09:40 | Outpatient (CLI) | payer BC, SELFPAY ==
--- OUTSIDE RECORDS SUMMARY | 2022-09-05 09:52 | XMS_ITS | Clinical Summary ---
:1985 Author Organization [facility] Address [address] [place] [address] Care Team Providers Name Role Phone Unavailable Primary Care Provider Unavailable Source Comments Patient records contain information from all sites at [facility]. For routine questions regarding patient records, call [phone] during business hours, M-F 8:00 AM - 5:00 PM Central Time. Record requests for emergency care only can be directed to [phone] at any time.[facility] Allergies Active Allergy Reactions Severity Noted Date Comments Penicillins Rash 10/18/2020 Salicylates Edema 10/18/2020 Swollen tongue Medications Medication Sig Dispensed Refills Start Date End Date Status Take 1 tablet by 0 Act angela lcvbyos-St-uyws-FA mouth daily. (VINATE ONE) 60 mg iron-1 [...] Comments Blood Pressure 116/69 10/20/2020 12:39 PM WELDER SETTER ELECTRON BEAM MACHINE Pulse 81 10/20/2020 12:39 PM WELDER SETTER ELECTRON BEAM MACHINE Temperature 37.2 ??C (99 ??F) 10/20/2020 12:39 PM WELDER SETTER ELECTRON BEAM MACHINE Respiratory Rate 18 10/20/2020 12:39 PM WELDER SETTER ELECTRON BEAM MACHINE Oxygen Saturation 99% 10/20/2020 12:39 PM WELDER SETTER ELECTRON BEAM MACHINE Inhaled Oxygen Concentration - - Weight 56.3 kg (124 lb 1.9 oz) 10/19/2020 6:30 AM WELDER SETTER ELECTRON BEAM MACHINE Height - - Body Mass Index - [...] Addre ss Type Group BL[place] [id number] 2020-Yuki [phone] [address] PPO BLUE SHIELD t [address] [place] [address] Advance Directives For more information, please contact: [phone] Latest Code Status on File Code Status Date Activated Date Inactivated Comments Full Code 10/18/2020 7:51 PM 10/20/2020 2:51 PM Question Answer Comments Full Code: Not Discussed Due to: Not medically appropriate
--- OUTSIDE RECORDS SUMMARY | 2022-09-05 09:52 | XMS_ITS | Encounter Summary ---
:1985 Author Organization [facility] Address [address] [address] Care Team Providers Name Role Phone Unavailable Primary Care Provider Unavailable Reason for Visit Reason Comments APPOINTMENT REQUEST Referral for GDM Encounter Details Date Type Department Care Team Description 08/02/2022 Telephone [facility] 3800 Nurse, [id number] End APPOINTMENT REQUEST Endocrinology [address] (Referral for GDM) [address] [facility] [place] [address] Social History Tobacco Use Types Packs/Day Years Used Date Smoking Tobacco: Never Assessed Sex Assigned at Date Recorded Not on file documented as of this encounter Nursing Notes Sagrario Luna - 08/03/2022 9:49 AM CDT LVM to schedule GDM consult Sagrario Luna - 08/02/2022 9:18 AM CDT Faxed referral rec'd from [facility] for GDM, records sent to scan doc documented in this encounter Plan of Treatment Not on filedocumented as of this encounter Visit Diagnoses Not on filedocumented in this encounter
--- OUTSIDE RECORDS SUMMARY | 2022-09-05 09:52 | XMS_ITS | Encounter Summary ---
:1985 Author Organization [facility] Address [address] [place] [address] Care Team Providers Name Role Phone Unavailable Primary Care Provider Unavailable Reason for Referral Outpatient (Routine) - Closed Specialty Diagnoses / Procedures Referred By Contact Refer red To Contact Maternal and Diagnoses Premature Rupture Of Membranes Unspecified As To Length Of Time Between Rupture And Onset Of Labor Second Trimester (HCC) 21 Weeks Gestation ([facility]CC) [facility] Janelle Dominguez M.D. [address] [place] [address] Referral ID Status Reason Start Date Expiration Date Visits Requ ested Visits Authorized [id number] Closed 11/02/2020 11/02/2021 1 1 LIFE ECOLOGIST Encounter Details Date Type Department Care Team Description 11/02/2020 [facility] Loren, Premature Rupture Of Membranes Unspecified As To Length Of Time Between Rupture And Onset Of Labor Second Trimester (Primary Dx); AND CLINICS Janelle Dominguez M.D. 21 Weeks Gestation [address] [facility] [address] [place] [address] [place], [place] [phone] [address] Social History Tobacco Use Types Packs/Day Years [...] 1 to 4 times per year 11/22 methodist services? Do you belong to any clubs or No 12/12/2020 organizations such as methodist groups, unions, fraPerformLine or athletic groups, or school groups? How [...] Name Type Priority Associated Diagnoses Order S [facility] Obstetrics Referral Outpatient Referral Routine [...]
--- OUTSIDE RECORDS SUMMARY | 2022-09-05 09:52 | XMS_ITS | Encounter Summary ---
:1985 Author Organization [facility] Address [address] [place] [address] Care Team Providers Name Role Phone Unavailable Primary Care Provider Unavailable Reason for Visit Auth/Cert Specialty Diagnoses / Procedures Referred By Contact Refer red To Contact Diagnoses 22 Weeks Gestation (HCC) Procedures DIR Referral ID Status Reason Start Date Expiration Date Visits Requ ested Visits Authorized [id number] 1 1 Encounter Details Date Type Department Care Team Description 10/19/2020 Hospital Encounter Department of Josey Tse Obstetrics and M.DIsha Gynecology in [address] [place] [address] [place] [address] [place], [place] [phone] (Wo rk) [id number] [phone] Social History Tobacco Use Types Packs/Day Years [...] 1 to 4 times per year 11/22 faith services? Do you belong to any clubs [...] Sig Dispensed Refills Start Date End Date jijwtnwinu-nsxceizyfbnlh-v TK 1 TO 2 TS PO Q 4 H 0 09/08/2020 aff (FIORICET, ESGIC) NEEDED. MAX 6 PER 50-325-40 mg per tablet DAY Take 1 tablet by 0 hryevit-Sl-opnj-FA (VINATE mouth daily. ONE) 60 mg iron-1 mg per tablet documented as of this encounter Plan of Treatment Not on filedocumented as of this encounter Procedures Procedure Name Priority Date/Time Associated Comments Diagnosis US OB ANATOMY RAD - Routine 10/19/2020 1:21 Results fo r this ANGUIANO (most inpatients PM DROP FORGE OPERATOR procedure a re in and all the results outpatients) section. documented in this encounter Results US OB Anatomy Anguiano (10/19/2020 1:21 PM DROP FORGE OPERATOR) Anatomical Region Laterality Modality Body, Ultrasound OB RST LOS, Ultrasound ARZ LOS N/A Ultrasound Specimen (Source) Anatomical Location Collection Method / Collectio n Time Received Time / Laterality Volume Narrative 10/19/2020 1:27 PM DROP FORGE OPERATOR LAURA LOWE OB Exam, 10/19/2020 EXAM INFORMATION [...] Read by Ilir Moss on 1:21:30 PM. Litigation Counsel: ??Ilir Moss Thank You For This Referral [...] Read by Ilir Moss on 1:21:30 PM. Litigation Counsel: Ilir Moss Thank You For This Referral Josey Tse M.D. IMG OB US PROCEDURES documented in this encounter Visit Diagnoses Not on filedocumented in this encounter
--- OUTSIDE RECORDS SUMMARY | 2022-09-05 09:52 | XMS_ITS | Encounter Summary ---
:1985 Author Organization [facility] Address [address] [place] [address] Care Team Providers Name Role Phone Unavailable Primary Care Provider Unavailable Encounter Details Date Type Department Care Team Description 10/20/2020 Anesthesia Event [facility], Kandis Stock, [facility], HOOD FITTER, DIRECTOR OF CAMPUS RECREATION, DNAP [facility], Third Floor [address] [place] [address] Anesthesia Record Procedure Summary [...] or relatives? How often do you attend jain or 1 to 4 times per year 11/22 faith services? Do you belong to any clubs or No 12/12/2020 organizations such as jain groups, unions, fraternal or athletic groups, or [...]
--- OUTSIDE RECORDS SUMMARY | 2022-09-05 09:52 | XMS_ITS | Encounter Summary ---
:1985 Author Organization [facility] Address [address] [address] Care Team Providers Name Role Phone Unavailable Primary Care Provider Unavailable Reason for Referral Consult/Transfer Care (Routine) - New Request Specialty Diagnoses / Procedures Referred By Contact Refer red To Contact Diagnoses Gestational diabetes mellitus (GDM), antepartum, gestational diabetes method of control unspecified Henrietta Ortega PA-C [address] [place], [place] [address] Referral ID Status Reason Start Date Expiration Date Visits V isits Requested Authorized [id number] New Request 08/03/2022 11/02/2023 1 1 Scheduling Instructions Your provider has recommended an appoint ment with [facility]. You may call [phone] to schedule yo ur appointment. We suggest you call your health insurance company about your cove rage and benefits for this appointment. Encounter Details Date Type Department Care Team Description 08/03/2022 Notes/Orders [facility] [address] Henrietta Ortega PA-C Gestational diabetes Endocrinology [address] mellitus (GDM), [address]partum, [address] [place], [place] [address] method of control [id number] unspecified (Primary [phone] Dx) Social History Tobacco Use Types Packs/Day Years Used Date Smoking Tobacco: Never Assessed Sex Assigned at Date Recorded Not on file documented as of this encounter Progress Notes Annita Sher - 08/03/2022 12:55 PM CDT Please complete pended IDC referral for Gestational Diabetes education. Thank you, Annita Sher 08/03/2022, 12:55 PM documented in this encounter Plan of Treatment Scheduled Referrals [...]
--- OUTSIDE RECORDS SUMMARY | 2022-09-05 09:52 | XMS_ITS | Encounter Summary ---
:1985 Author Organization [facility] Address [address] [place] [address] Care Team Providers Name Role Phone Unavailable Primary Care Provider Unavailable Reason for Visit Reason Comments Communication Encounter Details Date Type Department Care Team Description 10/21/2020 Clinical Communication [facility], Horacio Cisneros, Communication [facility], [address] [place] [address] Dr MANUEL Third Floor [place], [place] [address] [facility] [address] [place], [place] [phone] (Work) [phone] Social History Tobacco Use Types Packs/Day Years [...] or relatives? How often do you attend mandaen or 1 to 4 times per year 11/22 druze services? Do you belong to any clubs or No 12/12/2020 organizations such as mandaen groups, unions, fraternal or athletic groups, or [...] be seen. She is an hour from [place] and 20 min from [place]. PLAN Discussed with Dr Bowman and [facility] Room RN. Patient advised to be seen immediately at nearest facility. Disposition/Recommendation: referral for services Nearest ED or OB Facility. Information/Education: patient/caller able to teach back. Caller agreeable to plan of care: yes. The following references were used: provider Dr Bowman. CULTURE SCIENTIST documented in this encounter Plan of Treatment Not on filedocumented as of this encounter Visit Diagnoses Not on filedocumented in this encounter
--- OUTSIDE RECORDS SUMMARY | 2022-09-05 09:52 | XMS_ITS | Clinical Summary ---
:1985 Author Organization [facility] Address [address] [place] [address] Care Team Providers Name Role Phone Unavailable [...] for each transition of care or referral. [facility] All[facility] Active Allergy Reactions Severity Noted Date [...] (ONETOUCH DELICA topically 4 times 2 PLUS [id number]) a day. MISC insulin Inject 1 Each [...] Care Team Description 09/04/2022 Telemedicine Diabetes Program Alvina Zoya Gesta tional diabetes M, RDN, LD, CDCES mellitus ( GDM), antepartum, ges tational diabetes method of control unspeci fied (Primary Dx) 08/14/2022 Telemedicine Endocrinology Henrietta Ortega PA-C Gestati onal diabetes mellitus (GDM), antepartum, ges tational diabetes method of control unspeci fied (Primary Dx) 08/03/2022 Notes/Orders Endocrinology Henrietta Ortega PA-C Gestati onal diabetes mellitus (GDM), antepartum, ges tational diabetes method of control unspeci fied (Primary Dx) 08/02/2022 Telephone Endocrinology Nurse, [id number] [...] 08/14/2022 1:08 PM CDT Plan of Treatment Health Maintenance Due [...] ss Type Group BCBS BCBS OUT OF [id number] 2020-Present [address] [address] [place] [address]
--- OUTSIDE RECORDS SUMMARY | 2022-09-05 09:52 | XMS_ITS | Clinical Summary ---
:1985 Author Organization [facility] [facility] [employer] [facility] [facility] Address Unavailable [address] Care Team Providers Name Role Phone Pcp, [...] and management pt had pre- consult at [place]-- recommended cervical lengths at 16w, possibly cerclage [...] weeks by US REFERRING PHYSICIAN/PHONE/[phone] Primary MD approves scheduling of recomm ended ultrasounds/testing: Yes SPECIALISTS/CONSULTS: Include: Specialty MD Clinic Name Phone# [place] and ADDED TO PATIENT CARE TEAM No CARE COORDINATION: GENETICS: declined PROCEDURES: PERTINENT LABS: B POS PERTINENT MEDS: PNV, pepcid, omeprazole, zofran Preferred delivery location: PLAN OF CARE: Menorrhagia 09/29/2008 Routine general medical examination at [facility] acility 09/29/2008 Palpitations 09/29/2008 Other general counseling [...] Description 08/24/2022 Travel 08/23/2022 - Hospital Encounter Twin Felix 08/24/2022 MD Adolph 08/23/2022 Hospital Encounter [...] F VAGINAL SAIDA N Delivery Location: Hospital ([facility]) Comments: IUGR 2014 Term 37w0d 3.37 kg (7 lb 7 oz) M 2020 SAB 7w0d Current OB Episode Summary Episode Dates Estimated Date of Pregravid Weight TWG (As of ) Delivery 04/03/2022 - Present 10/08/2022 (09/05/2022) Date GA Fund Present FHR Mvmt BP [...] in 2020. Pt has been doctoring in [place], but has had consults with [facility] because of history. Pt was cleared to delivery in [facility] only after 35 wks. 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 Repor t to Rekha GROSSMAN. Chayo Shah RN .................... 08/23/2022 11:48 PM 07/31/2022 - 30w1d - Arin Hernandez MD [facility] Ultrasound Visit Your patient had an ultrasound with [facility] on 07/31/2022. The report is ready and can be found in the Results review [facility]. The Impression from the report is [...] 05/23/2022 - 20w2d - Heather Hernandes MD [facility] Ultrasound 05/23/22 Referred By: DARSHAN MULLINS [...] prior . See prior consult letter in [facility] for further details. Today's US shows no signs of placenta accreta spectrum, but I reviewed the limitations of US in the detection of placenta accreta, especially with posterior placenta. We will re-assess placentation at her follow up US. She plans delivery in [place] which is reasonable as long as follow up US lo oks normal. She continues vaginal progesterone and s erial cervical length US in [place] (see prior consult letter in EPIC). 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 Admitting Physician: ??Twin kirkpatrick MD Gestational [...] in room for sp ec exam Twin eFlix MD OB PROCEDURE ORD AMNIOTIC FLUID INDEX [...] Vaginosis by IBAN (08/23/2022 11:24 PM CDT) [facility] Method Time Signature ZAYNAB SPECIES Negative Negative 08/24/2022 [facility] 4:33 AM CDT LABORATORY-[place] TRAL LABORATORY ZAYNAB Negative Negative 08/24/2022 [facility] GLABRATA 4:33 AM CDT LABORATORY-KYLIE TRAL LABORATORY TRICHOMONAS VVA Negative Negative 08/24/2022 [facility] 4:33 AM CDT LABORATORY-[facility]LIE TRAL LABORATORY BACTERIAL Negative Negative 08/24/2022 [facility] VAGINOSIS 4:33 AM CDT LABORATORY-KYLIE TRAL LABORATORY Specimen Anatomical Collection Method Collection Time Receive d Time (Source) Location / / Volume Laterality Other VAGINAL SWAB / Non-Blood / 08/23/2022 11:24 2 Unknown Unknown PM CDT 11:38 PM CDT Twin Felix MD MICROBIOLOGY Performing Organization Address City/[facility]/ZIP Code Phon e Number [employer] [address] [place] [address] LABORATORY-CENTRAL 1999 LABORATORY AMNISURE ROM (08/23/2022 11:05 PM CDT)Only the most recent of2 resultswithin the time period is included. [facility] Method Time Signature AMNISURE ROM Negative, [...] Organization Address City/State/ZIP Code Phon e Number [employer] [address] [place] [address] [place] [address] LABORATORY-CENTRAL 1999 LABORATORY Growth Follow Up Any Trimester (CPT 68081) If BPP w/NST needed use Testing section [...] as needed. Medical Decision Making: Moderate Level 17069 ?Moderate number of Diagnoses inclu ding one [...] Services Provided: Procedures Code FOLLOW UP GROWTH 48184.0 TRANSVAGINAL ULTRASOUND 60409.0 Procedure Note Arin Hernandez MD - 07/31/2022For matting of this note might be different from the original. Referred By: DARSHAN MULLINS INDICATION:Low lying placenta IndicationsCode 30 weeks gestation of [id number].30 History of PTD / PROM D&C x2 [...] as needed. Medical Decision Making: Moderate Level 84797 Moderate number of Diagnoses including one previously undiagnosed new problem with uncertain prognosis, a low lying placent a, LGA fetus Moderate complexity of Data including r eview of prior ultrasound, ordering another ultrasound, and review of prior external notes, Moderate risk of morbidity or mortality to the fetus from possible need for early delivery which was discussed. Services Provided: ProceduresCode FOLLOW UP FMLRAL40517.0 TRANSVAGINAL KSRESAYOMT51030.0 Heather Hernandes MD from Last 3 Months Insurance Payer Benefit Plan / Subscriber ID Effective Dates Phone Addre ss Type Group BLUE CROSS BLUE CROSS OF [id number] 2020-Present [address] [address] [place] [address] Care Teams Body Shop Technician Relationship Specialty Start Date End Date Pcp, No PCP - General 11/18/13 . Annita Moreira CNM Referring Provider Certified Nurse Mailroom Coordinator 03/22/22 3 [address] [place] [address]
--- OUTSIDE RECORDS SUMMARY | 2022-09-05 09:52 | XMS_ITS | Encounter Summary ---
:1985 Author Organization [facility] Address [address], [place] [address] Care Team Providers Name Role Phone Unavailable Primary Care Provider Unavailable Reason for Visit Reason Comments DIABETES,GESTATIONAL Encounter Details Date Type Department Care Team Description 09/04/2022 Telemedicine IDC ADULT DIAB [facility] Zoya Tinsley Ge stational diabetes ENRICO Dominguez RDN, YUSUF, BIJU mellitus (GDM), [address] [place] [address] antepartum, [place] [address] [address] gestational diabetes [phone] [place], [place] method of control [address] unspecified (Primary [phone] (Wo rk) Dx) Social History Tobacco Use Types Packs/Day Years Used Date Smoking Tobacco: Never Assessed Sex Assigned at Date Recorded Not on file documented as of this encounter Progress Notes Zoya Tinsley RDN, YUSUF, CDCES - 09/04/2022 9:15 AM CST Subjective: Visit: 3 wk GDM What is the most important concern you want to discuss today? No specific questions or concerns. Current Diabetes Treatment Regimen: NPH: 22 units daily at 7pm Patient reports she noticed her fasting glucose are lower if she takes the insulin at 7pm instead of9pm. Sometimes patients forget or skip taking their diabetes medication as prescribed. How many times a week do you miss a dose? 0 Is patient taking diabetes medications as directed? Yes Typical Meal or Snack First Meal Eggs + ham/sausage + toast Or Avocado toast Or [place] biscuits Snack Second Meal Salad or leftovers or pizza Snack Third Meal See below Snack Snacks: popcorn or meat & cheese or crackers Beverages: water, coffee, protein shake Full/satisfied: yes Current physical activity includes: walking Objective: Wt Readings from Last 3 Encounters: 08/14/22 153 lb (69.4 kg) Gestational Age: 35 weeks (per patient) This is an individual appointment. No group available within needed timeframe. Reviewed recent glucose results: Date Pre Morning Meal Post Morning Meal Post Midday Meal Post Evening Meal 08/28 99 147 bagel 98 106 08/29 90 103 121 98 08/30 85 91 102 106 08/31 90 109 121 112 09/01 83 96 129 Hamburger + fries 120 09/02 88 117 - 111 09/03 105 Took insulin later (9pm) 95 114 132 (1.5 hr) [place] quesadilla + cookie 1 hour later 09/04 89 Post-prandial values are 1 hour post-meal. Lab results related to diabetes have been reviewed. Assessment and Plan: Reviewed blood glucose records. -No pattern of elevated fasting glucose at this time; therefore, no changes to NPH insulin dose. -Majority of post-prandial glucose in target. Elevated values explainable by food choices. Reviewed Session #3 material from Gestational Diabetes BASICS book. Nutrition Diagnosis: No nutrition diagnosis identified at this time. Plan: Medication: - Continue to take 22 units NPH daily in the evening. Glucose Monitoring: -Encouraged patient to call if note pattern of elevated glucoses. -Follow up as needed. Goals: Date: Category: Goals: Progression: 08/14/2022 Monitoring Diabetes Test blood sugar four times daily. Completed/On Track This visit was conducted as a: Video Visit Location of clinician: clinic Location of patient: work Time spent on video in [id number]-uh-fvvs contact with patient, if applicable: 18 minutes Education content taught can be found in the diabetes education smartform HANDISING INTERN documented in this encounter Plan of Treatment Not on filedocumented as of this encounter Visit Diagnoses Diagnosis Gestational diabetes mellitus (GDM), ant epartum, gestational diabetes method of control unspecified - Primary documented in this encounter
--- OUTSIDE RECORDS SUMMARY | 2022-09-05 09:52 | XMS_ITS | Encounter Summary ---
:1985 Author Organization [facility] Address [address] [place] [address] Care Team Providers Name Role Phone Unavailable Primary Care Provider Unavailable Reason for Visit Reason Comments Rupture of Membranes Contractions Auth/Cert Specialty Diagnoses / Procedures Referred By Contact Refer red To Contact Diagnoses 22 Weeks Gestation (HCC) Procedures DIR Referral ID Status Reason Start Date Expiration Date Visits Requ ested Visits Authorized [id number] 1 1 Encounter Details Date Type Department Care Team Description 10/18/2020 - Hospital Encounter [facility] Jordyn Wild M.D. [address] [place] [phone] 22 Weeks Gestation (Primary Dx) ; 10/20/2020 [facility], Erin Villagran M.D., M.P.H. [address] [place] [address] [phone] 21 Weeks Gestation ; [place], Heather Ott M.D. [address] [place] [phone] Premature Rupture Of Membranes U nspecified As To Length Of Time Between Rupture And Onset Of Labor Second Trimester Building, Third Floor [address] [place] [address] Social History Tobacco Use Types [...] Comments Blood Pressure 116/69 10/20/2020 12:39 PM STUDENT DEAN Pulse 81 10/20/2020 12:39 PM STUDENT DEAN Temperature 37.2 ??C (99 ??F) 10/20/2020 12:39 PM STUDENT DEAN Respiratory Rate 18 10/20/2020 12:39 PM STUDENT DEAN Oxygen Saturation 99% 10/20/2020 12:39 PM STUDENT DEAN Inhaled Oxygen Concentration - - Weight 56.3 kg (124 lb 1.9 oz) 10/19/2020 6:30 AM STUDENT DEAN Height - - Body Mass Index - - documented in this encounter Discharge Summaries Saqib Strong M.D. - 10/20/2020 12:07 PM CST DISCHARGE SUMMARY BRIEF OVERVIEW Hospital: [facility] Discharge Provider: Erin Alarcon M.D. Primary Team: [facility] No primary [...] return in one week for neonatology consult, [facility] return visit and further discussion of when she would like to be re-admitted. She was discharged home in stable condition. //Miriam Ruggiero MD CONSULTS ORDERED DURING THIS ADMISSION CONDITION AT DISCHARGE Stable Discharge instructions were provided to the patient and caregiver(s). ENT DEAN documented in this encounter Medications at Time of Discharge Medication Sig Dispensed Refills Start Date End Date [id number]-rypqgyfrlgtku-b TK 1 TO 2 TS PO Q 4 H 0 09/08/2020 aff (FIORICET, ESGIC) NEEDED. MAX 6 PER 50-325-40 mg per tablet DAY Take 1 tablet by 0 [id number]-Rt-edpd-FA (VINATE mouth daily. ONE) 60 mg iron-1 [...] 10/18/2020. 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 Obstetrical Chief PGY-3 [phone] ENT DEAN Associated attestation - Heather Goodrich M.D. - 10/19/2020 12:27 AM STUDENT DEAN Yarn Washer Teaching Physician Statement: I have discussed the [...] delivery upon exam findings of 4-5cm dilation. 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 PSH: [...] for necrotizing enterocolitis, and potential poor manager intermediate neurological outcomes/disability. Have printed her additional studies [...] further discussion this afternoon Miriam Ruggiero M.D. ENT DEAN Associated attestation - Saqib Strong M.D. - 10/20/2020 11:17 AM STUDENT DEAN I have discussed the care of Jim [...] L.G.S.Norris., L.I.C.S.W., M.S.W. - 10/19/2020 1:02 PM STUDENT DEAN SUBJECTIVE Social work met with the patient [...] weeks gestationas a transfer of care from [place], [place] due to concern for previable premature [...] day parking pass provided 10/19/20. Annita Kaplan [facility] [place] 10/19/2020 ENT DEAN Miriam Ruggiero M.D. - 10/19/2020 12:09 PM [...] 10/18/2020. She did present to her local manager landscape did have a speculum exam completed however given the gestational age at the time rupture the patient was transferred from [place] for assessment and outpatient consultation with Maternal [...] 21w1 2) Subchorionic hemorrhage 3) Heterozygous Prothrombin 59448 A PMH: heterozygosity to Prothrombin 97176 A. PSH: none Allergies: PCN (rash as [...] necr otizing enterocolitis, and potential poor manager intermediate neurological outcomes/disability. Have printed her additional studies [...] discussion pending ultrasound results. Miriam Ruggiero M.D. ENT DEAN Associated attestation - Ryasa Guerin M.D. - 11/14/2020 4:22 AM STUDENT DEAN I saw and evaluated the patient, participating [...] with family for expectant management. Questions answered. ENT DEAN Irish Newell R.N. - 10/18/2020 9:29 PM [...] reviewed goals for the shift with patient. ENT DEAN documented in this encounter Miscellaneous Notes Hospital [...] home in stable condition. //Miriam Ruggiero MD ENT DEAN documented in this encounter Plan of Treatment Pending Results Name Type Priority Associated Diagnoses Date/Ti sd US OB Limited Imaging RAD - Routine (most 020 8:51 PM inpatients and all STUDENT DEAN outpatients) Scheduled Orders Name Type Priority Associated Diagnoses Order S chedule US OB Limited Imaging RAD - Routine (most Once fo r 1 inpatients and all Occurrenc es starting outpatients) 10/18/2020 unti l 10/18/2020 documented as of this encounter Procedures Procedure Name Priority Date/Time Associated Comments Diagnosis US OB ANATOMY RAD - Routine 10/19/2020 1:21 Results fo r this ANGUIANO (most inpatients PM STUDENT DEAN procedure a re in and all the results outpatients) section. RUBELLA ANTIBODIES, Routine 10/19/2020 7:18 Resul ts for this IGG AM STUDENT DEAN procedure are i n the results section. VARICELLA-ZOSTER Routine 10/19/2020 7:18 Results for this AB, IGG, S AM STUDENT DEAN procedure are i n the results section. MICROSCOPIC MANUAL Routine 10/19/2020 2:21 Result s for this AM STUDENT DEAN procedure are i n the results section. BACTERIAL CULTURE, Routine 10/19/2020 2:21 Result s for this AEROBIC + SUSC, AM STUDENT DEAN procedure ar e in URINE the results section. CONFIRMED DRUG Routine 10/19/2020 2:21 Results fo r this ABUSE PANEL, U AM STUDENT DEAN procedure are in the results section. CHLAMYDIA/GONORRHOE Routine 10/19/2020 2:21 Resul ts for this AE AMPLIFIED RNA AM STUDENT DEAN procedure a re in the results section. URINALYSIS WITH Routine 10/19/2020 2:21 Results f or this MICROSCOPIC AM STUDENT DEAN procedure are i n the results section. HEPATITIS B SURFACE STAT 10/18/2020 9:34 Resul ts for this ANTIGEN PM STUDENT DEAN procedure are i n the results section. FIBRINOGEN, P STAT 10/18/2020 9:34 Results for this PM STUDENT DEAN procedure are i n the results section. SARS CORONAVIRUS 2, Routine 10/18/2020 8:05 Resul ts for this MOLECULAR PM STUDENT DEAN procedure are i n DETECTION, PCR (METALLURGICAL TECHNICIAN) the resu lts section. HEPATITIS B SURFACE STAT 10/18/2020 7:59 Resul ts for this ANTIGEN PM STUDENT DEAN procedure are i n the results section. CBC WITHOUT STAT 10/18/2020 7:59 Results for this DIFFERENTIAL, B PM STUDENT DEAN procedure ar e in the results section. TYPE AND SCREEN STAT 10/18/2020 7:59 Results f or this PM STUDENT DEAN procedure are i n the results section. HIV-1/-2 AG AND AB STAT 10/18/2020 7:58 Result s for this SCRN, PM STUDENT DEAN procedure are in PLASMA the results section. documented in this encounter Results US OB Anatomy Anguiano (10/19/2020 1:21 PM STUDENT DEAN) Anatomical Region Laterality Modality Body, Ultrasound OB RST LOS, Ultrasound ARZ LOS N/A Ultrasound Specimen (Source) Anatomical Location Collection Method / Collectio n Time Received Time / Laterality Volume Narrative 10/19/2020 1:27 PM STUDENT DEAN JIM LOWE OB Exam, 10/19/2020 EXAM INFORMATION Patient Name: ??JIM LOWE : ??1985 Age: ??34 yrs Sex: ??Female Ref Phys: ??MIRIAM RUGGIERO Exam Date: 10/19/2020 Procedure: US OB ANATOMY ANGUIANO Exam Site: [facility] Plurality: 1 INDICATIONS FOR SONOGRAPHY Anatomic [...] Read by Ilir Moss on 1:21:30 PM. Credit Collector: ??Ilir Moss Thank You For This Referral Procedure Note Eamon Dawson M.B.BIshaSIsha, Terrie. - 10/19 JIM LOWE OB Exam, 10/19/2020 EXAM INFORMATION Patient Name: MYNORJIM S : 1985 Age: 34 yrs Sex: Female Ref Phys: MIRIAM RUGGIERO Exam Date: 10/19/2020 Procedure: US OB ANATOMY ANGUIANO Exam Site: [facility] Plurality: 1 INDICATIONS FOR SONOGRAPHY Anatomic [...] FL/AC:0.21 COMPUTATIONS GA: 21w2d [+/-1.40] Method: BUTCH BUTHC: 02/27/2021 Sono GA: 20w4d [+/-1.40] Method: BPD, [...] Read by Ilir Moss on 1:21:30 PM. Credit Collector: Ilir Moss Thank You For This Referral Miriam Ruggiero M.D. IMG OB US PROCEDURES Varicella-Zoster Antibody, IgG, Serum (10/19/2020 7:18 AM STUDENT DEAN) athologist Signature Varicella-Zost Positive 10/19/2020 [facility] er Ab, IgG, S 10:41 AM STUDENT DEAN Comment: Results suggest response to immunization or prior exposure to the virus. ----REFERENCE VALUE---- Vaccinated: Positive (>=1.1 AI) Unvaccinated: Negative (<=0.8 AI) Varicella IgG Antibody Index 1.3 10/19/2020 10:41 AM STUDENT DEAN [facility] Specimen Anatomical Collection Method Collection Time Receive d Time (Source) Location / / Volume Laterality Blood (Blood, 10/19/2020 7:18 AM 10/19/20 20 9:43 Venous) STUDENT DEAN AM STUDENT DEAN Sierra Welch M.D. LAB MICROBIOLOGY - BLOOD ORD ERADIAMANTE Performing Organization Address [facility] Phon e Number [facility] [address] [place] [address] [place] [address] Laboratory Medicine and Pathology [address] [place] [address] Dr. MANUEL Rubella Antibodies, IgG (10/19/2020 7:18 AM STUDENT DEAN) athologist Signature Rubella Ab, Positive 10/19/2020 [facility] IgG, S 10:40 AM STUDENT DEAN Comment: Results suggest response to immunization or prior exposure to the virus. ----REFERENCE VALUE---- Vaccinated: Positive (>=1.0 AI) Unvaccinated: Negative (<=0.7 AI) Rubella IgG Antibody Index 1.4 10/19/2020 10 :40 AM STUDENT DEAN [facility] Specimen Anatomical Collection Method Collection Time Receive d Time (Source) Location / / Volume Laterality Blood (Blood, 10/19/2020 7:18 AM 10/19/20 20 9:43 Venous) STUDENT DEAN AM STUDENT DEAN Sierra Welch M.D. LAB MICROBIOLOGY - BLOOD ORD JENNA Performing Organization Address [facility] Phon e Number [address] [place] [address] [facility] [place] [address] Laboratory Medicine and Pathology [address] [place] [address] Dr. MANUEL (ABNORMAL) Microscopic Manual (10/19/2020 2:21 AM STUDENT DEAN) Analysis Performed At Patho logist Time Signature Microscopy Abnormal 10/19/2020 [facility] 6:26 AM STUDENT DEAN RBC >100 (A) <3 /hpf 10/19/2020 [facility] 6:26 AM STUDENT DEAN Dysmorphic RBC <25 <25 % 10/19/2020 [facility] 6:26 AM STUDENT DEAN WBC 1-3 /hpf 10/19/2020 [facility] 6:26 AM STUDENT DEAN Comment: ----REFERENCE VALUE---- 1-3 ??(Males) 1-10 (Females) Specimen Anatomical Collection Method Collection Time Receive d Time (Source) Location / / Volume Laterality Urine 10/19/2020 2:21 AM 0 4:00 STUDENT DEAN AM STUDENT DEAN Sierra Welch M.D. LAB URINE ORDERABLES Performing Organization Address [facility] Phon e Number [facility] - [address] [place] [address] [address] [place] [id number] Laboratories-[address] Bacterial Culture, Aerobic + Susc, Urine (10/19/2020 2:21 AM STUDENT DEAN) Patholo gist Method Time Signature Urine Culture No growth 10/20/2020 DT after 1 day 8:16 AM STUDENT DEAN of incubation. Specimen Anatomical Collection Method Collection Time Receive d Time (Source) Location / / Volume Laterality Urine (Urine, 10/19/2020 2:21 AM 10/19/20 20 5:03 Straight STUDENT DEAN AM STUDENT DEAN Catheter) Comment: Specimen Source Site: Urine Sierra Welch M.D. LAB MICROBIOLOGY - GENERAL O RDERABLES Performing Organization Address [facility] Phon e Number [facility] - [address] [place] [address] Laboratories[address] (ABNORMAL) Urinalysis with Microscopic: Urine, Catheter (10/19/2020 2:21 AM STUDENT DEAN) Analysis Performed At Patho logist Time Signature Source Catheter 10/19/2020 [place] 4:00 AM STUDENT DEAN Appearance Normal Normal 10/19/2020 [place] 4:00 AM STUDENT DEAN Osmolality, U 521 150 - 1150 10/19/2020 [place] mOsm/kg 4:47 AM STUDENT DEAN pH, U 6.2 4.5 - 8.0 10/19/2020 [place] 4:47 AM STUDENT DEAN Comment: ----ADDITIONAL INFORMATION---- This test was developed and its performa nce characteristics determined by [facility] in a manner co nsistent with CLIA requirements. This test has not bee n cleared or approved by the U.S. Food and Drug Admin istration. Glucose 8 0 - 15 mg/dL 10/19/2020 6:17 AM STUDENT DEAN [place] Protein, U 46 (H) <26 mg/dL 10/19/2020 6:17 AM STUDENT DEAN [place] Comment: ----ADDITIONAL INFORMATION---- On 04/16/2017 the total protein assay me thod changed resulting in approximately a 15% increase in prote in values. Protein/Osmolality 0.88 (H) <0.42 Ratio 10/19/2020 6:17 AM STUDENT DEAN [place] Comment: ----ADDITIONAL INFORMATION---- On 04/16/2017 the total protein assay me thod changed resulting in approximately a 15% increase in prote in values. Predicted 24 Hr Protein 597 mg/24 h 10/19/2020 6:17 AM STUDENT DEAN [place] Predicted Range 148-2419 mg/24 h 10/19/2020 6:17 AM STUDENT DEAN R JEM Hemoglobin, QL Large (A) Negative 10/19/2020 6:26 AM STUDENT DEAN RE NA Specimen Anatomical Collection Method Collection Time Receive d Time (Source) Location / / Volume Laterality Urine (Urine, 10/19/2020 2:21 AM 10/19/20 20 4:00 Catheter) STUDENT DEAN AM STUDENT DEAN Sierra Welch M.D. LAB URINE ORDERABLES Performing Organization Address City/State/ZIP Code Phon e Number [facility] - [address] [place], [place] [address] [place] [address] Laboratories-[facility] [address] Chlamydia / Gonorrhoeae Amplified RNA (10/19/2020 2:21 AM STUDENT DEAN) [facility] gist Method Time Signature Source Urine, 10/19/2020 DTL Urine, First 6:58 PM STUDENT DEAN Voided Chlamydia Negative Negative 10/19/2020 [facility] trachomatis 6:58 PM STUDENT DEAN amplified RNA Source Urine, 10/19/2020 DTL Urine, First 6:58 PM STUDENT DEAN Voided Neisseria Negative Negative 10/19/2020 [facility] gonorrhoeae 6:58 PM STUDENT DEAN amplified RNA Specimen Anatomical Collection Method Collection Time Receive d Time (Source) Location / / Volume Laterality Varies (Urine, 10/19/2020 2:21 AM 020 7:22 First Voided) STUDENT DEAN AM STUDENT DEAN Sierra Welch M.D. LAB MICROBIOLOGY - GENERAL O RDERABLES Performing Organization Address [facility] Phon e Number [facility] - [address] [place], [place] [address] [place] [address] Laboratories-[facility] [address] Drug Abuse Survey with Confirmation, Urine (10/19/2020 2:21 AM STUDENT DEAN) Patholo gist Method Time Signature Alcohol Negative Cutoff: 10/19/2020 [facility] 10 mg/dL 9:52 AM STUDENT DEAN Amphetamines Negative Cutoff: 10/19/2020 [facility] 500 ng/mL 9:52 AM STUDENT DEAN Barbiturates Negative Cutoff: 10/19/2020 [facility] 200 ng/mL 9:52 AM STUDENT DEAN Benzodiazepines Negative Cutoff: 10/19/2020 [facility] 100 ng/mL 9:52 AM STUDENT DEAN Cocaine Negative Cutoff: 10/19/2020 [facility] 150 ng/mL 9:52 AM STUDENT DEAN Opiates Negative Cutoff: 10/19/2020 [facility] 300 ng/mL 9:52 AM STUDENT DEAN Phencyclidine Negative Cutoff: 10/19/2020 [facility] 25 ng/mL 9:52 AM STUDENT DEAN Tetrahydrocannabinol Negative Cutoff: 10/19/2020 [facility] 50 ng/mL 9:52 AM STUDENT DEAN Comment: ----ADDITIONAL INFORMATION---- This report is intended for use in clini kosta monitoring or management of patients. ??It is not intended for use i n employment-related testing. Specimen Anatomical Collection Method Collection Time Receive d Time (Source) Location / / Volume Laterality Urine (Urine, 10/19/2020 2:21 AM 10/19/20 8:50 Clean Catch) STUDENT DEAN AM STUDENT DEAN Sierra Welch M.D. LAB URINE ORDERABLES Performing Organization Address [facility] Phon e Number [facility] [address] [place], [place] [address] SU[facility] [place] [address] Laboratory Medicine and Pathology [address] MANUEL (ABNORMAL) Fibrinogen (10/18/2020 9:34 PM STUDENT DEAN) P athologist Signature Fibrinogen, P 624 (H) 200 - 393 10/18/2020 METH mg/dL 9:49 PM STUDENT DEAN Specimen Anatomical Collection Method Collection Time Receive d Time (Source) Location / / Volume Laterality Blood (Blood, 10/18/2020 9:34 PM 10/18/20 20 9:40 Venous) STUDENT DEAN PM STUDENT DEAN Sierra Welch M.D. LAB BLOOD ADD-ON Performing Organization Address City/[facility]/ZIP Code Phon e Number [facility] - [address] [place], [place] [address] [facility] [place] [address] Laboratories-[facility] [address] Hepatitis B Surface Antigen (10/18/2020 9:34 PM STUDENT DEAN) P athologist Signature HBs Antigen, S Negative Negative 10/19/2020 [facility] 9:23 AM STUDENT DEAN Specimen Anatomical Collection Method Collection Time Receive d Time (Source) Location / / Volume Laterality Blood (Blood, 10/18/2020 9:34 PM 10/19/20 20 8:14 Venous) STUDENT DEAN AM STUDENT DEAN Sierra Welch M.D. LAB MICROBIOLOGY - BLOOD ORD ERABLES Performing Organization Address [facility] Phon e Number [facility] [address] [place], [place] [address] [facility] [place] [address] Laboratory Medicine and Pathology [address] MANUEL SARS Coronavirus 2, Molecular Detection, PCR (METALLURGICAL TECHNICIAN) Asymptomatic (10/18/2020 8:05 PM STUDENT DEAN) Patholo gist Method Time Signature COVID-19, PCR Undetected Undetected 10/19/2020 DTL 12:55 AM STUDENT DEAN Comment: SARS-CoV-2 RNA absent. This result does [...] Drug Administration an d is used per education director's instructions. Performance characteristics were verified by [facility] in a manner consistent with CLIA requirements. Visit the CDC website: https://www.cdc.g ov/coronavirus/ for the most recent guidelines on [place] virus testing. Fact Sheet for Healthcare Providers: https://www.fda.gov/media/780348/downloa d Fact Sheet for Patients: https://www.fda.gov/media/838855/downloa d Specimen Anatomical Collection Method Collection Time Receive d Time (Source) Location / / Volume Laterality Varies 10/18/2020 8:05 PM 0 8:40 (Nasopharynx) STUDENT DEAN PM STUDENT DEAN Heather Goodrich M.D. LAB MICROBIOLOGY - GENERAL O RDERABLES Performing Organization Address City/[facility]/ZIP [facility] Phon e Number [facility] - [address] [place], [place] [address] [facility] [place] [address] Laboratories-[facility] [address] [facility] Hepatitis B Surface Antigen (10/18/2020 7:59 PM STUDENT DEAN) P athologist Signature HBs Antigen, S Negative Negative 10/19/2020 [facility] 8:04 AM STUDENT DEAN Specimen Anatomical Collection Method Collection Time Receive d Time (Source) Location / / Volume Laterality Blood (Blood, 10/18/2020 7:59 PM 10/19/20 20 6:59 Venous) STUDENT DEAN AM STUDENT DEAN Sierra Welch M.D. LAB MICROBIOLOGY - BLOOD ORD ERABLES Performing Organization Address City/[facility] Phon e Number [facility] [address] [place], [place] [address] [facility] [place] [address] Laboratory Medicine and Pathology [address] MANUEL Type and Screen (with reflex Antibody ID) (10/18/2020 7:59 PM STUDENT DEAN) Patholo gist Method Time Signature ABORh B Pos Not 10/18/2020 E[facility] applicable 8:29 PM STUDENT DEAN Antibody Negative Negative 10/18/2020 [facility] Screen 8:44 PM STUDENT DEAN Type & Screen 10/21/2020 10/18/2020 [facility] Expiration 23:59 8:29 PM STUDENT DEAN Testing [place] DEFAULT 10/18/2020 ETR[facility] Location 8:08 PM STUDENT DEAN Specimen Anatomical Collection Method Collection Time Receive d Time (Source) Location / / Volume Laterality Blood (Blood, 10/18/2020 7:59 PM 10/18/20 20 8:08 Venous) STUDENT DEAN PM STUDENT DEAN Sierra Welch M.D. LAB BLOOD BANK TEST ORDERABL ES Performing Organization Address City/[facility] Phon e Number [facility] - [address] [place], [place] [address] [facility] [place] [address] Laboratories-[facility] 200 [facility] (ABNORMAL) CBC without Differential (10/18/2020 7:59 PM STUDENT DEAN) Patholo gist Method Time Signature Hemoglobin 11.0 (L) 11.6 - 10/18/2020 [facility] 15.0 g/dL 8:06 PM STUDENT DEAN Hematocrit 31.8 (L) 35.5 - 10/18/2020 [facility] 44.9 % 8:06 PM STUDENT DEAN Erythrocytes 3.65 (L) 3.92 - 10/18/2020 [facility] 5.13 8:06 PM STUDENT DEAN x10(12)/L MCV 87.1 78.2 - 10/18/2020 [facility] 97.9 fL 8:06 PM STUDENT DEAN RBC Distrib Width 13.5 12.2 - 10/18/2020 [facility] 16.1 % 8:06 PM STUDENT DEAN Platelet Count 287 157 - 371 10/18/2020 [facility] x10(9)/L 8:06 PM STUDENT DEAN Leukocytes 19.3 (H) 3.4 - 9.6 10/18/2020 [facility] x10(9)/L 8:06 PM STUDENT DEAN Specimen Anatomical Collection Method Collection Time Receive d Time (Source) Location / / Volume Laterality Blood (Blood, 10/18/2020 7:59 PM 10/18/20 20 8:04 Venous) STUDENT DEAN PM STUDENT DEAN Sierra Welch M.D. LAB BLOOD ADD-ON Performing Organization Address City/State/ZIP Code Phon e Number [facility] - [address] [place] [address] [facility] [place] [address] Laboratories-[facility] [address] [facility] HIV-1/-2 Ag and Ab Scrn, Plasma (10/18/2020 7:58 PM STUDENT DEAN) P athologist Signature HIV-1/-2 Ag Negative Negative 10/19/2020 [facility] and Ab 9:31 AM STUDENT DEAN Scrn, P Comment: Negative result does not rule out HIV in fection. If exposure to HIV infection occurred <14 d ays ago, contact the laboratory to request additi on of HIV-1 RNA detection / quantification test (HIV QN). Specimen Anatomical Collection Method Collection Time Receive d Time (Source) Location / / Volume Laterality Blood (Blood, 10/18/2020 7:58 PM 10/19/20 20 6:59 Venous) STUDENT DEAN AM STUDENT DEAN Sierra Welch M.D. LAB MICROBIOLOGY - BLOOD ORD ERABLES Performing Organization Address City/State/ZIP Code Phon e Number [facility] [address] [place], [place] [address] [place] [address] [facility] [place] [address] Laboratory Medicine and Pathology [address] [...] 900 mg New Bag 10/19/2020 5:09 AM STUDENT DEAN 900 mg 100 mL/hr (CLEOCIN) 900 mg, intravenous, at 100 mL/hr, Administer over 30 Minutes, Every 8 hours, First dose on Sat10/18/20 at 2000, premix bag, Indications: Obstetric or gynecological infection New Bag 10/18/2020 9:41 PM STUDENT DEAN 900 mg 100 mL/hr fentaNYL injection 100 mcg (SUBLIMAZE) Given 10/18/2020 9:49 PM STUDENT DEAN 100 mcg 100 mcg, intravenous, Every 1 hour PRN, moderate pain or score 4-6 of 10, severe pain or score 7-10 of 10, for labor pains, Starting on Sat10/18/20 at 1939, For 3 doses, L&D Pre-Delivery, Consultation with Anesthesia for pain control if patient requests regional anesthesia and in active labor or membranes ruptured. Given 10/18/2020 8:44 PM STUDENT DEAN 100 mcg gentamicin 290 mg in NaCl 0.9% IVPB New Bag 10/18/2020 8:41 PM STUDENT DEAN 290 mg 215 mL/hr (GARAMYCIN) 290 mg (rounded from 285 mg = 5 mg/kg ? 57 kg Order-specific weight), intravenous, at 215 mL/hr, Administer over 30 Minutes, Once, On Sat10/18/20 at 2000, For 1 dose, Drug Monitoring Program: Pharmacist to adjust medication dosing based on indication and drug clearance factors., Indications: Obstetric or gynecological infection lactated ringers New Bag 10/19/2020 5:10 AM STUDENT DEAN 125 mL/hr 125 mL/hr 125 mL/hr, intravenous, Continuous, Starting on Sat10/18/20 at 2000, L&D Pre-Delivery, Indications: Hang fluids for maternal dehydration, concerns, epidural placement, with antibiotics. Rate/Dose Verify 10/19/2020 2:20 AM STUDENT DEAN 125 mL/hr 125 mL/hr Rate/Dose Verify 10/19/2020 12:00 AM STUDENT DEAN 125 mL/hr 125 mL/hr multivitamin/mineral- tablet 1 Given 10/20/2020 9:30 AM STUDENT DEAN 1 tablet tablet 1 tablet, oral, Daily, First dose on Kylie 10/20/20 at 0900 documented in this encounter Active and Recently Administered Medications Times are shown in STUDENT DEAN. Scheduled Medication Order 10/18/2020 10/19/2020 10/20/2020 clindamycin [...] palpation, or reach a mximum of 250 [place] units, and/or cervical change(s) occur. PRN Medication [...] COVID19 Pending 10/18/2020 10/18/2020 10/19/2020 12:56 AM STUDENT DEAN documented as of this encounter
--- OUTSIDE RECORDS SUMMARY | 2022-09-05 09:52 | XMS_ITS | Encounter Summary ---
:1985 Author Organization [facility] Address [address] [place] [address] Care Team Providers Name Role Phone Unavailable Primary Care Provider Unavailable Reason for Visit Outpatient (Routine) - Closed Specialty Diagnoses / Procedures Referred By Contact Refer red To Contact Maternal and Diagnoses Premature Rupture Of Membranes Unspecified As To Length Of Time Between Rupture And Onset Of Labor Second Trimester ([facility]) 21 Weeks Gestation ([facility]) [facility] Janelle Dominguez M.D. [address] [place] [id number] Referral ID Status Reason Start Date Expiration Date Visits Requ ested Visits Authorized [id number] Closed 11/02/2020 11/02/2021 1 1 Encounter Details Date Type Department Care Team Description 12/16/2020 Telemedicine Department of Saqib Strong, Diana ture Rupture Of Membranes Unspecified As To Length Of Time Between Rupture And Onset Of Labor Second Trimester; Obstetrics and M.D. 21 Weeks Gestation Gynecology in [address] [place] [address] [place] [address] [place], [place] [phone] (Work) [phone] Social History Tobacco Use Types Packs/Day Years [...] or the highest technical, or vocational p [facility] degree you have received? Sex Assigned at Date Recorded Not on file documented as of this encounter Consult Notes Sqaib Strong M.D. - 12/16/2020 8:00 AM CST Consult conducted via real-time audio/video technology by Saqib Strong M.D. in [facility] to the patient in patient home. 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 Mrs. Salinas's obstetrical history is significant for three term vaginal deliveries and one first-trimester miscarriage. In her fifth (2019), she was admitted o [facility] following spontaneous PPROM at 21 weeks gestation. Ultrasound demonstrated normal anatomy and biometry; olig ohydramnios was noted (as anticipated). After an interval of inpatient observation, Mrs. Salinas and her elected to pursue expectant management and were discharged to home. Subsequently she developed labor at 21 weeks and delivered her daughter in [place]; her daughter appeared morphologically normal, and survived for approximately 60 minutes. Difficulty was encountered with retained placenta, requiring manual extraction and D&C; Mrs. Salinas was treated with a course of intravenous antibiotic therapy. 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 Salinas experienced retained placenta requiring manual extraction in her first as well. Regarding her heterozygous prothrombin [id number] heterozygote status, Mrs. Salinas was screening for thrombophilias after an aunt experienced an episode of thrombosis and tested positive for Factor V Leiden and the Prothrombin [id number] mutation; neither she personally nor any first-degree [...] determine viability/number and define gestational age. (in [place]) 3. Maternal cystic fibrosis/SMA and aneuploidy screening at 10-12 weeks (per her preference). 4. Consideration of early anatomic ultrasound at 11-14 weeks. 5. Sonographic cervix length surveillance beginning at 16 weeks and repeated weekly through 22 6/7 weeks, with contingent cerclage placement if cervix length shortens to <25mm prior to 23 0/7 weeks.(initial imaging study in [place]) 6. Consideration of 17-hydroxyprogesterone caprate prophylaxis (250mg IM weekly), beginning at 16-20weeks and continuing through 36 weeks. 7. Detailed anatomic survey ultrasound at 18-20 weeks. (in [place]) 8. Repeat ultrasound at 30-32 weeks to evaluate placental appearance for any evidence of accreta. 9. Consider induction of labor at 39 0/7-39 6/7 weeks; this may be scheduled either in [place] or in [place] pending resource availability. Mrs. Salinas resides approximately 1 hour from [place]. Intrapartum: 10. Obtain CBC and type & [...] I will arrange for initial appointments in [place]. Further care may be coordinated between [place] and [place]. I will also forward materials regarding placenta accreta occulta. Saqib Strong M.D. BILITATION MEDICINE PHYSICIAN documented in this encounter Plan of Treatment Not on filedocumented as of this encounter Visit Diagnoses Diagnosis Premature Rupture Of Membranes U nspecified As To Length Of Time Between Rupture And Onset Of Labor Second Trimes ter (HCC) 21 Weeks Gestation (HCC) documented in this encounter
--- OUTSIDE RECORDS SUMMARY | 2022-09-05 09:52 | XMS_ITS | Encounter Summary ---
:1985 Author Organization [facility] Address [address], [place] [address] Care Team Providers Name Role Phone Unavailable Primary Care Provider Unavailable Encounter Details Date Type Department Care Team Description 08/14/2022 Telemedicine [facility] [address] Henrietta Ortega PA-C Gestational diabetes Endocrinology [address] mellitus (GDM), [address] antepartum, [address] [place], [place] [address] method of control [id number] unspecified (Primary [phone] Dx) Social History Tobacco Use Types Packs/Day [...] from the original note were not included. [facility]: [address] [address] [phone], Nurse Line: [phone] Gestational Diabetes Visit Note August 14, 2022 [...] No hx of pre-eclampsia. She met with micro paleontologist at OB office and started checking her [...] information. Family history: DM:yes-grandmother and aunt. See [facility] for complete family history. Current Medications: No current diabetes medications. All medications reviewed and updated in [facility] today. Objective: Physical Exam: There were no [...]
[2022-09-06 10:05] LABS: Strep B DNA Probe NEGATIVE (Negative)
[2022-09-11 10:02] LABS: Strep B Pen/Amox Allergy No
== END 2022-09-05 09:41 | disposition home or self-care (01) ==
LOC: NFLDREF 09:41
PROVIDERS: Visit Provider Obstetrics & Gynecology
DX: Z34.93 Encounter for supervision of normal pregnancy, unspecified, third trimester (principal); Z3A.35 35 weeks gestation of pregnancy
CPT/HCPCS: 87081; 87653

== ENCOUNTER 2022-09-10 11:37 | Outpatient (CLI) | payer BC, SELFPAY ==
--- OUTSIDE RECORDS SUMMARY | 2022-09-10 11:43 | XMS_ITS | Clinical Summary ---
:1985 Author Organization [facility] Address [address] [place] [address] Care Team Providers Name Role Phone Unavailable Primary Care Provider Unavailable Source Comments Patient records contain information from all sites at [facility]. For routine questions regarding patient records, call [phone] during business hours, M-F 8:00 AM - 5:00 PM Central Time. Record requests for emergency care only can be directed to [phone] at any time.[facility] Allergies Active Allergy Reactions Severity Noted Date Comments Penicillins Rash 10/18/2020 Salicylates Edema 10/18/2020 Swollen tongue Medications Medication Sig Dispensed Refills Start Date End Date Status Take 1 tablet by 0 Act angela xvzbpwm-Gk-necs-FA mouth daily. (VINATE ONE) 60 mg iron-1 [...] the highest level of school Associate degree: froylancalros valdovinos, 12/11/2020 you have completed or the highest technical, or vocational p zaki degree you have received? Sex Assigned at Date Recorded Not on file Last Filed Vital Signs Vital Sign Reading Time Taken Comments Blood Pressure 116/69 10/20/2020 12:39 PM KENNEL HAND Pulse 81 10/20/2020 12:39 PM KENNEL HAND Temperature 37.2 ??C (99 ??F) 10/20/2020 12:39 PM KENNEL HAND Respiratory Rate 18 10/20/2020 12:39 PM KENNEL HAND Oxygen Saturation 99% 10/20/2020 12:39 PM KENNEL HAND Inhaled Oxygen Concentration - - Weight 56.3 kg (124 lb 1.9 oz) 10/19/2020 6:30 AM KENNEL HAND Height - - Body Mass Index - [...] Addre ss Type Group BLUE CR[place] [id number] 2020-Yuki [phone] [address] PPO BLUE SHIELD t [address] [place] [address] Advance Directives For more information, please contact: [phone] Latest Code Status on File Code Status Date Activated Date Inactivated Comments Full Code 10/18/2020 7:51 PM 10/20/2020 2:51 PM Question Answer Comments Full Code: Not Discussed Due to: Not medically appropriate
--- OUTSIDE RECORDS SUMMARY | 2022-09-10 11:43 | XMS_ITS | Encounter Summary ---
:1985 Author Organization [facility] Address [address], [place] [address] Care Team Providers Name Role Phone Unavailable Primary Care Provider Unavailable Reason for Referral Consult/Transfer Care (Routine) - New Request Specialty Diagnoses / Procedures Referred By Contact Refer red To Contact Diagnoses Gestational diabetes mellitus (GDM), antepartum, gestational diabetes method of control unspecified Henrietta Ortega PA-C [address] [place], [place] [address] Referral ID Status Reason Start Date Expiration Date Visits V isits Requested Authorized [id number] New Request 08/03/2022 11/02/2023 1 1 Scheduling Instructions Your provider has recommended an appoint ment with [facility]. You may call [phone] to schedule yo ur appointment. We suggest you call your health insurance company about your [place] rage and benefits for this appointment. Encounter Details Date Type Department Care Team Description 08/03/2022 Notes/Orders [facility] [address] Henrietta Ortega PA-C Gestational diabetes Endocrinology [address] mellitus (GDM), [address] antepartum, [address] [place], [place] [address] method of control [id number] unspecified (Primary [phone] Dx) Social History Tobacco Use Types Packs/Day [...]
--- OUTSIDE RECORDS SUMMARY | 2022-09-10 11:43 | XMS_ITS | Encounter Summary ---
:1985 Author Organization [facility] Address [address] [place] [address] Care Team Providers Name Role Phone Unavailable Primary Care Provider Unavailable Reason for Visit Auth/Cert Specialty Diagnoses / Procedures Referred By Contact Refer red To Contact Diagnoses 22 Weeks Gestation (HCC) Procedures DIR Referral ID Status Reason Start Date Expiration Date Visits Requ ested Visits Authorized [id number] 1 1 Encounter Details Date Type Department Care Team Description 10/19/2020 Hospital Encounter Department of Josey Tse Obstetrics and M.DIsha Gynecology in [address] [place] [address] [place] [phone] [place], [place] [phone] (Wo rk) [id number] [phone] Social History Tobacco Use Types Packs/Day Years [...] or relatives? How often do you attend sabianist or 1 to 4 times per year 11/22 latter-day services? Do you belong to any clubs or No 12/12/2020 organizations such as sabianist groups, unions, fraternal or athletic groups, or [...] Sig Dispensed Refills Start Date End Date djsknydbmb-brnzzfbeowiur-e TK 1 TO 2 TS PO Q 4 H 0 09/08/2020 aff (FIORICET, ESGIC) NEEDED. MAX 6 PER 50-325-40 mg per tablet DAY Take 1 tablet by 0 tktxvfg-Lj-ycms-FA (VINATE mouth daily. ONE) 60 mg iron-1 mg per tablet documented as of this encounter Plan of Treatment Not on filedocumented as of this encounter Procedures Procedure Name Priority Date/Time Associated Comments Diagnosis US OB ANATOMY RAD - Routine 10/19/2020 1:21 Results fo r this ANGUIANO (most inpatients PM ORTHODONTIC TECHNICIAN procedure a re in and all the results outpatients) section. documented in this encounter Results US OB Anatomy Anguiano (10/19/2020 1:21 PM ORTHODONTIC TECHNICIAN) Anatomical Region Laterality Modality Body, Ultrasound OB RST LOS, Ultrasound ARZ LOS N/A Ultrasound Specimen (Source) Anatomical Location Collection Method / Collectio n Time Received Time / Laterality Volume Narrative 10/19/2020 1:27 PM ORTHODONTIC TECHNICIAN LAURA LOWE OB Exam, 10/19/2020 EXAM INFORMATION Patient Name: ??LAURA LOWE : ??1985 Age: ??34 yrs Sex: ??Female Ref Phys: ??JOSEY TSE Exam Date: 10/19/2020 Procedure: US OB ANATOMY ANGUIANO Exam Site: [facility] Plurality: 1 INDICATIONS FOR [...] Read by Ilir Moss on 1:21:30 PM. Waste Machine Tender: ??Ilir Moss Thank You For This Referral Procedure Note Eamon Dawson M.B.B.S., MAngelo. - 10/19 MYNOR LAURADANIELITO SHIPLEY OB Exam, 10/19/2020 EXAM INFORMATION Patient Name: LAURA LOWE S : 1985 Age: 34 yrs Sex: Female Ref Phys: JOSEY TSE Exam Date: 10/19/2020 Procedure: US OB ANATOMY ANGUIANO Exam Site: [facility] Plurality: 1 INDICATIONS FOR [...] Read by Ilir Moss on 1:21:30 PM. Waste Machine Tender: Ilir Moss Thank You For This Referral Josey Tse M.D. IMG OB US PROCEDURES documented in this encounter Visit Diagnoses Not on filedocumented in this encounter
--- OUTSIDE RECORDS SUMMARY | 2022-09-10 11:43 | XMS_ITS | Clinical Summary ---
:1985 Author Organization [facility] Address [address] [place] [address] Care Team Providers Name Role Phone Unavailable [...] for each transition of care or referral. [place] Allergies Active Allergy Reactions Severity Noted Date [...] (ONETOUCH DELICA topically 4 times 2 PLUS [id number]) a day. MISC insulin Inject 1 Each [...] ss Type Group BCBS BCBS OUT OF [id number] 2020-[place] [address] [address] [place] [address]
--- OUTSIDE RECORDS SUMMARY | 2022-09-10 11:43 | XMS_ITS | Encounter Summary ---
:1985 Author Organization [facility] Address [address] [place] [address] Care Team Providers Name Role Phone Unavailable Primary Care Provider Unavailable Reason for Visit Reason Comments Communication Encounter Details Date Type Department Care Team Description 10/21/2020 Clinical Communication [facility], Horacio Cisneros, Communication [facility], [address] [place] [address] [address] MANUEL Third Floor [place], [place] [address] [facility] [address] [place], [place] [phone] [address] (Work) [phone] Social History Tobacco Use Types Packs/Day Years [...] be seen. She is an hour from [place] and 20 min from [place]. PLAN Discussed with Dr Bowman and [facility] Room RN. Patient advised to be seen immediately at nearest facility. Disposition/Recommendation: referral for services Nearest ED or OB Facility. Information/Education: patient/caller able to teach back. Caller agreeable to plan of care: yes. The following references were used: provider Dr Bowman. HANDLER documented in this encounter Plan of Treatment Not on filedocumented as of this encounter Visit Diagnoses Not on filedocumented in this encounter
--- OUTSIDE RECORDS SUMMARY | 2022-09-10 11:43 | XMS_ITS | Encounter Summary ---
:1985 Author Organization [facility] Address [address] [place] [address] Care Team Providers Name Role Phone Unavailable Primary Care Provider Unavailable Reason for Referral Outpatient (Routine) - Closed Specialty Diagnoses / Procedures Referred By Contact Refer red To Contact Maternal and Diagnoses Premature Rupture Of Membranes Unspecified As To Length Of Time Between Rupture And Onset Of Labor Second Trimester (HCC) 21 Weeks Gestation (HCC) [facility] Janelle Dominguez M.D. [address] [place] [address] Referral ID Status Reason Start Date Expiration Date Visits Requ ested Visits Authorized [id number] Closed 11/02/2020 11/02/2021 1 1 ACE HELPER Encounter Details Date Type Department Care Team Description 11/02/2020 [facility], Premature Rupture Of Membranes Unspecified As To Length Of Time Between Rupture And Onset Of Labor Second Trimester (Primary Dx); AND CLINICS Janelle Dominguez M.D. 21 Weeks Gestation [address] [facility] [address] [place] [address] [place], [place] [phone] Social History Tobacco Use Types Packs/Day Years [...] 12/12/2020 organizations such as sabianism groups, unions, fraAtlas5D or athletic groups, or school groups? How [...] Type Priority Associated Diagnoses Order S [facility] Obstetrics Referral Outpatient Referral Routine [...]
--- OUTSIDE RECORDS SUMMARY | 2022-09-10 11:43 | XMS_ITS | Encounter Summary ---
:1985 Author Organization [facility] Address [address], [place] [address] Care Team Providers Name Role Phone Unavailable Primary Care Provider Unavailable Encounter Details Date Type Department Care Team Description 08/14/2022 Telemedicine [facility] [address] Henrietta Ortega PA-C Gestational diabetes Endocrinology [address] mellitus (GDM), [address] antepartum, [address] [place], [place] [address] method of control [id number] unspecified (Primary [phone] Dx) Social History Tobacco Use Types Packs/Day [...] from the original note were not included. [facility]: [address] [address] [phone], Nurse Line: [phone] Gestational Diabetes Visit Note August 14, 2022 [...] No hx of pre-eclampsia. She met with court magistrate at OB office and started checking her [...] information. Family history: DM:yes-grandmother and aunt. See [facility] for complete family history. Current Medications: No current diabetes medications. All medications reviewed and updated in [facility] today. Objective: Physical Exam: There [...]
--- OUTSIDE RECORDS SUMMARY | 2022-09-10 11:43 | XMS_ITS | Encounter Summary ---
:1985 [facility] Address [address], [place] [address] Care Team Providers Name Role Phone Unavailable Primary Care Provider Unavailable Reason for Visit Reason Comments DIABETES,GESTATIONAL Encounter Details Date Type Department Care Team Description 09/04/2022 Telemedicine [facility] ADULT DIAB [facility] Zoya Tinsley Ge stational diabetes ENRICO Dominguez RDN, YUSUF, BIJU mellitus (GDM), [address] [place] [address] antepartum, [place] [address] BL[address] gestational diabetes [phone] [place], [place] method of control [id number] unspecified (Primary [phone] (Wo rk) Dx) Social History Tobacco Use [...] later (9pm) 95 114 132 (1.5 hr) [place] quesadilla + cookie 1 hour later 09/04 [...] patient: work Time spent on video in rrnh-ie-ptzg contact with patient, if applicable: 18 minutes Education content taught can be found in the diabetes education smartform NG MACHINE OPERATOR documented in this encounter Plan of Treatment Not on filedocumented as of this encounter Visit Diagnoses Diagnosis Gestational diabetes mellitus (GDM), ant epartum, gestational diabetes method of control unspecified - Primary documented in this encounter
--- OUTSIDE RECORDS SUMMARY | 2022-09-10 11:43 | XMS_ITS | Encounter Summary ---
:1985 Author Organization [facility] Address [address] [place] [address] Care Team Providers Name Role Phone Unavailable Primary Care Provider Unavailable Encounter Details Date Type Department Care Team Description 10/20/2020 Anesthesia Event [facility], Kandis Stock, [facility], PLATER HOT DIP, GAMING PIT BOSS, DNAP [facility], Third Floor [address] [place] [address] Anesthesia Record Procedure Summary [...] 1 to 4 times per year 11/22 hindu services? Do you belong to any clubs [...]
--- OUTSIDE RECORDS SUMMARY | 2022-09-10 11:43 | XMS_ITS | Encounter Summary ---
:1985 Author Organization [facility] Address [address] [place] [id number] Care Team Providers Name Role Phone Unavailable Primary Care Provider Unavailable Reason for Visit Outpatient (Routine) - Closed Specialty Diagnoses / Procedures Referred By Contact Refer red To Contact Maternal and Diagnoses Premature Rupture Of Membranes Unspecified As To Length Of Time Between Rupture And Onset Of Labor Second Trimester ([facility]) 21 Weeks Gestation ([facility]) [facility] Janelle Dominguez M.D. [address] [place] [id number] Referral ID Status Reason Start Date Expiration Date Visits Requ ested Visits Authorized [id number] Closed 11/02/2020 11/02/2021 1 1 Encounter Details Date Type Department Care Team Description 12/16/2020 Telemedicine Department of Saqib Strong, Diana ture Rupture Of Membranes Unspecified As To Length Of Time Between Rupture And Onset Of Labor Second Trimester; Obstetrics and M.D. 21 Weeks Gestation Gynecology in [address] [place] [address] [place] [id number] [place], [place] [phone] (Work) [phone] Social History Tobacco Use Types Packs/Day Years [...] 1 to 4 times per year 11/22 mosque services? Do you belong to any clubs [...] or the highest technical, or vocational p [facility] degree you have received? Sex Assigned at Date Recorded Not on file documented as of this encounter Consult Notes Saqib Strong M.D. - 12/16/2020 8:00 AM CST Consult conducted via real-time audio/video technology by Saqib Strong M.D. in [facility] to the patient in patient home. #1 Preconception counseling #2 Previous complicated by previable PPROM and delivery (21 weeks) #3 Previous placenta accreta occulta #3 Heterozygous prothrombin [id number] mutation #4 Penicillin allergy (rash) Very pleasant 35y/o who presents for recommendations regarding subsequent management. Mrs. Salinas's obstetrical history is significant for three term vaginal deliveries and one first-trimester miscarriage. In her fifth (2019), she was admitted o [facility] following spontaneous PPROM at 21 weeks gestation. Ultrasound demonstrated normal anatomy and biometry; olig ohydramnios was noted (as anticipated). After an interval of inpatient observation, Mrs. Salinas and her elected to pursue expectant management and were discharged to home. Subsequently she developed labor at 21 weeks and delivered her daughter in [place]; her daughter appeared morphologically normal, and survived for approximately 60 minutes. Difficulty was encountered with retained placenta, requiring manual extraction and D&C; Mrs. Salinas was treated with a course of intravenous antibiotic therapy. 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 Salinas experienced retained placenta requiring manual extraction in her first as well. Regarding her heterozygous prothrombin [id number] heterozygote status, Mrs. Salinas was screening for thrombophilias after an aunt experienced an episode of thrombosis and tested positive for Factor V Leiden and the Prothrombin [id number] mutation; neither she personally nor any first-degree [...] determine viability/number and define gestational age. (in [place]) 3. Maternal cystic fibrosis/SMA and aneuploidy screening at 10-12 weeks (per her preference). 4. Consideration of early anatomic ultrasound at 11-14 weeks. 5. Sonographic cervix length surveillance beginning at 16 weeks and repeated weekly through 22 6/7 weeks, with contingent cerclage placement if cervix length shortens to <25mm prior to 23 0/7 weeks.(initial imaging study in [place]) 6. Consideration of 17-hydroxyprogesterone caprate prophylaxis (250mg IM weekly), beginning at 16-20weeks and continuing through 36 weeks. 7. Detailed anatomic survey ultrasound at 18-20 weeks. (in [place]) 8. Repeat ultrasound at 30-32 weeks to evaluate placental appearance for any evidence of accreta. 9. Consider induction of labor at 39 0/7-39 6/7 weeks; this may be scheduled either in [place] or in [place] pending resource availability. Mrs. Salinas resides approximately 1 hour from [place]. Intrapartum: 10. Obtain CBC and type & [...] I will arrange for initial appointments in [place]. Further care may be coordinated between [place] and [place]. I will also forward materials regarding placenta accreta occulta. Saqib Strong M.D. NCE PROFESSIONAL documented in this encounter Plan of Treatment Not on filedocumented as of this encounter Visit Diagnoses Diagnosis Premature Rupture Of Membranes U nspecified As To Length Of Time Between Rupture And Onset Of Labor Second Trimes ter ([facility]) 21 Weeks Gestation ([facility]) documented in this encounter
--- OUTSIDE RECORDS SUMMARY | 2022-09-10 11:43 | XMS_ITS | Encounter Summary ---
:1985 Author Organization [facility] Address [address] [place] [address] Care Team Providers Name Role Phone Unavailable Primary Care Provider Unavailable Reason for Visit Reason Comments Rupture of Membranes Contractions Auth/Cert Specialty Diagnoses / Procedures Referred By Contact Refer red To Contact Diagnoses 22 Weeks Gestation (HCC) Procedures DIR Referral ID Status Reason Start Date Expiration Date Visits Requ ested Visits Authorized [id number] 1 1 Encounter Details Date Type Department Care Team Description 10/18/2020 - Hospital Encounter [facility] Jordyn Wild M.D. [address] [place] [phone] 22 Weeks Gestation (Primary Dx) ; 10/20/2020 [facility], Erin Villagran M.D., M.P.H. [address] [place] [phone] 21 Weeks Gestation ; Achille, Heather Ott M.D. [address] [place] [phone] Premature Rupture Of Membranes U nspecified As To Length Of Time Between Rupture And Onset Of Labor Second Trimester Building, Third Floor [address] [place] [address] Social History Tobacco Use Types [...] 1 to 4 times per year 11/22 worship services? Do you belong to any clubs or No 12/12/2020 organizations such as moravian groups, unions, fraternal or athletic groups, or [...] Comments Blood Pressure 116/69 10/20/2020 12:39 PM [facility] Pulse 81 10/20/2020 12:39 PM [facility] Temperature 37.2 ??C (99 ??F) 10/20/2020 12:39 PM [facility] Respiratory Rate 18 10/20/2020 12:39 PM [facility] Oxygen Saturation 99% 10/20/2020 12:39 PM [facility] Inhaled Oxygen Concentration - - Weight 56.3 kg (124 lb 1.9 oz) 10/19/2020 6:30 AM [facility] Height - - Body Mass Index - - documented in this encounter Discharge Summaries Saqib Strong M.D. - 10/20/2020 12:07 PM CST DISCHARGE SUMMARY BRIEF OVERVIEW Hospital: [facility] Discharge Provider: Erin Alarcon M.D. Primary Team: [facility] Obstetric[facility] No primary care provider [...] return in one week for neonatology consult, [facility] return visit and further discussion of when she would like to be re-admitted. She was discharged home in stable condition. //Miriam Ruggiero MD CONSULTS ORDERED DURING THIS ADMISSION CONDITION AT DISCHARGE Stable Discharge instructions were provided to the patient and caregiver(s). [facility] documented in this encounter Medications at Time of Discharge Medication Sig Dispensed Refills Start Date End Date Take 1 tablet by 0 [id number]-FA (VINATE mouth daily. ONE) 60 mg iron-1 mg per tablet ninlcsjvic-uhmysusvndeql-e TK 1 TO 2 TS PO Q [...] 10/18/2020. 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 Obstetrical Chief PGY-3 [phone] [facility] Associated attestation - Heather Goodrich M.D. - 10/19/2020 12:27 AM [facility] Registered Nurse Step Down Teaching Physician Statement: I have discussed the [...] delivery upon exam findings of 4-5cm dilation. 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 PSH: [...] concern for necrotizing enterocolitis, and potential poor exterminator termite neurological outcomes/disability. Have printed her additional studies [...] further discussion this afternoon Miriam Ruggiero M.D. [facility] Associated attestation - Saqib Strong M.D. - 10/20/2020 11:17 AM [facility] I have discussed the care of Jim [...] L.G.S.Norris., L.I.C.S.W., M.S.W. - 10/19/2020 1:02 PM [facility] SUBJECTIVE Social work met with the patient [...] weeks gestationas a transfer of care from [place], [place] due to concern for previable premature [...] day parking pass provided 10/19/20. Annita Kaplan [facility] [employer] P[employer]HER 10/19/2020 [facility] Miriam Ruggiero M.D. - 10/19/2020 12:09 PM [...] 10/18/2020. 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 PSH: none Allergies: PCN (rash as [...] for necr otizing enterocolitis, and potential poor exterminator termite neurological outcomes/disability. Have printed her additional studies [...] discussion pending ultrasound results. Miriam Ruggiero M.D. [facility] Associated attestation - Raysa Guerin M.D. - 11/14/2020 4:22 AM [facility] I saw and evaluated the patient, participating [...] with family for expectant management. Questions answered. [facility] Irish Newell R.N. - 10/18/2020 9:29 PM [...] reviewed goals for the shift with patient. [facility] documented in this encounter Miscellaneous Notes Hospital [...] home in stable condition. //Miriam Ruggiero MD [facility] documented in this encounter Plan of Treatment Pending Results Name Type Priority Associated Diagnoses Date/Ti sd US OB Limited Imaging RAD - Routine (most 020 8:51 PM inpatients and all [facility] outpatients) Scheduled Orders Name Type Priority Associated Diagnoses Order S chedule US OB Limited Imaging RAD - Routine (most Once fo r 1 inpatients and all Occurrenc es starting outpatients) 10/18/2020 unti l 10/18/2020 documented as of this encounter Procedures Procedure Name Priority Date/Time Associated Comments Diagnosis US OB ANATOMY RAD - Routine 10/19/2020 1:21 Results fo r this ANGUIANO (most inpatients PM [facility] procedure a re in and all the results outpatients) section. RUBELLA ANTIBODIES, Routine 10/19/2020 7:18 Resul ts for this IGG AM [facility] procedure are i n the results section. VARICELLA-ZOSTER Routine 10/19/2020 7:18 Results for this AB, IGG, S AM [facility] procedure are i n the results section. MICROSCOPIC MANUAL Routine 10/19/2020 2:21 Result s for this AM [facility] procedure are i n the results section. BACTERIAL CULTURE, Routine 10/19/2020 2:21 Result s for this AEROBIC + SUSC, AM [facility] procedure ar e in URINE the results section. CONFIRMED DRUG Routine 10/19/2020 2:21 Results fo r this ABUSE PANEL, U AM [facility] procedure are in the results section. CHLAMYDIA/GONORRHOE Routine 10/19/2020 2:21 Resul ts for this AE AMPLIFIED RNA AM [facility] procedure a re in the results section. URINALYSIS WITH Routine 10/19/2020 2:21 Results f or this MICROSCOPIC AM [facility] procedure are i n the results section. HEPATITIS B SURFACE STAT 10/18/2020 9:34 Resul ts for this ANTIGEN PM [facility] procedure are i n the results section. FIBRINOGEN, P STAT 10/18/2020 9:34 Results for this PM [facility] procedure are i n the results section. SARS CORONAVIRUS 2, Routine 10/18/2020 8:05 Resul ts for this MOLECULAR PM [facility] procedure are i n DETECTION, PCR (MOSAIC TECHNICIAN) the resu lts section. HEPATITIS B SURFACE STAT 10/18/2020 7:59 Resul ts for this ANTIGEN PM [facility] procedure are i n the results section. CBC WITHOUT STAT 10/18/2020 7:59 Results for this DIFFERENTIAL, B PM [facility] procedure ar e in the results section. TYPE AND SCREEN STAT 10/18/2020 7:59 Results f or this PM [facility] procedure are i n the results section. HIV-1/-2 AG AND AB STAT 10/18/2020 7:58 Result s for this SCRN, PM [facility] procedure are in PLASMA the results section. documented in this encounter Results US OB Anatomy Anguiano (10/19/2020 1:21 PM [facility]) Anatomical Region Laterality Modality Body, Ultrasound OB RST LOS, Ultrasound ARZ LOS N/A Ultrasound Specimen (Source) Anatomical Location Collection Method / Collectio n Time Received Time / Laterality Volume Narrative 10/19/2020 1:27 PM [facility] JIM LOWE OB Exam, 10/19/2020 EXAM INFORMATION Patient Name: ??JIM LOWE : ??1985 Age: ??34 yrs Sex: ??Female Ref Phys: ??MIRIAM RUGGIERO Exam Date: 10/19/2020 Procedure: US OB ANATOMY ANGUIANO Exam Site: [facility] Plurality: 1 INDICATIONS FOR SONOGRAPHY Anatomic Survey [...] Read by Ilir Moss on 1:21:30 PM. Sailboat Captain: ??Ilir Moss Thank You For This Referral Procedure Note Eamon Dawson M.B.BIshaSIsha, Terrie. - 10/19 JIM LOWE OB Exam, 10/19/2020 EXAM INFORMATION Patient Name: MYNORJIM S : 1985 Age: 34 yrs Sex: Female Ref Phys: MIRIAM RUGGIERO Exam Date: 10/19/2020 Procedure: US OB ANATOMY ANGUIANO Exam Site: [facility] Plurality: 1 INDICATIONS FOR SONOGRAPHY Anatomic Survey [...] Read by Ilir Moss on 1:21:30 PM. Sailboat Captain: Ilir Moss Thank You For This Referral Miriam Ruggiero M.D. IMG OB US PROCEDURES Varicella-Zoster Antibody, IgG, Serum (10/19/2020 7:18 AM [facility]) athologist Signature Varicella-Zost Positive 10/19/2020 [facility] er Ab, IgG, S 10:41 AM [facility] Comment: Results suggest response to immunization or prior exposure to the virus. ----REFERENCE VALUE---- Vaccinated: Positive (>=1.1 AI) Unvaccinated: Negative (<=0.8 AI) Varicella IgG Antibody Index 1.3 10/19/2020 10:41 AM [facility] Specimen Anatomical Collection Method Collection Time Receive d Time (Source) Location / / Volume Laterality Blood (Blood, 10/19/2020 7:18 AM 10/19/20 20 9:43 Venous) [facility] AM [facility] Sierra Welch M.D. LAB MICROBIOLOGY - BLOOD ORD ERADIAMANTE Performing Organization Address [facility] Phon e Number [facility] [address] [place] [address] [address] Laboratory Medicine and Pathology [address] [place] [address] Dr. MANUEL Rubella Antibodies, IgG (10/19/2020 7:18 AM [facility]) athologist Signature Rubella Ab, Positive 10/19/2020 [facility] IgG, S 10:40 AM [facility] LE[facility] Comment: Results suggest response to immunization or prior exposure to the virus. ----REFERENCE VALUE---- Vaccinated: Positive (>=1.0 AI) Unvaccinated: Negative (<=0.7 AI) Rubella IgG Antibody Index 1.4 10/19/2020 10 :40 AM [facility] Specimen Anatomical Collection Method Collection Time Receive d Time (Source) Location / / Volume Laterality Blood (Blood, 10/19/2020 7:18 AM 10/19/20 20 9:43 Venous) [facility] AM [facility] Sirera Welch M.D. LAB MICROBIOLOGY - BLOOD ORD JENNA Performing Organization Address [facility] Phon e Number [address] [place] [address] [facility] [place] [address] Laboratory Medicine and Pathology [address] [place] [address] Dr. MANUEL (ABNORMAL) Microscopic Manual (10/19/2020 2:21 AM [facility]) Analysis Performed At Patho logist Time Signature Microscopy Abnormal 10/19/2020 [facility] 6:26 AM [facility] RBC >100 (A) <3 /hpf 10/19/2020 [facility] 6:26 AM [facility] Dysmorphic RBC <25 <25 % 10/19/2020 [facility] 6:26 AM [facility] WBC 1-3 /hpf 10/19/2020 [facility] 6:26 AM [facility] Comment: ----REFERENCE VALUE---- 1-3 ??(Males) 1-10 (Females) Specimen Anatomical Collection Method Collection Time Receive d Time (Source) Location / / Volume Laterality Urine 10/19/2020 2:21 AM 0 4:00 [facility] AM [facility] Sierra Welch M.D. LAB URINE ORDERABLES Performing Organization Address [facility] Phon e Number [facility] - [address] [place] [address] [address] [place] [id number] Laboratories-[address] Bacterial Culture, Aerobic + Susc, Urine (10/19/2020 2:21 AM [facility]) Patholo gist Method Time Signature Urine Culture No growth 10/20/2020 DT after 1 day 8:16 AM [facility] LE[facility]ER of incubation. Specimen Anatomical Collection Method Collection Time Receive d Time (Source) Location / / Volume Laterality Urine (Urine, 10/19/2020 2:21 AM 10/19/20 20 5:03 Straight [facility] AM [facility] Catheter) Comment: Specimen Source Site: Urine Sierra Welch M.D. LAB MICROBIOLOGY - GENERAL O RDERABLES Performing Organization Address [facility] Phon e Number [facility] - [address] [place] [address] Laboratories-[address] (ABNORMAL) Urinalysis with Microscopic: Urine, Catheter (10/19/2020 2:21 AM [facility]) Analysis Performed At Patho logist Time Signature Source Catheter 10/19/2020 [place] 4:00 AM [facility] Appearance Normal Normal 10/19/2020 [place] 4:00 AM [facility]ER Osmolality, U 521 150 - 1150 10/19/2020 [facility] mOsm/kg 4:47 AM [facility] pH, U 6.2 4.5 - 8.0 10/19/2020 [place] 4:47 AM [facility] Comment: ----ADDITIONAL INFORMATION---- This test was developed and its performa nce characteristics determined by [facility] in a manner co nsistent with CLIA requirements. This test has not bee n cleared or approved by the U.S. Food and Drug Admin istration. Glucose 8 0 - 15 mg/dL 10/19/2020 6:17 AM [facility] [place] Protein, U 46 (H) <26 mg/dL 10/19/2020 6:17 AM [facility] Comment: ----ADDITIONAL INFORMATION---- On 04/16/2017 the total protein assay me thod changed resulting in approximately a 15% increase in prote in values. Protein/Osmolality 0.88 (H) <0.42 Ratio 10/19/2020 6:17 AM [facility] [place] Comment: ----ADDITIONAL INFORMATION---- On 04/16/2017 the total protein assay me thod changed resulting in approximately a 15% increase in prote in values. Predicted 24 Hr Protein 597 mg/24 h 10/19/2020 6:17 AM [facility] [place] Predicted Range 148-2419 mg/24 h 10/19/2020 6:17 AM [facility] R JEM Hemoglobin, QL Large (A) Negative 10/19/2020 6:26 AM [facility] LE[facility]ER RE NA Specimen Anatomical Collection Method Collection Time Receive d Time (Source) Location / / Volume Laterality Urine (Urine, 10/19/2020 2:21 AM 10/19/20 20 4:00 Catheter) [facility]ER AM [facility]ER Sierra Welch M.D. LAB URINE ORDERABLES Performing Organization Address City/State/ZIP Code Phon e Number [facility] - [address] [place], [place] [address] [place] [address] Laboratories-[facility] [place] [address] Chlamydia / Gonorrhoeae Amplified RNA (10/19/2020 2:21 AM [facility] LEADER) [facility] gist Method Time Signature Source Urine, 10/19/2020 [facility] Urine, First 6:58 PM [facility]ER Voided Chlamydia Negative Negative 10/19/2020 [facility] trachomatis 6:58 PM [facility]ER amplified RNA Source Urine, 10/19/2020 [facility] Urine, First 6:58 PM [facility] Voided Neisseria Negative Negative 10/19/2020 [facility] gonorrhoeae 6:58 PM [facility] LE[facility]ER amplified RNA Specimen Anatomical Collection Method Collection Time Receive d Time (Source) Location / / Volume Laterality Varies (Urine, 10/19/2020 2:21 AM 020 7:22 First Voided) [facility] LE[facility]ER AM [facility] Sierra Welch M.D. LAB MICROBIOLOGY - GENERAL O RDERABLES Performing Organization Address [facility] Phon e Number [facility] - [address] [place], [place] [address] [place] [address] Laboratories-[facility] [place] [address] Drug Abuse Survey with Confirmation, Urine (10/19/2020 2:21 AM [facility] LEADER) Patholo gist Method Time Signature Alcohol Negative Cutoff: 10/19/2020 [facility] 10 mg/dL 9:52 AM [facility] Amphetamines Negative Cutoff: 10/19/2020 [facility] 500 ng/mL 9:52 AM [facility] Barbiturates Negative Cutoff: 10/19/2020 [facility] 200 ng/mL 9:52 AM [facility] Benzodiazepines Negative Cutoff: 10/19/2020 [facility] 100 ng/mL 9:52 AM [facility] Cocaine Negative Cutoff: 10/19/2020 [facility] 150 ng/mL 9:52 AM [facility] Opiates Negative Cutoff: 10/19/2020 [facility] 300 ng/mL 9:52 AM [facility] Phencyclidine Negative Cutoff: 10/19/2020 [facility] 25 ng/mL 9:52 AM [facility] Tetrahydrocannabinol Negative Cutoff: 10/19/2020 [facility] 50 ng/mL 9:52 AM [facility] LEADER Comment: ----ADDITIONAL INFORMATION---- This report is intended for use in clini kosta monitoring or management of patients. ??It is not intended for use i n employment-related testing. Specimen Anatomical Collection Method Collection Time Receive d Time (Source) Location / / Volume Laterality Urine (Urine, 10/19/2020 2:21 AM 10/19/20 8:50 Clean Catch) [facility] AM [facility] Sierra Welch M.D. LAB URINE ORDERABLES Performing Organization Address [facility] Phon e Number [facility] [address] [place], [place] [address] [facility] [place] [address] Laboratory Medicine and Pathology [address] MANUEL (ABNORMAL) Fibrinogen (10/18/2020 9:34 PM [facility]) P athologist Signature Fibrinogen, P 624 (H) 200 - 393 10/18/2020 [facility] mg/dL 9:49 PM [facility]ER Specimen Anatomical Collection Method Collection Time Receive d Time (Source) Location / / Volume Laterality Blood (Blood, 10/18/2020 9:34 PM 10/18/20 20 9:40 Venous) [facility] PM [facility] Sierra Welch M.D. LAB BLOOD ADD-ON Performing Organization Address City/[facility]/ZIP Code Phon e Number [facility] - [address] [place], [place] [address] [facility] [place] [address] Laboratories-[facility] [place] [address] Hepatitis B Surface Antigen (10/18/2020 9:34 PM [facility] LEADER) P athologist Signature HBs Antigen, S Negative Negative 10/19/2020 [facility] 9:23 AM [facility] LEADER Specimen Anatomical Collection Method Collection Time Receive d Time (Source) Location / / Volume Laterality Blood (Blood, 10/18/2020 9:34 PM 10/19/20 20 8:14 Venous) [facility]ER AM [facility] Sierra Welch M.D. LAB MICROBIOLOGY - BLOOD ORD ERABLES Performing Organization Address [facility] Phon e Number [facility] [address] [place], [place] [address] [facility] [place] [address] Laboratory Medicine and Pathology [address] MANUEL SARS Coronavirus 2, Molecular Detection, PCR (MOSAIC TECHNICIAN) Asymptomatic (10/18/2020 8:05 PM [facility] LEADER) Patholo gist Method Time Signature COVID-19, PCR Undetected Undetected 10/19/2020 [facility] 12:55 AM [facility] LEADER Comment: SARS-CoV-2 RNA absent. This result does [...] Drug Administration an d is used per semaphore operator's instructions. Performance characteristics were verified by [facility] in a manner consistent with CLIA requirements. Visit the CDC website: https://www.cdc.g ov/coronavirus/ for the most recent guidelines on [place] virus testing. Fact Sheet for Healthcare Providers: https://www.fda.gov/media/751859/downloa d Fact Sheet for Patients: https://www.fda.gov/media/744568/downloa d Specimen Anatomical Collection Method Collection Time Receive d Time (Source) Location / / Volume Laterality Varies 10/18/2020 8:05 PM 0 8:40 (Nasopharynx) [facility] PM [facility] Heather Goodrich M.D. LAB MICROBIOLOGY - GENERAL O RDERABLES Performing Organization Address City/[facility]/ZIP [facility] Phon e Number [facility] - [address] [place], [place] [address] [facility] [place] [address] Laboratories-[facility] [place] [address] [facility] Hepatitis B Surface Antigen (10/18/2020 7:59 PM [facility] LEADER) P athologist Signature HBs Antigen, S Negative Negative 10/19/2020 [facility] 8:04 AM [facility] LEADER Specimen Anatomical Collection Method Collection Time Receive d Time (Source) Location / / Volume Laterality Blood (Blood, 10/18/2020 7:59 PM 10/19/20 20 6:59 Venous) [facility] LEADER AM [facility] LE[facility]ER Sierra Welch M.D. LAB MICROBIOLOGY - BLOOD ORD ERABLES Performing Organization Address City/[facility] Phon e Number [facility] [address] MANU[place], [place] [address] [facility] [place] [address] Laboratory Medicine and Pathology [address] MANUEL Type and Screen (with reflex Antibody ID) (10/18/2020 7:59 PM [facility] LEADER) Patholo gist Method Time Signature ABORh B Pos Not 10/18/2020 [facility] applicable 8:29 PM [facility]ER Antibody Negative Negative 10/18/2020 [facility] Screen 8:44 PM [facility]ER Type & Screen 10/21/2020 10/18/2020 [facility] Expiration 23:59 8:29 PM [facility] LEADER Testing [place] DEFAULT 10/18/2020 ETRM Location 8:08 PM [facility] LEADER Specimen Anatomical Collection Method Collection Time Receive d Time (Source) Location / / Volume Laterality Blood (Blood, 10/18/2020 7:59 PM 10/18/20 20 8:08 Venous) REGULATORY AFFAIRS PORTFOLIO LEADER PM [facility] PORTFOLIO LEADER Sierra Welch M.D. LAB BLOOD BANK TEST ORDERABL ES Performing Organization Address City/[facility] Phon e Number [facility] - [address] [place], [place] [address] [facility] [place] [address] [facility] [place] [address] [facility] (ABNORMAL) CBC without Differential (10/18/2020 7:59 PM REGULATORY AFFAIRS PORTFOLIO LEADER) Patholo gist Method Time Signature Hemoglobin 11.0 (L) 11.6 - 10/18/2020 METH 15.0 g/dL 8:06 PM REGULATORY AFFAIRS PORTFOLIO LEADER Hematocrit 31.8 (L) 35.5 - 10/18/2020 METH 44.9 % 8:06 PM REG[facility]ATORY AFFAIRS PORTFOLIO LEADER Erythrocytes 3.65 (L) 3.92 - 10/18/2020 METH 5.13 8:06 PM REGULATORY AFFAIRS PORTFOLIO LEADER x10(12)/L MCV 87.1 78.2 - 10/18/2020 METH 97.9 fL 8:06 PM REGULATORY AFFAIRS PORTFOLIO LEADER RBC Distrib Width 13.5 12.2 - 10/18/2020 METH 16.1 % 8:06 PM REGULATORY AFFAIRS PORTFOLIO LEADER Platelet Count 287 157 - 371 10/18/2020 METH x10(9)/L 8:06 PM REGULATORY AFFAIRS PORTFOLIO LEADER Leukocytes 19.3 (H) 3.4 - 9.6 10/18/2020 METH x10(9)/L 8:06 PM REGULATORY AFFAIRS PORTFOLIO LEADER Specimen Anatomical Collection Method Collection Time Receive d Time (Source) Location / / Volume Laterality Blood (Blood, 10/18/2020 7:59 PM 10/18/20 20 8:04 Venous) REGULATORY AFFAIRS PORTFOLIO LEADER PM REG[facility]ATORY AFFAIRS PORTFOLIO LEADER Sierra Welch M.D. LAB BLOOD ADD-ON Performing Organization Address City/State/ZIP Code Phon e Number [facility] - [address] [place] [address] [facility] [place] [address] [facility] [place] [address] [facility] HIV-1/-2 Ag and Ab Scrn, Plasma (10/18/2020 7:58 PM REGULATORY AFFAIRS PORTFOLIO LEADER) P athologist Signature HIV-1/-2 Ag Negative Negative 10/19/2020 SDSC and Ab 9:31 AM REGULATORY AFFAIRS PORTFOLIO LEADER Scrn, P Comment: Negative result does not rule out HIV in fection. If exposure to HIV infection occurred <14 d ays ago, contact the laboratory to request additi on of HIV-1 RNA detection / quantification test (HIV QN). Specimen Anatomical Collection Method Collection Time Receive d Time (Source) Location / / Volume Laterality Blood (Blood, 10/18/2020 7:58 PM 10/19/20 20 6:59 Venous) REGULATORY AFFAIRS PORTFOLIO LEADER AM REGULATORY AFFAIRS PORTFOLIO LEADER Sierra Welch M.D. LAB MICROBIOLOGY - BLOOD ORD ERABLES Performing Organization Address City/State/ZIP Code Phon e Number [facility] [address] [place], [place] [address] [place] [address] [facility] [place] [address] Laboratory Medicine and Pathology [address] [...] 900 mg New Bag 10/19/2020 5:09 AM REGULATORY AFFAIRS PORTFOLIO LEADER 900 mg 100 mL/hr (CLEOCIN) 900 mg, intravenous, at 100 mL/hr, Administer over 30 Minutes, Every 8 hours, First dose on Sat10/18/20 at 2000, premix bag, Indications: Obstetric or gynecological infection New Bag 10/18/2020 9:41 PM REGULATORY AFFAIRS PORTFOLIO LEADER 900 mg 100 mL/hr fentaNYL injection 100 mcg (SUBLIMAZE) Given 10/18/2020 9:49 PM REGULATORY AFFAIRS PORTFOLIO LEADER 100 mcg 100 mcg, intravenous, Every 1 hour PRN, moderate pain or score 4-6 of 10, severe pain or score 7-10 of 10, for labor pains, Starting on Sat10/18/20 at 1939, For 3 doses, L&D Pre-Delivery, Consultation with Anesthesia for pain control if patient requests regional anesthesia and in active labor or membranes ruptured. Given 10/18/2020 8:44 PM REGULATORY AFFAIRS PORTFOLIO LEADER 100 mcg gentamicin 290 mg in NaCl 0.9% IVPB New Bag 10/18/2020 8:41 PM REGULATORY AFFAIRS PORTFOLIO LEADER 290 mg 215 mL/hr (GARAMYCIN) 290 mg (rounded from 285 mg = 5 mg/kg ? 57 kg Order-specific weight), intravenous, at 215 mL/hr, Administer over 30 Minutes, Once, On Sat10/18/20 at 2000, For 1 dose, Drug Monitoring Program: Pharmacist to adjust medication dosing based on indication and drug clearance factors., Indications: Obstetric or gynecological infection lactated ringers New Bag 10/19/2020 5:10 AM REGULATORY AFFAIRS PORTFOLIO LEADER 125 mL/hr 125 mL/hr 125 mL/hr, intravenous, Continuous, Starting on Sat10/18/20 at 2000, L&D Pre-Delivery, Indications: Hang fluids for maternal dehydration, concerns, epidural placement, with antibiotics. Rate/Dose Verify 10/19/2020 2:20 AM REGULATORY AFFAIRS PORTFOLIO LEADER 125 mL/hr 125 mL/hr Rate/Dose Verify 10/19/2020 12:00 AM REGULATORY AFFAIRS PORTFOLIO LEADER 125 mL/hr 125 mL/hr multivitamin/mineral- tablet 1 Given 10/20/2020 9:30 AM REGULATORY AFFAIRS PORTFOLIO LEADER 1 tablet tablet 1 tablet, oral, Daily, First dose on Kylie 10/20/20 at 0900 documented in this encounter Active and Recently Administered Medications Times are shown in REGULATORY AFFAIRS PORTFOLIO LEADER. Scheduled Medication Order 10/18/2020 10/19/2020 10/20/2020 clindamycin [...] palpation, or reach a mximum of 250 Raymond units, and/or cervical change(s) occur. PRN Medication Order 10/18/2020 10/19/2020 10/20/2020 fentaNYL injection 100 mcg (SUBLIMAZE) (CANCELED) 2043 (Given - Provider: Irihs Newell RIshaNIsha)2148 (Given - Provider: Karen MosesN. [...] COVID19 Pending 10/18/2020 10/18/2020 10/19/2020 12:56 AM REGULATORY AFFAIRS PORTFOLIO LEADER documented as of this encounter
--- OUTSIDE RECORDS SUMMARY | 2022-09-10 11:43 | XMS_ITS | Encounter Summary ---
:1985 Author Organization [facility] Address [address], [place] [address] Care Team Providers Name Role Phone Unavailable Primary Care Provider Unavailable Reason for Visit Reason Comments APPOINTMENT REQUEST Referral for GDM Encounter Details Date Type Department Care Team Description 08/02/2022 Telephone [facility] 3800 Nurse, P3800 End APPOINTMENT REQUEST Endocrinology [address] (Referral for GDM) [address] [facility] [place] [address] Social History Tobacco Use Types Packs/Day Years Used Date Smoking Tobacco: Never Assessed Sex Assigned at Date Recorded Not on file documented as of this encounter Nursing Notes Sagrario Luna - 08/03/2022 9:49 AM CDT LVM to schedule GDM consult Sagrario Luna - 08/02/2022 9:18 AM CDT Faxed referral rec'd from [facility] for GDM, records sent to scan doc documented in this encounter Plan of Treatment Not on filedocumented as of this encounter Visit Diagnoses Not on filedocumented in this encounter
[2022-09-10 11:49] VITALS: BP 113/66; PULSE 78
--- NOTE | 2022-09-10 16:01 | PC.OBNST ---
NST Note NST Note Start: 09/10/22 11:40 Freq: ONCE Status: Active Protocol: Document 09/10/22 16:00 AM (Rec: 09/10/22 16:01 AM [id number]) NST Note 6 Para (# of births) 4 EDC 10/08/22 Gestational Age In Weeks & Days 36 Weeks & 0 Days Patient Presented with Complaint(s) of Contractions/cramping Reactive Yes Appropriate for Gestational Age Yes RN Tania RNC Date 09/10/22 Reactive Yes Appropriate for Gestational Age Yes RN Sherrie RN Date 09/10/22 OB NST charge Yes Complete NST Note via Write Note Yes The provider's electronic signature indicates the NST is reactive/appropriate for gestational age. *Note to provider: If an addendum is required, open the patient's chart and click on the note under the Nurse/Allied Health tab.
== END 2022-09-10 15:45 | disposition home or self-care (01) ==
LOC: OB OUT 11:42 → OB 11:43
PROVIDERS: Visit Provider Obstetrics & Gynecology
DX: O47.03 False labor before 37 completed weeks of gestation, third trimester (principal); Z3A.36 36 weeks gestation of pregnancy
CPT/HCPCS: 59025; 99213

== ENCOUNTER 2022-09-15 15:29 | Inpatient (IN) | payer BC, SELFPAY ==
[2022-09-15] VITALS (13 sets, daily range): BP systolic 109–128; BP diastolic 63–77; PULSE 70–81; RESP 16–18; TEMP 36.6–36.9; BMI 27.4
--- OUTSIDE RECORDS SUMMARY | 2022-09-15 14:39 | XMS_ITS | Clinical Summary ---
:1985 Author Organization [facility] [place] [address] Care Team Providers Name Role Phone Pcp, [...] daily. tablet Active Problems Problem Noted Date [facility] Supervision of high-risk 03/29/2022 Overview: [facility] CONSULTATION ON 04/03/22 -- Virtual Visit REASON FOR CONSULT: risks and management pt had pre- consult at [facility]-- recommended cervical lengths at 16w, possibly cerclage [...] weeks by US REFERRING PHYSICIAN/PHONE/LAST UPDATE: [phone] Primary MD approves scheduling of recomm ended ultrasounds/testing: Yes SPECIALISTS/CONSULTS: Include: Specialty MD Clinic Name Phone# [place] and ADDED TO PATIENT CARE TEAM No CARE COORDINATION: GENETICS: declined PROCEDURES: PERTINENT LABS: B POS PERTINENT MEDS: PNV, pepcid, omeprazole, zofran Preferred delivery location: PLAN OF CARE: Menorrhagia 09/29/2008 Routine [facility] 09/29/2008 Palpitations 09/29/2008 Other general [...] F VAGINAL SAIDA N Delivery Location: Hospital ([facility]) Comments: IUGR 2014 Term 37w0d 3.37 kg (7 lb 7 oz) M 2020 SAB 7w0d Current OB Episode Summary Episode Dates Estimated Date of Pregravid Weight TWG (As of ) Delivery 04/03/2022 - Present 10/08/2022 (09/15/2022) Date GA Fund Present FHR Mvmt BP [...] in 2020. Pt has been doctoring in [place], but has had consults with [facility] because of history. Pt was cleared to delivery in [facility] only after 35 wks. Vitals were taken, [...] but if contractions don't seem t o bean picker pt ok to discharge home. Repor t to Rekha GROSSMAN. Chayo Shah RN .................... 08/23/2022 11:48 PM 07/31/2022 - 30w1d - Arin Hernandez MD [facility] Ultrasound Visit Your patient had an ultrasound with [facility] on 07/31/2022. The report is ready and can be found in the Results review [facility]. The Impression from the report [...] 05/23/2022 - 20w2d - Heather Hernandes MD [facility] Ultrasound 05/23/22 Referred By: DARSHAN MULLINS [...] prior . See prior consult letter in [facility] for further details. Today's US shows no signs of placenta accreta spectrum, but I reviewed the limitations of US in the detection of placenta accreta, especially with posterior placenta. We will re-assess placentation at her follow up US. She plans delivery in [place] which is reasonable as long as follow up US lo oks normal. She continues vaginal progesterone and s erial cervical length US in [place] (see prior consult letter in [facility]). 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 Refer to the corresponding sections of the history section of [facility] chart and the [facility] Naviga tor for details. Comments under Consult [...] CDT Oxygen Saturation 99% 12/12/2011 5:04 PM RN ENDOSCOPY Inhaled Oxygen Concentration - - Weight 55.3 kg (122 lb) 04/03/2022 8:11 AM CDT Height 162.6 cm (5' 4) 04/03/2022 8:11 AM CDT Body Mass Index 20.94 04/03/2022 8:11 AM CDT Plan of Treatment Health Maintenance Due Date Last Done Comments Depression screening for age 12+ 1999 HIV for age 15-65 2002 BMI (ht and wt on same day) [...] Strip Time Segment: 2238 to 0109 HAYDER/Acct: [id number] ? Admitting Physician: ??Twin kirkpatrick MD Gestational [...] Vaginosis by IBAN (08/23/2022 11:24 PM CDT) [facility] Method Time Signature ZAYNAB SPECIES Negative Negative 08/24/2022 [facility] 4:33 AM CDT LABORATORY-[place] TRAL LABORATORY ZAYNAB Negative Negative 08/24/2022 [facility] GLABRATA 4:33 AM CDT LABORATORY-KYLIE TRAL LABORATORY TRICHOMONAS VVA Negative Negative 08/24/2022 [facility] 4:33 AM CDT LABORATORY-KYL[facility] TRAL LABORATORY BACTERIAL Negative Negative 08/24/2022 [facility] VAGINOSIS 4:33 AM CDT LABORATORY-KYLIE TRAL LABORATORY Specimen Anatomical Collection Method Collection Time Receive d Time (Source) Location / / Volume Laterality Other VAGINAL SWAB / Non-Blood / 08/23/2022 11:24 2 Unknown Unknown PM CDT 11:38 PM CDT Twin Felix MD MICROBIOLOGY Performing Organization Address City/State/ZIP Code Phon e Number [facility] [address] [place] [address] LABORATORY-CENTRAL 1999 LABORATORY AMNISURE ROM (08/23/2022 11:05 PM CDT)Only the most recent of2 resultswithin the time period is included. [facility] Method Time Signature AMNISURE ROM Negative, NO Negative, NO 08/24/2022 [facility] 1:03 AM CDT LABORATORY-CE RUPTURE RUPTURE NTRAL LABORATORY Specimen Anatomical Collection Method Collection Time Receive d Time (Source) Location / / Volume Laterality Body Fluid VAGINAL SWAB / Non-Blood / 08/23/2022 11:05 2 Unknown Unknown PM CDT 12:22 AM CDT Twin Felix MD LABORATORY Performing Organization Address City/State/ZIP Code Phon e Number [facility] [address] [place] [address] LABORATORY-CENTRAL 1999 LABORATORY Growth Follow Up Any Trimester (CPT 38081) If BPP w/NST needed use Testing section [...] as needed. Medical Decision Making: Moderate Level 78184 ?Moderate number of Diagnoses inclu ding one [...] Services Provided: Procedures Code FOLLOW UP GROWTH 22750.0 TRANSVAGINAL ULTRASOUND 86520.0 Procedure Note Arin Hernandez MD - 07/31/2022For matting of this note might be different from the original. Referred By: DARSHAN MULLINS INDICATION:Low lying placenta IndicationsCode 30 weeks gestation of [id number] History of PTD / PROM D&C x2 History of FGR Factor II heterozygous Declined genetic testing History of accreta (occulta) dx after pl acenta sent to lab. 05/23/22 Detailed + TVUS, EFW: 92% tile, l ow lying placenta 0.4cm away from cx os Growth + TVUS IMPRESSION: Intrauterine at 30w 1d. presentation is Cephalic. EFW 6 grams, percentile: > 97. Normal Deepest Vertical [...] as needed. Medical Decision Making: Moderate Level 70154 Moderate number of Diagnoses including one previously undiagnosed new problem with uncertain prognosis, a low lying placent a, LGA fetus Moderate complexity of Data including r eview of prior ultrasound, ordering another ultrasound, and review of prior external notes, Moderate risk of morbidity or mortality to the fetus from possible need for early delivery which was discussed. Services Provided: ProceduresCode FOLLOW UP [id number] TRANSVAGINAL [id number] Heather Hernandes MD from Last 3 Months Insurance Payer Benefit Plan / Subscriber ID Effective Dates Phone Addre ss Type Group BLUE CROSS BLUE CROSS OF [id number] 2020-Present [address] [address] [place] [address] Care Teams Golf Sales Associate Relationship Specialty Start Date End Date Pcp, No PCP - General 11/18/13 . Annita Moreira CNM Referring Provider Certified Nurse Hoisting Pile Driving Engineer 03/22/22 3 [address] [place] [address]
--- OUTSIDE RECORDS SUMMARY | 2022-09-15 14:39 | XMS_ITS | Clinical Summary ---
:1985 Author Organization [facility] Address [address] [place] [address] Care Team Providers Name Role Phone Unavailable [...] for each transition of care or referral. [facility] Active Allergy Reactions Severity Noted Date [...] (ONETOUCH DELICA topically 4 times 2 PLUS [id number]) a day. MISC insulin Inject 1 Each [...] ss Type Group BCBS BCBS OUT OF [id number] 2020-Present [address] [address] [place] [address]
--- OUTSIDE RECORDS SUMMARY | 2022-09-15 14:39 | XMS_ITS | Encounter Summary ---
:1985 Author Organization [facility] Address [address], [place] [address] Care Team Providers Name Role Phone Unavailable Primary Care Provider Unavailable Encounter Details Date Type Department Care Team Description 08/14/2022 Telemedicine [facility] 38[address] Henrietta Ortega PA-C Gestational diabetes Endocrinology [address] mellitus (GDM), [address] antepartum, [address] [place], [place] [address] method of control [id number] unspecified (Primary [phone] Dx) Social History Tobacco Use Types Packs/Day [...] from the original note were not included. [facility]: [address] [place] [address] [address] [phone], Nurse Line: [phone] Gestational Diabetes Visit Note August 14, 2022 [...] No hx of pre-eclampsia. She met with pit manager at OB office and started checking her [...] information. Family history: DM:yes-grandmother and aunt. See [facility] for complete family history. Current Medications: No current diabetes medications. All medications reviewed and updated in [facility] today. Objective: Physical Exam: There were [...]
--- OUTSIDE RECORDS SUMMARY | 2022-09-15 14:39 | XMS_ITS | Encounter Summary ---
:1985 Author Organization [facility] Address [address], [place] [address] Care Team Providers Name Role Phone Unavailable Primary Care Provider Unavailable Reason for Referral Consult/Transfer Care (Routine) - New Request Specialty Diagnoses / Procedures Referred By Contact Refer red To Contact Diagnoses Gestational diabetes mellitus (GDM), antepartum, gestational diabetes method of control unspecified Henrietta Ortega PA-C [address] [place], [place] [address] Referral ID Status Reason Start Date Expiration Date Visits V isits Requested Authorized [id number] New Request 08/03/2022 11/02/2023 1 1 Scheduling Instructions Your provider has recommended an appoint ment with [facility]. You may call [phone] to schedule yo ur appointment. We suggest you call your health insurance company about your cove rage and benefits for this appointment. Encounter Details Date Type Department Care Team Description 08/03/2022 Notes/Orders [facility] [address] Henrietta Ortega PA-C Gestational diabetes Endocrinology [address] mellitus (GDM), [address] [place], [place] [address] method of control [id number] unspecified (Primary [phone] Dx) Social History Tobacco Use Types Packs/Day [...]
--- OUTSIDE RECORDS SUMMARY | 2022-09-15 14:39 | XMS_ITS | Clinical Summary ---
:1985 Author Organization [facility] Address [address] [place] [address] Care Team Providers Name Role Phone Unavailable Primary Care Provider Unavailable Source Comments Patient records contain information from all sites at [facility]. For routine questions regarding patient records, call [phone] during business hours, M-F 8:00 AM - 5:00 PM Central Time. Record requests for emergency care only can be directed to [phone] at any time.[facility] Allergies Active Allergy Reactions Severity Noted Date Comments Penicillins Rash 10/18/2020 Salicylates Edema 10/18/2020 Swollen tongue Medications Medication Sig Dispensed Refills Start Date End Date Status Take 1 tablet by 0 Act angela [id number]-Xm-clnp-FA mouth daily. (VINATE ONE) 60 mg iron-1 [...] or relatives? How often do you attend zoroastrian or 1 to 4 times per year 11/22 gnosticist services? Do you belong to any clubs or No 12/12/2020 organizations such as zoroastrian groups, unions, fraternal or athletic groups, or [...] Comments Blood Pressure 116/69 10/20/2020 12:39 PM OFFICE TECHNOLOGY INSTRUCTOR Pulse 81 10/20/2020 12:39 PM OFFICE TECHNOLOGY INSTRUCTOR Temperature 37.2 ??C (99 ??F) 10/20/2020 12:39 PM OFFICE TECHNOLOGY INSTRUCTOR Respiratory Rate 18 10/20/2020 12:39 PM OFFICE TECHNOLOGY INSTRUCTOR Oxygen Saturation 99% 10/20/2020 12:39 PM OFFICE TECHNOLOGY INSTRUCTOR Inhaled Oxygen Concentration - - Weight 56.3 kg (124 lb 1.9 oz) 10/19/2020 6:30 AM OFFICE TECHNOLOGY INSTRUCTOR Height - - Body Mass Index [...] Addre ss Type Group BLUE CROSS BCBS [place] [id number] 2020-Yuki [phone] [address] PPO BLUE SHIELD t [address] [place] [address] Advance Directives For more information, please contact: [phone] Latest Code Status on File Code Status Date Activated Date Inactivated Comments Full Code 10/18/2020 7:51 PM 10/20/2020 2:51 PM Question Answer Comments Full Code: Not Discussed Due to: Not medically appropriate
--- OUTSIDE RECORDS SUMMARY | 2022-09-15 14:39 | XMS_ITS | Encounter Summary ---
:1985 Author [facility] Address [address], [place] [address] Care Team Providers Name Role Phone Unavailable Primary Care Provider Unavailable Reason for Visit Reason Comments DIABETES,GESTATIONAL Encounter Details Date Type Department Care Team Description 09/04/2022 Telemedicine [facility] ADULT DIAB [facility] Zoya Tinsley Ge stational diabetes ENRICO Dominguez RDN, YUSUF, BJIU mellitus (GDM), [address] [place] [address] antepartum, [place] [address] BLVD gestational diabetes [phone] [place], [place] method of control [id number] unspecified (Primary [phone] (Wo rk) Dx) Social History Tobacco Use [...] later (9pm) 95 114 132 (1.5 hr) [place] quesadilla + cookie 1 hour later 09/04 [...] patient: work Time spent on video in [id number] contact with patient, if applicable: 18 minutes Education content taught can be found in the diabetes education smartform N SUPERVISOR documented in this encounter Plan of Treatment Not on filedocumented as of this encounter Visit Diagnoses Diagnosis Gestational diabetes mellitus (GDM), ant epartum, gestational diabetes method of control unspecified - Primary documented in this encounter
--- OUTSIDE RECORDS SUMMARY | 2022-09-15 14:39 | XMS_ITS | Encounter Summary ---
:1985 Author Organization [facility] Address [address], [place] [address] Care Team Providers Name Role Phone Unavailable Primary Care Provider Unavailable Reason for Visit Reason Comments APPOINTMENT REQUEST Referral for GDM Encounter Details Date Type Department Care Team Description 08/02/2022 Telephone [facility] 3800 Nurse, P3800 End APPOINTMENT REQUEST Endocrinology [address] (Referral for GDM) [address] [facility] [place] [address] Social History Tobacco Use Types Packs/Day Years Used Date Smoking Tobacco: Never Assessed Sex Assigned at Date Recorded Not on file documented as of this encounter Nursing Notes Sagrario Luna - 08/03/2022 9:49 AM CDT LVM to schedule GDM consult Sagrario Luna - 08/02/2022 9:18 AM CDT Faxed referral rec'd from [facility] for GDM, records sent to scan doc documented in this encounter Plan of Treatment Not on filedocumented as of this encounter Visit Diagnoses Not on filedocumented in this encounter
--- OUTSIDE RECORDS SUMMARY | 2022-09-15 14:40 | XMS_ITS | Encounter Summary ---
:1985 [facility] Address [address] [place] [address] Care Team Providers Name Role Phone Unavailable Primary Care Provider Unavailable Reason for Referral Outpatient (Routine) - Closed Specialty Diagnoses / Procedures Referred By Contact Refer red To Contact Maternal and Diagnoses Premature Rupture Of Membranes Unspecified As To Length Of Time Between Rupture And Onset Of Labor Second Trimester (HCC) 21 Weeks Gestation (HCC) [facility] Janelle Doming[facility] M.D. [address] [place] [address] Referral ID Status Reason Start Date Expiration Date Visits Requ ested Visits Authorized [id number] Closed 11/02/2020 11/02/2021 1 1 LABORER Encounter Details Date Type Department Care Team Description 11/02/2020 [facility] Loren, Premature Rupture Of Membranes Unspecified As To Length Of Time Between Rupture And Onset Of Labor Second Trimester (Primary Dx); [facility] Janelle Dominguez M.D. 21 Weeks Gestation [address] [facility] [address] [place] [address] [place], [place] [phone] [id number] Social History Tobacco Use Types Packs/Day Years [...] or relatives? How often do you attend baptism or 1 to 4 times per year 11/22 yazidi services? Do you belong to any clubs or No 12/12/2020 organizations such as baptism groups, unions, [employer] or athletic groups, or school groups? How [...] Priority Associated Diagnoses Order [facility] Obstetrics Referral Outpatient Referral Routine Premat [...]
--- OUTSIDE RECORDS SUMMARY | 2022-09-15 14:40 | XMS_ITS | Encounter Summary ---
:1985 Author Organization [facility] Address [address] [place] [address] Care Team Providers Name Role Phone Unavailable Primary Care Provider Unavailable Reason for Visit Reason Comments Communication Encounter Details Date Type Department Care Team Description 10/21/2020 Clinical Communication [facility], Horacio Cisneros, Communication [facility], [address] [place] [address] Dr MANUEL Third Floor [place], [place] [address] [facility] [address] [place], [place] [phone] (Work) [phone] Social History Tobacco Use Types Packs/Day Years [...] seen. She is an hour from [place] and 20 min from [place]. PLAN Discussed with Dr Bowman and [facility] Room RN. Patient advised to be seen immediately at nearest facility. Disposition/Recommendation: referral for services Nearest ED or OB Facility. Information/Education: patient/caller able to teach back. Caller agreeable to plan of care: yes. The following references were used: provider Dr Bowman. ICAL INVESTIGATOR documented in this encounter Plan of Treatment Not on filedocumented as of this encounter Visit Diagnoses Not on filedocumented in this encounter
--- OUTSIDE RECORDS SUMMARY | 2022-09-15 14:40 | XMS_ITS | Encounter Summary ---
:1985 Author Organization [facility] Address [address] [place] [address] Care Team Providers Name Role Phone Unavailable Primary Care Provider Unavailable Encounter Details Date Type Department Care Team Description 10/20/2020 Anesthesia Event [facility], Kandis Stock, [facility], SOLID W[employer]E [employer]FILL TECHNICIAN, CAR RENTAL CLERK, [facility], Third Floor [address] [place] [address] Anesthesia Record Procedure Summary [...]
--- OUTSIDE RECORDS SUMMARY | 2022-09-15 14:40 | XMS_ITS | Encounter Summary ---
:1985 Author Organization [facility] Address [address] [place] [address] Care Team Providers Name Role Phone Unavailable Primary Care Provider Unavailable Reason for Visit Reason Comments Rupture of Membranes Contractions Auth/Cert Specialty Diagnoses / Procedures Referred By Contact Refer red To Contact Diagnoses 22 Weeks Gestation (HCC) Procedures DIR Referral ID Status Reason Start Date Expiration Date Visits Requ ested Visits Authorized [id number] 1 1 Encounter Details Date Type Department Care Team Description 10/18/2020 - Hospital Encounter [facility] Jordyn Wild M.D. [address] [place] [phone] 22 Weeks Gestation (Primary Dx) ; 10/20/2020 [facility], Erin Villagran M.D., M.P.H. [address] [place] [address] [phone] 21 Weeks Gestation ; [place], Heather Ott M.D. [address] [place] [phone] Premature Rupture Of Membranes U nspecified As To Length Of Time Between Rupture And Onset Of Labor Second Trimester Building, Third Floor [address] [place] [address] Social History Tobacco Use Types [...] or relatives? How often do you attend samaritan or 1 to 4 times per year 11/22 yazdanism services? Do you belong to any clubs or No 12/12/2020 organizations such as samaritan groups, unions, fraternal or athletic groups, or [...] Comments Blood Pressure 116/69 10/20/2020 12:39 PM BIN PACKER Pulse 81 10/20/2020 12:39 PM BIN PACKER Temperature 37.2 ??C (99 ??F) 10/20/2020 12:39 PM BIN PACKER Respiratory Rate 18 10/20/2020 12:39 PM BIN PACKER Oxygen Saturation 99% 10/20/2020 12:39 PM BIN PACKER Inhaled Oxygen Concentration - - Weight 56.3 kg (124 lb 1.9 oz) 10/19/2020 6:30 AM BIN PACKER Height - - Body Mass Index - - documented in this encounter Discharge Summaries Saqib Strong M.D. - 10/20/2020 12:07 PM CST DISCHARGE SUMMARY BRIEF OVERVIEW Hospital: [facility] Discharge Provider: Erin Alarcon M.D. Primary Team: [facility] Ob[facility] No primary care [...] return in one week for neonatology consult, [facility] return visit and further discussion of when she would like to be re-admitted. She was discharged home in stable condition. //Miriam Ruggiero MD CONSULTS ORDERED DURING THIS ADMISSION CONDITION AT DISCHARGE Stable Discharge instructions were provided to the patient and caregiver(s). PACKER documented in this encounter Medications at Time of Discharge Medication Sig Dispensed Refills Start Date End Date Take 1 tablet by 0 [id number]-[id number]-FA (VINATE mouth daily. ONE) 60 mg iron-1 mg per tablet [id number] TK 1 TO 2 TS PO Q [...] 10/18/2020. 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 Obstetrical Chief PGY-3 [phone] PACKER Associated attestation - Heather Goodrich M.D. - 10/19/2020 12:27 AM BIN PACKER Enamel Pulverizer Teaching Physician Statement: I have discussed the [...] delivery upon exam findings of 4-5cm dilation. 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 PSH: [...] for necrotizing enterocolitis, and potential poor termite control servicer neurological outcomes/disability. Have printed her additional studies [...] further discussion this afternoon Miriam Ruggiero M.D. PACKER Associated attestation - Saqib Strong M.D. - 10/20/2020 11:17 AM BIN PACKER I have discussed the care of Jim oLwe, including pertinent history and exam findings, with [...] L.G.S.Norris., L.I.C.S.W., M.S.W. - 10/19/2020 1:02 PM BIN PACKER SUBJECTIVE Social work met with the patient [...] weeks gestationas a transfer of care from [place], [place] due to concern for previable premature [...] day parking pass provided 10/19/20. Annita Kaplan [facility], MANAGER OFFICE 10/19/2020 PACKER Miriam Ruggiero M.D. - 10/19/2020 12:09 PM [...] 10/18/2020. She did present to her local cost and sales record supervisor did have a speculum exam completed however given the gestational age at the time rupture the patient was transferred from [place] for assessment and outpatient consultation with Maternal [...] 21w1 2) Subchorionic hemorrhage 3) Heterozygous Prothrombin 65723 A PMH: heterozygosity to Prothrombin 61902 A. PSH: none Allergies: PCN (rash as [...] necr otizing enterocolitis, and potential poor termite control servicer neurological outcomes/disability. Have printed her additional studies [...] discussion pending ultrasound results. Miriam Ruggiero M.D. PACKER Associated attestation - Raysa Guerin M.D. - 11/14/2020 4:22 AM BIN PACKER I saw and evaluated the patient, participating [...] with family for expectant management. Questions answered. PACKER Irish Newell R.N. - 10/18/2020 9:29 PM [...] reviewed goals for the shift with patient. PACKER documented in this encounter Miscellaneous Notes Hospital [...] home in stable condition. //Miriam Ruggiero MD PACKER documented in this encounter Plan of Treatment Pending Results Name Type Priority Associated Diagnoses Date/Ti pr US OB Limited Imaging RAD - Routine (most 020 8:51 PM inpatients and all BIN PACKER outpatients) Scheduled Orders Name Type Priority Associated Diagnoses Order S chedule US OB Limited Imaging RAD - Routine (most Once fo r 1 inpatients and all Occurrenc es starting outpatients) 10/18/2020 unti l 10/18/2020 documented as of this encounter Procedures Procedure Name Priority Date/Time Associated Comments Diagnosis US OB ANATOMY RAD - Routine 10/19/2020 1:21 Results fo r this ANGUIANO (most inpatients PM BIN PACKER procedure a re in and all the results outpatients) section. RUBELLA ANTIBODIES, Routine 10/19/2020 7:18 Resul ts for this IGG AM BIN PACKER procedure are i n the results section. VARICELLA-ZOSTER Routine 10/19/2020 7:18 Results for this AB, IGG, S AM BIN PACKER procedure are i n the results section. MICROSCOPIC MANUAL Routine 10/19/2020 2:21 Result s for this AM BIN PACKER procedure are i n the results section. BACTERIAL CULTURE, Routine 10/19/2020 2:21 Result s for this AEROBIC + SUSC, AM BIN PACKER procedure ar e in URINE the results section. CONFIRMED DRUG Routine 10/19/2020 2:21 Results fo r this ABUSE PANEL, U AM BIN PACKER procedure are in the results section. CHLAMYDIA/GONORRHOE Routine 10/19/2020 2:21 Resul ts for this AE AMPLIFIED RNA AM BIN PACKER procedure a re in the results section. URINALYSIS WITH Routine 10/19/2020 2:21 Results f or this MICROSCOPIC AM BIN PACKER procedure are i n the results section. HEPATITIS B SURFACE STAT 10/18/2020 9:34 Resul ts for this ANTIGEN PM BIN PACKER procedure are i n the results section. FIBRINOGEN, P STAT 10/18/2020 9:34 Results for this PM BIN PACKER procedure are i n the results section. SARS CORONAVIRUS 2, Routine 10/18/2020 8:05 Resul ts for this MOLECULAR PM BIN PACKER procedure are i n DETECTION, PCR (RADAR REPAIRER) the resu lts section. HEPATITIS B SURFACE STAT 10/18/2020 7:59 Resul ts for this ANTIGEN PM BIN PACKER procedure are i n the results section. CBC WITHOUT STAT 10/18/2020 7:59 Results for this DIFFERENTIAL, B PM BIN PACKER procedure ar e in the results section. TYPE AND SCREEN STAT 10/18/2020 7:59 Results f or this PM BIN PACKER procedure are i n the results section. HIV-1/-2 AG AND AB STAT 10/18/2020 7:58 Result s for this SCRN, PM BIN PACKER procedure are in PLASMA the results section. documented in this encounter Results US OB Anatomy Anguiano (10/19/2020 1:21 PM BIN PACKER) Anatomical Region Laterality Modality Body, Ultrasound OB RST LOS, Ultrasound ARZ LOS N/A Ultrasound Specimen (Source) Anatomical Location Collection Method / Collectio n Time Received Time / Laterality Volume Narrative 10/19/2020 1:27 PM BIN PACKER JIM LOWE OB Exam, 10/19/2020 EXAM INFORMATION Patient Name: ??JIM LOWE : ??1985 Age: ??34 yrs Sex: ??Female Ref Phys: ??MIRIAM RUGGIERO Exam Date: 10/19/2020 Procedure: US OB ANATOMY ANGUIANO Exam Site: [facility] Plurality: 1 INDICATIONS FOR SONOGRAPHY Anatomic [...] Read by Ilir Moss on 1:21:30 PM. Team Sports Sales Associate: ??Ilir Moss Thank You For This Referral Procedure Note Eamon Dawson M.B.BIshaSIsha, Terrie. - 10/19 JIM LOWE OB Exam, 10/19/2020 EXAM INFORMATION Patient Name: MYNORJIM S : 1985 Age: 34 yrs Sex: Female Ref Phys: MIRIAM RUGGIERO Exam Date: 10/19/2020 Procedure: US OB ANATOMY ANGUIANO Exam Site: [facility] Plurality: 1 INDICATIONS FOR SONOGRAPHY Anatomic [...] Read by Ilir Moss on 1:21:30 PM. Team Sports Sales Associate: Ilir Moss Thank You For This Referral Miriam Ruggiero M.D. IMG OB US PROCEDURES Varicella-Zoster Antibody, IgG, Serum (10/19/2020 7:18 AM BIN PACKER) athologist Signature Varicella-Zost Positive 10/19/2020 [facility] er Ab, IgG, S 10:41 AM BIN PACKER Comment: Results suggest response to immunization or prior exposure to the virus. ----REFERENCE VALUE---- Vaccinated: Positive (>=1.1 AI) Unvaccinated: Negative (<=0.8 AI) Varicella IgG Antibody Index 1.3 10/19/2020 10:41 AM BIN PACKER [facility] Specimen Anatomical Collection Method Collection Time Receive d Time (Source) Location / / Volume Laterality Blood (Blood, 10/19/2020 7:18 AM 10/19/20 20 9:43 Venous) BIN PACKER AM BIN PACKER Sierra Welch M.D. LAB MICROBIOLOGY - BLOOD ORD ERADIAMANTE Performing Organization Address [facility] Phon e Number [facility] [address] [place]UEL [address] [place] [address] Laboratory Medicine and Pathology [address] [place] [address] Dr. MANUEL Rubella Antibodies, IgG (10/19/2020 7:18 AM BIN PACKER) athologist Signature Rubella Ab, Positive 10/19/2020 [facility] IgG, S 10:40 AM BIN PACKER Comment: Results suggest response to immunization or prior exposure to the virus. ----REFERENCE VALUE---- Vaccinated: Positive (>=1.0 AI) Unvaccinated: Negative (<=0.7 AI) Rubella IgG Antibody Index 1.4 10/19/2020 10 :40 AM BIN PACKER [facility] Specimen Anatomical Collection Method Collection Time Receive d Time (Source) Location / / Volume Laterality Blood (Blood, 10/19/2020 7:18 AM 10/19/20 20 9:43 Venous) BIN PACKER AM BIN PACKER Sierra Welch M.D. LAB MICROBIOLOGY - BLOOD ORD JENNA Performing Organization Address [facility] Phon e Number [address] [place] [address] SUPPORT [place] [address] Laboratory Medicine and Pathology [address] [place] [address] Dr. MANUEL (ABNORMAL) Microscopic Manual (10/19/2020 2:21 AM BIN PACKER) Analysis Performed At Patho logist Time Signature Microscopy Abnormal 10/19/2020 [place] 6:26 AM BIN PACKER RBC >100 (A) <3 /hpf 10/19/2020 [place] 6:26 AM BIN PACKER Dysmorphic RBC <25 <25 % 10/19/2020 [place] 6:26 AM BIN PACKER WBC 1-3 /hpf 10/19/2020 [place] 6:26 AM BIN PACKER Comment: ----REFERENCE VALUE---- 1-3 ??(Males) 1-10 (Females) Specimen Anatomical Collection Method Collection Time Receive d Time (Source) Location / / Volume Laterality Urine 10/19/2020 2:21 AM 0 4:00 BIN PACKER AM BIN PACKER Sierra Welch M.D. LAB URINE ORDERABLES Performing Organization Address [facility] Phon e Number [facility] - [address] [place] [address] [address] [place] [address] Laboratories-[address] Bacterial Culture, Aerobic + Susc, Urine (10/19/2020 2:21 AM BIN PACKER) Patholo gist Method Time Signature Urine Culture No growth 10/20/2020 DT after 1 day 8:16 AM BIN PACKER of incubation. Specimen Anatomical Collection Method Collection Time Receive d Time (Source) Location / / Volume Laterality Urine (Urine, 10/19/2020 2:21 AM 10/19/20 20 5:03 Straight BIN PACKER AM BIN PACKER Catheter) Comment: Specimen Source Site: Urine Sierra Welch M.D. LAB MICROBIOLOGY - GENERAL O RDERABLES Performing Organization Address [facility] Phon e Number [facility] - [address] [place] [address] Laboratories[address] (ABNORMAL) Urinalysis with Microscopic: Urine, Catheter (10/19/2020 2:21 AM BIN PACKER) Analysis Performed At Patho logist Time Signature Source Catheter 10/19/2020 [place] 4:00 AM BIN PACKER Appearance Normal Normal 10/19/2020 [place] 4:00 AM BIN PACKER Osmolality, U 521 150 - 1150 10/19/2020 [place] mOsm/kg 4:47 AM BIN PACKER pH, U 6.2 4.5 - 8.0 10/19/2020 [place] 4:47 AM BIN PACKER Comment: ----ADDITIONAL INFORMATION---- This test was developed and its performa nce characteristics determined by [facility] in a manner co nsistent with CLIA requirements. This test has not bee n cleared or approved by the U.S. Food and Drug Admin istration. Glucose 8 0 - 15 mg/dL 10/19/2020 6:17 AM BIN PACKER [place] Protein, U 46 (H) <26 mg/dL 10/19/2020 6:17 AM BIN PACKER [place] Comment: ----ADDITIONAL INFORMATION---- On 04/16/2017 the total protein assay me thod changed resulting in approximately a 15% increase in prote in values. Protein/Osmolality 0.88 (H) <0.42 Ratio 10/19/2020 6:17 AM BIN PACKER [place] Comment: ----ADDITIONAL INFORMATION---- On 04/16/2017 the total protein assay me thod changed resulting in approximately a 15% increase in prote in values. Predicted 24 Hr Protein 597 mg/24 h 10/19/2020 6:17 AM BIN PACKER [place] Predicted Range 148-2419 mg/24 h 10/19/2020 6:17 AM BIN PACKER R JEM Hemoglobin, QL Large (A) Negative 10/19/2020 6:26 AM BIN PACKER RE NA Specimen Anatomical Collection Method Collection Time Receive d Time (Source) Location / / Volume Laterality Urine (Urine, 10/19/2020 2:21 AM 10/19/20 20 4:00 Catheter) BIN PACKER AM BIN PACKER Sierra Welch M.D. LAB URINE ORDERABLES Performing Organization Address City/State/ZIP Code Phon e Number [facility] - [address] [place], [place] [address] [place] [address] Laboratories-[facility] [address] Chlamydia / Gonorrhoeae Amplified RNA (10/19/2020 2:21 AM BIN PACKER) [facility] gist Method Time Signature Source Urine, 10/19/2020 [facility]TL Urine, First 6:58 PM BIN PACKER Voided Chlamydia Negative Negative 10/19/2020 [facility] trachomatis 6:58 PM BIN PACKER amplified RNA Source Urine, 10/19/2020 DTL Urine, First 6:58 PM BIN PACKER Voided Neisseria Negative Negative 10/19/2020 [facility] gonorrhoeae 6:58 PM BIN PACKER amplified RNA Specimen Anatomical Collection Method Collection Time Receive d Time (Source) Location / / Volume Laterality Varies (Urine, 10/19/2020 2:21 AM 020 7:22 First Voided) BIN PACKER AM BIN PACKER Sierra Welch M.D. LAB MICROBIOLOGY - GENERAL O RDERABLES Performing Organization Address [facility] Phon e Number [facility] - [address] [place], [place] [address] [place] [address] [facility] [address] Drug Abuse Survey with Confirmation, Urine (10/19/2020 2:21 AM BIN PACKER) Patholo gist Method Time Signature Alcohol Negative Cutoff: 10/19/2020 [facility] 10 mg/dL 9:52 AM BIN PACKER Amphetamines Negative Cutoff: 10/19/2020 SDSC 500 ng/mL 9:52 AM BIN PACKER Barbiturates Negative Cutoff: 10/19/2020 SDSC 200 ng/mL 9:52 AM BIN PACKER Benzodiazepines Negative Cutoff: 10/19/2020 SDSC 100 ng/mL 9:52 AM BIN PACKER Cocaine Negative Cutoff: 10/19/2020 SDSC 150 ng/mL 9:52 AM BIN PACKER Opiates Negative Cutoff: 10/19/2020 SDSC 300 ng/mL 9:52 AM BIN PACKER Phencyclidine Negative Cutoff: 10/19/2020 SDSC 25 ng/mL 9:52 AM BIN PACKER Tetrahydrocannabinol Negative Cutoff: 10/19/2020 SDSC 50 ng/mL 9:52 AM BIN PACKER Comment: ----ADDITIONAL INFORMATION---- This report is intended for use in clini kosta monitoring or management of patients. ??It is not intended for use i n employment-related testing. Specimen Anatomical Collection Method Collection Time Receive d Time (Source) Location / / Volume Laterality Urine (Urine, 10/19/2020 2:21 AM 10/19/20 8:50 Clean Catch) BIN PACKER AM BIN PACKER Sierra Welch M.D. LAB URINE ORDERABLES Performing Organization Address [facility] Phon e Number [facility] [address] [place], [place] [address] [facility] [place] [address] Laboratory Medicine and Pathology [address] MANUEL (ABNORMAL) Fibrinogen (10/18/2020 9:34 PM BIN PACKER) P athologist Signature Fibrinogen, P 624 (H) 200 - 393 10/18/2020 [facility] mg/dL 9:49 PM BIN PACKER Specimen Anatomical Collection Method Collection Time Receive d Time (Source) Location / / Volume Laterality Blood (Blood, 10/18/2020 9:34 PM 10/18/20 20 9:40 Venous) BIN PACKER PM BIN PACKER Sierra Welch M.D. LAB BLOOD ADD-ON Performing Organization Address City/[facility]/ZIP Code Phon e Number [facility] - [address] [place], [place] [address] [facility] [place] [address] Laboratories-[facility] [address] Hepatitis B Surface Antigen (10/18/2020 9:34 PM BIN PACKER) P athologist Signature HBs Antigen, S Negative Negative 10/19/2020 [facility] 9:23 AM BIN PACKER Specimen Anatomical Collection Method Collection Time Receive d Time (Source) Location / / Volume Laterality Blood (Blood, 10/18/2020 9:34 PM 10/19/20 20 8:14 Venous) BIN PACKER AM BIN PACKER Sierra Welch M.D. LAB MICROBIOLOGY - BLOOD ORD ERABLES Performing Organization Address [facility] Phon e Number [facility] [address] [place], [place] [address] [facility] [place] [address] Laboratory Medicine and Pathology [address] MANUEL SARS Coronavirus 2, Molecular Detection, PCR (RADAR REPAIRER) Asymptomatic (10/18/2020 8:05 PM BIN PACKER) Patholo gist Method Time Signature COVID-19, PCR Undetected Undetected 10/19/2020 DTL 12:55 AM BIN PACKER Comment: SARS-CoV-2 RNA absent. This result does [...] Drug Administration an d is used per administrative court justice's instructions. Performance characteristics were verified by [facility] in a manner consistent with CLIA requirements. Visit the CDC website: https://www.cdc.g ov/coronavirus/ for the most recent guidelines on [place] virus testing. Fact Sheet for Healthcare Providers: https://www.fda.gov/media/543036/downloa d Fact Sheet for Patients: https://www.fda.gov/media/730054/downloa d Specimen Anatomical Collection Method Collection Time Receive d Time (Source) Location / / Volume Laterality Varies 10/18/2020 8:05 PM 0 8:40 (Nasopharynx) BIN PACKER PM BIN PACKER Heather Goodrich M.D. LAB MICROBIOLOGY - GENERAL O RDERABLES Performing Organization Address City/[facility]/ZIP [facility] Phon e Number [facility] - [address] [place], [place] [address] [facility] [place] [address] [facility] [address] [facility] Hepatitis B Surface Antigen (10/18/2020 7:59 PM BIN PACKER) P athologist Signature HBs Antigen, S Negative Negative 10/19/2020 [facility] 8:04 AM BIN PACKER Specimen Anatomical Collection Method Collection Time Receive d Time (Source) Location / / Volume Laterality Blood (Blood, 10/18/2020 7:59 PM 10/19/20 20 6:59 Venous) BIN PACKER AM BIN PACKER Sierra Welch M.D. LAB MICROBIOLOGY - BLOOD ORD ERABLES Performing Organization Address City/[facility] Phon e Number [facility] [address] [place], [place] [address] [facility] [place] [address] Laboratory Medicine and Pathology [address] MANUEL Type and Screen (with reflex Antibody ID) (10/18/2020 7:59 PM BIN PACKER) Patholo gist Method Time Signature ABORh B Pos Not 10/18/2020 ETRM applicable 8:29 PM BIN PACKER Antibody Negative Negative 10/18/2020 ETRM Screen 8:44 PM BIN PACKER Type & Screen 10/21/2020 10/18/2020 ETRM Expiration 23:59 8:29 PM BIN PACKER Testing Girard DEFAULT 10/18/2020 ETRM Location 8:08 PM BIN PACKER Specimen Anatomical Collection Method Collection Time Receive d Time (Source) Location / / Volume Laterality Blood (Blood, 10/18/2020 7:59 PM 10/18/20 20 8:08 Venous) BIN PACKER PM BIN PACKER Sierra Welch M.D. LAB BLOOD BANK TEST ORDERABL ES Performing Organization Address City/[facility] Phon e Number [facility] - [address] [place], [place] [address] [facility] [place] [address] Laboratories[facility] 200 [facility] (ABNORMAL) CBC without Differential (10/18/2020 7:59 PM BIN PACKER) Patholo gist Method Time Signature Hemoglobin 11.0 (L) 11.6 - 10/18/2020 [facility] 15.0 g/dL 8:06 PM BIN PACKER Hematocrit 31.8 (L) 35.5 - 10/18/2020 [facility] 44.9 % 8:06 PM BIN PACKER Erythrocytes 3.65 (L) 3.92 - 10/18/2020 [facility] 5.13 8:06 PM BIN PACKER x10(12)/L MCV 87.1 78.2 - 10/18/2020 [facility] 97.9 fL 8:06 PM BIN PACKER RBC Distrib Width 13.5 12.2 - 10/18/2020 [facility] 16.1 % 8:06 PM BIN PACKER Platelet Count 287 157 - 371 10/18/2020 [facility] x10(9)/L 8:06 PM BIN PACKER Leukocytes 19.3 (H) 3.4 - 9.6 10/18/2020 [facility] x10(9)/L 8:06 PM BIN PACKER Specimen Anatomical Collection Method Collection Time Receive d Time (Source) Location / / Volume Laterality Blood (Blood, 10/18/2020 7:59 PM 10/18/20 20 8:04 Venous) BIN PACKER PM BIN PACKER Sierra Welch M.D. LAB BLOOD ADD-ON Performing Organization Address City/State/ZIP Code Phon e Number [facility] - [address] [place] [address] [facility] [place] [address] Laboratories[facility] [address] [facility] HIV-1/-2 Ag and Ab Scrn, Plasma (10/18/2020 7:58 PM BIN PACKER) P athologist Signature HIV-1/-2 Ag Negative Negative 10/19/2020 [facility] and Ab 9:31 AM BIN PACKER Scrn, P Comment: Negative result does not rule out HIV in fection. If exposure to HIV infection occurred <14 d ays ago, contact the laboratory to request additi on of HIV-1 RNA detection / quantification test (HIV QN). Specimen Anatomical Collection Method Collection Time Receive d Time (Source) Location / / Volume Laterality Blood (Blood, 10/18/2020 7:58 PM 10/19/20 20 6:59 Venous) BIN PACKER AM BIN PACKER Sierra Welch M.D. LAB MICROBIOLOGY - BLOOD ORD ERABLES Performing Organization Address City/State/ZIP Code Phon e Number [facility] [address] [place], [place] [address] [place] [address] [facility] [place] [address] Laboratory Medicine and Pathology [address] [...] 900 mg New Bag 10/19/2020 5:09 AM BIN PACKER 900 mg 100 mL/hr (CLEOCIN) 900 mg, intravenous, at 100 mL/hr, Administer over 30 Minutes, Every 8 hours, First dose on Sat10/18/20 at 2000, premix bag, Indications: Obstetric or gynecological infection New Bag 10/18/2020 9:41 PM BIN PACKER 900 mg 100 mL/hr fentaNYL injection 100 mcg (SUBLIMAZE) Given 10/18/2020 9:49 PM BIN PACKER 100 mcg 100 mcg, intravenous, Every 1 hour PRN, moderate pain or score 4-6 of 10, severe pain or score 7-10 of 10, for labor pains, Starting on Sat10/18/20 at 1939, For 3 doses, L&D Pre-Delivery, Consultation with Anesthesia for pain control if patient requests regional anesthesia and in active labor or membranes ruptured. Given 10/18/2020 8:44 PM BIN PACKER 100 mcg gentamicin 290 mg in NaCl 0.9% IVPB New Bag 10/18/2020 8:41 PM BIN PACKER 290 mg 215 mL/hr (GARAMYCIN) 290 mg (rounded from 285 mg = 5 mg/kg ? 57 kg Order-specific weight), intravenous, at 215 mL/hr, Administer over 30 Minutes, Once, On Sat10/18/20 at 2000, For 1 dose, Drug Monitoring Program: Pharmacist to adjust medication dosing based on indication and drug clearance factors., Indications: Obstetric or gynecological infection lactated ringers New Bag 10/19/2020 5:10 AM BIN PACKER 125 mL/hr 125 mL/hr 125 mL/hr, intravenous, Continuous, Starting on Sat10/18/20 at 2000, L&D Pre-Delivery, Indications: Hang fluids for maternal dehydration, concerns, epidural placement, with antibiotics. Rate/Dose Verify 10/19/2020 2:20 AM BIN PACKER 125 mL/hr 125 mL/hr Rate/Dose Verify 10/19/2020 12:00 AM BIN PACKER 125 mL/hr 125 mL/hr multivitamin/mineral- tablet 1 Given 10/20/2020 9:30 AM BIN PACKER 1 tablet tablet 1 tablet, oral, Daily, First dose on Kylie 10/20/20 at 0900 documented in this encounter Active and Recently Administered Medications Times are shown in BIN PACKER. Scheduled Medication Order 10/18/2020 10/19/2020 10/20/2020 clindamycin [...] palpation, or reach a mximum of 250 [place] units, and/or cervical change(s) occur. PRN Medication [...] COVID19 Pending 10/18/2020 10/18/2020 10/19/2020 12:56 AM BIN PACKER documented as of this encounter
--- OUTSIDE RECORDS SUMMARY | 2022-09-15 14:40 | XMS_ITS | Encounter Summary ---
:1985 Author Organization [facility] Address [address] [place] [id number] Care Team Providers Name Role Phone Unavailable Primary Care Provider Unavailable Reason for Visit Auth/Cert Specialty Diagnoses / Procedures Referred By Contact Refer red To Contact Diagnoses 22 Weeks Gestation (HCC) Procedures DIR Referral ID Status Reason Start Date Expiration Date Visits Requ ested Visits Authorized [id number] 1 1 Encounter Details Date Type Department Care Team Description 10/19/2020 Hospital Encounter Department of Josey Tse Obstetrics and M.DIsha Gynecology in [address] [place] [address] [place] [id number] [place], [place] [phone] (Wo rk) [phone] Social History Tobacco Use Types Packs/Day Years [...] or relatives? How often do you attend buddhism or 1 to 4 times per year 11/22 roman catholic services? Do you belong to any clubs or No 12/12/2020 organizations such as buddhism groups, unions, fraternal or athletic groups, or [...] Sig Dispensed Refills Start Date End Date [id number] TK 1 TO 2 TS PO Q 4 H 0 09/08/2020 aff (FIORICET, ESGIC) NEEDED. MAX 6 PER 50-325-40 mg per tablet DAY Take 1 tablet by 0 [id number] (VINATE mouth daily. ONE) 60 mg iron-1 mg per tablet documented as of this encounter Plan of Treatment Not on filedocumented as of this encounter Procedures Procedure Name Priority Date/Time Associated Comments Diagnosis US OB ANATOMY RAD - Routine 10/19/2020 1:21 Results fo r this ANGUIANO (most inpatients PM HYDRAULIC MECHANIC procedure a re in and all the results outpatients) section. documented in this encounter Results US OB Anatomy Anguiano (10/19/2020 1:21 PM HYDRAULIC MECHANIC) Anatomical Region Laterality Modality Body, Ultrasound OB RST LOS, Ultrasound ARZ LOS N/A Ultrasound Specimen (Source) Anatomical Location Collection Method / Collectio n Time Received Time / Laterality Volume Narrative 10/19/2020 1:27 PM HYDRAULIC MECHANIC LAURA LOWE OB Exam, 10/19/2020 EXAM INFORMATION [...] Read by Ilir Moss on 1:21:30 PM. Hand I Blocker: ??Ilir Moss Thank You For This Referral [...] Read by Ilir Moss on 1:21:30 PM. Hand I Blocker: Ilir Moss Thank You For This Referral Josey Tse M.D. IMG OB US PROCEDURES documented in this encounter Visit Diagnoses Not on filedocumented in this encounter
--- OUTSIDE RECORDS SUMMARY | 2022-09-15 14:40 | XMS_ITS | Encounter Summary ---
:1985 Author Organization [facility] Address [address] [place] [id number] Care Team Providers Name Role Phone Unavailable Primary Care Provider Unavailable Reason for Visit Outpatient (Routine) - Closed Specialty Diagnoses / Procedures Referred By Contact Refer red To Contact Maternal and Diagnoses Premature Rupture Of Membranes Unspecified As To Length Of Time Between Rupture And Onset Of Labor Second Trimester ([facility]) 21 Weeks Gestation ([facility]) [facility] Janelle Dominguez M.D. [address] [place] [id number] Referral ID Status Reason Start Date Expiration Date Visits Requ ested Visits Authorized [id number] Closed 11/02/2020 11/02/2021 1 1 Encounter Details Date Type Department Care Team Description 12/16/2020 Telemedicine Department of Saqib Strong, Diana ture Rupture Of Membranes Unspecified As To Length Of Time Between Rupture And Onset Of Labor Second Trimester; Obstetrics and M.D. 21 Weeks Gestation Gynecology in [address] [place] [address] [place] [phone] [place], [place] [phone] (Work) [phone] Social History Tobacco Use Types Packs/Day Years [...] or the highest technical, or vocational p [facility] degree you have received? Sex Assigned at Date Recorded Not on file documented as of this encounter Consult Notes Saqib Strong M.D. - 12/16/2020 8:00 AM CST Consult conducted via real-time audio/video technology by Saqib Strong M.D. in [facility] to the patient in patient home. 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 Mrs. Salinas's obstetrical history is significant for three term vaginal deliveries and one first-trimester miscarriage. In her fifth (2019), she was admitted o [facility] following spontaneous PPROM at 21 weeks gestation. Ultrasound demonstrated normal anatomy and biometry; olig ohydramnios was noted (as anticipated). After an interval of inpatient observation, Mrs. Salinas and her elected to pursue expectant management and were discharged to home. Subsequently she developed labor at 21 weeks and delivered her daughter in [place]; her daughter appeared morphologically normal, and survived for approximately 60 minutes. Difficulty was encountered with retained placenta, requiring manual extraction and D&C; Mrs. Salinas was treated with a course of intravenous antibiotic therapy. 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 Salinas experienced retained placenta requiring manual extraction in her first as well. Regarding her heterozygous prothrombin [id number] heterozygote status, Mrs. Salinas was screening for thrombophilias after an aunt experienced an episode of thrombosis and tested positive for Factor V Leiden and the Prothrombin [id number] mutation; neither she personally nor any first-degree [...] determine viability/number and define gestational age. (in [place]) 3. Maternal cystic fibrosis/SMA and aneuploidy screening at 10-12 weeks (per her preference). 4. Consideration of early anatomic ultrasound at 11-14 weeks. 5. Sonographic cervix length surveillance beginning at 16 weeks and repeated weekly through 22 6/7 weeks, with contingent cerclage placement if cervix length shortens to <25mm prior to 23 0/7 weeks.(initial imaging study in [place]) 6. Consideration of 17-hydroxyprogesterone caprate prophylaxis (250mg IM weekly), beginning at 16-20weeks and continuing through 36 weeks. 7. Detailed anatomic survey ultrasound at 18-20 weeks. (in [place]) 8. Repeat ultrasound at 30-32 weeks to evaluate placental appearance for any evidence of accreta. 9. Consider induction of labor at 39 0/7-39 6/7 weeks; this may be scheduled either in [place] or in [place] pending resource availability. Mrs. Salinas resides approximately 1 hour from [place]. Intrapartum: 10. Obtain CBC and type & [...] I will arrange for initial appointments in [place]. Further care may be coordinated between [place] and [place]. I will also forward materials regarding placenta accreta occulta. Saqib Strong M.D. E [employer] documented in this encounter Plan of Treatment Not on filedocumented as of this encounter Visit Diagnoses Diagnosis Premature Rupture Of Membranes U nspecified As To Length Of Time Between Rupture And Onset Of Labor Second Trimes ter (HCC) 21 Weeks Gestation (HCC) documented in this encounter
[2022-09-15 15:27] LABS: Amnisure Rom* POSITIVE
[2022-09-15 16:09] LABS: SARS PCR* Negative SARS-CoV-2 (Negative)
[2022-09-15 16:15] LABS: Basophils Absolute Auto 0.05 K/uL (0.00-0.30); Basophils Percent Auto 0.5 % (0.0-3.0); Eosinophils Absolute Auto 0.05 K/uL (0.00-0.50); Eosinophils Percent Auto 0.5 % (0.0-7.0); Hematocrit 36.8 % (33.0-51.0); Hemoglobin* 12.5 gm/dL (12.0-16.0); Immature Granulocytes Abs Auto 0.07 K/uL (0.00-0.30); Immature Granulocytes Pct Auto 0.7 %; Lymphocytes Percent Auto 16.5 % (20-44); Mean Corpuscular HGB Conc 34 gm/dL (32-36); Mean Corpuscular Hemoglobin 31 pg (26-34); Mean Corpuscular Volume 91 fL (80-100); Monocytes Percent Auto 6.9 % (0.0-11.0); Neutrophils Percent Auto 74.9 % (42.0-72.0); Platelet Count* 162 K/uL (140-440); RDW Coefficient of Variation % 16.4 % (11.5-15.5); Red Blood Count 4.05 m/uL (4.00-5.20)
[2022-09-15 16:19] LABS: Slide Review Reflex No
[2022-09-15 19:58] LABS: Amphetamine Screen Urine Negative (Negative); Barbiturate Screen Urine Negative (Negative); Benzodiazepines Screen Urine Negative (Negative); Cannabinoid Screen Urine Negative (Negative); Cocaine Screen Urine Negative (Negative); Methadone Screen Urine Negative (Negative); Methamphetamines Screen Urine Negative (Negative); Opiate Screen Urine Negative (Negative); Oxycodone Screen Urine Negative (Negative); Phencyclidine Screen Urine Negative (Negative); Tricyclic Antidepressant Urine Negative (Negative)
[2022-09-15] MEDS: 5 % DEXTROSE/0.9% SOD CHLORIDE 1,000 ML 125 ML IV (20:35)
--- NOTE | 2022-09-15 21:03 | P.OBHP_ITS ---
OB - H&P: HPI Labor/Induction History of Present Illness Date Seen: 09/15/22 Chief Complaint: The patient is a 36 year old 6 para 3112 at 36 5/7 weeks gestation by certain LMP, who presents with complaints of contractions and vaginal bleeding. She began to notice mild contrations this morning. At the time of admission, she was experiencing mild uterine contractions about every 6 minutes. During her initial evaluation and cervical examination by the labor nurse, normal blood y show was noted followed by a gush of clear fluid from the vagina. Amnisure was positive for ruptured membranes. Contraction frequency and intensity is increasing since ROM. +FM Chief complaint: Maternity : 6 Para: 4 Date of last menstrual period: 01/01/22 Estimated date of delivery: 10/08/22 Gestational age based on last menstrual period: 36 History of Present Dating criteria: based on LMP care: good care Ultrasounds: normal 1st trimester US and normal mid trimester US Meds Home Medications and Allergies Home Medications Medication Instructions Recorded Confirmed Type prenat.vits,kosta,clr-dfdo-wkfhr 1 tab PO QDAY 04/24/22 09/15/22 History polyethylene glycol 3350 17 4 g PO ONCE 08/13/22 09/15/22 History gram/dose oral powder (Miralax) Allergies Allergy/AdvReac Type Severity Reaction Status Date / Time salicylates Allergy Intermediate edema Verified 09/12/22 09:03 penicillin V Allergy Mild Rash on Verified 09/12/22 09:03 the 8th day salicylic acid Allergy Mild tongue Verified 09/12/22 09:03 swelling OB - H&P: Exam Physical Exam: Vital signs: Temp Pulse Resp BP 98.3 F 81 16 124/67 09/15/22 20:42 09/15/22 20:40 09/15/22 20:42 09/15/22 20:40 OB - Results Labs Labs: Short CBC 09/15/22 Range/Units 16:07 WBC 9.80 (4.50-11.00) K/uL Hgb 12.5 (12.0-16.0) gm/dL Hct 36.8 (33.0-51.0) % Plt Count 162 (140-440) K/uL
--- NOTE | 2022-09-15 21:09 | P.LDBA_ITS ---
Subjective History of Present Illness Date Seen: 09/15/22 Narrative: Patient is being admitted to Labor and Delivery for spontaneous onset of labor and SROM. She is a 36 year old at 36 5/7 weeks gestation. Her full history and physical was dictated by Dr. Pimentel on 09/12/2022. Please see this for details. The patient states that she began experiencing some a contractions this morning. She subsequently experienced some vaginal bleeding, and came in for evaluation this afternoon. At the time of her initial evaluation, she was found to have normal bloody show. Following cervical examination, she experienced a gush of clear fluid from the vagina. AmniSure was positive for membrane rupture. Following membrane rupture, her contractions have increased in intensity and frequency. Her fetus remains active. OB PROBLEM LIST: Spouse: Eligio. Has 2 boys (2004, 2014) and a girl (2009) Blood type: B positive 1. Prior complications: 1st - retained placenta, manually removed. No D & C. EBL 750 2nd - IOL at 39 weeks for EFW 10% 4th - PPROM at 21.4 weeks. D & C for retained placenta - pt states accreta, but not noted in op report. Treated for infection after MFM suspected recent loss was due to her bleeding and persistent subchorionic hemorrhage to the 1st and 2nd semesters and this would suggest a lower risk of recurrence in subsequent pregnancies. 2. PPROM at 21.4 weeks Referral placed to MPP (per pt preference) for consult and plan MFM consult 04/03/2022: Discussed role of progesterone. Discussed 17 0 HP injections and vaginal progesterone supplementation. Vaginal progesterone started. Dosin mg Prometrium vaginally at at bedtime starting at 16 weeks and continued through 36 weeks. Serial cervical length the every 2 weeks starting at 16 weeks until 22 weeks to be done locally: CL 16 weeks: 3.8 cm CL 18 Weeks: 4.2 cm CL 21 weeks: 3.8 cm (3.2 cm w/ fundal pressure) CL 22 weeks: 3.4 cm 3. 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 No personal h/o of clot. --Baby ASA daily recommended. --Surveillance without anticoagulation therapy or prophylactic anticoagulation therapy the patient has additional look risk factors (prolonged immobility or delivery) 4. COLEMAN noted at NOB. No bleeding. 5. Asymptomatic bacturia at NOB. DAYSI neg 6. History of placenta accreta occulta/MFM recommendations: --Level 2 ultrasound and follow-up ultrasound at 28-32 weeks to assess placentation: scheduled with MPP Recommend delivery at tertiary care center if accreta is suspected. --No accreta is seen, vaginal delivery at term is appropriate with attempt at placental delivery. --If placenta is retained, would have a high index of suspicion for accreta and low threshold to proceed with hysterectomy if conservative measures are not successful. Recommend TXA at delivery. --If D&Cs attempted consider Bakri placement afterwards. Accreta user experience team lead would not need to be present for delivery but should be called in if retained placenta. 7. Low lying placenta 21 weeks: Placenta 1.2 cm from internal os * Resolved at 30.1 wks per MPP records 8. Bacterial vaginosis * Treated with oral clindamycin 05/31/2022 9. Anemia * Hemoglobin 07/20/22: 10.0 * Start Ferrous sulfate re check Hemoglobin at 32 weeks care visit, if still low, highly consider IV iron infusion due to possible high risk of bleeding during delivery * hemoglobin 9.5 on 08/01/2022. Received iron infusions. * Recheck hemoglobin 08/29/2022: 11.9 10. GDM * Elevated 1hr GTT at 165 * 3hr GTT: 97/196/170/135 * Q.i.d. blood sugar monitoring and diabetic diet ordered. * Referral to endocrinology placed 08/01/2022 for consistently elevated fasting blood sugars. * Weekly NST to begin at 32 weeks gestation. * Growth ultrasound at 34 weeks gestation: EFW 3110 g or 6# 14 oz (>97%), BPD >97%, HC >97%, AC >97%, FL 72%, SDP 3.9 cm * Consider growth ultrasound at 37-38 weeks, ordered on 09/05/22 Follow up u/s at 30.1 wks by MPP: Low lying placenta resolved, now 2.75 cm away from os. SDP 3.38. EFW 2026 grams (4lbs 7 oz) >97%. (This would equal 4387grams/9 lb 11 oz at 39 wks). Recommends repeat growth in 4-6 weeks. Tdap: 08/01/22 Flu: 08/01/22 OB - H&P: Exam Physical Exam: Vital signs: Temp Pulse Resp BP 98.3 F 81 16 124/67 09/15/22 20:42 09/15/22 20:40 09/15/22 20:42 09/15/22 20:40 Constitutional: Constitutional: no acute distress Routine HEENT Exam: Head: Present normocephalic Eye: Present normal appearance Routine Neck Exam: Neck: Present full ROM Routine Respiratory Exam: Respiratory: Present CTA bilaterally Routine Cardiovascular Exam: Cardiovascular: RRR Detailed Labor and Delivery Exam: Patient Gravid: yes Dilation (cm): 5 Effacement (%): 100 Cervix position: mid Consistency: soft Contraction frequency (min): 5 Contraction duration (sec): 60 Tachysystole: No Contraction intensity: Mild Fetus (Single): Station: 0 Amniotic Membrane Status: SROM Amniotic Membrane Fluid Description: Clear Routine Extremities Exam: Extremities: Absent calf tenderness or pedal edema Routine Back/Spine/Pelvis Exam: Back/Spine: full ROM Routine Skin Exam: Present intact Routine Neurological Exam: Present alert and oriented X3 Routine Psychiatric Exam: Present normal affect OB - Problem Based A/P Additional Plan (1) labor: Status: Acute (2) Rupture of membranes with clear amniotic fluid: Status: Acute (3) Gestational diabetes mellitus (GDM): Status: Acute Plan The patient will be admitted to the center. Labor will be managed expectantly. She is GBS negative, so antibiotic prophylaxis is not indicated. She does have gestational diabetes, so we will monitor blood sugars per protocol. As she is at increased risk for hemorrhage and possible accreta, (should the placenta be retained), we will plan to administered TXA at the time of delivery, and have IV pitocin and rectal misoprostol readily available. If placenta is retained, removal could be attempted in the operating room, with ultrasound guidance, and preparations available for placement of a Bakri balloon or for hysterectomy if indicated for suspected accreta and hemorrhage. Delivery/Labor/Induction Plan Plan: expectant management
[2022-09-15] MEDS: LACTATED RINGERS 1000 ML 1,000 ML 125 ML IV (21:40)
[2022-09-16] VITALS (26 sets, daily range): BP systolic 106–134; BP diastolic 67–84; PULSE 66–92; RESP 16; TEMP 36.6–36.8; O2SAT 95–97
[2022-09-16] MEDS: OXYTOCIN 30 unit/500 ML in NS 30 UNIT/500 ML BAG 300 UNIT IVPB (02:05)
--- NOTE | 2022-09-16 02:19 | P.OBPRC_ITS ---
Procedure Delivery date: 09/16/22 Procedure Done: Global Events: GDMA1 Intrapartal Events: None Delivery monitor: external FHT and external uterine Route of delivery: Laceration description: Periurethral - 1st Degree (bilateral) Delivery repair: other (repair not needed, hemostatic) Anesthesia type: Nitrous oxide gas Disposition: floor Complications: None. Narrative: The patient is a 36 year-old admitted on 09/15/2022 at 36 Weeks, 5 Days gestation for spontaneous onset of labor.? Cervical exam on admission was 4.5 cm/100 % effaced/-1 station with membranes ruptured in vertex presentation.? Contractions were every 6 minutes.? heart rate demonstrated baseline 145 bpm with moderate variability, + accelerations, - decelerations; a category 1 tracing.? SROM occurred at 1450 with clear fluid. ? Labor Analgesia:? Nitrous oxide gas ? Pitocin:? No ? Labor onset:? 1825 ? Complete:? 0143 on 09/16/2022 ? Pushing:? 0152 ? heart tones during second stage were 140 baseline with good variability, + accelarations, no decelerations. category 1. ? At 0204 a viable female delivered in vertex OA presentation over intact perineum via spontaneous vaginal delivery.? was placed on maternal abdomen.? Cord was clamped and cut after a 60 second delay.? Nose and mouth were bulb suctioned.? weight pending.? 8 at 1 minute and 9 at 5 minutes.? Shoulder dystocia: no.? Nuchal cord: yes, x1, easily reduced over the head. TXA 1g IV and pitocin administered with IV fluids following delivery of infant. ? Placenta delivered spontaneously and complete at 0209 with a 3 vessel cord. ? Mother and infant were stable after delivery. ? Lacerations:? bilateral 1st degree periurethral, not bleeding, not repaired. ? Blood loss: 100 mL. Blood loss measurement type: QBL ? Sponge and needles counts are correct. [place] Infant Infant Gender: Female presentation: vertex Placental Delivery Description: Spontaneous Cord Description: 3 Vessels and Nuchal Cord (x1)
[2022-09-16] MEDS: IBUPROFEN 600 MG TABLET PO ×2 (04:41→17:42)
[2022-09-16] MEDS: DOCUSATE SODIUM 100 MG CAPSULE PO (08:38)
[2022-09-17 01:47] VITALS: BP 120/74; PULSE 76; RESP 16; TEMP 36.9; O2SAT 97
--- NOTE | 2022-09-17 07:28 | P.DS_ITS ---
DS: Providers Provider Time Seen by Provider: 07:28 Date Seen: 09/17/22 Date of admission: 09/15/22 15:29 Primary care physician: Not a Local Provider Admitting Clinician: Emi Magana MD Consults: 09/15/22 15:45 Consult to Manager [employer] [CONS] Routine Comment: Reason for Consult:: Substance Abuse Screening Attending Physician on discharge: Kristie Rosas CNM Date of Discharge: 09/17/22 DS: Diagnosis Discharge Diagnosis (1) state: Status: Acute (2) Lactating mother: Status: Acute (3) Gestational diabetes mellitus (GDM): Status: Acute Exam Const: Vital Signs, click to edit/add: Vital Signs - 24 hr 09/16/22 08:00 09/16/22 12:30 09/16/22 17:00 Temperature 98.2 F 97.8 F 97.8 F Pulse Rate [Pulse Oximeter] 66 80 72 Respiratory Rate 16 16 16 Blood Pressure [Le ft Arm] 106/67 112/72 120/79 Pulse Oximetry 97 97 95 Oxygen Delivery Me thod Room Air Room Air Room Air 09/16/22 21:07 09/17/22 01:47 Temperature 98.3 F 98.5 F Pulse Rate [Pulse Oximeter] 77 76 Respiratory Rate 16 16 Blood Pressure [Le ft Arm] 112/71 120/74 Pulse Oximetry 95 97 Oxygen Delivery Me thod Room Air Room Air Documenting provider has reviewed patient's vital signs: yes Common normals: no apparent distress, oriented x3, healthy appearing, alert and well nourished General appearance: cooperative, well kempt and well developed Orientation/consciousness: Yes awake, Yes oriented to person, Yes oriented to place and Yes oriented to time HENMT: Common normals: normocephalic and external nose normal Head and scalp: normocephalic Nose: external nose normal Eye: General eye: normal appearance of both eyes Neck & C-Spine: Common normals: full ROM and supple General: normal visual inspection Cervical spine: cervical ROM normal Chest: Common normals: inspection of chest normal and palpation of chest normal Chest: symmetrical chest wall rise Resp: Common normals: normal respiratory effort, no retractions, no use of accessory muscles and clear to auscultation bilaterally Effort & inspection: able to speak in complete sentences Auscultation: clear to auscultation bilaterally Cardio: Common normals: regular rate and regular rhythm Rate: regular rate Rhythm: regular rhythm GI: Common normals: Normal to inspection, nondistended, normoactive bowel sounds present and soft to palpation Inspection: normal to inspection Auscultation: normoactive bowel sounds Palpation: soft and tender : Bimanual exam- vagina & uterus: other (Involuting) Uterus: firm Lochia: small Uterus palpation: uterus tender Back & Pelvis: Common normals: thoracic and lumbar spine normal to inspection and no thoracic nor lumbar tenderness Thoracic spine/upper back: normal to inspection and thoracic ROM normal Lumbar spine/lower back: normal to inspection and lumbar ROM normal Extremity: Common normals: normal to inspection and full ROM General: normal exam except as noted; no edema Neuro: Common normals: oriented x3 Sensorium/orientation: awake, alert, oriented to person, oriented to place and oriented to time Speech: speech normal Psych: Common normals: mental status grossly normal, thought process normal and speech normal Appearance: grossly normal and well kempt Attitude: calm and engaged Activity/motor behavior: appropriate eye contact Speech: normal speech Thought process: normal thought process Thought content: normal thought content Attention/concentration: attention grossly intact Memory/cognition: memory grossly intact Insight: insight good Judgement: judgment good Skin: Common normals: no rashes or lesions noted General skin exam: no rashes or lesions noted OB - DS: Summary Hospital Course Hospital Course: The patient is a 36 year old G6 now P3214 at 36 5/7 weeks gestation that was admitted to the [facility] on 09/15/22 for spontaneous onset of labor. She had an uncomplicated vaginal delivery. She delivered a viable female infant. She is breast feeding and supplementing. the patient has done well. Peripartum Data delivery method: Vaginal Laceration description: Periurethral - 1st Degree (no repair) complications: none [place] Gender: Female Discharge Plan: Home Status at Discharge Functional status at discharge: independent ambulation Overall status at discharge: patient is progressing back to baseline Time Spent with Patient Time attestation: Total time spent providing and/or coordinating discharge services: Time spent: Less than 30 minutes Discharge Plan Discharge Disposition: Home, Self-Care Date of Admission: 09/15/22 15:29 Attending Provider on Discharge: Kristie Rosas Primary Care Provider: Provider,Not a Local Condition: Stable Anticipated Discharge Date/Time: 09/17/22 07:45 Discharge Medications: New acetaminophen 500 mg Tablet 1,000 mg PO Q6H PRNQty: 0 0RF Continued prenat.vits,kosta,[id number] Tablet 1 tab PO QDAY ferrous sulfate 325 mg (65 mg iron) tablet 325 mg PO QDAY Qty: 30 0RF Discontinued polyethylene glycol 3350 [Miralax] 17 gram/dose powder 4 g PO ONCE (DME) Blood Glucose Meter Misc See Rx Instructions .MEDSUPPLY Qty: 1 0RF Rx Instructions: Check blood sugars 4 times per day, am fasting/ 2 hours after the start of each meal (DME) lancets Misc See Rx Instructions .MEDSUPPLY Qty: 100 3RF Rx Instructions: Check blood sugars 4 times per day, am fasting/ 2 hours after the start of each meal (DME) Test Strips Misc See Rx Instructions .MEDSUPPLY Qty: 100 3RF Rx Instructions: Check blood sugars 4 times per day, am fasting/ 2 hours after the start of each meal Discharge Orders: Discharge Order (Routine); Ordered 09/17/22 Ordered By: Kristie Rosas Patient Education: OB Vaginal/Breast Feeding Additional Instructions: Discharge instructions were reviewed with the patient including signs and symptoms of infection and home going medications Nothing vaginally for 6 weeks: no tampons or intercourse Do not drive while taking narcotic pain medication(s) Off Work or School for 8 weeks Symptoms to report to doctor: * Bleeding that saturates more than one pad per hour * Passing clots larger than the size of a golf ball * Pain not relieved by prescribed medication * Fever above 100.4 degrees Fahrenheit * A foul vaginal odor * Difficulty in emotions, mood, and functions * Thoughts of hurting yourself and/or * Painful, reddened area in your breast * Any drainage, redness, or tenderness in your IV/epidural site * Severe headache that doesn't improve after taking medications * Changes in vision, including temporary loss of vision, blurred vision, and/or light sensitivity * Upper abdominal pain (usually under ribs on the right side) * Decrease in urination or painful, frequent urinating * Chest pain * Shortness of breath * Tenderness or pain with redness and/swelling in the calf(s) of your leg 2-week visit: discuss feeding concerns, review control options and screen for anxiety/depression. 6-week visit for an annual exam. consultation services are available to all mothers and babies for the first year after delivery.? To make an appointment, please call [phone]. Activity Level: Activity as Tolerated Discharge Diet: Regular Follow Up Appointments: [facility] [Provider Group] Forms: [employer] Info Instructions
[2022-09-17 07:43] LABS: Hemoglobin* 11.8 gm/dL (12.0-16.0)
[2022-09-17 09:00] VITALS: BP 110/74; PULSE 73; RESP 16; TEMP 36.9; O2SAT 96
== END 2022-09-17 13:35 | disposition home or self-care (01) | DRG 560 ==
LOC: OB OUT 15:29 → OB 15:29
PROVIDERS: Admitting Provider Obstetrics & Gynecology; Visit Provider Obstetrics & Gynecology
DX: O42.013 Preterm premature rupture of membranes, onset of labor within 24 hours of rupture, third trimester (principal); O24.429 Gestational diabetes mellitus in childbirth, unspecified control; O99.02 Anemia complicating childbirth; D64.9 Anemia, unspecified; O70.0 First degree perineal laceration during delivery; Z3A.36 36 weeks gestation of pregnancy; Z37.0 Single live birth
CPT/HCPCS: 36415; 80306; 82962; 84112; 85018; 85025; 86850; 86900; 86901; 87635; A9270; J7042; J7120

== ENCOUNTER 2022-10-03 15:26 | Outpatient (CLI) | payer BC, SELFPAY ==
--- OUTSIDE RECORDS SUMMARY | 2022-10-03 15:28 | XMS_ITS | Encounter Summary ---
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 Do you belong to any clubs [...]
--- OUTSIDE RECORDS SUMMARY | 2022-10-03 15:28 | XMS_ITS | Encounter Summary ---
:1985 Author Organization [facility] Address [address] [place] [address] Care Team Providers Name Role Phone Unavailable Primary Care Provider Unavailable Reason for Visit Reason Comments Rupture of Membranes Contractions Auth/Cert Specialty Diagnoses / Procedures Referred By Contact Refer red To Contact Diagnoses 22 Weeks Gestation (HCC) Procedures DIR Referral ID Status Reason Start Date Expiration Date Visits Requ ested Visits Authorized [id number] 1 1 Encounter Details Date Type Department Care Team Description 10/18/2020 - Hospital Encounter [facility] Jordyn Wild M.D. [address] [place] [phone] 22 Weeks Gestation (Primary Dx) ; 10/20/2020 [facility], Erin Villagran M.D., M.P.H. [address] [place] [address] [phone] 21 Weeks Gestation ; [place], Heather Ott M.D. [address] [place] [phone] Premature Rupture Of Membranes U nspecified As To Length Of Time Between Rupture And Onset Of Labor Second Trimester Building, Third Floor [address] [place] [address] Social History Tobacco Use Types [...] Comments Blood Pressure 116/69 10/20/2020 12:39 PM SEWER PIPE PRESS OPERATOR Pulse 81 10/20/2020 12:39 PM SEWER PIPE PRESS OPERATOR Temperature 37.2 ??C (99 ??F) 10/20/2020 12:39 PM SEWER PIPE PRESS OPERATOR Respiratory Rate 18 10/20/2020 12:39 PM SEWER PIPE PRESS OPERATOR Oxygen Saturation 99% 10/20/2020 12:39 PM SEWER PIPE PRESS OPERATOR Inhaled Oxygen Concentration - - Weight 56.3 kg (124 lb 1.9 oz) 10/19/2020 6:30 AM SEWER PIPE PRESS OPERATOR Height - - Body Mass Index - - documented in this encounter Discharge Summaries Saqib Strong M.D. - 10/20/2020 12:07 PM CST DISCHARGE SUMMARY BRIEF OVERVIEW Hospital: [facility] Discharge Provider: Erin Alarcon M.D. Primary Team: [facility] Ob[facility] No primary care [...] return in one week for neonatology consult, [facility] return visit and further discussion of when she would like to be re-admitted. She was discharged home in stable condition. //Miriam Ruggiero MD CONSULTS ORDERED DURING THIS ADMISSION CONDITION AT DISCHARGE Stable Discharge instructions were provided to the patient and caregiver(s). R PIPE PRESS OPERATOR documented in this encounter Medications at Time of Discharge Medication Sig Dispensed Refills Start Date End Date Take 1 tablet by 0 [id number] (VINATE mouth daily. ONE) 60 mg iron-1 mg per tablet [id number] TK 1 TO 2 TS PO Q [...] 10/18/2020. 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 Obstetrical Chief PGY-3 [phone] R PIPE PRESS OPERATOR Associated attestation - Heather Goodrich M.D. - 10/19/2020 12:27 AM SEWER PIPE PRESS OPERATOR Employment Manager Teaching Physician Statement: I have discussed the [...] delivery upon exam findings of 4-5cm dilation. 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 PSH: [...] for necrotizing enterocolitis, and potential poor terminal gauger neurological outcomes/disability. Have printed her additional studies [...] further discussion this afternoon Miriam Ruggiero M.D. R PIPE PRESS OPERATOR Associated attestation - Saqib Strong M.D. - 10/20/2020 11:17 AM SEWER PIPE PRESS OPERATOR I have discussed the care of [...] L.G.S.Norris., L.I.C.S.W., M.S.W. - 10/19/2020 1:02 PM SEWER PIPE PRESS OPERATOR SUBJECTIVE Social work met with the patient and her , Eilgio to introduce the role of inpatient social [...] weeks gestationas a transfer of care from [place], [place] due to concern for previable premature [...] day parking pass provided 10/19/20. Annita Kaplan [facility], UNDERWRITING SUPPORT SPECIALIST 10/19/2020 R PIPE PRESS OPERATOR Miriam Ruggiero M.D. - 10/19/2020 12:09 [...] 10/18/2020. She did present to her local employment manager did have a speculum exam completed however given the gestational age at the time rupture the patient was transferred from [place] for assessment and outpatient consultation with Maternal [...] 21w1 2) Subchorionic hemorrhage 3) Heterozygous Prothrombin 77401 A PMH: heterozygosity to Prothrombin 67221 A. PSH: none Allergies: PCN (rash as [...] necr otizing enterocolitis, and potential poor terminal gauger neurological outcomes/disability. Have printed her additional studies [...] discussion pending ultrasound results. Miriam Ruggiero M.D. R PIPE PRESS OPERATOR Associated attestation - Raysa Guerin M.D. - 11/14/2020 4:22 AM SEWER PIPE PRESS OPERATOR I saw and evaluated the patient, [...] with family for expectant management. Questions answered. R PIPE PRESS OPERATOR Irish Newell R.N. - 10/18/2020 9:29 [...] reviewed goals for the shift with patient. R PIPE PRESS OPERATOR documented in this encounter Miscellaneous Notes [...] home in stable condition. //Miriam Ruggiero MD R PIPE PRESS OPERATOR documented in this encounter Plan of Treatment Pending Results Name Type Priority Associated Diagnoses Date/Ti az US OB Limited Imaging RAD - Routine (most 020 8:51 PM inpatients and all SEWER PIPE PRESS OPERATOR outpatients) Scheduled Orders Name Type Priority [...] fo r this ANGUIANO (most inpatients PM SEWER PIPE PRESS OPERATOR procedure a re in and all the results outpatients) section. RUBELLA ANTIBODIES, Routine 10/19/2020 7:18 Resul ts for this IGG AM SEWER PIPE PRESS OPERATOR procedure are i n the results section. VARICELLA-ZOSTER Routine 10/19/2020 7:18 Results for this AB, IGG, S AM SEWER PIPE PRESS OPERATOR procedure are i n the results section. MICROSCOPIC MANUAL Routine 10/19/2020 2:21 Result s for this AM SEWER PIPE PRESS OPERATOR procedure are i n the results section. BACTERIAL CULTURE, Routine 10/19/2020 2:21 Result s for this AEROBIC + SUSC, AM SEWER PIPE PRESS OPERATOR procedure ar e in URINE the results section. CONFIRMED DRUG Routine 10/19/2020 2:21 Results fo r this ABUSE PANEL, U AM SEWER PIPE PRESS OPERATOR procedure are in the results section. CHLAMYDIA/GONORRHOE Routine 10/19/2020 2:21 Resul ts for this AE AMPLIFIED RNA AM SEWER PIPE PRESS OPERATOR procedure a re in the results section. URINALYSIS WITH Routine 10/19/2020 2:21 Results f or this MICROSCOPIC AM SEWER PIPE PRESS OPERATOR procedure are i n the results section. HEPATITIS B SURFACE STAT 10/18/2020 9:34 Resul ts for this ANTIGEN PM SEWER PIPE PRESS OPERATOR procedure are i n the results section. FIBRINOGEN, P STAT 10/18/2020 9:34 Results for this PM SEWER PIPE PRESS OPERATOR procedure are i n the results section. SARS CORONAVIRUS 2, Routine 10/18/2020 8:05 Resul ts for this MOLECULAR PM SEWER PIPE PRESS OPERATOR procedure are i n DETECTION, PCR (OFFSET PRINTING PRESSMEN) the resu lts section. HEPATITIS B SURFACE STAT 10/18/2020 7:59 Resul ts for this ANTIGEN PM SEWER PIPE PRESS OPERATOR procedure are i n the results section. CBC WITHOUT STAT 10/18/2020 7:59 Results for this DIFFERENTIAL, B PM SEWER PIPE PRESS OPERATOR procedure ar e in the results section. TYPE AND SCREEN STAT 10/18/2020 7:59 Results f or this PM SEWER PIPE PRESS OPERATOR procedure are i n the results section. HIV-1/-2 AG AND AB STAT 10/18/2020 7:58 Result s for this SCRN, PM SEWER PIPE PRESS OPERATOR procedure are in PLASMA the results section. documented in this encounter Results US OB Anatomy Anguiano (10/19/2020 1:21 PM SEWER PIPE PRESS OPERATOR) Anatomical Region Laterality Modality Body, Ultrasound OB RST LOS, Ultrasound ARZ LOS N/A Ultrasound Specimen (Source) Anatomical Location Collection Method / Collectio n Time Received Time / Laterality Volume Narrative 10/19/2020 1:27 PM SEWER PIPE PRESS OPERATOR JIM LOWE OB Exam, 10/19/2020 EXAM INFORMATION Patient Name: ??JIM LOWE : ??1985 Age: ??34 yrs Sex: ??Female Ref Phys: ??MIRIAM RUGGIERO Exam Date: 10/19/2020 Procedure: US OB ANATOMY ANGUIANO Exam Site: [facility] Plurality: 1 INDICATIONS FOR SONOGRAPHY Anatomic Survey [...] Read by Ilir Moss on 1:21:30 PM. Lawn Mower Sharpener: ??Ilir Moss Thank You For This Referral Procedure Note Eamon Dawson M.B.BIshaSIsha, Terrie. - 10/19 JIM LOWE OB Exam, 10/19/2020 EXAM INFORMATION Patient Name: MYNORJIM S : 1985 Age: 34 yrs Sex: Female Ref Phys: MIRIAM RUGGIERO Exam Date: 10/19/2020 Procedure: US OB ANATOMY ANGUIANO Exam Site: [facility] Plurality: 1 INDICATIONS FOR SONOGRAPHY Anatomic Survey [...] Read by Ilir Moss on 1:21:30 PM. Lawn Mower Sharpener: Ilir Moss Thank You For This Referral Miriam Ruggiero M.D. IMG OB US PROCEDURES Varicella-Zoster Antibody, IgG, Serum (10/19/2020 7:18 AM SEWER PIPE PRESS OPERATOR) athologist Signature Varicella-Zost Positive 10/19/2020 [facility] er Ab, IgG, S 10:41 AM SEWER PIPE PRESS OPERATOR Comment: Results suggest response to immunization or prior exposure to the virus. ----REFERENCE VALUE---- Vaccinated: Positive (>=1.1 AI) Unvaccinated: Negative (<=0.8 AI) Varicella IgG Antibody Index 1.3 10/19/2020 10:41 AM SEWER PIPE PRESS OPERATOR [facility] Specimen Anatomical Collection Method Collection Time Receive d Time (Source) Location / / Volume Laterality Blood (Blood, 10/19/2020 7:18 AM 10/19/20 20 9:43 Venous) SEWER PIPE PRESS OPERATOR AM SEWER PIPE PRESS OPERATOR Sierra Welch M.D. LAB MICROBIOLOGY - BLOOD ORD ERADIAMANTE Performing Organization Address [facility] Phon e Number [facility] [address] [place]UEL [address] [place] [address] Laboratory Medicine and Pathology [address] [place] [address] Dr. MANUEL Rubella Antibodies, IgG (10/19/2020 7:18 AM SEWER PIPE PRESS OPERATOR) athologist Signature Rubella Ab, Positive 10/19/2020 [facility] IgG, S 10:40 AM SEWER PIPE PRESS OPERATOR Comment: Results suggest response to immunization or prior exposure to the virus. ----REFERENCE VALUE---- Vaccinated: Positive (>=1.0 AI) Unvaccinated: Negative (<=0.7 AI) Rubella IgG Antibody Index 1.4 10/19/2020 10 :40 AM SEWER PIPE PRESS OPERATOR [facility] Specimen Anatomical Collection Method Collection Time Receive d Time (Source) Location / / Volume Laterality Blood (Blood, 10/19/2020 7:18 AM 10/19/20 20 9:43 Venous) SEWER PIPE PRESS OPERATOR AM SEWER PIPE PRESS OPERATOR Sierra Welch M.D. LAB MICROBIOLOGY - BLOOD ORD JENNA Performing Organization Address [facility] Phon e Number [address] [place] [address] [facility] [place] [address] Laboratory Medicine and Pathology [address] [place] [address] Dr. MANUEL (ABNORMAL) Microscopic Manual (10/19/2020 2:21 AM SEWER PIPE PRESS OPERATOR) Analysis Performed At Patho logist Time Signature Microscopy Abnormal 10/19/2020 [facility] 6:26 AM SEWER PIPE PRESS OPERATOR RBC >100 (A) <3 /hpf 10/19/2020 [facility] 6:26 AM SEWER PIPE PRESS OPERATOR Dysmorphic RBC <25 <25 % 10/19/2020 [facility] 6:26 AM SEWER PIPE PRESS OPERATOR WBC 1-3 /hpf 10/19/2020 [facility] 6:26 AM SEWER PIPE PRESS OPERATOR Comment: ----REFERENCE VALUE---- 1-3 ??(Males) 1-10 (Females) Specimen Anatomical Collection Method Collection Time Receive d Time (Source) Location / / Volume Laterality Urine 10/19/2020 2:21 AM 0 4:00 SEWER PIPE PRESS OPERATOR AM SEWER PIPE PRESS OPERATOR Sierra Welch M.D. LAB URINE ORDERABLES Performing Organization Address [facility] Phon e Number [facility]IES - [address] [place] [address] [address] [place] [address] Laboratories-[address] Bacterial Culture, Aerobic + Susc, Urine (10/19/2020 2:21 AM SEWER PIPE PRESS OPERATOR) Patholo gist Method Time Signature Urine Culture No growth 10/20/2020 DT after 1 day 8:16 AM SEWER PIPE PRESS OPERATOR of incubation. Specimen Anatomical Collection Method Collection Time Receive d Time (Source) Location / / Volume Laterality Urine (Urine, 10/19/2020 2:21 AM 10/19/20 20 5:03 Straight SEWER PIPE PRESS OPERATOR AM SEWER PIPE PRESS OPERATOR Catheter) Comment: Specimen Source Site: Urine Sierra Welch M.D. LAB MICROBIOLOGY - GENERAL O RDERABLES Performing Organization Address [facility] Phon e Number [facility]IES - [address] [place] [address] [address] (ABNORMAL) Urinalysis with Microscopic: Urine, Catheter (10/19/2020 2:21 AM SEWER PIPE PRESS OPERATOR) Analysis Performed At Patho logist Time Signature Source Catheter 10/19/2020 [facility] 4:00 AM SEWER PIPE PRESS OPERATOR Appearance Normal Normal 10/19/2020 [facility] 4:00 AM SEWER PIPE PRESS OPERATOR Osmolality, U 521 150 - 1150 10/19/2020 [facility] mOsm/kg 4:47 AM SEWER PIPE PRESS OPERATOR pH, U 6.2 4.5 - 8.0 10/19/2020 [facility] 4:47 AM SEWER PIPE PRESS OPERATOR Comment: ----ADDITIONAL INFORMATION---- This test was developed and its performa nce characteristics determined by [facility] in a manner co nsistent with CLIA requirements. This test has not bee n cleared or approved by the U.S. Food and Drug Admin istration. Glucose 8 0 - 15 mg/dL 10/19/2020 6:17 AM SEWER PIPE PRESS OPERATOR [place] Protein, U 46 (H) <26 mg/dL 10/19/2020 6:17 AM SEWER PIPE PRESS OPERATOR [facility] Comment: ----ADDITIONAL INFORMATION---- On 04/16/2017 the total protein assay me thod changed resulting in approximately a 15% increase in prote in values. Protein/Osmolality 0.88 (H) <0.42 Ratio 10/19/2020 6:17 AM SEWER PIPE PRESS OPERATOR [facility] Comment: ----ADDITIONAL INFORMATION---- On 04/16/2017 the total protein assay me thod changed resulting in approximately a 15% increase in prote in values. Predicted 24 Hr Protein 597 mg/24 h 10/19/2020 6:17 AM SEWER PIPE PRESS OPERATOR [facility] Predicted Range 148-2419 mg/24 h 10/19/2020 6:17 AM SEWER PIPE PRESS OPERATOR R JEM Hemoglobin, QL Large (A) Negative 10/19/2020 6:26 AM SEWER PIPE PRESS OPERATOR RE NA Specimen Anatomical Collection Method Collection Time Receive d Time (Source) Location / / Volume Laterality Urine (Urine, 10/19/2020 2:21 AM 10/19/20 20 4:00 Catheter) SEWER PIPE PRESS OPERATOR AM SEWER PIPE PRESS OPERATOR Sierra Welch M.D. LAB URINE ORDERABLES Performing Organization Address City/State/ZIP Code Phon e Number [facility]IES - [address] [place], [place] [address] [place] [address] Laboratories-[facility] [address] Chlamydia / Gonorrhoeae Amplified RNA (10/19/2020 2:21 AM SEWER PIPE PRESS OPERATOR) [facility] gist Method Time Signature Source Urine, 10/19/2020 [facility] Urine, First 6:58 PM SEWER PIPE PRESS OPERATOR Voided Chlamydia Negative Negative 10/19/2020 [facility] trachomatis 6:58 PM SEWER PIPE PRESS OPERATOR amplified RNA Source Urine, 10/19/2020 [facility]TL Urine, First 6:58 PM SEWER PIPE PRESS OPERATOR Voided Neisseria Negative Negative 10/19/2020 [facility] gonorrhoeae 6:58 PM SEWER PIPE PRESS OPERATOR amplified RNA Specimen Anatomical Collection Method Collection Time Receive d Time (Source) Location / / Volume Laterality Varies (Urine, 10/19/2020 2:21 AM 020 7:22 First Voided) SEWER PIPE PRESS OPERATOR AM SEWER PIPE PRESS OPERATOR Sierra Welch M.D. LAB MICROBIOLOGY - GENERAL O RDERABLES Performing Organization Address [facility] Phon e Number [facility]IES - [address] [place], [place] [address] [place] [address] [facility] [address] Drug Abuse Survey with Confirmation, Urine (10/19/2020 2:21 AM SEWER PIPE PRESS OPERATOR) Patholo gist Method Time Signature Alcohol Negative Cutoff: 10/19/2020 [facility] 10 mg/dL 9:52 AM SEWER PIPE PRESS OPERATOR Amphetamines Negative Cutoff: 10/19/2020 [facility] 500 ng/mL 9:52 AM SEWER PIPE PRESS OPERATOR Barbiturates Negative Cutoff: 10/19/2020 [facility] 200 ng/mL 9:52 AM SEWER PIPE PRESS OPERATOR Benzodiazepines Negative Cutoff: 10/19/2020 [facility] 100 ng/mL 9:52 AM SEWER PIPE PRESS OPERATOR Cocaine Negative Cutoff: 10/19/2020 [facility] 150 ng/mL 9:52 AM SEWER PIPE PRESS OPERATOR Opiates Negative Cutoff: 10/19/2020 [facility] 300 ng/mL 9:52 AM SEWER PIPE PRESS OPERATOR Phencyclidine Negative Cutoff: 10/19/2020 [facility] 25 ng/mL 9:52 AM SEWER PIPE PRESS OPERATOR Tetrahydrocannabinol Negative Cutoff: 10/19/2020 [facility] 50 ng/mL 9:52 AM SEWER PIPE PRESS OPERATOR Comment: ----ADDITIONAL INFORMATION---- This report is intended for use in clini kosta monitoring or management of patients. ??It is not intended for use i n employment-related testing. Specimen Anatomical Collection Method Collection Time Receive d Time (Source) Location / / Volume Laterality Urine (Urine, 10/19/2020 2:21 AM 10/19/20 8:50 Clean Catch) SEWER PIPE PRESS OPERATOR AM SEWER PIPE PRESS OPERATOR Sierra Welch M.D. LAB URINE ORDERABLES Performing Organization Address [facility] Phon e Number [facility] [address] MANUEL [place], [place] [address] SUPPORT [facility] [place] [address] Laboratory Medicine and Pathology [address] MANUEL (ABNORMAL) Fibrinogen (10/18/2020 9:34 PM SEWER PIPE PRESS OPERATOR) P athologist Signature Fibrinogen, P 624 (H) 200 - 393 10/18/2020 [facility] mg/dL 9:49 PM SEWER PIPE PRESS OPERATOR Specimen Anatomical Collection Method Collection Time Receive d Time (Source) Location / / Volume Laterality Blood (Blood, 10/18/2020 9:34 PM 10/18/20 20 9:40 Venous) SEWER PIPE PRESS OPERATOR PM SEWER PIPE PRESS OPERATOR Sierra Welch M.D. LAB BLOOD ADD-ON Performing Organization Address City/[facility]/ZIP Code Phon e Number [facility]IES - [address] [place], [place] [address] [facility] [place] [address] [facility] [address] Hepatitis B Surface Antigen (10/18/2020 9:34 PM SEWER PIPE PRESS OPERATOR) P athologist Signature HBs Antigen, S Negative Negative 10/19/2020 [facility] 9:23 AM SEWER PIPE PRESS OPERATOR Specimen Anatomical Collection Method Collection Time Receive d Time (Source) Location / / Volume Laterality Blood (Blood, 10/18/2020 9:34 PM 10/19/20 20 8:14 Venous) SEWER PIPE PRESS OPERATOR AM SEWER PIPE PRESS OPERATOR Sierra Welch M.D. LAB MICROBIOLOGY - BLOOD ORD ERABLES Performing Organization Address [facility] Phon e Number [facility] [address] [place], [place] [address] [facility] [place] [address] Laboratory Medicine and Pathology [address] MANUEL SARS Coronavirus 2, Molecular Detection, PCR (OFFSET PRINTING PRESSMEN) Asymptomatic (10/18/2020 8:05 PM SEWER PIPE PRESS OPERATOR) Patholo gist Method Time Signature COVID-19, PCR Undetected Undetected 10/19/2020 [facility] 12:55 AM SEWER PIPE PRESS OPERATOR Comment: SARS-CoV-2 RNA absent. This result [...] Drug Administration an d is used per manager long term care's instructions. Performance characteristics were verified by [facility] in a manner consistent with CLIA requirements. Visit the CDC website: https://www.cdc.g ov/coronavirus/ for the most recent guidelines on [place] virus testing. Fact Sheet for Healthcare Providers: https://www.fda.gov/media/994669/downloa d Fact Sheet for Patients: https://www.fda.gov/media/163956/downloa d Specimen Anatomical Collection Method Collection Time Receive d Time (Source) Location / / Volume Laterality Varies 10/18/2020 8:05 PM 0 8:40 (Nasopharynx) SEWER PIPE PRESS OPERATOR PM SEWER PIPE PRESS OPERATOR Heather Goodrich M.D. LAB MICROBIOLOGY - GENERAL O RDERABLES Performing Organization Address City/[facility]/ZIP [facility] Phon e Number [facility]IES - [address] [place], [place] [address] [facility] [place] [address] [facility] [address] [facility] Hepatitis B Surface Antigen (10/18/2020 7:59 PM SEWER PIPE PRESS OPERATOR) P athologist Signature HBs Antigen, S Negative Negative 10/19/2020 [facility] 8:04 AM SEWER PIPE PRESS OPERATOR Specimen Anatomical Collection Method Collection Time Receive d Time (Source) Location / / Volume Laterality Blood (Blood, 10/18/2020 7:59 PM 10/19/20 20 6:59 Venous) SEWER PIPE PRESS OPERATOR AM SEWER PIPE PRESS OPERATOR Sierra Welch M.D. LAB MICROBIOLOGY - BLOOD ORD ERABLES Performing Organization Address City/[facility] Phon e Number [facility] [address] MANUEL [place], [place] [address] [facility] [place] [address] Laboratory Medicine and Pathology [address] MANUEL Type and Screen (with reflex Antibody ID) (10/18/2020 7:59 PM SEWER PIPE PRESS OPERATOR) Patholo gist Method Time Signature ABORh B Pos Not 10/18/2020 [facility] applicable 8:29 PM SEWER PIPE PRESS OPERATOR Antibody Negative Negative 10/18/2020 [facility] Screen 8:44 PM SEWER PIPE PRESS OPERATOR Type & Screen 10/21/2020 10/18/2020 [facility] Expiration 23:59 8:29 PM SEWER PIPE PRESS OPERATOR Testing Saline DEFAULT 10/18/2020 ETR[facility] Location 8:08 PM SEWER PIPE PRESS OPERATOR Specimen Anatomical Collection Method Collection Time Receive d Time (Source) Location / / Volume Laterality Blood (Blood, 10/18/2020 7:59 PM 10/18/20 20 8:08 Venous) SEWER PIPE PRESS OPERATOR PM SEWER PIPE PRESS OPERATOR Sierra Weclh M.D. LAB BLOOD BANK TEST ORDERABL ES Performing Organization Address City/[facility] Phon e Number [facility] - [address] [place], [place] [address] [facility] [place] [address] Laboratories[facility] 200 [facility] (ABNORMAL) CBC without Differential (10/18/2020 7:59 PM SEWER PIPE PRESS OPERATOR) Patholo gist Method Time Signature Hemoglobin 11.0 (L) 11.6 - 10/18/2020 [facility] 15.0 g/dL 8:06 PM SEWER PIPE PRESS OPERATOR Hematocrit 31.8 (L) 35.5 - 10/18/2020 [facility] 44.9 % 8:06 PM SEWER PIPE PRESS OPERATOR Erythrocytes 3.65 (L) 3.92 - 10/18/2020 [facility] 5.13 8:06 PM SEWER PIPE PRESS OPERATOR x10(12)/L MCV 87.1 78.2 - 10/18/2020 [facility] 97.9 fL 8:06 PM SEWER PIPE PRESS OPERATOR RBC Distrib Width 13.5 12.2 - 10/18/2020 [facility] 16.1 % 8:06 PM SEWER PIPE PRESS OPERATOR Platelet Count 287 157 - 371 10/18/2020 [facility] x10(9)/L 8:06 PM SEWER PIPE PRESS OPERATOR Leukocytes 19.3 (H) 3.4 - 9.6 10/18/2020 [facility] x10(9)/L 8:06 PM SEWER PIPE PRESS OPERATOR Specimen Anatomical Collection Method Collection Time Receive d Time (Source) Location / / Volume Laterality Blood (Blood, 10/18/2020 7:59 PM 10/18/20 20 8:04 Venous) SEWER PIPE PRESS OPERATOR PM SEWER PIPE PRESS OPERATOR Sierra Welch M.D. LAB BLOOD ADD-ON Performing Organization Address City/State/ZIP Code Phon e Number [facility] - [address] [place] [address] [facility] [place] [address] Laboratories[facility] [address] [facility] HIV-1/-2 Ag and Ab Scrn, Plasma (10/18/2020 7:58 PM SEWER PIPE PRESS OPERATOR) P athologist Signature HIV-1/-2 Ag Negative Negative 10/19/2020 [facility] and Ab 9:31 AM SEWER PIPE PRESS OPERATOR Scrn, P Comment: Negative result does not rule out HIV in fection. If exposure to HIV infection occurred <14 d ays ago, contact the laboratory to request additi on of HIV-1 RNA detection / quantification test (HIV QN). Specimen Anatomical Collection Method Collection Time Receive d Time (Source) Location / / Volume Laterality Blood (Blood, 10/18/2020 7:58 PM 10/19/20 20 6:59 Venous) SEWER PIPE PRESS OPERATOR AM SEWER PIPE PRESS OPERATOR Sierra Welch M.D. LAB MICROBIOLOGY - BLOOD ORD ERABLES Performing Organization Address City/State/ZIP Code Phon e Number [facility] [address] [place], [place] [address] [place] [address] [facility] [place] [address] Laboratory Medicine and Pathology [address] [...] 900 mg New Bag 10/19/2020 5:09 AM SEWER PIPE PRESS OPERATOR 900 mg 100 mL/hr (CLEOCIN) 900 mg, intravenous, at 100 mL/hr, Administer over 30 Minutes, Every 8 hours, First dose on Sat10/18/20 at 2000, premix bag, Indications: Obstetric or gynecological infection New Bag 10/18/2020 9:41 PM SEWER PIPE PRESS OPERATOR 900 mg 100 mL/hr fentaNYL injection 100 mcg (SUBLIMAZE) Given 10/18/2020 9:49 PM SEWER PIPE PRESS OPERATOR 100 mcg 100 mcg, intravenous, Every 1 hour PRN, moderate pain or score 4-6 of 10, severe pain or score 7-10 of 10, for labor pains, Starting on Sat10/18/20 at 1939, For 3 doses, L&D Pre-Delivery, Consultation with Anesthesia for pain control if patient requests regional anesthesia and in active labor or membranes ruptured. Given 10/18/2020 8:44 PM SEWER PIPE PRESS OPERATOR 100 mcg gentamicin 290 mg in NaCl 0.9% IVPB New Bag 10/18/2020 8:41 PM SEWER PIPE PRESS OPERATOR 290 mg 215 mL/hr (GARAMYCIN) 290 mg (rounded from 285 mg = 5 mg/kg ? 57 kg Order-specific weight), intravenous, at 215 mL/hr, Administer over 30 Minutes, Once, On Sat10/18/20 at 2000, For 1 dose, Drug Monitoring Program: Pharmacist to adjust medication dosing based on indication and drug clearance factors., Indications: Obstetric or gynecological infection lactated ringers New Bag 10/19/2020 5:10 AM SEWER PIPE PRESS OPERATOR 125 mL/hr 125 mL/hr 125 mL/hr, intravenous, Continuous, Starting on Sat10/18/20 at 2000, L&D Pre-Delivery, Indications: Hang fluids for maternal dehydration, concerns, epidural placement, with antibiotics. Rate/Dose Verify 10/19/2020 2:20 AM SEWER PIPE PRESS OPERATOR 125 mL/hr 125 mL/hr Rate/Dose Verify 10/19/2020 12:00 AM SEWER PIPE PRESS OPERATOR 125 mL/hr 125 mL/hr multivitamin/mineral- tablet 1 Given 10/20/2020 9:30 AM SEWER PIPE PRESS OPERATOR 1 tablet tablet 1 tablet, oral, Daily, First dose on Kylie 10/20/20 at 0900 documented in this encounter Active and Recently Administered Medications Times are shown in SEWER PIPE PRESS OPERATOR. Scheduled Medication Order 10/18/2020 10/19/2020 10/20/2020 [...] palpation, or reach a mximum of 250 [place] units, and/or cervical change(s) occur. PRN Medication [...] COVID19 Pending 10/18/2020 10/18/2020 10/19/2020 12:56 AM SEWER PIPE PRESS OPERATOR documented as of this encounter
--- OUTSIDE RECORDS SUMMARY | 2022-10-03 15:28 | XMS_ITS | Encounter Summary ---
:1985 Author Organization [facility] Address [address] [place] [address] Care Team Providers Name Role Phone Unavailable Primary Care Provider Unavailable Reason for Visit Auth/Cert Specialty Diagnoses / Procedures Referred By Contact Refer red To Contact Diagnoses 22 Weeks Gestation (HCC) Procedures DIR Referral ID Status Reason Start Date Expiration Date Visits Requ ested Visits Authorized [id number] 1 1 Encounter Details Date Type Department Care Team Description 10/19/2020 Hospital Encounter Department of Josey Tse Obstetrics and M.DIsha Gynecology in [address] [place] [address] [place] [address] [place], [place] [phone] (Wo rk) [phone] Social History Tobacco Use Types Packs/Day Years [...] or relatives? How often do you attend pres[employer]ian or 1 to 4 times per year 11/22 hinduism services? Do you belong to any clubs or No 12/12/2020 organizations such as presybeterian groups, unions, fraternal or athletic groups, or [...] Sig Dispensed Refills Start Date End Date uoaqvbncbj-tcphbcopbzwpd-s TK 1 TO 2 TS PO Q 4 H 0 09/08/2020 aff (FIORICET, ESGIC) NEEDED. MAX 6 PER 50-325-40 mg per tablet DAY Take 1 tablet by 0 wiqehao-Hv-mepf-FA (VINATE mouth daily. ONE) 60 mg iron-1 mg per tablet documented as of this encounter Plan of Treatment Not on filedocumented as of this encounter Procedures Procedure Name Priority Date/Time Associated Comments Diagnosis US OB ANATOMY RAD - Routine 10/19/2020 1:21 Results fo r this ANGUIANO (most inpatients PM OFFICE SYSTEM ANALYST procedure a re in and all the results outpatients) section. documented in this encounter Results US OB Anatomy Anguiano (10/19/2020 1:21 PM OFFICE SYSTEM ANALYST) Anatomical Region Laterality Modality Body, Ultrasound OB RST LOS, Ultrasound ARZ LOS N/A Ultrasound Specimen (Source) Anatomical Location Collection Method / Collectio n Time Received Time / Laterality Volume Narrative 10/19/2020 1:27 PM OFFICE SYSTEM ANALYST LAURA LOWE OB Exam, 10/19/2020 EXAM INFORMATION Patient Name: ??LAURA LOWE : ??1985 Age: ??34 yrs Sex: ??Female Ref Phys: ??JOSEY TSE Exam Date: 10/19/2020 Procedure: US OB ANATOMY ANGUIANO Exam Site: [facility] Plurality: 1 INDICATIONS FOR SONOGRAPHY Anatomic Survey IMPRESSION Anhydramnios, kidneys appear to be prese nt. Exam limited by anhydramnios. NPD MEASUREMENTS ??ekllie ??wks [+/-] (R amy) % ?? BPD: [...] Read by Ilir Moss on 1:21:30 PM. Snow Removal/Plowing: ??Ilir Moss Thank You For This Referral Procedure Note Eamon Dawson M.B.B.S., MAngelo. - 10/19 MYNOR LAURADANIELITO SHIPLEY OB Exam, 10/19/2020 EXAM INFORMATION Patient Name: LAURA LOWE S : 1985 Age: 34 yrs Sex: Female Ref Phys: JOSEY TSE Exam Date: 10/19/2020 Procedure: US OB ANATOMY ANGUIANO Exam Site: [facility] Plurality: 1 INDICATIONS FOR SONOGRAPHY Anatomic [...] Read by Ilir Moss on 1:21:30 PM. Snow Removal/Plowing: Ilir Moss Thank You For This Referral Josey Tse M.D. IMG OB US PROCEDURES documented in this encounter Visit Diagnoses Not on filedocumented in this encounter
--- OUTSIDE RECORDS SUMMARY | 2022-10-03 15:28 | XMS_ITS | Encounter Summary ---
:1985 Author Organization [facility] Address [address] [place] [address] Care Team Providers Name Role Phone Unavailable Primary Care Provider Unavailable Reason for Visit Reason Comments Communication Encounter Details Date Type Department Care Team Description 10/21/2020 Clinical Communication [facility], Horacio Cinseros, Communication Scientologist [facility], [address] [place] [address] Dr MANUEL Third Floor [place], [place] [address] [facility] [address] [place], [place] [phone] [address] (Work) [phone] Social History Tobacco Use Types Packs/Day Years [...] 1 to 4 times per year 11/22 advent services? Do you belong to any clubs [...] be seen. She is an hour from [place] and 20 min from [place]. PLAN Discussed with Dr Bowman and [facility] Room RN. Patient advised to be seen immediately at nearest facility. Disposition/Recommendation: referral for services Nearest ED or OB Facility. Information/Education: patient/caller able to teach back. Caller agreeable to plan of care: yes. The following references were used: provider Dr Bowman. RGY NURSE documented in this encounter Plan of Treatment Not on filedocumented as of this encounter Visit Diagnoses Not on filedocumented in this encounter
--- OUTSIDE RECORDS SUMMARY | 2022-10-03 15:28 | XMS_ITS | Clinical Summary ---
:1985 Author Organization [facility] Address [address] [place] [address] Care Team Providers Name Role Phone Unavailable Primary Care Provider Unavailable Source Comments Patient records contain information from all sites at [facility]. For routine questions regarding patient records, call [phone] during business hours, M-F 8:00 AM - 5:00 PM Central Time. Record requests for emergency care only can be directed to [phone] at any time.[facility] Allergies Active Allergy Reactions Severity Noted Date Comments Penicillins Rash 10/18/2020 Salicylates Edema 10/18/2020 Swollen tongue Medications Medication Sig Dispensed Refills Start Date End Date Status Take 1 tablet by 0 Act angela uyvbswn-So-exxo-FA mouth daily. (VINATE ONE) 60 mg iron-1 [...] 1 to 4 times per year 11/22 mormonism services? Do you belong to any clubs [...] Comments Blood Pressure 116/69 10/20/2020 12:39 PM COMPUTER ASSISTANT Pulse 81 10/20/2020 12:39 PM COMPUTER ASSISTANT Temperature 37.2 ??C (99 ??F) 10/20/2020 12:39 PM COMPUTER ASSISTANT Respiratory Rate 18 10/20/2020 12:39 PM COMPUTER ASSISTANT Oxygen Saturation 99% 10/20/2020 12:39 PM COMPUTER ASSISTANT Inhaled Oxygen Concentration - - Weight 56.3 kg (124 lb 1.9 oz) 10/19/2020 6:30 AM COMPUTER ASSISTANT Height - - Body Mass Index - [...] Addre ss Type Group BLUE CR[place] [id number] 2020-Yuki [phone] [address] PPO BLUE SHIELD t [address] [place] [address] Advance Directives For more information, please contact: [phone] Latest Code Status on File Code Status Date Activated Date Inactivated Comments Full Code 10/18/2020 7:51 PM 10/20/2020 2:51 PM Question Answer Comments Full Code: Not Discussed Due to: Not medically appropriate
--- OUTSIDE RECORDS SUMMARY | 2022-10-03 15:28 | XMS_ITS | Clinical Summary ---
:1985 Author Organization [facility] Address [address] [place] [address] Care Team Providers Name Role Phone Unavailable [...] for each transition of care or referral. [facility] Allergies Active Allergy Reactions Severity Noted Date Comments Penicillins Rash 08/09/2022 Salicylates Other, see comments High 08/09/2022 Tongue s welling Medications Medication Sig Dispensed Refills Start Date End Date Status MV-Min-Fe 0 A ctive Fum-FA-DHA ( 1 OR) omeprazole Take 20 mg by mouth 0 05/05/2022 Active (PRILOSEC) 20 MG daily. capsule progesterone Insert 200 mg 0 07/17/2022 Ac tive (PROMETRIUM) 200 MG vaginally daily. capsule ondansetron Take 4 mg by mouth 0 03/21/2022 Active (ZOFRAN) 4 MG every 6 hours as tablet needed. FEROSUL 325 (65 Fe) Take 1 Tablet by 0 07/23/2022 Active MG tablet mouth daily. ONE TOUCH ULTRA 2 SMARTSI Each Via 0 07/27/2022 Active meter Meter As Directed ONETOUCH ULTRA test 0 07/27/2022 Active strip Lancets (ONETOUCH Apply 1 Lancet 0 07/27/2022 Active DELICA PLUS topically 4 times a BYUAOY89C) [facility] day. insulin Inject 1 Each 100 Each 08/17/2022 Activ e syringe-needle subcutaneously daily. U-100 1ml 31g x 15/64Indications: Gestational diabetes mellitus (GDM), antepartum, gestational diabetes method of control unspecified insulin isophane Take 22 units each 10 mL 4 08/24/2022 Active (NOVOLIN N) 100 night. UNIT/ML injectionIndication s: Gestational diabetes mellitus (GDM), antepartum, gestational diabetes method of control unspecified Encounters Date Type Specialty Care Team Description 09/04/2022 Telemedicine Diabetes Program Zoya Tinsley tinaomi diabetes M, RDN, LD, CDCES mellitus ( [...] ss Type Group BCBS BCBS OUT OF [id number] 2020-Present [address] [address] [place] [address]
--- OUTSIDE RECORDS SUMMARY | 2022-10-03 15:28 | XMS_ITS | Encounter Summary ---
:1985 [facility] Address [address], [place] [address] Care Team Providers Name Role Phone Unavailable Primary Care Provider Unavailable Reason for Visit Reason Comments DIABETES,GESTATIONAL Encounter Details Date Type Department Care Team Description 09/04/2022 Telemedicine [facility] ADULT DIAB [facility]CS Zoya Tinsley Ge stational diabetes ENRICO Dominguez RDN, YUSUF, BIJU mellitus (GDM), [address] [place] [address] antepartum, [place] [address] [address] gestational diabetes [phone] [place], [place] method of control [id number] unspecified (Primary [phone] (Wo rk) Dx) Social History Tobacco Use [...] later (9pm) 95 [phone] (1.5 hr) [place] quesadilla + cookie 1 hour later 09/04 [...] patient: work Time spent on video in hfzr-on-ordw contact with patient, if applicable: 18 minutes Education content taught can be found in the diabetes education smartform STOCK FARM MANAGER documented in this encounter Plan of Treatment Not on filedocumented as of this encounter Visit Diagnoses Diagnosis Gestational diabetes mellitus (GDM), ant epartum, gestational diabetes method of control unspecified - Primary documented in this encounter
--- OUTSIDE RECORDS SUMMARY | 2022-10-03 15:28 | XMS_ITS | Encounter Summary ---
:1985 Author Organization [facility] Address [address], [place] [address] Care Team Providers Name Role Phone Unavailable Primary Care Provider Unavailable Reason for Visit Reason Comments APPOINTMENT REQUEST Referral for GDM Encounter Details Date Type Department Care Team Description 08/02/2022 Telephone [facility] 3800 Nurse, [id number] End APPOINTMENT REQUEST Endocrinology [address] (Referral for GDM) [address] [facility] [place] [address] Social History Tobacco Use Types Packs/Day Years Used Date Smoking Tobacco: Never Assessed Sex Assigned at Date Recorded Not on file documented as of this encounter Nursing Notes Sagrario Luna - 08/03/2022 9:49 AM CDT LVM to schedule GDM consult Sagrario Luna - 08/02/2022 9:18 AM CDT Faxed referral rec'd from [facility] for GDM, records sent to scan doc documented in this encounter Plan of Treatment Not on filedocumented as of this encounter Visit Diagnoses Not on filedocumented in this encounter
--- OUTSIDE RECORDS SUMMARY | 2022-10-03 15:28 | XMS_ITS | Encounter Summary ---
:1985 Author Organization [facility] Address [address], [place] [address] Care Team Providers Name Role Phone Unavailable Primary Care Provider Unavailable Reason for Referral Consult/Transfer Care (Routine) - New Request Specialty Diagnoses / Procedures Referred By Contact Refer red To Contact Diagnoses Gestational diabetes mellitus (GDM), antepartum, gestational diabetes method of control unspecified Henrietta Ortega PA-C [address] [place], [place] [address] Referral ID Status Reason Start Date Expiration Date Visits V isits Requested Authorized [id number] New Request 08/03/2022 11/02/2023 1 1 Scheduling Instructions Your provider has recommended an appoint ment with [facility]. You may call [phone] to schedule yo ur appointment. We suggest you call your health insurance company about your c[place] rage and benefits for this appointment. Encounter Details Date Type Department Care Team Description 08/03/2022 Notes/Orders [facility] [address] Henrietta Ortega PA-C Gestational diabetes Endocrinology [address] mellitus (GDM), [address] [place] [address] method of control [id number] unspecified (Primary [phone] Dx) Social History Tobacco Use Types Packs/Day [...]
--- OUTSIDE RECORDS SUMMARY | 2022-10-03 15:28 | XMS_ITS | Encounter Summary ---
:1985 Author Organization [facility] Address [address], [place] [address] Care Team Providers Name Role Phone Unavailable Primary Care Provider Unavailable Encounter Details Date Type Department Care Team Description 08/14/2022 Telemedicine [facility] [address] Henrietta Ortega PA-C Gestational diabetes Endocrinology [address] mellitus (GDM), [address] antepartum, [address] [place], [place] [address] method of control [id number] unspecified (Primary [phone] Dx) Social History Tobacco Use Types Packs/Day [...] from the original note were not included. [facility]: [address] [address] [phone], Nurse Line: [phone] Gestational Diabetes Visit Note August 14, 2022 [...] No hx of pre-eclampsia. She met with cafe server at OB office and started checking her [...] information. Family history: DM:yes-grandmother and aunt. See [facility] for complete family history. Current Medications: No current diabetes medications. All medications reviewed and updated in [facility] today. Objective: Physical Exam: There were [...]
--- OUTSIDE RECORDS SUMMARY | 2022-10-03 15:28 | XMS_ITS | Encounter Summary ---
:1985 Author Organization [facility] Address [address] [place] [address] Care Team Providers Name Role Phone Unavailable Primary Care Provider Unavailable Reason for Visit Outpatient (Routine) - Closed Specialty Diagnoses / Procedures Referred By Contact Refer red To Contact Maternal and Diagnoses Premature Rupture Of Membranes Unspecified As To Length Of Time Between Rupture And Onset Of Labor Second Trimester ([facility]) 21 Weeks Gestation ([facility]) [facility] Janelle Dominguez M.D. [address] [place] [address] Referral ID Status Reason Start Date Expiration Date Visits Requ ested Visits Authorized [id number] Closed 11/02/2020 11/02/2021 1 1 Encounter Details Date Type Department Care Team Description 12/16/2020 Telemedicine Department of Saqib Strong, Diana ture Rupture Of Membranes Unspecified As To Length Of Time Between Rupture And Onset Of Labor Second Trimester; Obstetrics and M.D. 21 Weeks Gestation Gynecology in [address] [place] [address] [place] [address] [place], [place] [phone] (Work) [phone] Social History Tobacco Use Types Packs/Day Years [...] or relatives? How often do you attend yazdanism or 1 to 4 times per year 11/22 baptism services? Do you belong to any clubs or No 12/12/2020 organizations such as yazdanism groups, unions, fraternal or athletic groups, or [...] or the highest technical, or vocational p [facility] degree you have received? Sex Assigned at Date Recorded Not on file documented as of this encounter Consult Notes Saqib Strong M.D. - 12/16/2020 8:00 AM CST Consult conducted via real-time audio/video technology by Saqib Strong M.D. in [facility] to the patient in patient home. 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 Mrs. Salinas's obstetrical history is significant for three term vaginal deliveries and one first-trimester miscarriage. In her fifth (2019), she was admitted o [facility] following spontaneous PPROM at 21 weeks gestation. Ultrasound demonstrated normal anatomy and biometry; olig ohydramnios was noted (as anticipated). After an interval of inpatient observation, Mrs. Salinas and her elected to pursue expectant management and were discharged to home. Subsequently she developed labor at 21 weeks and delivered her daughter in [place]; her daughter appeared morphologically normal, and survived for approximately 60 minutes. Difficulty was encountered with retained placenta, requiring manual extraction and D&C; Mrs. Salinas was treated with a course of intravenous antibiotic therapy. 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 Salinas experienced retained placenta requiring manual extraction in her first as well. Regarding her heterozygous prothrombin [id number] heterozygote status, Mrs. Salinas was screening for thrombophilias after an aunt experienced an episode of thrombosis and tested positive for Factor V Leiden and the Prothrombin [id number] mutation; neither she personally nor any first-degree [...] determine viability/number and define gestational age. (in [place]) 3. Maternal cystic fibrosis/SMA and aneuploidy screening at 10-12 weeks (per her preference). 4. Consideration of early anatomic ultrasound at 11-14 weeks. 5. Sonographic cervix length surveillance beginning at 16 weeks and repeated weekly through 22 6/7 weeks, with contingent cerclage placement if cervix length shortens to <25mm prior to 23 0/7 weeks.(initial imaging study in [place]) 6. Consideration of 17-hydroxyprogesterone caprate prophylaxis (250mg IM weekly), beginning at 16-20weeks and continuing through 36 weeks. 7. Detailed anatomic survey ultrasound at 18-20 weeks. (in [place]) 8. Repeat ultrasound at 30-32 weeks to evaluate placental appearance for any evidence of accreta. 9. Consider induction of labor at 39 0/7-39 6/7 weeks; this may be scheduled either in [place] or in [place] pending resource availability. Mrs. Salinas resides approximately 1 hour from [place]. Intrapartum: 10. Obtain CBC and type & [...] I will arrange for initial appointments in [place]. Further care may be coordinated between [place] and [place]. I will also forward materials regarding placenta accreta occulta. Saqib Strong M.D. FARM SUPPORT SPECIALIST documented in this encounter Plan of Treatment Not on filedocumented as of this encounter Visit Diagnoses Diagnosis Premature Rupture Of Membranes U nspecified As To Length Of Time Between Rupture And Onset Of Labor Second Trimes ter (HCC) 21 Weeks Gestation (HCC) documented in this encounter
--- OUTSIDE RECORDS SUMMARY | 2022-10-03 15:28 | XMS_ITS | Clinical Summary ---
:1985 Author Organization [facility] [employer] [facility] [place] [address] Care Team Providers Name Role Phone Pcp, [...] daily. tablet Active Problems Problem Noted Date [facility] Supervision of high-risk 03/29/2022 Overview: [facility] CONSULTATION ON 04/03/22 -- Virtual Visit REASON FOR CONSULT: risks and management pt had pre- consult at [place]-- recommended cervical lengths at 16w, possibly cerclage [...] by US REFERRING PHYSICIAN/PHONE/LAST [phone] Primary MD approves scheduling of recomm ended ultrasounds/testing: Yes SPECIALISTS/CONSULTS: Include: Specialty MD Clinic Name Phone# [place] and ADDED TO PATIENT CARE TEAM No CARE COORDINATION: GENETICS: declined PROCEDURES: PERTINENT LABS: B POS PERTINENT MEDS: PNV, pepcid, omeprazole, zofran Preferred delivery location: PLAN OF CARE: Menorrhagia 09/29/2008 Routine general medical examination at [facility] acility 09/29/2008 Palpitations 09/29/2008 Other [...] Hospital Encounter Twin Felix 08/24/2022 MD Adolph 07/31/2022 Hospital Encounter Arin Hernandez History of [...] Date Smoking Tobacco: Never Smokeless Tobacco: Never Tobacco Cessation: Counseling Given: No Alcohol Use [...] F VAGINAL SAIDA N Delivery Location: Hospital ([facility]) Comments: IUGR 2014 Term 37w0d 3.37 kg (7 lb 7 oz) M 2019 SAB 7w0d Current OB Episode Summary Episode Dates Number of Fetuses Estimated Date of [place] li[place] 04/03/2022 - Present (10/03/2022) 2021 (set by Mira Montilla RN on 04/03/2022 bas ed on Other Basis) Dating Summary Based On BUTCH GA Diff Other Basis 10/08/2022 Working Vitals Pregravid Weight Height TWG (As of 10/03/2022) Pregravid BMI 1.626 m (5' 4) Date GA Fund Present FHR Mvmt BP Weight Edema Alb Glu Ket Dil/Eff/S ta 04/03/2022 13w1d Inpatient data not d isplayed here. See encounter summary. 05/23/2022 20w2d Inpatient data not d isplayed here. See encounter summary. 07/31/2022 30w1d Inpatient data not d isplayed here. See encounter summary. 08/23/2022 33w4d Inpatient data not d isplayed here. See encounter summary. Notes Progress Notes - Hospital Encounter - - GA:33w4d 08/24/2022 - w - Carla Monteiro RN Formatting of this note might be differe nt from the original. Assumed care of patient after report radha [...] precaution education. Declined Printed AVS. 08/24/2022 - wgonzález - Chayo Shah RN Formatting of this note might be differe nt from the original. 0040: Pt still feels like she is [...] RN .................... 08/24/2022 12:55 AM 08/24/2022 - 33wgonzález - Chayo Shah RN Formatting of this note might be differe nt from the original. Laura Salinas is a at 33w3d ge station presenting to the maternal assessment center for questionable ruptured membranes. Pt reports some contractions this afternoon and then noticed some leakin g at around 1800 today. Pt has a hx of a n accreta with a loss in 2020. Pt has been doctoring in [place], but has had consults with [facility] because of history. Pt was cleared to delivery in [facility] only after 35 wks. Vitals were taken, [...] on JOHN and SVE. Strip reviewed with MD. Will keep patient on the monitor for another hour. Will recheck if pt desires, but if contractions don't seem t o pickle maker pt ok to discharge home. Repor t to Rekha GROSSMAN. Chayo Shah RN .................... 08/23/2022 11:48 PM Progress Notes - Hospital Encounter - - GA:30w1d 07/31/2022 - 30w1d - Arin Hernandez MD Formatting of this note might be differe nt from the original. [facility] Ultrasound Visit Your patient had an ultrasound with [facility] on 07/31/2022. The report is ready and can be found in the [facility]. The Impression from the report [...] 39 weeks New government regulations related to [employer] act require that this note be released to the patient immediately, sometimes before the referring provider has been contacted. A portion of t he information was presented verbally to the patient. The remainder is submitted as background for the referring provider, to be discussed as needed. Progress Notes - Hospital Encounter - - GA:20w2d 05/23/2022 - 20w2d - Heather Hernandes MD Formatting of this note might be differe nt from the original. [facility] Ultrasound 05/23/22 Referred By: DARSHAN MULLINS Indications [...] follow up US. She plans delivery in [place] which is reasonable as long as follow up US lo oks normal. She continues vaginal progesterone and s erial cervical length US in [place] (see prior consult letter in EPIC). New [...] risk Services Provided: Procedures Code DETAIL ANATOMY 94120.0 TRANSVAGINAL ULTRASOUND 04893.0 Heather Hernandes MD 05/23/2022 - w2d - Rosa Tam RN Formatting of this note might be differe nt from the original. HOTEL SERVER: I was the clinical data management manager for the [facility] and I was present during the entire exam. Rosa Tam RN ................... . 05/23/2022 2:51 PM Progress Notes - Hospital Encounter - - GA:13w1d 04/03/2022 - w1d - Mira Montilla RN Formatting of this note might be differe nt from the original. TELEHEALTH As the RN [...] She was referred by Annita Bhakta CNM [place] Assessment Histories reviewed today include: Past M edical History, Past Surgical History, Social History and Family History and Obstetric History. Refer to the corresponding sections of the history section of Exce ian chart and the [facility] Naviga tor for details. Comments under [...] patient's home address. Is referring provider within [facility]? 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 Strip Time Segment: 2238 to 0109 [facility]/Acct: [id number] ? Admitting Physician: ??Twin kirkpatrick MD Gestational [...] Vaginosis by IBAN (08/23/2022 11:24 PM CDT) [facility] Method Time Signature ZAYNAB SPECIES Negative Negative 08/24/2022 [employer] 4:33 AM CDT LABORATORY-[place] TRAL LABORATORY ZAYNAB Negative Negative 08/24/2022 [facility]ji GLABRATA 4:33 AM CDT LABORATORY-[place] TRAL LABORATORY TRICHOMONAS VVA Negative Negative 08/24/2022 [facility] 4:33 AM CDT LABORATORY-[place] TRAL LABORATORY BACTERIAL Negative Negative 08/24/2022 [facility] VAGINOSIS 4:33 AM CDT LABORATORY-[place] TRAL LABORATORY Specimen Anatomical Collection Method Collection Time Receive d Time (Source) Location / / Volume Laterality Other VAGINAL SWAB / Non-Blood / 08/23/2022 11:24 2 Unknown Unknown PM CDT 11:38 PM CDT Twin Felix MD MICROBIOLOGY Performing Organization Address City/State/ZIP Code Phon e Number [facility] [address] [place], [place] [address] [address] LABORATORY-CENTRAL 2000 LABORATORY AMNISURE ROM (08/23/2022 11:05 PM CDT)Only the most recent of2 resultswithin the time period is included. [facility] Method Time Signature AMNISURE ROM Negative, NO Negative, NO 08[facility]24/2022 [facility] 1:03 AM CDT LABORATORY-CE RUPTURE RUPTURE NTRAL LABORATORY Specimen Anatomical Collection Method Collection Time Receive d Time (Source) Location / / Volume Laterality Body Fluid VAGINAL SWAB / Non-Blood / 08/23/2022 11:05 2 Unknown Unknown PM CDT 12:22 AM CDT Twin Felix MD LABORATORY Performing Organization Address City/State/ZIP Code Phon e Number [facility] [address] [place] [address] LABORATORY-CENTRAL 1999 LABORATORY Growth Follow Up Any Trimester (CPT 16940) If BPP w/NST needed use Testing section [...] as needed. Medical Decision Making: Moderate Level 86692 ?Moderate number of Diagnoses inclu ding one [...] Services Provided: Procedures Code FOLLOW UP GROWTH 18695.0 TRANSVAGINAL ULTRASOUND 48245.0 Procedure Note Arin Hernandez MD - 07/31/2022For matting of this note might be different from the original. Referred By: DARSHAN MULLINS INDICATION:Low lying placenta IndicationsCode 30 weeks gestation of [id number] History of PTD / PROM D&C x2 [...] as needed. Medical Decision Making: Moderate Level 99798 Moderate number of Diagnoses including one previously undiagnosed new problem with uncertain prognosis, a low lying placent a, LGA fetus Moderate complexity of Data including r eview of prior ultrasound, ordering another ultrasound, and review of prior external notes, Moderate risk of morbidity or mortality to the fetus from possible need for early delivery which was discussed. Services Provided: ProceduresCode FOLLOW UP [id number] TRANSVAGINAL [id number] Heather Hernandes MD from Last 3 Months Insurance Payer Benefit Plan / Subscriber ID Effective Dates Phone Addre ss Type Group BLUE CROSS BLUE CROSS OF [id number] 2020-Present [address] [address] [place] [address] Care Teams Manager Cath Lab Relationship Specialty Start Date End Date Pcp, No PCP - General 11/18/13 . Annita Moreira CNM Referring Provider Certified Nurse Overhead Cleaner 03/22/22 3 [address] [place] [address]
== END 2022-10-03 15:27 | disposition home or self-care (01) ==
LOC: NFLDREF 15:26
PROVIDERS: Visit Provider Registered Nurse
DX: R39.15 Urgency of urination (principal)
CPT/HCPCS: 87086

== ENCOUNTER 2022-10-23 15:11 | Outpatient (CLI) | payer BC, SELFPAY ==
[2022-10-23 08:33] LABS: Glucose Fasting Check 93 mg/dl (60-115)
[2022-10-23 13:09] LABS: Glucose 2 Hour 82 mg/dl (70-95)
[2022-10-23 13:09] LABS: Glucose Fasting 95 mg/dl (70-95)
== END 2022-10-23 15:12 | disposition home or self-care (01) ==
PROVIDERS: Visit Provider Registered Nurse
DX: O24.419 Gestational diabetes mellitus in pregnancy, unspecified control (principal)
CPT/HCPCS: 82947; 82950

== ENCOUNTER 2022-12-31 09:00 | Outpatient (RCR) | payer BC, SELFPAY | END 2023-04-11 13:06 | disposition home or self-care (01) | PROVIDERS: PCP Registered Nurse; Visit Provider Registered Nurse | DX: N39.46 Mixed incontinence (principal); N81.10 Cystocele, unspecified; R27.8 Other lack of coordination; Z51.89 Encounter for other specified aftercare | CPT/HCPCS: 97110; 97140; 97162; 97535 ==

== ENCOUNTER 2025-07-13 09:32 | Outpatient (CLI) | payer BC, SELFPAY | END 2025-07-13 09:33 | disposition home or self-care (01) | PROVIDERS: Visit Provider Internal Medicine | DX: R53.83 Other fatigue (principal) | CPT/HCPCS: 80053; 84443; 86038; 86200; 86431 ==